=== PATIENT | female | born 1935 | race Caucasian/White ===

== ENCOUNTER → 2016-08-15 | Outpatient (CLI) | payer BC ==
[~2016-08-15] MED LIST: ASPI81TA28 PO; CALC600T9 PO; CLR10 PO; MLXESC PO; MULT-506 PO; PRT40 PO; SALI0.657 NAE; TRIA1SPR4 NAE
[2016-08-15 15:08] LABS: ALB/GLOB RATIO 0.9 (0.9-2); ALKALINE PHOSPHATASE 87 U/L (45-117); ALT/SGPT 25 U/L (12-78); AST/SGOT 17 U/L (15-37); BLOOD UREA NITROGEN 13 mg/dl (7-18); CALCIUM 9.5 mg/dl (8.5-10.1); CARBON DIOXIDE 29 mmol/L (21-32); CHLORIDE 100 mmol/L (98-107); CREATININE 0.91 mg/dl (0.60-1.20); GLUCOSE 91 mg/dl (70-99); POTASSIUM 4.2 mmol/L (3.5-5.1); SODIUM 137 mmol/L (136-145)
== END | disposition home or self-care (01) ==
LOC: C.LABBC 10:22
PROVIDERS: ATTEND Internal Medicine
DX: R00.2 Palpitations (principal)

== ENCOUNTER → 2017-03-27 | Outpatient (CLI) | payer BC ==
--- NOTE | 2017-03-28 07:54 | MAMMOGRAPHY REPORT ---
BILATERAL DIGITAL SCREENING MAMMOGRAM TOMOSYNTHESIS WITH CAD: 03/27/2017 CLINICAL HISTORY: Routine screening. Patient has no complaints. TECHNIQUE: Breast tomosynthesis in addition to standard 2D mammography was performed. Current study was also evaluated with a Computer Aided Detection (CAD) system. COMPARISON: Comparison is made to exams dated: 03/05/2016 mammogram, 03/01/2015 mammogram, 02/24/2014 mammogram, 02/23/2013 mammogram, 02/21/2012 mammogram, and 02/20/2011 mammogram - [facility]. BREAST COMPOSITION: The tissue of both breasts is heterogeneously dense, which may obscure small mas ses. FINDINGS: No suspicious masses, calcifications, or areas of architectural distortion are noted in ei ther breast. There has been no significant interval change compared to prior exams. IMPRESSION: ACR BI-RADS CATEGORY 1: NEGATIVE There is no mammographic evidence of malignancy. A 1 year screening mammogram is recommended. The pa tient will receive written notification of the results. Approximately 10% of breast cancers are not detected with mammography. A negative mammographic report should not delay biopsy if a clinically suggestive mass is present. Carole Pringle M.D. ah/:03/27/2017 14:32:00 Brand Ambassador Promotional Model: Denise STOCKTON(Aly)(M), [facility] letter sent: Normal 1/2 BI-RADS Code: ACR BI-RADS Category 1: Negative
== END | disposition home or self-care (01) ==
LOC: C.MAMM 13:43
PROVIDERS: ATTEND Obstetrics & Gynecology
DX: Z12.31 Encounter for screening mammogram for malignant neoplasm of breast (principal)

== ENCOUNTER 2022-11-30 14:50 | Inpatient (IN) ==
[2022-11-30] MEDS ORDERED: CEFEPIME 2,000 MG/20 ML VIAL IV STA (15:07)
[2022-11-30] MEDS ORDERED: SODIUM CHLORIDE 0.9% 1000ML 1,000 ML IV ONE (15:07)
[2022-11-30] MEDS ORDERED: LORazepam 2 MG/1 ML VIAL IV STA (15:07)
[2022-11-30] MEDS ORDERED: STAT IV STA ×2 (15:14→20:28)
[2022-11-30] MEDS ORDERED: SODIUM CHLORIDE 3 % 100 ML IV ONE (15:14)
[2022-11-30 15:17] LABS: iSTAT Creatinine 0.6 mg/dl (0.6-1.3); iSTAT Hemoglobin 15.3 g/dl (12.0-16.0); iSTAT Ionized Calcium 1.15 mmol/l (1.12-1.32); iSTAT Potassium 4.2 mmol/L (3.3-5.0)
[2022-11-30 15:33] LABS: Basophils # (auto) 0.03 K/uL (0-0.2); Basophils % (auto) 0.2 %; Eosinophils # (auto) 0.02 K/uL (0-0.50); Eosinophils % (auto) 0.2 %; Hematocrit (blood only) 38.9 % (37.0-47.0); Hemoglobin 13.6 g/dl (12.0-16.0); Immature Granulocytes # (auto) 0.05 K/uL (0.01-0.20); Immature Granulocytes % (auto) 0.4 %; Lymphocytes # (auto) 1.42 K/uL (1.2-3.4); Lymphocytes % (auto) 11.6 %; Mean Corpuscular Hemoglobin 28.6 pg (25.0-34.0); Mean Corpuscular Volume 81.9 fL (80.0-100.0); Mean Platelet Volume 9.3 fL (9.4-12.4); Monocytes # (auto) 1.08 K/uL (0.11-0.59); Monocytes % (auto) 8.8 %; Neutrophils # (auto) 9.65 K/uL (1.40-6.50); Neutrophils % (auto) 78.8 %; Platelet Count 372 K/uL (130-400); RDW Coefficient of Variation 16.2 % (11.5-14.5); RDW Standard Deviation 48.6 fL (36.4-46.3); Red Blood Count 4.75 M/uL (4.20-5.40); White Blood Count 12.25 K/ul (4.8-10.8)
[2022-11-30 15:42] LABS: Appearance Urine Clear (Clear); Bilirubin Urine Negative (Negative); Blood Urine Negative (Negative); Color Urine Yellow; Glucose Urine UA Negative (Negative); Ketones Urine Trace (Negative); Leukocyte Esterase Urine Negative (Negative); Nitrite Urine Negative (Negative); Protein Urine Negative (Negative); Specific Gravity Urine 1.008 (1.000-1.030); Urobilinogen Urine Negative (Negative)
[2022-11-30 15:47] LABS: Albumin Level 4.2 gm/dl (3.4-5.0); BUN Creatinine Ratio 11.7 (10-20); Bilirubin Direct 0.1 mg/dl (0-0.2); Bilirubin,Total 0.7 mg/dl (0.2-1.0); Calcium 9.6 mg/dl (8.6-10.3); Creatinine Clr Calc Pharmacy 52.6 ml/min; Magnesium 1.9 mg/dl (1.7-2.4); Potassium 4.3 mmol/L (3.5-5.1)
--- NOTE | 2022-11-30 15:51 | XRay Report ---
XR chest 1V portable HISTORY: Sepsis COMPARISON: Chest 11/05/2022. FINDINGS: No pneumothorax. No pleural effusions. The cardiac silhouette is normal in size. Stable sma ll scarlike densities within the right lung apex. No new focal lung consolidations to suggest a pneum onia. No evidence for pulmonary edema. IMPRESSION: No acute process. ACT 112: Negative or not required by law. Electronically signed by: Timothy Rasmussen M.D. 11/30/2022 3:49 PM
[2022-11-30 15:52] LABS: Troponin I High Sensitivity 8.3 pg/ml (0-14)
[2022-11-30 15:55] LABS: INR 0.9 (0.9-1.1); Partial Thromboplastin Ratio 0.8; Partial Thromboplastin Time 23.5 Seconds (21.0-31.0); Prothrombin Time 10.4 Seconds (9.0-12.0)
--- NOTE | 2022-11-30 16:09 | CT Scan Report ---
CT head/brain wo con CLINICAL HISTORY: 87 years-old Female with altered. Acutely altered mental status TECHNIQUE: Multiple axial CT images of the head were obtained without contrast. A dose lowering tech nique was utilized adhering to the principles of ALARA. CT DOSE: 625.80 mGy.cm COMPARISON: 02/07/2016. FINDINGS: No acute intracranial hemorrhage, midline shift, intracranial mass, hydrocephalus, territorial ischem ia or abnormal extra-axial collection. 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 The calvarium is intact. The paranasal sinuses, mastoid air cells, and middle ear cavities are clear . IMPRESSION: No acute intracranial abnormality. ACT 112: Negative or not required by law. The above report was generated using voice recognition software. It may contain grammatical, syntax o r spelling errors. Electronically signed by: Anand Moore M.D. 11/30/2022 4:08 PM
--- NOTE | 2022-11-30 16:40 | Emergency Department Note ---
Impression & Plan Altered mental status, Hyponatremia, Leukocytosis, Elevated prolactin level, Elevated lactic acid level ED Provider Note NAME: LEENA BAIG AGE: 87 SEX: F : 1935 ARRIVES VIA: Ambulance INFORMANT: [Nursing, EMS] ED PROVIDER(S): [Magen Welch MD] CHIEF COMPLAINT: Altered mental state HISTORY OF PRESENT ILLNESS: The patient is a 87-year-old female who was found altered and down on the floor of her apartment at [facility]. Last known well time is unknown. The patient's blood sugar was 140 as per EMS. The patient can give no history, no further history obtainable given the circumstances PMHx/PSHx: See Below SOCIAL HISTORY: See Below. PHYSICAL EXAM: GENERAL: Patient is in moderate distress, seems agitated. HEENT: No acute trauma, normocephalic atraumatic, mucous membranes moist, no nasal congestion. Pupils equal and reactive to light. NECK: No stridor, no adenopathy, no meningismus, trachea is midline. LUNGS: Clear to auscultation bilaterally, no wheeze, no rhonchi, breath sounds equal. HEART: Without murmurs gallops or rubs, regular rate and rhythm. ABDOMEN: Soft, nontender, bowel sounds positive, no peritonitis. EXTREMITIES: No cyanosis or edema, full range of motion of all the joints without pain or difficulty. There is no deformity to the upper or lower extremities. There are some older contusions and abrasions to all 4 extremities. NEUROLOGIC: Awake, moves all extremities, currently nonverbal. Does not follow commands. SKIN: No rash, no jaundice, no diaphoresis. DIFFERENTIAL DIAGNOSIS: Intracranial bleeding, stroke, seizure, electrolyte imbalance, sepsis or bacteremia, dysrhythmia, RI, among others. EMERGENCY DEPARTMENT COURSE/PROCEDURES: Prior/Outside records reviewed: EMS notes. ECG per my interpretation: Indication was altered mental state. The ECG shows a sinus rhythm with a first-degree AV block with some baseline artifact. The rate is 87. There is no ST elevation, no PVCs. The QTc is 438. A potential old septal infarct was seen. Continuous Cardiac Monitoring per my interpretation: An order was placed for continuous cardiac monitoring. The monitor shows a rate of 83 with sinus rhythm with a first-degree block. Critical Care Note: I have personally spent 55 minutes of critical care time in the direct management of this patient. This includes bedside care, interpretation of diagnostic studies, and testing, discussion with consultants, patient, and family members, and other required patient management activities. This 55 minutes is in excess of all separately billable procedures. MEDICAL DECISION MAKING: There is a mild leukocytosis, this could be consistent with infection or the stress of her current situation. There was a normal hemoglobin and platelet count. No coagulopathy. Sodium was quite low at 123. This is a drop for her. No renal failure. Lactic acid level was elevated consistent with potential sepsis or dehydration. No concerning liver enzyme elevation. Total CK was not elevated making rhabdomyolysis unlikely. Procalcitonin level was not elevated making serious bacterial infection unlikely. ECG showed a sinus rhythm with a first-degree block, no ischemia or dysrhythmia. Cardiac enzyme testing x1 is not consistent with acute cardiac injury. Prolactin level was elevated consistent with potential recent seizure activity. Urinalysis showed ketones, no infection. Brain CT showed no acute bleed or mass effect. Chest film per my review did not show pneumonia, CHF or mediastinal widening. On exam, the patient was awake and moving all extremities. She was confused and altered. The patient received IV saline, a total of 2 L. She received IV Ativan for her agitation and to prevent potential recurrent seizure. She was given IV Keppra, 2 g, she was given IV cefepime as empiric antibiotic coverage. As per the nursing staff, the patient's mental status began to improve while here in the ED. This would be consistent with a postictal state. The patient did fall asleep after her dose of IV Ativan. I did speak with the patient's daughter, Lucrecia. She was updated on the patient's condition. I did speak with case management, the on-call hospitalist was consulted. Patient was given IV hypertonic saline, 100 cc. This was given to boost the lower sodium value and to hopefully prevent further seizure activity. In short, I suspect the patient had a seizure from her lower sodium. This would explain her initial altered mental status and mental status improvement while here in the ED. Further care in the hospital is warranted. DISPOSITION: Patient's presentation and findings warrant a hospital stay and further testing/work-up. Past Med/Surg History Medical History (Updated 11/30/22 @ 19:49 by Magen Welch MD) Dyslipidemia Family history of colon cancer Osteopenia after menopause Pancreatic cyst Surgical History History of colonoscopy History of varicose vein ligation and stripping S/P tubal ligation Family History Sister Breast cancer Coronary heart disease Father Stroke Mother Breast cancer Son Narcolepsy Other No family history of adverse response to anesthesia No family history of bleeding disorder Denies family history of Ovarian cancer Prostate cancer Diabetes Lung cancer Colorectal cancer Social History Smoking Status: Never smoker Second Hand Exposure: No; Do You Dip or Chew Tobacco: No; Hx Alcohol Use: Yes (5x per week ) Alcohol type: wine and hard liquor Alcohol Intake Frequency: 2-3 x/Week Hx Substance Use: No Preferred Language: Slovenian Communication Ability: Effective Visual Impairment: Limited Hearing Ability: Normal Beliefs That Will Affect Care: None marital status: Current Living Situation: Alone current occupational status: retired How many Children do You have: 3 Feels Safe at Home: Yes Childhood Exposure to Second-Hand Smoke: Yes (father smoked pipe occassionally ) Diet: regular caffeine: Yes (coffee and tea ) Dental Care, Regularly: Yes Physical Activity Frequency: Daily Physical Activity Frequency Comment: walk Seatbelt Use: always Sunscreen Use: Yes Allergies Allergies Allergy/AdvReac Type Severity Reaction Status Date / Time Penicillins Allergy Unknown Unknown rxn Verified 11/30/22 17:39 azithromycin [From Zithromax] Allergy Unknown Verified 11/30/22 17:39 doxycycline Allergy Unknown Verified 11/30/22 17:39 risedronate sodium Allergy Unknown Verified 11/30/22 17:39 [From Actonel] Home Meds Home Medications Medication Instructions Recorded Confirmed triamcinolone acetonide 55 mcg 2 sprays intranasal DAILY PRN .. 01/22/19 11/30/22 nasal spray aerosol #1 mL timolol 0.5 % eye drops 1 drp ophthalmic (eye) DAILY 02/21/22 11/30/22 alendronate 70 mg tablet (Fosamax) 70 mg PO WK 11/30/22 11/30/22 aspirin 81 mg tablet,delayed 81 mg PO DAILY 11/30/22 11/30/22 release betamethasone dipropionate 0.05 % 1 applic topical BID PRN itching 11/30/22 11/30/22 topical cream bimatoprost 0.01 % eye drops 1 drp OPB DAILY 11/30/22 11/30/22 (Jason) calcium carbonate 600 mg-vitamin 1 tab PO BID 11/30/22 11/30/22 D3 10 mcg (400 unit) tablet (Calcium 600 + D(3)) ipratropium bromide 21 mcg (0.03 1 spray intranasal DIRECTED 11/30/22 11/30/22 %) nasal spray Previous Rx's Medication Instructions Recorded nystatin-triamcinolone 100,000 1 applic topical TID PRN vaginal 02/27/22 unit/gram-0.1 % topical ointment irritation 10 days #30 grams Results & Data (ED) Vital Signs Vital Signs - 24 hr 11/30/22 14:55 11/30/22 15:05 11/30/22 15:07 Temperature 36.4 C L Temperature Source Oral Pulse Rate 92 H Pulse Rate from SpO2 Sensor Respiratory Rate 20 Blood Pressure 213/118 H Blood Pressure Mean 149 Pulse Oximetry 99 95 Oxygen Delivery Method Room Air Room Air Room Air Sepsis Recent Fever Within 48 Hours No Sepsis New/Unexplained Change in Mental Status Yes Sepsis Action Taken by Nursing No Action Required 11/30/22 15:52 11/30/22 15:00 11/30/22 15:08 Temperature Temperature Source Pulse Rate 83 78 Pulse Rate from SpO2 Sensor 80 Respiratory Rate 24 Blood Pressure 193/89 H Blood Pressure Mean 125 Pulse Oximetry 98 Oxygen Delivery Method Sepsis Recent Fever Within 48 Hours Sepsis New/Unexplained Change in Mental Status Sepsis Action Taken by Nursing 11/30/22 15:08 11/30/22 15:16 11/30/22 15:16 Temperature Temperature Source Pulse Rate 93 H 82 Pulse Rate from SpO2 Sensor 92 H Respiratory Rate 20 20 Blood Pressure 227/79 H Blood Pressure Mean 107 Pulse Oximetry 100 Oxygen Delivery Method Sepsis Recent Fever Within 48 Hours Sepsis New/Unexplained Change in Mental Status Sepsis Action Taken by Nursing 11/30/22 15:30 11/30/22 15:30 11/30/22 15:48 Temperature Temperature Source Pulse Rate 86 Pulse Rate from SpO2 Sensor 87 Respiratory Rate 17 Blood Pressure 161/74 H 137/62 Blood Pressure Mean 114 107 Pulse Oximetry 96 Oxygen Delivery Method Sepsis Recent Fever Within 48 Hours Sepsis New/Unexplained Change in Mental Status Sepsis Action Taken by Nursing 11/30/22 15:48 11/30/22 16:00 11/30/22 16:00 Temperature Temperature Source Pulse Rate 84 82 Pulse Rate from SpO2 Sensor 84 82 Respiratory Rate 16 20 Blood Pressure 130/66 Blood Pressure Mean 99 Pulse Oximetry 95 94 Oxygen Delivery Method Sepsis Recent Fever Within 48 Hours Sepsis New/Unexplained Change in Mental Status Sepsis Action Taken by Nursing 11/30/22 16:15 11/30/22 16:30 11/30/22 16:30 Temperature Temperature Source Pulse Rate 78 75 Pulse Rate from SpO2 Sensor 78 73 Respiratory Rate 19 16 Blood Pressure 114/50 L Blood Pressure Mean 67 Pulse Oximetry 94 95 Oxygen Delivery Method Sepsis Recent Fever Within 48 Hours Sepsis New/Unexplained Change in Mental Status Sepsis Action Taken by Nursing 11/30/22 16:45 11/30/22 16:45 11/30/22 17:00 Temperature Temperature Source Pulse Rate 76 75 Pulse Rate from SpO2 Sensor 76 76 Respiratory Rate 16 16 Blood Pressure 109/63 Blood Pressure Mean 70 Pulse Oximetry 97 96 Oxygen Delivery Method Sepsis Recent Fever Within 48 Hours Sepsis New/Unexplained Change in Mental Status Sepsis Action Taken by Nursing 11/30/22 17:15 11/30/22 17:30 11/30/22 17:30 Temperature Temperature Source Pulse Rate 75 75 Pulse Rate from SpO2 Sensor 77 75 Respiratory Rate 20 21 Blood Pressure 127/48 L Blood Pressure Mean 53 Pulse Oximetry 97 98 Oxygen Delivery Method Sepsis Recent Fever Within 48 Hours Sepsis New/Unexplained Change in Mental Status Sepsis Action Taken by Nursing 11/30/22 17:45 11/30/22 17:45 11/30/22 18:00 Temperature Temperature Source Pulse Rate 73 Pulse Rate from SpO2 Sensor 73 Respiratory Rate 16 Blood Pressure 121/77 161/74 H Blood Pressure Mean 100 139 Pulse Oximetry 97 Oxygen Delivery Method Sepsis Recent Fever Within 48 Hours Sepsis New/Unexplained Change in Mental Status Sepsis Action Taken by Nursing 11/30/22 18:00 11/30/22 18:15 11/30/22 18:15 Temperature Temperature Source Pulse Rate 84 75 Pulse Rate from SpO2 Sensor 84 76 Respiratory Rate 21 24 Blood Pressure 136/75 Blood Pressure Mean 84 Pulse Oximetry 98 100 Oxygen Delivery Method Sepsis Recent Fever Within 48 Hours Sepsis New/Unexplained Change in Mental Status Sepsis Action Taken by Nursing 11/30/22 18:30 11/30/22 18:30 Temperature Temperature Source Pulse Rate 78 Pulse Rate from SpO2 Sensor Respiratory Rate 18 Blood Pressure 147/60 H Blood Pressure Mean 118 Pulse Oximetry Oxygen Delivery Method Sepsis Recent Fever Within 48 Hours Sepsis New/Unexplained Change in Mental Status Sepsis Action Taken by [facility] Medications Current Medication List: was personally reviewed by me Laboratory Data Attestation: I reviewed the patient's lab results. 11/30/22 15:00 11/30/22 15:00 Lab Results 11/30/22 11/30/22 11/30/22 Range/Units 14:55 15:00 15:00 WBC 12.25 H (4.8-10.8) K/ul RBC 4.75 (4.20-5.40) M/uL Hgb 13.6 (12.0-16.0) g/dl POC Hgb (12.0-16.0) g/dl Hct 38.9 (37.0-47.0) % POC Hct (37-47) % MCV 81.9 (80.0-100.0) fL MCH 28.6 (25.0-34.0) pg MCHC 35.0 (32.0-36.0) g/dL RDW Std Deviation 48.6 H (36.4-46.3) fL RDW Coeff of Bandar 16.2 H (11.5-14.5) % Plt Count 372 (130-400) K/uL MPV 9.3 L (9.4-12.4) fL Immature Gran % (Auto) 0.4 % Neut % (Auto) 78.8 % Lymph % (Auto) 11.6 % [place] % (Auto) 8.8 % Eos % (Auto) 0.2 % Baso % (Auto) 0.2 % Neut # (Auto) 9.65 H (1.40-6.50) K/uL Lymph # (Auto) 1.42 (1.2-3.4) K/uL [place] # (Auto) 1.08 H (0.11-0.59) K/uL Eos # (Auto) 0.02 (0-0.50) K/uL Baso # (Auto) 0.03 (0-0.2) K/uL Immature Gran # (Auto) 0.05 (0.01-0.20) K/uL PT (9.0-12.0) Seconds INR (0.9-1.1) APTT (21.0-31.0) Seconds PTT Ratio POC Sodium (135-144) mmol/L Sodium 123 L (136-145) mmol/L POC Potassium (3.3-5.0) mmol/L Potassium 4.3 (3.5-5.1) mmol/L POC Chloride (101-112) mmol/L Chloride 89 L (98-107) mmol/L Carbon Dioxide 24 (21-32) mmol/L POC Total CO2 (24-31) mmol/L Anion Gap 10 (3-11) POC Anion Gap (16-25) mmol/L POC BUN (7-18) mg/dl BUN 7 (6-23) mg/dl Creatinine 0.60 (0.6-1.2) mg/dl POC Creatinine (0.6-1.3) mg/dl Est Cr Clr Drug Dosing 52.6 ml/min Est GFR ( Amer) 95.0 ml/min Est GFR (Non-Af Amer) 82.0 ml/min BUN/Creatinine Ratio 11.7 (10-20) Glucose 147 H (70-99(Fasting)) mg/dl POC Glucose (other) (70-99) mg/dl Lactate (0.4-2.0) mmol/L Calcium 9.6 (8.6-10.3) mg/dl POC Ioniz Calcium Chaz (1.12-1.32) mmol/l Magnesium 1.9 (1.7-2.4) mg/dl Total Bilirubin 0.7 (0.2-1.0) mg/dl Direct Bilirubin 0.1 (0-0.2) mg/dl AST 22 (13-39) U/L ALT 28 (7-52) U/L Alkaline Phosphatase 74 (34-104) U/L Total Creatine Kinase 63 (26-192) U/L Troponin I High Sens 8.3 (0-14) pg/ml Total Protein 8.0 (6.0-8.3) gm/dl Albumin 4.2 (3.4-5.0) gm/dl Procalcitonin (0-0.5) ng/ml Prolactin ng/ml Urine Color Yellow Urine Appearance Clear (Clear) Urine pH 8.0 H (4.5-7.5) Ur Specific Mobile 1.008 (1.000-1.030) Urine Protein Negative (Negative) Urine Glucose (UA) Negative (Negative) Urine Ketones Trace H (Negative) Urine Blood Negative (Negative) Urine Nitrite Negative (Negative) Urine Bilirubin Negative (Negative) Urine Urobilinogen Negative (Negative) Ur Leukocyte Esterase Negative (Negative) 11/30/22 11/30/22 11/30/22 Range/Units 15:00 15:00 15:04 WBC (4.8-10.8) K/ul RBC (4.20-5.40) M/uL Hgb (12.0-16.0) g/dl POC Hgb 15.3 (12.0-16.0) g/dl Hct (37.0-47.0) % POC Hct 45 (37-47) % MCV (80.0-100.0) fL MCH (25.0-34.0) pg MCHC (32.0-36.0) g/dL RDW Std Deviation (36.4-46.3) fL RDW Coeff of Bandar (11.5-14.5) % Plt Count (130-400) K/uL MPV (9.4-12.4) fL Immature Gran % (Auto) % Neut % (Auto) % Lymph % (Auto) % [place] % (Auto) % Eos % (Auto) % Baso % (Auto) % Neut # (Auto) (1.40-6.50) K/uL Lymph # (Auto) (1.2-3.4) K/uL [place] # (Auto) (0.11-0.59) K/uL Eos # (Auto) (0-0.50) K/uL Baso # (Auto) (0-0.2) K/uL Immature Gran # (Auto) (0.01-0.20) K/uL PT 10.4 (9.0-12.0) Seconds INR 0.9 (0.9-1.1) APTT 23.5 (21.0-31.0) Seconds PTT Ratio 0.8 POC Sodium 124 L (135-144) mmol/L Sodium (136-145) mmol/L POC Potassium 4.2 (3.3-5.0) mmol/L Potassium (3.5-5.1) mmol/L POC Chloride 89 L (101-112) mmol/L Chloride (98-107) mmol/L Carbon Dioxide (21-32) mmol/L POC Total CO2 24 (24-31) mmol/L Anion Gap (3-11) POC Anion Gap 16.0 (16-25) mmol/L POC BUN 6 L (7-18) mg/dl BUN (6-23) mg/dl Creatinine (0.6-1.2) mg/dl POC Creatinine 0.6 (0.6-1.3) mg/dl Est Cr Clr Drug Dosing ml/min Est GFR ( Amer) ml/min Est GFR (Non-Af Amer) ml/min BUN/Creatinine Ratio (10-20) Glucose (70-99(Fasting)) mg/dl POC Glucose (other) 149 H (70-99) mg/dl Lactate (0.4-2.0) mmol/L Calcium (8.6-10.3) mg/dl POC Ioniz Calcium Chaz 1.15 (1.12-1.32) mmol/l Magnesium (1.7-2.4) mg/dl Total Bilirubin (0.2-1.0) mg/dl Direct Bilirubin (0-0.2) mg/dl AST (13-39) U/L ALT (7-52) U/L Alkaline Phosphatase (34-104) U/L Total Creatine Kinase (26-192) U/L Troponin I High Sens (0-14) pg/ml Total Protein (6.0-8.3) gm/dl Albumin (3.4-5.0) gm/dl Procalcitonin < 0.05 (0-0.5) ng/ml Prolactin ng/ml Urine Color Urine Appearance (Clear) Urine pH (4.5-7.5) Ur Specific Mobile (1.000-1.030) Urine Protein (Negative) Urine Glucose (UA) (Negative) Urine Ketones (Negative) Urine Blood (Negative) Urine Nitrite (Negative) Urine Bilirubin (Negative) Urine Urobilinogen (Negative) Ur Leukocyte Esterase (Negative) 11/30/22 11/30/22 11/30/22 Range/Units 15:05 17:13 17:59 WBC (4.8-10.8) K/ul RBC (4.20-5.40) M/uL Hgb (12.0-16.0) g/dl POC Hgb (12.0-16.0) g/dl Hct (37.0-47.0) % POC Hct (37-47) % MCV (80.0-100.0) fL MCH (25.0-34.0) pg MCHC (32.0-36.0) g/dL RDW Std Deviation (36.4-46.3) fL RDW Coeff of Bandar (11.5-14.5) % Plt Count (130-400) K/uL MPV (9.4-12.4) fL Immature Gran % (Auto) % Neut % (Auto) % Lymph % (Auto) % [place] % (Auto) % Eos % (Auto) % Baso % (Auto) % Neut # (Auto) (1.40-6.50) K/uL Lymph # (Auto) (1.2-3.4) K/uL [place] # (Auto) (0.11-0.59) K/uL Eos # (Auto) (0-0.50) K/uL Baso # (Auto) (0-0.2) K/uL Immature Gran # (Auto) (0.01-0.20) K/uL PT (9.0-12.0) Seconds INR (0.9-1.1) APTT (21.0-31.0) Seconds PTT Ratio POC Sodium (135-144) mmol/L Sodium (136-145) mmol/L POC Potassium (3.3-5.0) mmol/L Potassium (3.5-5.1) mmol/L POC Chloride (101-112) mmol/L Chloride (98-107) mmol/L Carbon Dioxide (21-32) mmol/L POC Total CO2 (24-31) mmol/L Anion Gap (3-11) POC Anion Gap (16-25) mmol/L POC BUN (7-18) mg/dl BUN (6-23) mg/dl Creatinine (0.6-1.2) mg/dl POC Creatinine (0.6-1.3) mg/dl Est Cr Clr Drug Dosing ml/min Est GFR ( Amer) ml/min Est GFR (Non-Af Amer) ml/min BUN/Creatinine Ratio (10-20) Glucose (70-99(Fasting)) mg/dl POC Glucose (other) (70-99) mg/dl Lactate 2.4 H* 2.2 H* (0.4-2.0) mmol/L Calcium (8.6-10.3) mg/dl POC Ioniz Calcium Chaz (1.12-1.32) mmol/l Magnesium (1.7-2.4) mg/dl Total Bilirubin (0.2-1.0) mg/dl Direct Bilirubin (0-0.2) mg/dl AST (13-39) U/L ALT (7-52) U/L Alkaline Phosphatase (34-104) U/L Total Creatine Kinase (26-192) U/L Troponin I High Sens (0-14) pg/ml Total Protein (6.0-8.3) gm/dl Albumin (3.4-5.0) gm/dl Procalcitonin (0-0.5) ng/ml Prolactin 21.11 ng/ml Urine Color Urine Appearance (Clear) Urine pH (4.5-7.5) Ur Specific Mobile (1.000-1.030) Urine Protein (Negative) Urine Glucose (UA) (Negative) Urine Ketones (Negative) Urine Blood (Negative) Urine Nitrite (Negative) Urine Bilirubin (Negative) Urine Urobilinogen (Negative) Ur Leukocyte Esterase (Negative) 11/30/22 Range/Units 17:59 WBC (4.8-10.8) K/ul RBC (4.20-5.40) M/uL Hgb (12.0-16.0) g/dl POC Hgb (12.0-16.0) g/dl Hct (37.0-47.0) % POC Hct (37-47) % MCV (80.0-100.0) fL MCH (25.0-34.0) pg MCHC (32.0-36.0) g/dL RDW Std Deviation (36.4-46.3) fL RDW Coeff of Bandar (11.5-14.5) % Plt Count (130-400) K/uL MPV (9.4-12.4) fL Immature Gran % (Auto) % Neut % (Auto) % Lymph % (Auto) % [place] % (Auto) % Eos % (Auto) % Baso % (Auto) % Neut # (Auto) (1.40-6.50) K/uL Lymph # (Auto) (1.2-3.4) K/uL [place] # (Auto) (0.11-0.59) K/uL Eos # (Auto) (0-0.50) K/uL Baso # (Auto) (0-0.2) K/uL Immature Gran # (Auto) (0.01-0.20) K/uL PT (9.0-12.0) Seconds INR (0.9-1.1) APTT (21.0-31.0) Seconds PTT Ratio POC Sodium (135-144) mmol/L Sodium (136-145) mmol/L POC Potassium (3.3-5.0) mmol/L Potassium (3.5-5.1) mmol/L POC Chloride (101-112) mmol/L Chloride (98-107) mmol/L Carbon Dioxide (21-32) mmol/L POC Total CO2 (24-31) mmol/L Anion Gap (3-11) POC Anion Gap (16-25) mmol/L POC BUN (7-18) mg/dl BUN (6-23) mg/dl Creatinine (0.6-1.2) mg/dl POC Creatinine (0.6-1.3) mg/dl Est Cr Clr Drug Dosing ml/min Est GFR ( Amer) ml/min Est GFR (Non-Af Amer) ml/min BUN/Creatinine Ratio (10-20) Glucose (70-99(Fasting)) mg/dl POC Glucose (other) (70-99) mg/dl Lactate (0.4-2.0) mmol/L Calcium (8.6-10.3) mg/dl POC Ioniz Calcium Chaz (1.12-1.32) mmol/l Magnesium (1.7-2.4) mg/dl Total Bilirubin (0.2-1.0) mg/dl Direct Bilirubin (0-0.2) mg/dl AST (13-39) U/L ALT (7-52) U/L Alkaline Phosphatase (34-104) U/L Total Creatine Kinase 48 (26-192) U/L Troponin I High Sens (0-14) pg/ml Total Protein (6.0-8.3) gm/dl Albumin (3.4-5.0) gm/dl Procalcitonin (0-0.5) ng/ml Prolactin ng/ml Urine Color Urine Appearance (Clear) Urine pH (4.5-7.5) Ur Specific Mobile (1.000-1.030) Urine Protein (Negative) Urine Glucose (UA) (Negative) Urine Ketones (Negative) Urine Blood (Negative) Urine Nitrite (Negative) Urine Bilirubin (Negative) Urine Urobilinogen (Negative) Ur Leukocyte Esterase (Negative) Administered Medications Discontinued Medications Sodium Chloride (Nss 1000ml) 1,000 mls @ 999 mls/hr IV .Q1H1M ONE Stop: 11/30/22 16:07 Last Infusion: 11/30/22 18:26 Dose: 0 mls/hr Documented By: Admin: 11/30/22 15:18 Dose: 999 mls/hr Documented By: JASON Cefepime HCl (Maxipime) 2,000 mg in 20 mls @ 5 mls/min IV NOW STA; Protocol Stop: 11/30/22 15:10 Last Admin: 11/30/22 15:19 Dose: 5 mls/min Documented By: JASON Sodium Chloride (Hypertonic Saline 3%) 100 mls @ 600 mls/hr IV .Q10M ONE; Protocol Stop: 11/30/22 15:23 Last Infusion: 11/30/22 15:39 Dose: 0 mls/hr Documented By: JASON Co-signed By: MARTÍN Admin: 11/30/22 15:23 Dose: 600 mls/hr Documented By: JASON Co-signed By: MARTÍN Levetiracetam 2,000 mg/ Sodium (Chloride) 270 mls @ 999 mls/hr IV NOW STA Stop: 11/30/22 16:08 Last Infusion: 11/30/22 16:42 Dose: 0 mls/hr Documented By: Admin: 11/30/22 16:16 Dose: 999 mls/hr Documented By: JASON Sodium Chloride (Nss 1000ml) 500 mls @ 999 mls/hr IV .Q31M ONE Stop: 11/30/22 17:43 Last Infusion: 11/30/22 19:39 Dose: 0 mls/hr Documented By: Admin: 11/30/22 18:26 Dose: 999 mls/hr Documented By: JASON Sodium Chloride (Nss 1000ml) 500 mls @ 999 mls/hr IV .Q31M ONE Stop: 11/30/22 19:25 Last Infusion: 11/30/22 19:39 Dose: 0 mls/hr Documented By: Admin: 11/30/22 19:10 Dose: 999 mls/hr Documented By: BRYANNA Lorazepam (Lorazepam 2 Mg/1 Ml Vial) 1 mg IV NOW STA Stop: 11/30/22 15:08 Last Admin: 11/30/22 15:18 Dose: 1 mg Documented By: JASON Imaging Data Radiologist's Impression: Chest X-Ray 11/30/22 15:07 XR chest 1V portable HISTORY: Sepsis COMPARISON: Chest 11/05/2022. FINDINGS: No pneumothorax. No pleural effusions. The cardiac silhouette is normal in size. Stable small scarlike densities within the right lung apex. No new focal lung consolidations to suggest a pneumonia. No evidence for pulmonary edema. IMPRESSION: No acute process. ACT 112: Negative or not required by law. Electronically signed by: Timothy Rasmussen M.D. 11/30/2022 3:[address] 11/30/22 15:07 CT head/brain wo con CLINICAL HISTORY: 87 years-old Female with altered. Acutely altered mental status TECHNIQUE: Multiple axial CT images of the head were obtained without contrast. A dose lowering technique was utilized adhering to the principles of ALARA. CT DOSE: 625.80 mGy.cm COMPARISON: 02/07/2016. FINDINGS: No acute intracranial hemorrhage, midline shift, intracranial mass, hyd rocephalus, territorial ischemia or abnormal extra-axial collection. 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 The calvarium is intact. The paranasal sinuses, mastoid air cells, and middle ear cavities are clear. IMPRESSION: No acute intracranial abnormality. ACT 112: Negative or not required by law. The above report was generated using voice recognition software. It may contain grammatical, syntax or spelling errors. Electronically signed by: Anand Moore M.D. 11/30/2022 4:08 PM Discharge Plan Visit Data Chief Complaint: Altered Mental Status Stated Complaint: FALL, AMS ED Provider: Magen Welch Discharge Problem: Altered mental status, Hyponatremia, Leukocytosis, Elevated prolactin level, Elevated lactic acid level Patient Disposition: Admitted As Inpatient Condition: Serious Forms Stand Alone Forms: My [facility] Prescriptions Prescriptions: No Action nystatin-triamcinolone 100,000-0.1 unit/gram-% ointment 1 applic TOP TID PRN (Reason: vaginal irritation) 10 Days Qty: 30 1RF timolol 0.5 % drops 1 drp ophthalmic (eye) DAILY Rx Instructions: PER [place] triamcinolone acetonide 55 mcg aerosol,spray 2 sprays intranasal DAILY PRN (Reason: ..) Qty: 1 aspirin [Aspir-Low] 81 mg Tablet,Delayed Release (Dr/Ec) 81 mg PO DAILY calcium carbonate-vitamin D3 [Calcium 600 + D(3)] 600 mg-10 mcg (400 unit) Tablet 1 tab PO BID Lum[place] 0.01 % drops 1 drp OPB DAILY alendronate [Fosamax] 70 mg tablet 70 mg PO WK Rx Instructions: Per dr 1st betamethasone dipropionate 0.05 % cream 1 applic TOP BID PRN (Reason: itching) Rx Instructions: Apply sparingly to affected area twice a day PRN; ipratropium bromide 21 mcg (0.03 %) spray,non-aerosol 1 spray intranasal DIRECTED Rx Instructions: administer into each nostril Referrals Referrals: Roque Figueroa MD [Primary Care Provider] -
[2022-11-30] MEDS ORDERED: SODIUM CHLORIDE 0.9% 1000ML 500 ML IV ONE ×2 (17:13→18:55)
--- NOTE | 2022-11-30 17:35 | History & Physical Report ---
Date of Service November 30, 2022 History of Present Illness Primary Care Provider: Roque Figueroa MD Carly is a 87-year-old female with a past medical history of pancreatic cyst, abdominal bloating, idiopathic urticaria, systolic murmur, vaginal prolapse, OA who was found down and confused at her apartment at [facility]. BSG in route was 140. CT of the head shows no acute findings. Chest x-ray shows no acute process Mental status, unwitnessed collapse. Seizure initially suspect Leukocytosis of 12.25 with neutrophilic predominance Platelet count 372 Creatinine 0.60 Lactate 2.4, repeat 2.2 Troponin is normal UA is uninfected appearing Procalcitonin is normal Creatinine BUN ratio was not contracted - 10/31/2022 TTE: Performed for murmur evaluation. EF 60 to 65%. No significant valvular abnormalities. Very small pericardial effusion along RV wall without tamponade. Type I diastolic dysfunction. Technically challenging study - Unknown last known well. Suspected post ictal state -Reportedly starting to improve after Ativan/Keppra in ER Given limited historian and low although not critically low sodium will obtain prolactin. If elevated will treat a hyponatremic seizure. If normal will obtain CT of the abdomen, CT of the neck, continue empiric antibiotics Hyponatremia Sodium 124, pending baseline reconciliation No evidence of pneumonia on CT [] Seizure CODE STATUS: Full code, medical power of criminal defense attorney [] Allergies Allergy/AdvReac Type Severity Reaction Status Date / Time Penicillins Allergy Unknown Unknown rxn Verified 10/05/22 13:22 azithromycin [From Zithromax] Allergy Verified 10/05/22 13:22 doxycycline Allergy Verified 10/05/22 13:22 risedronate sodium Allergy Verified 10/05/22 13:22 [From Actonel] Home Medications Medication Instructions Recorded Confirmed Type aspirin 81 mg tablet 81 mg PO DAILY 01/22/19 10/05/22 History calcium carbonate 500 mg calcium 500 mg PO DAILY 01/22/19 10/05/22 History (1,250 mg) tablet (Calcium 500) triamcinolone acetonide 55 mcg 2 sprays intranasal DAILY PRN #1 mL 01/22/19 10/05/22 History nasal spray aerosol clobetasol 0.05 % topical ointment g topical 10/31/21 10/05/22 History loratadine 10 mg capsule 20 mg PO DAILY 02/15/22 10/05/22 History bimatoprost [Lumigan] ophthalmic (eye) 02/21/22 10/05/22 History ipratropium bromide 21 mcg (0.03 1 spray intranasal DAILY #30 mL 02/21/22 10/05/22 Rx %) nasal spray sodium bicarbonate-sodium ea .Route 02/21/22 10/05/22 History chloride-neti pot nasal rinse with packet (Agenda Saline Nasal Neti Rinse with packet) timolol 0.5 % eye drops 1 drp ophthalmic (eye) DAILY 02/21/22 10/05/22 History nystatin-triamcinolone 100,000 1 applic topical TID PRN vaginal 02/27/22 10/05/22 Rx unit/gram-0.1 % topical ointment irritation 10 days #30 grams betamethasone dipropionate 0.05 % See Rx Instructions topical BID 08/23/22 10/05/22 Rx topical cream PRN itching #45 grams alendronate 70 mg tablet (Fosamax) 70 mg PO .weekly #4 tabs 10/19/22 Rx Past Med/Surg History Medical History (Updated 11/19/22 @ 11:50 by Lexx Cruz MD) Dyslipidemia Family history of colon cancer Osteopenia after menopause Pancreatic cyst Surgical History History of colonoscopy History of varicose vein ligation and stripping S/P tubal ligation Family History Sister Breast cancer Coronary heart disease Father Stroke Mother Breast cancer Son Narcolepsy Other No family history of adverse response to anesthesia No family history of bleeding disorder Denies family history of Ovarian cancer Prostate cancer Diabetes Lung cancer Colorectal cancer Social History Smoking Status: Never smoker Second Hand Exposure: No; Do You Dip or Chew Tobacco: No; Hx Alcohol Use: Yes (5x per week ) Alcohol type: wine and hard liquor Alcohol Intake Frequency: 2-3 x/Week Hx Substance Use: No Preferred Language: Bangladeshi Communication Ability: Effective Visual Impairment: Limited Hearing Ability: Normal Beliefs That Will Affect Care: None marital status: Current Living Situation: Alone current occupational status: retired How many Children do You have: 3 Feels Safe at Home: Yes Childhood Exposure to Second-Hand Smoke: Yes (father smoked pipe occassionally ) Diet: regular caffeine: Yes (coffee and tea ) Dental Care, Regularly: Yes Physical Activity Frequency: Daily Physical Activity Frequency Comment: walk Seatbelt Use: always Sunscreen Use: Yes Results & Data Results & Data Vital Signs (Past 12 Hours) Vital Signs Temp Pulse Resp BP Pulse Ox O2 Del Method 11/30/22 16:30 75 16 95 11/30/22 16:30 114/50 L 11/30/22 16:15 78 19 94 11/30/22 16:00 82 20 94 11/30/22 16:00 130/66 11/30/22 15:48 84 16 95 11/30/22 15:48 137/62 11/30/22 15:30 86 17 96 11/30/22 15:30 161/74 H 11/30/22 15:16 227/79 H 11/30/22 15:16 82 20 11/30/22 15:08 93 H 20 100 11/30/22 15:08 193/89 H 11/30/22 15:00 78 24 98 11/30/22 15:52 83 11/30/22 15:07 95 Room Air 11/30/22 15:05 Room Air 11/30/22 14:55 36.4 C L 92 H 20 213/118 H 99 Room Air PG Care Time/CCT Total # of Minutes Spent Total Time Spent with Patient: Total time spent is greater than 50% in coordination of care (as documented) at patient's floor/unit and/or counseling patient: Coding Diagnoses
[2022-11-30 20:13] LABS: BUN Creatinine Ratio 12.8 (10-20); Calcium 6.8 mg/dl (8.6-10.3); Creatinine Clr Calc Pharmacy 67.1 ml/min; Est GFR (African American) 102.9 ml/min; Est GFR (Non-African American) 88.8 ml/min; Potassium 3.9 mmol/L (3.5-5.1)
--- NOTE | 2022-11-30 20:16 | History & Physical Report ---
Date of Service November 30, 2022 Assessment & Plan (1) Altered mental status: Plan: Hyponatremia - Sodium on admission 123 up to 131 with fluids, hypertonic saline -symptomatic hyponatremia given likely seizure - hold further fluids for now - q4 BMP - if sodium were to rise by greater than 8 per hour, plan to start D5 infusion - urine studies pending Altered Mental Status likely secondary to seizure - Head CT negative, trop normal, procal normal, EKG without ischemic changes - elevated lactate/prolactin - infectious, cardiac cause less likely - likely secondary to hyponatremia; treatment as per above - s/p Keppra, Ativan in ED - seizure precautions - Ativan 2mg q5m x3 per episode for acute seizure - CT cervical spine pending Elevated Lactate - likely secondary to seizure - downtrending to fluids - no signs of infection - hold further antibiotics for now Osteoporosis - continue calcium/vit D supplementation Code: Full Diet: NPO pending mental status VTE prophylaxis: SCD (2) Hyponatremia: (3) Leukocytosis: (4) Elevated prolactin level: (5) Elevated lactic acid level: History of Present Illness Primary Care Provider: Roque Figueroa MD 87 year old female with a past medical history of osteoporosis, chronic hyponatremia (baseline sodium around 130) dating back to 2010 per PCP note, pancreatic cyst, chronic back pain presenting after being found down at her apartment at [facility]. She was found by staff at [facility]. Unsure how long she was down for. Per EMS report BSG 140.At bedside pt was still somewhat sedated, but answering questions appropriately. States that she has been in her normal health up until today. Does not remember the events leading up to the fall. Oriented to person/place. Denies any current pain. In ED head CT was negative, CXR without acute findings, Na= 124, mild leukocytosis, lactate elevated to 2.4, prolactin elevated, CK normal, procalcitonin negative. S/p Ativan and 2g Keppra, dose of cefepime, 2L NSS and hypertonic saline, 100 cc. Allergies Allergy/AdvReac Type Severity Reaction Status Date / Time Penicillins Allergy Unknown Unknown rxn Verified 11/30/22 17:39 azithromycin [From Zithromax] Allergy Unknown Verified 11/30/22 17:39 doxycycline Allergy Unknown Verified 11/30/22 17:39 risedronate sodium Allergy Unknown Verified 11/30/22 17:39 [From Actonel] Home Medications Medication Instructions Recorded Confirmed Type triamcinolone acetonide 55 mcg 2 sprays intranasal DAILY PRN .. 01/22/19 11/30/22 History nasal spray aerosol #1 mL timolol 0.5 % eye drops 1 drp ophthalmic (eye) DAILY 02/21/22 11/30/22 History nystatin-triamcinolone 100,000 1 applic topical TID PRN vaginal 02/27/22 11/30/22 Rx unit/gram-0.1 % topical ointment irritation 10 days #30 grams alendronate 70 mg tablet (Fosamax) 70 mg PO WK 11/30/22 11/30/22 History aspirin 81 mg tablet,delayed 81 mg PO DAILY 11/30/22 11/30/22 History release betamethasone dipropionate 0.05 % 1 applic topical BID PRN itching 11/30/22 11/30/22 History topical cream bimatoprost 0.01 % eye drops 1 drp OPB DAILY 11/30/22 11/30/22 History (Lumigan) calcium carbonate 600 mg-vitamin 1 tab PO BID 11/30/22 11/30/22 History D3 10 mcg (400 unit) tablet (Calcium 600 + D(3)) ipratropium bromide 21 mcg (0.03 1 spray intranasal DIRECTED 11/30/22 11/30/22 History %) nasal spray Past Med/Surg History Medical History (Updated 11/30/22 @ 19:49 by Magen Welch MD) Dyslipidemia Family history of colon cancer Osteopenia after menopause Pancreatic cyst Surgical History History of colonoscopy History of varicose vein ligation and stripping S/P tubal ligation Family History Sister Breast cancer Coronary heart disease Father Stroke Mother Breast cancer Son Narcolepsy Other No family history of adverse response to anesthesia No family history of bleeding disorder Denies family history of Ovarian cancer Prostate cancer Diabetes Lung cancer Colorectal cancer Social History Smoking Status: Never smoker Second Hand Exposure: No; Do You Dip or Chew Tobacco: No; Hx Alcohol Use: Yes (5x per week ) Alcohol type: wine and hard liquor Alcohol Intake Frequency: 2-3 x/Week Hx Substance Use: No Preferred Language: Tanzanian Communication Ability: Effective Visual Impairment: Limited Hearing Ability: Normal Beliefs That Will Affect Care: None marital status: Current Living Situation: Alone current occupational status: retired How many Children do You have: 3 Feels Safe at Home: Yes Childhood Exposure to Second-Hand Smoke: Yes (father smoked pipe occassionally ) Diet: regular caffeine: Yes (coffee and tea ) Dental Care, Regularly: Yes Physical Activity Frequency: Daily Physical Activity Frequency Comment: walk Seatbelt Use: always Sunscreen Use: Yes Review of Systems Review of Systems: As per above Constitutional: As per above Physical Exam Physical Exam: Constitutional: well-appearing, no acute distress HEENT: NCAT, no conjunctival injection CV: regular rhythm, no murmur appreciated, extremities well-perfused, no LE edema Resp: CTABL, no wheezes/rales/rhonchi appreciated, no increased work of breathing GI: soft, nondistended, nontender, BS normoactive MSK: no gross deformities appreciated Skin: warm, dry, no rash appreciated Neuro: alert, oriented, no focal neurologic deficit appreciated Neurologic: CN's II-XI intact bilaterally, moves all extremities and awake Cranial Nerves: PERRL Strength 5/5 in UE and LE B/L Results & Data Results & Data Vital Signs (Past 12 Hours) Vital Signs Temp Pulse Resp BP Pulse Ox O2 Del Method 11/30/22 19:56 78 11/30/22 18:30 78 18 11/30/22 18:30 147/60 H 11/30/22 18:15 75 24 100 11/30/22 18:15 136/75 11/30/22 18:00 84 21 98 11/30/22 18:00 161/74 H 11/30/22 17:45 73 16 97 11/30/22 17:45 121/77 11/30/22 17:30 75 21 98 11/30/22 17:30 127/48 L 11/30/22 17:15 75 20 97 11/30/22 17:00 75 16 96 11/30/22 16:45 76 16 97 11/30/22 16:45 109/63 11/30/22 16:30 75 16 95 11/30/22 16:30 114/50 L 11/30/22 16:15 78 19 94 11/30/22 16:00 82 20 94 11/30/22 16:00 130/66 11/30/22 15:48 84 16 95 11/30/22 15:48 137/62 11/30/22 15:30 86 17 96 11/30/22 15:30 161/74 H 11/30/22 15:16 227/79 H 11/30/22 15:16 82 20 11/30/22 15:08 93 H 20 100 11/30/22 15:08 193/89 H 11/30/22 15:00 78 24 98 11/30/22 15:52 83 11/30/22 15:07 95 Room Air 11/30/22 15:05 Room Air 11/30/22 14:55 36.4 C L 92 H 20 213/118 H 99 Room Air Supervising Physician Co-Signing Physician Notes Carly is a 87-year-old female with a past medical history of pancreatic cyst, abdominal bloating, idiopathic urticaria, systolic murmur, vaginal prolapse, OA who was found down and confused at her apartment at [facility]. BSG in route was 140. CT of the head shows no acute findings. Chest x-ray shows no acute process Patient seen and examined, chart reviewed, case discussed with Michelle ramírez And I agree with the assessment and plan as above except as otherwise noted Labs and images reviewed At bedside patient is more awake, somewhat sedated after Ativan/Keppra but answering questions. She is alert to place, name. She remembers being tired this morning, does not remember having a seizure. Has never had a seizure before. She reports that she is not in any pain currently. She has no recent history of diarrhea or constipation has been eating normally. She reports she does not have any abdominal discomfort currently. On exam heart rate is regular, lungs are clear, abdomen is soft and nontender. No rebound. No guarding. No edema Collateral collected from daughter by phone. No history of low sodium, no history of seizure previously. Eating and drinking normally last few days. Last visted [facility] 2 weeks ago and things were normal other than some gradual cognitive decline/forgetfullness. No history of polydipsia. Sofiya notes she had some lack of appetite although Carly did not enrose this. Was going to start a b vitamin as outpatient. Confirms full code. Mental status, unwitnessed collapse. Patient appeared postictal, then gradually improved. No prior history of seizure Leukocytosis of 12.25 with neutrophilic predominance Platelet count 372 Creatinine 0.60 Lactate 2.4, repeat 2.2 Troponin is normal UA is uninfected appearing Procalcitonin is normal Creatinine BUN ratio was not contracted - EKG: no acute ischemic findings or arrythmia - 10/31/2022 TTE: Performed for murmur evaluation. EF 60 to 65%. No significant valvular abnormalities. Very small pericardial effusion along RV wall without tamponade. Type I diastolic dysfunction. Technically challenging study - Unknown last known well. Suspected post ictal state -Reportedly starting to improve after Ativan/Keppra in ER Prolactin is slightly elevated several hours later, suggestive of seizures We will treat as symptomatic hyponatremia at this time. CThead without acute findings/masses. Patient did receive hypertonic saline and fluid resuscitation in the ER. Lactate normalized, consistent with seizure At bedside patient is mentation is improved and answers questions appropriately, although with some slight speech delay she denies any pain in cluding abdominal pain. Denies recent diarrhea/constipation. Reports she has been eating okay up until today, has been drinking a lot of water but reports this is not abnormal. BSG 149. Calcium is low at 6.8. Ical is normal. - Ativan 2mg q5m x3 per episode for acute seizure. defer additional Keppra for now. We will defer additional Hyponatremia Sodium 124, pending baseline reconciliation No evidence of pneumonia on CT CT rise 8 points over the last shift, defer additional fluids/resuscitation due to unclear chronicity of sodium. If continuing to rise, start D5 infusion to limit rate to 8 per 24 hours - Collateral from daughter reports that appetite diminished and may be more tea/toast depletion. Urine studies pending. No history of polydipsia. No recent infection/PNA. No chronic pain. No SSRI Continue daily aspirin Continue calcium vitamin D Resident Activity Tracking Resident Involvement: Resident Care Provided Care Provided: Adult Hospital Medicine (1) Altered mental status Altered mental status type: stupor Qualified Code(s): R40.1 - Stupor (3) Leukocytosis Leukocytosis type: unspecified Qualified Code(s): D72.829 - Elevated white blood cell count, unspecified
[2022-11-30] MEDS ORDERED: CALCIUM GLUCONATE 10% 2,000 MG in DEXTROSE 5% 50 ML IV ONE (20:28)
[2022-11-30] MEDS ORDERED: LORazepam 2 MG/1 ML VIAL IV PRN (20:39)
--- NOTE | 2022-11-30 20:51 | CT Scan Report ---
Exam(s): CT C SPINE EXAM: CT Cervical Spine Without Intravenous Contrast CLINICAL HISTORY: Reason for exam: fall. TECHNIQUE: Axial computed tomography images of the cervical spine without intravenous contrast. CTDI is 17.34 mGy and DLP is 348.26 mGy-cm. Automated exposure control was utilized for the study. A dose lowering technique was utilized adhering to the principles of ALARA. COMPARISON: None FINDINGS: Bones: Normal alignment. No acute fracture or bony lesion. Disc spaces: No subluxation. Degenerative changes of the spine. Soft tissues: Normal. Other: Scarring at the lung apices. Tonsilloliths. IMPRESSION: No acute traumatic abnormality. Electronically signed by: Reid Urbano M.D. 11/30/22 20:50 PM
[2022-12-01 00:12] LABS: BUN Creatinine Ratio 9.4 (10-20); Calcium 8.5 mg/dl (8.6-10.3); Creatinine Clr Calc Pharmacy 59.4 ml/min; Est GFR (African American) 98.9 ml/min; Est GFR (Non-African American) 85.4 ml/min; Potassium 3.6 mmol/L (3.5-5.1)
[2022-12-01] MEDS: DEXTROSE 5% 1,000 ML IV SCH ×2 (01:00→13:16)
[2022-12-01] MEDS: CALCIUM 600MG + VIT D 400 IU TAB PO SCH ×3 (01:40→21:51)
[2022-12-01 03:36] LABS: Basophils # (auto) 0.04 K/uL (0-0.2); Basophils % (auto) 0.5 %; Eosinophils # (auto) 0.05 K/uL (0-0.50); Eosinophils % (auto) 0.6 %; Hematocrit (blood only) 33.1 % (37.0-47.0); Hemoglobin 11.5 g/dl (12.0-16.0); Immature Granulocytes # (auto) 0.03 K/uL (0.01-0.20); Immature Granulocytes % (auto) 0.3 %; Lymphocytes # (auto) 1.44 K/uL (1.2-3.4); Lymphocytes % (auto) 16.7 %; Mean Corpuscular Hemoglobin 28.6 pg (25.0-34.0); Mean Corpuscular Hgb Conc 34.7 g/dL (32.0-36.0); Mean Corpuscular Volume 82.3 fL (80.0-100.0); Mean Platelet Volume 8.9 fL (9.4-12.4); Monocytes # (auto) 0.95 K/uL (0.11-0.59); Neutrophils # (auto) 6.09 K/uL (1.40-6.50); Neutrophils % (auto) 70.9 %; Platelet Count 300 K/uL (130-400); RDW Coefficient of Variation 16.5 % (11.5-14.5); RDW Standard Deviation 49.7 fL (36.4-46.3); Red Blood Count 4.02 M/uL (4.20-5.40)
[2022-12-01 03:49] LABS: BUN Creatinine Ratio 10.4 (10-20); Calcium 8.2 mg/dl (8.6-10.3); Creatinine Clr Calc Pharmacy 65.6 ml/min; Est GFR (African American) 102.2 ml/min; Est GFR (Non-African American) 88.2 ml/min; Potassium 3.2 mmol/L (3.5-5.1)
--- NOTE | 2022-12-01 07:11 | Electrocardiogram Report ---
Test Reason : Blood Pressure : / mmHG Vent. Rate : 087 BPM Atrial Rate : 087 BPM P-R Int : 242 ms QRS Dur : 072 ms QT Int : 364 ms P-R-T Axes : 074 074 067 degrees QTc Int : 438 ms Sinus rhythm with 1st degree A-V block Abnormal ECG When compared with ECG of 08-FEB-2016 06:42, KS interval has increased Confirmed by Cruz Story ([id number]) on 12/01/2022 7:10:31 AM Referred By: REFERRED SELF Confirmed By:James Story
[2022-12-01 07:51] LABS: BUN Creatinine Ratio 10.5 (10-20); Calcium 8.4 mg/dl (8.6-10.3); Creatinine Clr Calc Pharmacy 55.8 ml/min; Est GFR (African American) 96.6 ml/min; Est GFR (Non-African American) 83.4 ml/min; Potassium 3.2 mmol/L (3.5-5.1)
[2022-12-01] MEDS: IPRATROPIUM BROMIDE NASAL SPRAY 0.06% 15ML NAE SCH (07:55)
[2022-12-01] MEDS: BIMATOPROST 0.01% OP SOLN 2.5 ML BTL OP SCH (07:56)
[2022-12-01] MEDS: TIMOLOL MALEATE 0.5% OP SOLN 5 ML BTL OP SCH (07:56)
[2022-12-01] MEDS: POTASSIUM CHLORIDE / WTR 10 MEQ/100 ML PLCT IV SCH ×3 (09:15→11:36)
[2022-12-01 11:38] LABS: BUN Creatinine Ratio 11.1 (10-20); Calcium 9.1 mg/dl (8.6-10.3); Creatinine Clr Calc Pharmacy 50.5 ml/min; Est GFR (African American) 93.5 ml/min; Est GFR (Non-African American) 80.6 ml/min; Potassium 3.8 mmol/L (3.5-5.1)
[2022-12-01] MEDS: LORATADINE 10 MG TAB PO SCH (12:04)
--- NOTE | 2022-12-01 14:34 | Hospitalist Progress Note ---
Date of Service December 01, 2022 Assessment & Plan (1) Altered mental status: Plan: Hyponatremia, acute on chronic - Sodium on admission 123, improved and stabilized, required D5W overnight as increased too rapidly -symptomatic hyponatremia given likely seizure - Trend BMP q12 - Urine Osm 391, Ur Na 115 - states she has been drinking more water recently - possibly SIADH, does not appear to have drug-induced Altered Mental Status likely secondary to seizure - Trop normal, procal normal, EKG without ischemic changes - elevated lactate/prolactin - infectious, cardiac cause less likely - likely secondary to hyponatremia; treatment as per above - s/p Keppra, Ativan in ED - seizure precautions - Ativan 2mg q5m x3 per episode for acute seizure - CT head and cervical spine no acute findings Anemia - Recheck in AM - if trending down, may check further lab studies Elevated Lactate - likely secondary to seizure - downtrending to fluids - no signs of infection - hold further antibiotics for now Osteoporosis - continue calcium/vit D supplementation PT and OT consulted to help determine dispo Code: Full Diet: mental status improved, regular diet VTE prophylaxis: SCD (2) Hyponatremia: (3) Leukocytosis: (4) Elevated prolactin level: (5) Elevated lactic acid level: Admission and Anticipated Discharge Date Admission Date: November 30, 2022 Subjective Feeling significantly better. Denies further seizure-like activity. Tolerating diet well. Denies any lightheadedness or dizziness, chest pain, shortness of breath Physical Exam Physical Exam: General: Well-appearing, NAD Cardiovascular: RRR, no M/R/G Pulmonary: CTAB, no W/R/R Abdomen: Soft, NT/ND, no guarding Extremities: Moving all extremities, no pedal edema Integumentary: No suspicious rash or lesion on exposed skin Neurologic: AAOx3, no focal deficits Psychiatric: Appropriate mood/affect Results & Data Results & Data Vital Signs (Past 12 Hours) Vital Signs Temp Pulse Pulse Resp BP Pulse Ox O2 Del Method 12/01/22 11:37 36.7 C 85 20 172/77 H 96 Room Air 12/01/22 10:46 Room Air 12/01/22 08:01 36.6 C 72 18 114/70 97 Room Air 12/01/22 07:00 73 12/01/22 04:23 36.8 C 79 17 114/59 L 95 Room Air Laboratory Results Na trend from 11/30: [phone] Urine Osm 391, Ur Na 115 K normal Hgb down to 11.[address] head and C spine no acute findings PG Care Time/CCT Total # of Minutes Spent Total Time Spent with Patient: Total time spent is greater than 50% in coordination of care (as documented) at patient's floor/unit and/or counseling patient: Coding Level of Care Code 25758 SUB INP/OBS CARE 2/35MIN Diagnoses Altered mental status R40.1 Altered mental status type: stupor Hyponatremia E87.1 Leukocytosis D72.829 Leukocytosis type: unspecified Elevated prolactin level R79.89 Elevated lactic acid level R79.89 (1) Altered mental status Altered mental status type: stupor Qualified Code(s): R40.1 - Stupor (3) Leukocytosis Leukocytosis type: unspecified Qualified Code(s): D72.829 - Elevated white blood cell count, unspecified
[2022-12-01 15:36] LABS: Calcium 8.9 mg/dl (8.6-10.3); Potassium 4.1 mmol/L (3.5-5.1)
[2022-12-02 07:00] LABS: Basophils # (auto) 0.04 K/uL (0-0.2); Basophils % (auto) 0.5 %; Eosinophils # (auto) 0.17 K/uL (0-0.50); Eosinophils % (auto) 2.3 %; Hematocrit (blood only) 32.1 % (37.0-47.0); Hemoglobin 11.3 g/dl (12.0-16.0); Immature Granulocytes # (auto) 0.03 K/uL (0.01-0.20); Immature Granulocytes % (auto) 0.4 %; Lymphocytes # (auto) 2.35 K/uL (1.2-3.4); Lymphocytes % (auto) 31.9 %; Mean Corpuscular Hemoglobin 28.9 pg (25.0-34.0); Mean Corpuscular Hgb Conc 35.2 g/dL (32.0-36.0); Mean Corpuscular Volume 82.1 fL (80.0-100.0); Mean Platelet Volume 9.4 fL (9.4-12.4); Monocytes # (auto) 0.78 K/uL (0.11-0.59); Monocytes % (auto) 10.6 %; Neutrophils % (auto) 54.3 %; Platelet Count 283 K/uL (130-400); RDW Standard Deviation 50.4 fL (36.4-46.3); Red Blood Count 3.91 M/uL (4.20-5.40); White Blood Count 7.37 K/ul (4.8-10.8)
[2022-12-02 07:16] LABS: BUN Creatinine Ratio 12.1 (10-20); Calcium 8.8 mg/dl (8.6-10.3); Creatinine Clr Calc Pharmacy 54.7 ml/min; Est GFR (African American) 96.1 ml/min; Est GFR (Non-African American) 82.9 ml/min; Potassium 3.8 mmol/L (3.5-5.1)
[2022-12-02] MEDS: TIMOLOL MALEATE 0.5% OP SOLN 5 ML BTL OP SCH ×2 (08:35→08:37)
[2022-12-02] MEDS: CALCIUM 600MG + VIT D 400 IU TAB PO SCH ×2 (08:35→19:31)
[2022-12-02] MEDS: LORATADINE 10 MG TAB PO SCH (08:35)
[2022-12-02] MEDS: BIMATOPROST 0.01% OP SOLN 2.5 ML BTL OP SCH ×2 (08:35→09:24)
[2022-12-02] MEDS: IPRATROPIUM BROMIDE NASAL SPRAY 0.06% 15ML NAE SCH (08:36)
[2022-12-02] MEDS ORDERED: Nursing to Pharmacy Communication SCH (09:15)
--- NOTE | 2022-12-02 13:01 | Discharge Summary ---
Date of Service December 02, 2022 Admission HPI Per Admitting Provider 87 year old female with a past medical history of osteoporosis, chronic hyponatremia (baseline sodium around 130) dating back to 2010 per PCP note, pancreatic cyst, chronic back pain presenting after being found down at her apartment at [facility]. She was found by staff at [facility]. Unsure how long she was down for. Per EMS report BSG 140.At bedside pt was still somewhat sedated, but answering questions appropriately. States that she has been in her normal health up until today. Does not remember the events leading up to the fall. Oriented to person/place. Denies any current pain. In ED head CT was negative, CXR without acute findings, Na= 124, mild leukocytosis, lactate elevated to 2.4, prolactin elevated, CK normal, procalcitonin negative. S/p Ativan and 2g Keppra, dose of cefepime, 2L NSS and hypertonic saline, 100 cc. Discharge Data Allergies Allergy/AdvReac Type Severity Reaction Status Date / Time Penicillins Allergy Unknown Unknown rxn Verified 11/30/22 17:39 azithromycin [From Zithromax] Allergy Unknown Verified 11/30/22 17:39 doxycycline Allergy Unknown Verified 11/30/22 17:39 risedronate sodium Allergy Unknown Verified 11/30/22 17:39 [From Actonel] Consultations 11/30/22 16:51 ED Decision to Admit Stat Ordered Studies 11/30/22 15:07 CT head/brain wo con Stat 11/30/22 19:50 CT cervical spine wo con Stat Discharge Plan Discharge Items Reason For Visit: HYPONATREMIA, SEIZURE Condition on Discharge: Serious Follow-up/Referrals: Roque Figueroa MD [Primary Care Provider] - Medications and DC Order Prescriptions: No Action nystatin-triamcinolone 100,000-0.1 unit/gram-% ointment 1 applic TOP TID PRN (Reason: vaginal irritation) 10 Days Qty: 30 1RF timolol 0.5 % drops 1 drp ophthalmic (eye) DAILY Rx Instructions: PER GISELA triamcinolone acetonide 55 mcg aerosol,spray 2 sprays intranasal DAILY PRN (Reason: ..) Qty: 1 aspirin [Aspir-Low] 81 mg Tablet,Delayed Release (Dr/Ec) 81 mg PO DAILY calcium carbonate-vitamin D3 [Calcium 600 + D(3)] 600 mg-10 mcg (400 unit) Tablet 1 tab PO BID Lumigan 0.01 % drops 1 drp OPB DAILY alendronate [Fosamax] 70 mg tablet 70 mg PO WK Rx Instructions: Per dr 1st betamethasone dipropionate 0.05 % cream 1 applic TOP BID PRN (Reason: itching) Rx Instructions: Apply sparingly to affected area twice a day PRN; ipratropium bromide 21 mcg (0.03 %) spray,non-aerosol 1 spray intranasal DIRECTED Rx Instructions: administer into each nostril Admission Data Admit Date/Time: 11/30/22 21:02 Attending Provider: Polly Lara Admit Provider: Justin Lopez Primary Care Provider: Roque Figueroa Other Providers: Justin Lopez Coding Diagnoses
--- NOTE | 2022-12-02 16:52 | Hospitalist Progress Note ---
Date of Service December 02, 2022 Assessment & Plan (1) Altered mental status: (2) Hyponatremia: (3) Leukocytosis: (4) Elevated prolactin level: (5) Elevated lactic acid level: Plan Hyponatremia, acute on chronic - Sodium on admission 123 and symptomatic with seizure, improved and stabilized to baseline - Urine Osm 391, Ur Na 115, uncertain exact etiology of hyponatremia, though notes she had been drinking more water recently - Continue outpatient evaluation and management, consider renal evaluation outpatient Altered Mental Status likely secondary to seizure - Trop normal, procal normal, EKG without ischemic changes - elevated lactate/prolactin - infectious, cardiac cause less likely - likely secondary to hyponatremia; treatment as per above - s/p Keppra, Ativan in ED - seizure precautions - Ativan 2mg q5m x3 per episode for acute seizure - CT head and cervical spine no acute findings Anemia - Continue outpatient evaluation and management Elevated Lactate - likely secondary to seizure - downtrended with fluids - no signs of infection - hold further antibiotics for now Osteoporosis - continue calcium/vit D supplementation PT/OT evaluated. Plan for discharge to [facility], unable to get transportation until tomorrow Code: Full Diet: mental status improved, regular diet VTE prophylaxis: SCD Admission and Anticipated Discharge Date Admission Date: November 30, 2022 Subjective Overall doing well, no significant concerns. Reports no further episodes of confusion or seizure-like activity. Denies lightheadedness/dizziness, chest pain, shortness of breath Physical Exam Physical Exam: General: Well-appearing, NAD Cardiovascular: RRR Pulmonary: CTAB, no W/R/R Abdomen: Soft, NT/ND, no guarding Extremities: Moving all extremities, no pedal edema Integumentary: No suspicious rash or lesion on exposed skin Neurologic: AAOx3, no focal deficits Psychiatric: Appropriate mood/affect Results & Data Results & Data Vital Signs (Past 12 Hours) Vital Signs Temp Pulse Pulse Resp BP Pulse Ox O2 Del Method 12/02/22 11:54 36.9 C 74 18 151/72 H 97 Room Air 12/02/22 08:00 61 12/02/22 08:00 Room Air 12/02/22 07:57 36.6 C 72 16 155/74 H 96 Room Air 12/02/22 04:08 36.6 C 73 18 163/71 H 96 Room Air Laboratory Results Reviewed and notable for hemoglobin 11.3 that slightly down, sodium 131 back to baseline, normal glucose, creatinine stable PG Care Time/CCT Total # of Minutes Spent Total Time Spent with Patient: Total time spent is greater than 50% in coordination of care (as documented) at patient's floor/unit and/or counseling patient: Coding Level of Care Code 05955 SUB INP/OBS CARE 05/23MIN Diagnoses Altered mental status R40.1 Altered mental status type: stupor Hyponatremia E87.1 Leukocytosis D72.829 Leukocytosis type: unspecified Elevated prolactin level R79.89 Elevated lactic acid level R79.89 (1) Altered mental status Altered mental status type: stupor Qualified Code(s): R40.1 - Stupor (3) Leukocytosis Leukocytosis type: unspecified Qualified Code(s): D72.829 - Elevated white blood cell count, unspecified
[2022-12-02] MEDS ORDERED: BIMATOPROST 0.01% OP SOLN 2.5 ML BTL OP SCH (21:00)
[2022-12-03 06:49] LABS: Basophils # (auto) 0.05 K/uL (0-0.2); Basophils % (auto) 0.7 %; Eosinophils # (auto) 0.23 K/uL (0-0.50); Eosinophils % (auto) 3.2 %; Hematocrit (blood only) 33.2 % (37.0-47.0); Hemoglobin 11.4 g/dl (12.0-16.0); Immature Granulocytes # (auto) 0.03 K/uL (0.01-0.20); Immature Granulocytes % (auto) 0.4 %; Lymphocytes # (auto) 2.09 K/uL (1.2-3.4); Lymphocytes % (auto) 28.8 %; Mean Corpuscular Hemoglobin 28.5 pg (25.0-34.0); Mean Corpuscular Hgb Conc 34.3 g/dL (32.0-36.0); Mean Platelet Volume 9.1 fL (9.4-12.4); Monocytes # (auto) 0.71 K/uL (0.11-0.59); Monocytes % (auto) 9.8 %; Neutrophils # (auto) 4.14 K/uL (1.40-6.50); Neutrophils % (auto) 57.1 %; Platelet Count 286 K/uL (130-400); RDW Coefficient of Variation 16.5 % (11.5-14.5); RDW Standard Deviation 50.1 fL (36.4-46.3); White Blood Count 7.25 K/ul (4.8-10.8)
[2022-12-03 07:19] LABS: BUN Creatinine Ratio 16.1 (10-20); Calcium 8.7 mg/dl (8.6-10.3); Creatinine Clr Calc Pharmacy 56.6 ml/min; Est GFR (African American) 97.2 ml/min; Est GFR (Non-African American) 83.8 ml/min; Potassium 3.8 mmol/L (3.5-5.1)
[2022-12-03] MEDS: CALCIUM 600MG + VIT D 400 IU TAB PO SCH (09:07)
[2022-12-03] MEDS: LORATADINE 10 MG TAB PO SCH (09:07)
[2022-12-03] MEDS: TIMOLOL MALEATE 0.5% OP SOLN 5 ML BTL OP SCH (09:08)
[2022-12-03] MEDS: IPRATROPIUM BROMIDE NASAL SPRAY 0.06% 15ML NAE SCH (09:10)
--- NOTE | 2022-12-03 13:06 | Discharge Summary ---
Date of Service December 03, 2022 Principal Diagnosis New onset seizure probably from hyponatremia, acute on chronic hyponatremia, metabolic encephalopathy Discharge Exam General-alert and oriented x3, no fevers, no chills HEENT-head atraumatic and normocephalic, pupils equal and reactive to light, extraocular muscles intact Neck-no lymphadenopathy or thyromegaly, trachea midline Chest-clear to auscultation percussion. No rales wheezing or rhonchi Cardiac-regular rate and rhythm, normal S1 and S2 Abdomen-normal bowel sounds, nontender, no hepatosplenomegaly Extremities-no cyanosis, clubbing, or edema Neuro-cranial nerves II through XII intact, motor and sensory function within normal limits, strength symmetrical , no focal deficits Psych-normal affect, normal mood Discharge Data Allergies Allergy/AdvReac Type Severity Reaction Status Date / Time Penicillins Allergy Unknown Unknown rxn Verified 11/30/22 17:39 azithromycin [From Zithromax] Allergy Unknown Verified 11/30/22 17:39 doxycycline Allergy Unknown Verified 11/30/22 17:39 risedronate sodium Allergy Unknown Verified 11/30/22 17:39 [From Actonel] Consultations 11/30/22 16:51 ED Decision to Admit Stat Ordered Studies 11/30/22 15:07 CT head/brain wo con Stat 11/30/22 19:50 CT cervical spine wo con Stat Hospital Course (1) Altered mental status: Acute metabolic encephalopathy present on admission. Now resolved (2) Hyponatremia: Acute on chronic. Sodium 123 on admission and improved to 132. She is currently asymptomatic (3) Leukocytosis: No active infection on admission. This probably represents stress demargination (4) Elevated prolactin level: Present on admission, now resolved (5) Elevated lactic acid level: Present on admission, now resolved Plan Discharge today, December 03 assisted living at [facility] Total Time Total Time Spent Total Time Spent (In Minutes): 45 minutes Discharge Plan Discharge Items Patient Disposition: Personal Long Term Reason For Visit: HYPONATREMIA, SEIZURE Discharge Diagnosis: New onset seizure, acute on chronic hyponatremia, acute metabolic encephalopathy Condition on Discharge: Good Activity: Resume your previous activity Non-emergency contact: Primary Care Provider Call non-emergency contact if: you have any medication questions and your symptoms worsen Follow-up/Referrals: Roque Figueroa MD [Primary Care Provider] - Diet: Regular and Heart Healthy Addtl Attending Provider Instructions: Take medications as directed Pending Studies at Discharge: No Stand-Alone Forms: [employer], Smoking Cessation Skilled Items Patient informed of condition?: Yes DNR: Yes Discharge Level of Care: Other Communicable Disease: No Discharge Prognosis: Stable Lines: None Urinary Catheter: No Medications and DC Order Prescriptions: New loratadine [Wal-itin] 10 mg Tablet 10 mg PO QAM Qty: 0 0RF Continued nystatin-triamcinolone 100,000-0.1 unit/gram-% ointment 1 applic TOP TID PRN (Reason: vaginal irritation) 10 Days Qty: 30 1RF timolol 0.5 % drops 1 drp ophthalmic (eye) DAILY Rx Instructions: PER [place] triamcinolone acetonide 55 mcg aerosol,spray 2 sprays intranasal DAILY PRN (Reason: ..) Qty: 1 aspirin [Aspir-Low] 81 mg Tablet,Delayed Release (Dr/Ec) 81 mg PO DAILY calcium carbonate-vitamin D3 [Calcium 600 + D(3)] 600 mg-10 mcg (400 unit) Tablet 1 tab PO BID Lumigan 0.01 % drops 1 drp OPB DAILY alendronate [Fosamax] 70 mg tablet 70 mg PO WK Rx Instructions: Per dr 1st betamethasone dipropionate 0.05 % cream 1 applic TOP BID PRN (Reason: itching) Rx Instructions: Apply sparingly to affected area twice a day PRN; ipratropium bromide 21 mcg (0.03 %) spray,non-aerosol 1 spray intranasal DIRECTED Rx Instructions: administer into each nostril Discharge Orders: Discharge Order (Routine); Ordered 12/03/22 Ordered By: Lee Garcia Admission Data Admit Date/Time: 11/30/22 21:02 Attending Provider: Lee Garcia Admit Provider: Justin Lopez Primary Care Provider: Roque Figueroa Other Providers: Justin Lopez Coding Level of Care Code 99874 INP/OBS DISCH >30 MIN Diagnoses Altered mental status R40.1 Altered mental status type: stupor Hyponatremia E87.1 Leukocytosis D72.829 Leukocytosis type: unspecified Elevated prolactin level R79.89 Elevated lactic acid level R79.89
== END 2022-12-03 15:19 | disposition home or self-care (01) | DRG 640 ==
LOC: ED 14:50 → SUATTDRO 21:02 → 2S 21:02

== ENCOUNTER 2022-12-04 11:01 | Inpatient (IN) ==
[2022-12-04] MEDS ORDERED: levETIRAcetam 1,000 MG in 0.9 % SODIUM CHLORIDE 100 ML IV STA (11:52)
--- NOTE | 2022-12-04 11:52 | Emergency Department Note ---
Impression & Plan Seizure ADMIT ED Provider Note HPI: The patient is an 87-year-old female who presents emergency department with chief complaint of altered mental status. Per EMS report to nursing staff at the bedside the patient had "seizure-like activity" this morning. Patient did have a recent admission and was discharged yesterday from the hospitalist service after a stay for metabolic encephalopathy thought to be secondary to hyponatremia. On arrival here to the ED the patient is not talking to me, she does respond to painful stimuli, she is hemodynamically stable and saturating well on room air on my initial assessment but she is not following commands. ROS: - Per HPI Differential Diagnosis: Acute ischemic stroke, hemorrhagic stroke, hyponatremia with seizure, pseudoseizure, seizure disorder, absence seizure, amongst other potential pathologies. *Outpatient medications and allergy history reviewed. *Pertinent external medical records reviewed. PE: General: Patient does not respond to verbal stimuli, eyes are open, patient does respond to painful stimuli HEENT: Normocephalic, trachea midline Eyes: Extraocular eye movement is intact, no scleral erythema Pulmonary: Clear to auscultation bilaterally, no wheezing Cardio: Regular rate and rhythm GI: Abdomen is soft to palpation : No suprapubic tenderness MSK: No evidence of trauma or malformation of the extremities, no edema Skin: No evidence of rash Neuro: Patient is nonresponsive, her eyes are open, she does respond to painful stimuli but does not follow commands Psychiatric: N/A hospital monitor: (As interpreted by myself): - An order was placed for continuous cardiac monitoring - Patient was noted to be in sinus rhythm with a rate of 85 EKG: (As interpreted by myself): Rate: 86 Rhythm: Sinus rhythm Intervals: CT interval prolonged at 256 ms, otherwise within normal limits ST changes: No ST elevation Time: 1107 Interventions provided in ED: -IV fluid bolus, IV Keppra Medical Decision Making: Shortly after the patient arrived IV was established and lab work obtained, patient was placed on monitor worker, CT imaging of the head was ordered. Lab work shows no leukocytosis, hemoglobin is normal, platelet count is normal, CMP shows mild hyponatremia 134 which is improved from previous, otherwise no critical abnormalities are noted, lactic acid is within normal limits, creatinine kinase is also within normal limits. CT imaging of the head was obtained and does not show any evidence of any acute intracranial process. Similar to the patient's previous presentation despite being with limited responsiveness on presentation she immediately woke up without any evidence of a postictal state and on my reassessment she is talking to me, at times she is smiling. Patient tells me that she had an event where she "passed out" and that is why she was not talking to me earlier. Patient was just discharged from the hospital yesterday after a seizure-like event that was thought to be secondary to hyponatremia but her sodium is near normal today. I suspect she is having some type of nonepileptic seizures or possibly an absence seizure of some sort. I do believe that the patient should be admitted for neurology consultation, EEG, and likely an MRI. I did discuss this with the on-call neurologist, Dr. Shelley, who is in agreement for consultati on. I then discussed the case with Dr. Martinez, the on-call hospitalist, and the patient was admitted for further management. Patient was loaded with IV Keppra while here in the ED, I did discuss all the above findings also with the patient's daughter, and, on the phone and she is updated and aware Consultants: -Neurology, Dr. Shelley -Hospitalist, Dr. Martinez Disposition discussion held by myself with: Patient, patient's daughter on the phone Diagnosis: 1. Seizure-like activity, acute 2. Hyponatremia, mild 3. Altered mental status, transient Disposition: ADMIT Daniel Abrams DO Emergency Medicine Past Med/Surg History Medical History (Updated 12/04/22 @ 15:03 by Daniel Abrams DO) Dyslipidemia Family history of colon cancer Osteopenia after menopause Pancreatic cyst Surgical History History of colonoscopy History of varicose vein ligation and stripping S/P tubal ligation Family History Sister Breast cancer Coronary heart disease Father Stroke Mother Breast cancer Son Narcolepsy Other No family history of adverse response to anesthesia No family history of bleeding disorder Denies family history of Ovarian cancer Prostate cancer Diabetes Lung cancer Colorectal cancer Social History Smoking Status: Never smoker Second Hand Exposure: No; Do You Dip or Chew Tobacco: No; Hx Alcohol Use: No Hx Substance Use: No Preferred Language: Swazi Communication Ability: Effective Visual Impairment: Limited Hearing Ability: Normal Dip Stand Loader Required: No Beliefs That Will Affect Care: None marital status: Current Living Situation: Alone current occupational status: retired How many Children do You have: 3 Feels Safe at Home: Yes Childhood Exposure to Second-Hand Smoke: Yes (father smoked pipe occassionally ) Diet: regular caffeine: Yes (coffee and tea ) Dental Care, Regularly: Yes Physical Activity Frequency: Daily Physical Activity Frequency Comment: walk Seatbelt Use: always Sunscreen Use: Yes Assistive Devices: None Allergies Allergies Allergy/AdvReac Type Severity Reaction Status Date / Time Penicillins Allergy Unknown Unknown rxn Verified 11/30/22 17:39 azithromycin [From Zithromax] Allergy Unknown Verified 11/30/22 17:39 doxycycline Allergy Unknown Verified 11/30/22 17:39 risedronate sodium Allergy Unknown Verified 11/30/22 17:39 [From Actonel] Home Meds Home Medications Medication Instructions Recorded Confirmed triamcinolone acetonide 55 mcg 0 sprays intranasal DAILY PRN .. 01/22/19 nasal spray aerosol #1 mL timolol 0.5 % eye drops 1 drp ophthalmic (eye) DAILY 02/21/22 12/04/22 alendronate 70 mg tablet (Fosamax) 70 mg PO WK 11/30/22 12/04/22 aspirin 81 mg tablet,delayed 0 mg PO DAILY 11/30/22 11/30/22 release betamethasone dipropionate 0.05 % 1 applic topical BID PRN itching 11/30/22 12/04/22 topical cream bimatoprost 0.01 % eye drops 1 drp OPB DAILY 11/30/22 12/04/22 (Lumigan) calcium carbonate 600 mg-vitamin 0 tab PO BID 11/30/22 11/30/22 D3 10 mcg (400 unit) tablet (Calcium 600 + D(3)) ipratropium bromide 21 mcg (0.03 0 spray intranasal DIRECTED 11/30/22 11/30/22 %) nasal spray loratadine 10 mg tablet (Wal-itin) 0 mg PO QAM 12/04/22 Previous Rx's Medication Instructions Recorded nystatin-triamcinolone 100,000 1 applic topical TID PRN vaginal 02/27/22 unit/gram-0.1 % topical ointment irritation 10 days #30 grams Results & Data (ED) Vital Signs Vital Signs - 24 hr 12/04/22 11:06 12/04/22 11:22 12/04/22 11:22 Temperature 36.4 C L Temperature Source Oral Pulse Rate 87 Pulse Rate [Apical] 80 Pulse Rhythm Regular Pulse Rhythm [Apical] Regular Pulse Strength Normal Respiratory Rate 20 18 Respiratory Effort / Characteristics Non-Labored Spontaneous Respiratory Depth Normal Respiratory Pattern Regular Blood Pressure 201/96 H Blood Pressure [Right Arm] 197/78 H Blood Pressure Mean 131 Blood Pressure Mean [Right Arm] 117 Blood Pressure Position Lying Pulse Oximetry 97 98 Oxygen Delivery Method Room Air Room Air Room Air Sepsis Recent Fever Within 48 Hours No Sepsis New/Unexplained Change in Mental Status No Sepsis Action Taken by Nursing No Action Required 12/04/22 11:37 12/04/22 13:16 Temperature Temperature Source Pulse Rate 78 Pulse Rate [Apical] 71 Pulse Rhythm Pulse Rhythm [Apical] Pulse Strength Respiratory Rate 18 Respiratory Effort / Characteristics Respiratory Depth Respiratory Pattern Blood Pressure Blood Pressure [Right Arm] 151/58 H Blood Pressure Mean Blood Pressure Mean [Right Arm] 89 Blood Pressure Position Pulse Oximetry 97 Oxygen Delivery Method Room Air Sepsis Recent Fever Within 48 Hours Sepsis New/Unexplained Change in Mental Status Sepsis Action Taken by Nursing Laboratory Data 12/04/22 11:00 12/04/22 11:00 Lab Results 12/04/22 12/04/22 12/04/22 Range/Units 11:00 11:00 11:00 WBC 8.64 (4.8-10.8) K/ul RBC 4.55 (4.20-5.40) M/uL Hgb 13.0 (12.0-16.0) g/dl Hct 37.8 (37.0-47.0) % MCV 83.1 (80.0-100.0) fL MCH 28.6 (25.0-34.0) pg MCHC 34.4 (32.0-36.0) g/dL RDW Std Deviation 50.4 H (36.4-46.3) fL RDW Coeff of Bandar 16.7 H (11.5-14.5) % Plt Count 336 (130-400) K/uL MPV 9.5 (9.4-12.4) fL Immature Gran % (Auto) 0.2 % Neut % (Auto) 69.6 % Lymph % (Auto) 19.6 % [place] % (Auto) 8.2 % Eos % (Auto) 1.7 % Baso % (Auto) 0.7 % Neut # (Auto) 6.01 (1.40-6.50) K/uL Lymph # (Auto) 1.69 (1.2-3.4) K/uL [place] # (Auto) 0.71 H (0.11-0.59) K/uL Eos # (Auto) 0.15 (0-0.50) K/uL Baso # (Auto) 0.06 (0-0.2) K/uL Immature Gran # (Auto) 0.02 (0.01-0.20) K/uL Sodium 134 L (136-145) mmol/L Potassium 3.7 (3.5-5.1) mmol/L Chloride 100 (98-107) mmol/L Carbon Dioxide 26 (21-32) mmol/L Anion Gap 8 (3-11) BUN 8 (6-23) mg/dl Creatinine 0.53 L (0.6-1.2) mg/dl Est Cr Clr Drug Dosing 64.6 ml/min Est GFR ( Amer) 98.9 ml/min Est GFR (Non-Af Amer) 85.4 ml/min BUN/Creatinine Ratio 15.1 (10-20) Glucose 114 H (70-99(Fasting)) mg/dl Lactate (0.4-2.0) mmol/L Calcium 9.4 (8.6-10.3) mg/dl Total Bilirubin 0.5 (0.2-1.0) mg/dl AST 16 (13-39) U/L ALT 23 (7-52) U/L Alkaline Phosphatase 69 (34-104) U/L Total Creatine Kinase 34 (26-192) U/L Total Protein 7.3 (6.0-8.3) gm/dl Albumin 3.8 (3.4-5.0) gm/dl Globulin 3.5 (2.5-4.0) gm/dl Albumin/Globulin Ratio 1.1 (0.9-2) Prolactin 21.71 ng/ml Urine Color Urine Appearance (Clear) Urine pH (4.5-7.5) Ur Specific [place] (1.000-1.030) Urine Protein (Negative) Urine Glucose (UA) (Negative) Urine Ketones (Negative) Urine Blood (Negative) Urine Nitrite (Negative) Urine Bilirubin (Negative) Urine Urobilinogen (Negative) Ur Leukocyte Esterase (Negative) Urine WBC (Auto) (0-5) /hpf Urine RBC (Auto) (0-4) /hpf U Hyaline Cast (Auto) (0-5) /lpf U Epithel Cells (Auto) (0-5) /lpf Urine Bacteria (Auto) (Negative) 12/04/22 12/04/22 Range/Units 12:00 14:18 WBC (4.8-10.8) K/ul RBC (4.20-5.40) M/uL Hgb (12.0-16.0) g/dl Hct (37.0-47.0) % MCV (80.0-100.0) fL MCH (25.0-34.0) pg MCHC (32.0-36.0) g/dL RDW Std Deviation (36.4-46.3) fL RDW Coeff of Bandar (11.5-14.5) % Plt Count (130-400) K/uL MPV (9.4-12.4) fL Immature Gran % (Auto) % Neut % (Auto) % Lymph % (Auto) % [place] % (Auto) % Eos % (Auto) % Baso % (Auto) % Neut # (Auto) (1.40-6.50) K/uL Lymph # (Auto) (1.2-3.4) K/uL [place] # (Auto) (0.11-0.59) K/uL Eos # (Auto) (0-0.50) K/uL Baso # (Auto) (0-0.2) K/uL Immature Gran # (Auto) (0.01-0.20) K/uL Sodium (136-145) mmol/L Potassium (3.5-5.1) mmol/L Chloride (98-107) mmol/L Carbon Dioxide (21-32) mmol/L Anion Gap (3-11) BUN (6-23) mg/dl Creatinine (0.6-1.2) mg/dl Est Cr Clr Drug Dosing ml/min Est GFR ( Amer) ml/min Est GFR (Non-Af Amer) ml/min BUN/Creatinine Ratio (10-20) Glucose (70-99(Fasting)) mg/dl Lactate 0.8 (0.4-2.0) mmol/L Calcium (8.6-10.3) mg/dl Total Bilirubin (0.2-1.0) mg/dl AST (13-39) U/L ALT (7-52) U/L Alkaline Phosphatase (34-104) U/L Total Creatine Kinase (26-192) U/L Total Protein (6.0-8.3) gm/dl Albumin (3.4-5.0) gm/dl Globulin (2.5-4.0) gm/dl Albumin/Globulin Ratio (0.9-2) Prolactin ng/ml Urine Color Yellow Urine Appearance Clear (Clear) Urine pH 7.5 (4.5-7.5) Ur Specific [place] 1.005 (1.000-1.030) Urine Protein Negative (Negative) Urine Glucose (UA) Negative (Negative) Urine Ketones Trace H (Negative) Urine Blood Negative (Negative) Urine Nitrite Negative (Negative) Urine Bilirubin Negative (Negative) Urine Urobilinogen Negative (Negative) Ur Leukocyte Esterase 1+ H (Negative) Urine WBC (Auto) 1-5 (0-5) /hpf Urine RBC (Auto) 0-4 (0-4) /hpf U Hyaline Cast (Auto) 0 (0-5) /lpf U Epithel Cells (Auto) 10-20 H (0-5) /lpf Urine Bacteria (Auto) Negative (Negative) Administered Medications Discontinued Medications Sodium Chloride (Nss) 500 mls @ 999 mls/hr IV .Q31M PAVAN Stop: 12/04/22 12:30 Last Infusion: 12/04/22 13:27 Dose: 0 mls/hr Documented By: Admin: 12/04/22 12:08 Dose: 999 mls/hr Documented By: JASON Levetiracetam 1,000 mg/ Sodium (Chloride) 110 mls @ 440 mls/hr IV NOW STA Stop: 12/04/22 12:06 Last Infusion: 12/04/22 12:31 Dose: 0 mls/hr Documented By: Admin: 12/04/22 12:08 Dose: 440 mls/hr Documented By: BMK Imaging Data Radiologist's Impression: Head CT 12/04/22 11:46 CT head/brain wo con CLINICAL HISTORY: AMS Technique: Contiguous axial CT images of the head were acquired from the base of the skull to the vertex without intravenous contrast administration. Images were viewed in brain, subdural and bone windows. Automated dose lowering techniques and/or adjustment according to patient size were utilized for this exam. Comparison: Comparison is made to CT head 12/10/2022 Findings: Areas of decreased attenuation are present in the periventricular and subcortical white matter bilaterally consistent with small vessel ischemic disease. Generalized cerebral atrophy with commensurate enlargement of the ventricles, sulci, and cisterns is also present. There is no acute intracranial hemorrhage or evidence of acute territorial infarction. No shift of the midline structures, mass effect, or extra-axial abnormalities are shown. Atherosclerotic calcifications are present in the intracranial segments of the internal carotid arteries. Imaged portions of the paranasal sinuses and mastoid air cells are clear. The orbits appear normal. There are no acute fractures of the calvaria or scalp swelling. Impression: No acute intracranial hemorrhage, no evidence of acute territorial infarction or other acute intracranial disease process. ACT 112: Negative or not required by law. Electronically signed by: David Leung M.D. 12/04/2022 12:07 PM Discharge Plan Visit Data Chief Complaint: Seizure ED Provider: Daniel Abrams Discharge Problem: Seizure Forms Stand Alone Forms: My [facility] Prescriptions Prescriptions: No Action nystatin-triamcinolone 100,000-0.1 unit/gram-% ointment 1 applic TOP TID PRN (Reason: vaginal irritation) 10 Days Qty: 30 1RF timolol 0.5 % drops 1 drp ophthalmic (eye) DAILY Rx Instructions: PER [place] triamcinolone acetonide 55 mcg aerosol,spray 0 sprays intranasal DAILY PRN (Reason: ..) Qty: 1 Rx Instructions: unable to verify aspirin 81 mg Tablet,Delayed Release (Dr/Ec) 0 mg PO DAILY Rx Instructions: unable to verify calcium carbonate-vitamin D3 [Calcium 600 + D(3)] 600 mg-10 mcg (400 unit) Tablet 0 tab PO BID Rx Instructions: unable to verify Lumigan 0.01 % drops 1 drp OPB DAILY alendronate [Fosamax] 70 mg tablet 70 mg PO WK Rx Instructions: Per dr cormier betamethasone dipropionate 0.05 % cream 1 applic TOP BID PRN (Reason: itching) Rx Instructions: Apply sparingly to affected area twice a day PRN; ipratropium bromide 21 mcg (0.03 %) spray,non-aerosol 0 spray intranasal DIRECTED Rx Instructions: unable to verify administer into each nostril loratadine [Wal-itin] 10 mg tablet 0 mg PO QAM Rx Instructions: unable to verify Referrals Referrals: Roque Figueroa MD [Primary Care Provider] -
[2022-12-04] MEDS ORDERED: SODIUM CHLORIDE 0.9% 500 ML IV SCH (12:00)
--- NOTE | 2022-12-04 12:08 | CT Scan Report ---
CT head/brain wo con CLINICAL HISTORY: AMS Technique: Contiguous axial CT images of the head were acquired from the base of the skull to the suzanne reina without intravenous contrast administration. Images were viewed in brain, subdural and [facility]. Automated dose lowering techniques and/or adjustment according to patient size were utilized for this exam. Comparison: Comparison is made to CT head 12/10/2022 Findings: Areas of decreased attenuation are present in the periventricular and subcortical white matter bilate rally consistent with small vessel ischemic disease. Generalized cerebral atrophy with commensurate e nlargement of the ventricles, sulci, and cisterns is also present. There is no acute intracranial hem orrhage or evidence of acute territorial infarction. No shift of the midline structures, mass effect, or extra-axial abnormalities are shown. Atherosclerotic calcifications are present in the intracran ial segments of the internal carotid arteries. Imaged portions of the paranasal sinuses and mastoid air cells are clear. The orbits appear normal. There are no acute fractures of the calvaria or scalp swelling. Impression: No acute intracranial hemorrhage, no evidence of acute territorial infarction or other acute intracra nial disease process. ACT 112: Negative or not required by law. Electronically signed by: David Leung M.D. 12/04/2022 12:07 PM
[2022-12-04 12:23] LABS: Albumin Globulin Ratio 1.1 (0.9-2); Albumin Level 3.8 gm/dl (3.4-5.0); BUN Creatinine Ratio 15.1 (10-20); Basophils # (auto) 0.06 K/uL (0-0.2); Basophils % (auto) 0.7 %; Bilirubin,Total 0.5 mg/dl (0.2-1.0); Calcium 9.4 mg/dl (8.6-10.3); Creatinine Clr Calc Pharmacy 64.6 ml/min; Eosinophils # (auto) 0.15 K/uL (0-0.50); Eosinophils % (auto) 1.7 %; Est GFR (African American) 98.9 ml/min; Est GFR (Non-African American) 85.4 ml/min; Globulin 3.5 gm/dl (2.5-4.0); Hematocrit (blood only) 37.8 % (37.0-47.0); Immature Granulocytes # (auto) 0.02 K/uL (0.01-0.20); Immature Granulocytes % (auto) 0.2 %; Lymphocytes # (auto) 1.69 K/uL (1.2-3.4); Lymphocytes % (auto) 19.6 %; Mean Corpuscular Hemoglobin 28.6 pg (25.0-34.0); Mean Corpuscular Hgb Conc 34.4 g/dL (32.0-36.0); Mean Corpuscular Volume 83.1 fL (80.0-100.0); Mean Platelet Volume 9.5 fL (9.4-12.4); Monocytes # (auto) 0.71 K/uL (0.11-0.59); Monocytes % (auto) 8.2 %; Neutrophils # (auto) 6.01 K/uL (1.40-6.50); Neutrophils % (auto) 69.6 %; Platelet Count 336 K/uL (130-400); Potassium 3.7 mmol/L (3.5-5.1); RDW Coefficient of Variation 16.7 % (11.5-14.5); RDW Standard Deviation 50.4 fL (36.4-46.3); Red Blood Count 4.55 M/uL (4.20-5.40); Total Protein 7.3 gm/dl (6.0-8.3); White Blood Count 8.64 K/ul (4.8-10.8)
--- NOTE | 2022-12-04 14:19 | History & Physical Report ---
Date of Service December 04, 2022 Assessment & Plan (1) Seizure-like activity: Plan: Elevated prolactin Brain MRI - seizure protocol EEG Keppra 1000mg IV given in ER, will continue 500mg IV BID as discussed with neurology Consult neurology Plan VTE Prophylaxis - Lovenox 40mg SQ daily Diet - regular Disposition - admit to med/tele Admission and Anticipated Discharge Date Admission Date: December 04, 2022 History of Present Illness Chief Complaint: Seizure-like activity Primary Care Provider: Roque Figueroa MD Carly Soliman is an 87 year old female who presents to the ER from [facility] via ALS due to concern for seizure-like activity. Reportedly have extremity shaking at the [place] [facility]. Since then just staring into the distance and not following commands. She was given Keppra 1000mg and referred to medicine for admission. When seen the patient was alert and orientated. She is aware she is in hospital but cannot tell me what happened today. She feels fatigued but otherwise feels l butch her normal self. She denies any fever, chills, respiratory, gastrointestinal or urinary symptoms. No one sided weakness or change in sensation. She was recently admitted from November 30 - 2022 with similar symptoms suspected to be due to hyponatremia at that time with sodium level 123. This was treated with 100ml of hypertonic saline. She was treated for seizure with Keppra 2000mg IV and lorazepam 1mg IV. Given the sodium increased and was stable she was not started on any routine anti-epileptics. Allergies Allergy/AdvReac Type Severity Reaction Status Date / Time Penicillins Allergy Unknown Unknown rxn Verified 11/30/22 17:39 azithromycin [From Zithromax] Allergy Unknown Verified 11/30/22 17:39 doxycycline Allergy Unknown Verified 11/30/22 17:39 risedronate sodium Allergy Unknown Verified 11/30/22 17:39 [From Actonel] Home Medications Medication Instructions Recorded Confirmed Type triamcinolone acetonide 55 mcg 0 sprays intranasal DAILY PRN .. 01/22/19 11/30/22 History nasal spray aerosol #1 mL timolol 0.5 % eye drops 1 drp ophthalmic (eye) DAILY 02/21/22 12/04/22 History nystatin-triamcinolone 100,000 1 applic topical TID PRN vaginal 02/27/22 12/04/22 Rx unit/gram-0.1 % topical ointment irritation 10 days #30 grams alendronate 70 mg tablet (Fosamax) 70 mg PO WK 11/30/22 12/04/22 History aspirin 81 mg tablet,delayed 0 mg PO DAILY 11/30/22 11/30/22 History release betamethasone dipropionate 0.05 % 1 applic topical BID PRN itching 11/30/22 12/04/22 History topical cream bimatoprost 0.01 % eye drops 1 drp OPB DAILY 11/30/22 12/04/22 History (Lumigan) calcium carbonate 600 mg-vitamin 0 tab PO BID 11/30/22 11/30/22 History D3 10 mcg (400 unit) tablet (Calcium 600 + D(3)) ipratropium bromide 21 mcg (0.03 0 spray intranasal DIRECTED 11/30/22 11/30/22 History %) nasal spray loratadine 10 mg tablet (Wal-itin) 0 mg PO QAM 12/04/22 History Past Med/Surg History Medical History (Updated 12/04/22 @ 15:03 by Daniel Abrams DO) Dyslipidemia Family history of colon cancer Osteopenia after menopause Pancreatic cyst Surgical History History of colonoscopy History of varicose vein ligation and stripping S/P tubal ligation Family History Sister Breast cancer Coronary heart disease Father Stroke Mother Breast cancer Son Narcolepsy Other No family history of adverse response to anesthesia No family history of bleeding disorder Denies family history of Ovarian cancer Prostate cancer Diabetes Lung cancer Colorectal cancer Social History Smoking Status: Never smoker Second Hand Exposure: No; Do You Dip or Chew Tobacco: No; Hx Alcohol Use: Yes Alcohol type: wine Alcohol Intake Frequency: 2-3 x/Week Hx Substance Use: No Preferred Language: Hong Konger Communication Ability: Effective Visual Impairment: Limited Hearing Ability: Normal Wood Barker Required: No Beliefs That Will Affect Care: None marital status: Current Living Situation: Alone current occupational status: retired How many Children do You have: 3 Feels Safe at Home: Yes Childhood Exposure to Second-Hand Smoke: Yes (father smoked pipe occassionally ) Diet: regular caffeine: Yes (coffee and tea ) Dental Care, Regularly: Yes Physical Activity Frequency: Daily Physical Activity Frequency Comment: walk Seatbelt Use: always Sunscreen Use: Yes Assistive Devices: None Review of Systems Review of Systems: All systems reviewed & are unremarkable except as noted in HPI & below Physical Exam Constitutional: WD/WN, vitals as above Eyes: PERRL, conjunctivae normal, anicteric sclerae Neck: trachea midline, no thyromegaly Respiratory: normal respiratory effort, lungs clear to auscultation Cardiovascular: RRR, no murmur, no edema Gastrointestinal (Abdomen): normal bowel sounds, soft, nontender, no hepatosplenomegaly Musculoskeletal: no cyanosis or clubbing, extremities motor strength 5/5 Skin: no rashes, warm and dry Neurologic: moves all extremities and awake; no focal motor deficits and not confused Speech / Cognition: normal speech Motor/Sensory: no tremor, no p ronator drift and no sensory deficit Cranial Nerves: PERRL, EOM intact bilaterally, normal facial strength, tongue midline, able to rotate head bilaterally, able to elevate shoulders bilaterally, no nystagmus and symmetric palate elevation Coordination: normal [id number] test Psychiatric: A+Ox3, euthymic affect Results & Data Results & Data Vital Signs (Past 12 Hours) Vital Signs Temp Pulse Pulse Resp BP BP Pulse Ox 12/04/22 13:16 71 18 151/58 H 97 12/04/22 11:37 78 12/04/22 11:22 80 18 197/78 H 98 12/04/22 11:22 12/04/22 11:06 36.4 C L 87 20 201/96 H 97 O2 Del Method 12/04/22 13:16 Room Air 12/04/22 11:37 12/04/22 11:22 Room Air 12/04/22 11:22 Room Air 12/04/22 11:06 Room Air Laboratory Results Abnormal lab results 12/04/22 12/04/22 Range/Units 11:00 11:00 RDW Std Deviation 50.4 H (36.4-46.3) fL RDW Coeff of Bandar 16.7 H (11.5-14.5) % Placer # (Auto) 0.71 H (0.11-0.59) K/uL Sodium 134 L (136-145) mmol/L Creatinine 0.53 L (0.6-1.2) mg/dl Glucose 114 H (70-99(Fasting)) mg/dl Diagnostic Findings CT head/brain wo con CLINICAL HISTORY: AMS Technique: Contiguous axial CT images of the head were acquired from the base of the skull to the vertex without intravenous contrast administration. Images were viewed in brain, subdural and bone windows. Automated dose lowering techniques and/or adjustment according to patient size were utilized for this exam. Comparison: Comparison is made to CT head 12/10/2022 Findings: Areas of decreased attenuation are present in the periventricular and subcortical white matter bilaterally consistent with small vessel ischemic disease. Generalized cerebral atrophy with commensurate enlargement of the ventricles, sulci, and cisterns is also present. There is no acute intracranial hemorrhage or evidence of acute territorial infarction. No shift of the midline structures, mass effect, or extra-axial abnormalities are shown. Atherosclerotic calcifications are present in the intracranial segments of the internal carotid arteries. Imaged portions of the paranasal sinuses and mastoid air cells are clear. The orbits appear normal. There are no acute fractures of the calvaria or scalp swelling. Impression: No acute intracranial hemorrhage, no evidence of acute territorial infarction or other acute intracranial disease process. Medications Administered ER Medications Given: Normal saline 500ml bolus Keppra 1000mg IV ECG Rate (beats per minute): 86 Rhythm: normal sinus Findings: + 1st degree AV block and + PVC Comparison ECG Date: from (November 30, 2022) Change: the following changes noted (criteria for septal infarct no longer present) Code Status & VTE Plan Code Status Full VTE Prophylaxis Plan VTE Prophylaxis will be ordered: Yes PG Care Time/CCT Total # of Minutes Spent Total Time Spent with Patient: Total time spent is greater than 50% in coordination of care (as documented) at patient's floor/unit and/or counseling patient: Coding Level of Care Code 01700 INT INP/OBS CARE 3/75MIN Diagnoses Seizure-like activity R56.9
--- NOTE | 2022-12-04 14:43 | Electrocardiogram Report ---
Test Reason : Blood Pressure : / mmHG Vent. Rate : 086 BPM Atrial Rate : 086 BPM P-R Int : 256 ms QRS Dur : 076 ms QT Int : 372 ms P-R-T Axes : 076 059 067 degrees QTc Int : 445 ms Sinus rhythm with 1st degree A-V block with occasional Premature ventricular complexes Otherwise normal ECG When compared with ECG of 30-NOV-2022 14:57, Premature ventricular complexes are now Present Confirmed by Cruz Story ([id number]) on 12/04/2022 2:43:14 PM Referred By: REFERRED SELF Confirmed By:James Story
[2022-12-04 14:56] LABS: Appearance Urine Clear (Clear); Bacteria Urine Automated Negative (Negative); Bilirubin Urine Negative (Negative); Blood Urine Negative (Negative); Cast Urine Automated 0 /lpf (0-5); Color Urine Yellow; Glucose Urine UA Negative (Negative); Ketones Urine Trace (Negative); Leukocyte Esterase Urine 1+ (Negative); Nitrite Urine Negative (Negative); Protein Urine Negative (Negative); RBC Urine Automated 0-4 /hpf (0-4); Specific Gravity Urine 1.005 (1.000-1.030); Urobilinogen Urine Negative (Negative); pH Urine 7.5 (4.5-7.5)
[2022-12-04] MEDS ORDERED: LORazepam 2 MG/1 ML VIAL IV STA (16:36)
[2022-12-04] MEDS ORDERED: LORazepam 2 MG/1 ML VIAL ONE (16:37)
--- NOTE | 2022-12-04 17:26 | Neurology Consultation ---
Date of Consultation December 04, 2022 Assessment & Plan (1) Seizure-like activity: Unclear cause of intermittent unconsciousness/coma. Seizure is certainly a possibility. Would also consider central causes such as structural lesions and stroke. Agree with plan for MRI without contrast and routine EEG. If further episodes of tremoring are seen, agree with additional ativan. Would maintain keppra at 500mg BID for now. Suspect Alexsander everett is due to ativan but would consider ABG and central causes of apnea - which would also be visible on MRI. -- Continue Keppra 500mg BID -- Ativan for any further tremor/shaking episodes -- Consider ABG -- MRI brain without contrast -- Routine EEG -- We will follow Telehealth Consultation Telehealth Information Telehealth Information: I performed this visit using a real-time telehealth connection between my location and the patients location ([facility]). After connecting through interactive tele-video, patient was identified by name and date of and/or wristband check.Patient (or authorized healthcare loan servicing representative) was informed that this was a telemedicine visit and it was being conducted confidentially over secure lines. My office door was closed and no one else was present in the room with me.Patient (or authorized healthcare loan servicing representative) provided consent to proceed with the visit, expressed an understanding of privacy and security of the telemedicine visit, and gave permission to have a hospital loan servicing representative in the room in order to assist with the visit and to conduct portions of the visit, as needed. I informed the patient (or authorized healthcare loan servicing representative) that I reviewed their record and presented the opportunity for them to ask any questions regarding the visit today. The patient agreed to participate. History of Present Illness Reason for Consultation: Altered mental status Requesting Physician: Dr. Martinez Attending Physician: Gilberto Martinez MD History of Present Illness Carly Soliman is an 87 yo F presenting with episodes of unresponsiveness. She was recently admitted and discharged on 12/03 with an episode diagnosed as a seizure in the setting of hyponatremia down to 123. Today she returned to the ED from her facility for further episodes of unresponsiveness. As witnessed in the ED she will stare and go flaccid in her arms and legs. No focal gaze deviation and no shaking movements. After the event which can last 20+ minutes she has no post-ictal period was apparently aware she was "out of it". Since admission and arriving to the floor, she had another episode but nursing witnessed tremoring of her arms and legs with elevated BP that resolved with ativan. She has otherwise not been alert since arriving to the unit and receiving the ativan and could not contribute to the history given her current state. Allergies Allergy/AdvReac Type Severity Reaction Status Date / Time Penicillins Allergy Unknown Unknown rxn Verified 11/30/22 17:39 azithromycin [From Zithromax] Allergy Unknown Verified 11/30/22 17:39 doxycycline Allergy Unknown Verified 11/30/22 17:39 risedronate sodium Allergy Unknown Verified 11/30/22 17:39 [From Actonel] Home Medications Medication Instructions Recorded Confirmed Type triamcinolone acetonide 55 mcg 0 sprays intranasal DAILY PRN .. 01/22/19 11/30/22 History nasal spray aerosol #1 mL timolol 0.5 % eye drops 1 drp ophthalmic (eye) DAILY 02/21/22 12/04/22 History nystatin-triamcinolone 100,000 1 applic topical TID PRN vaginal 02/27/22 12/04/22 Rx unit/gram-0.1 % topical ointment irritation 10 days #30 grams alendronate 70 mg tablet (Fosamax) 70 mg PO WK 11/30/22 12/04/22 History aspirin 81 mg tablet,delayed 0 mg PO DAILY 11/30/22 11/30/22 History release betamethasone dipropionate 0.05 % 1 applic topical BID PRN itching 11/30/22 12/04/22 History topical cream bimatoprost 0.01 % eye drops 1 drp OPB DAILY 11/30/22 12/04/22 History (Jason) calcium carbonate 600 mg-vitamin 0 tab PO BID 11/30/22 11/30/22 History D3 10 mcg (400 unit) tablet (Calcium 600 + D(3)) ipratropium bromide 21 mcg (0.03 0 spray intranasal DIRECTED 11/30/22 11/30/22 History %) nasal spray loratadine 10 mg tablet (Wal-itin) 0 mg PO QAM 12/04/22 History Patient History Medical History (Updated 12/04/22 @ 15:03 by Daniel Abrams DO) Dyslipidemia Family history of colon cancer Osteopenia after menopause Pancreatic cyst Surgical History History of colonoscopy History of varicose vein ligation and stripping S/P tubal ligation Family History Sister Breast cancer Coronary heart disease Father Stroke Mother Breast cancer Son Narcolepsy Other No family history of adverse response to anesthesia No family history of bleeding disorder Denies family history of Ovarian cancer Prostate cancer Diabetes Lung cancer Colorectal cancer Social History Smoking Status: Never smoker Second Hand Exposure: No; Do You Dip or Chew Tobacco: No; Hx Alcohol Use: No Hx Substance Use: No Preferred Language: Faroese Communication Ability: Effective Visual Impairment: Limited Hearing Ability: Normal Speech And Drama Teacher Required: No Beliefs That Will Affect Care: None marital status: Current Living Situation: Alone current occupational status: retired How many Children do You have: 3 Feels Safe at Home: Yes Childhood Exposure to Second-Hand Smoke: Yes (father smoked pipe occassionally ) Diet: regular caffeine: Yes (coffee and tea ) Dental Care, Regularly: Yes Physical Activity Frequency: Daily Physical Activity Frequency Comment: walk Seatbelt Use: always Sunscreen Use: Yes Assistive Devices: None Review of Systems Unable to obtain, AMS Physical Exam Unresponsive, eyes closed. No response to verbal or tactile stim. Flaccid in all four extremities. Eyes midline. No abnormal movements. Noted alexsander everett breathing. Results & Data Vital Signs (Past 12 Hours) Vital Signs Temp Pulse Pulse Resp BP BP Pulse Ox 12/04/22 16:00 77 20 181/83 H 100 12/04/22 15:00 74 18 184/75 H 98 12/04/22 13:16 71 18 151/58 H 97 12/04/22 11:37 78 12/04/22 11:22 80 18 197/78 H 98 12/04/22 11:22 12/04/22 11:06 36.4 C L 87 20 201/96 H 97 O2 Del Method 12/04/22 16:00 Room Air 12/04/22 15:00 12/04/22 13:16 Room Air 12/04/22 11:37 12/04/22 11:22 Room Air 12/04/22 11:22 Room Air 12/04/22 11:06 Room Air Laboratory Results Abnormal lab results 12/04/22 12/04/22 12/04/22 Range/Units 11:00 11:00 14:18 RDW Std Deviation 50.4 H (36.4-46.3) fL RDW Coeff of Bandar 16.7 H (11.5-14.5) % [place]asta # (Auto) 0.71 H (0.11-0.59) K/uL Sodium 134 L (136-145) mmol/L Creatinine 0.53 L (0.6-1.2) mg/dl Glucose 114 H (70-99(Fasting)) mg/dl Urine Ketones Trace H (Negative) Ur Leukocyte Esterase 1+ H (Negative) U Epithel Cells (Auto) 10-20 H (0-5) /lpf Diagnostic Findings CT head - Unremarkable
[2022-12-04 18:17] LABS: Base Excess ABG 0.5 mEq/L (-9-1.8); HCO3 ABG 25 mmol/L (19-24); Oxygen Saturation ABG 97.8 % (90-95); PCO2 ABG 37 mmHg (35-46); PO2 ABG 83 mmHg (80-95); pH ABG 7.43 (7.35-7.45)
[2022-12-04] MEDS ORDERED: GADOBUTROL 65ML VIAL IV ONE (18:56)
--- NOTE | 2022-12-04 19:08 | XRay Report ---
XR chest 1V portable CLINICAL HISTORY: seizure like activity TECHNIQUE: Single frontal radiograph of the chest was obtained. Comparison: Comparison is made to chest radiograph 11/30/2022 FINDINGS: No lines and tubes are seen. Calcified aortic knob is seen. The lungs are clear. No evidence of pleur al effusion or pneumothorax. IMPRESSION: No acute chest disease. ACT 112: Negative or not required by law. Electronically signed by: David eLung M.D. 12/04/2022 7:06 PM
[2022-12-04 19:18] LABS: Allen Test Pos (Pos)
[2022-12-04] MEDS: levETIRAcetam 500 MG in 0.9 % SODIUM CHLORIDE 100 ML IV SCH (20:00)
[2022-12-04] MEDS: LACTATED RINGER'S 1,000 ML IV SCH (20:01)
--- NOTE | 2022-12-04 20:24 | Magnetic Resonance Report ---
MRI OF THE BRAIN COMBO CLINICAL HISTORY: Absence seizures. Change in mental status. COMPARISON STUDY: CT of the brain dated 12/04/2022. TECHNIQUE: MRI of the brain was performed utilizing various T1 and T2-weighted sequences in the axial , sagittal, and coronal planes. Contrast-enhanced sequences were acquired following the administratio n of 6 cc of Gadavist. The examination is performed using the seizure protocol. FINDINGS: Brain parenchyma: There is age-related involutional change noting mild subcortical and periventricula r microangiopathic disease. There is no hemorrhage or mass effect. There is no restricted diffusion t o suggest acute ischemia. No enhancing mass lesion is identified on the postcontrast images. Suggs-whi te matter differentiation is preserved. 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 No extra-axi al fluid collection is seen. The cerebellar tonsils are normal in configuration. The hippocampi are n ormal and symmetric. Ventricles, sulci, and cisterns: Prominent secondary to involutional change. Pituitary and sella: Unremarkable. Intracranial vasculature: Normal flow voids are maintained at the skull base. Orbits: The bony orbits are grossly intact. Orbital contents are normal in appearance noting bilatera l ocular lens implants. Sinuses and mastoids: Clear. Calvarium: Unremarkable. Cervical cord: Partially visualized cervical spinal cord is normal in morphology and signal intensity . IMPRESSION: Senescent changes as above with no acute intracranial abnormality identified. ACT 112: Negative or not required by law. Electronically signed by: Magen Freeman M.D. 12/04/2022 8:21 PM
--- NOTE | 2022-12-05 01:25 | Communication Note ---
Date of Service: December 04, 2022 Per RN patient non-responsive on arrival to [facility] having tremors in all 4 extremities. Alerted via Tigertext of acute change in patient state. No longer h aving tremors when seen but not responsive and not following commands similar to description given by ER provider. Swallowing own saliva. Biting down on tongue depressor with gag reflex present. On opening her eyes she was staring straight ahead. Extremities with increased tone. Lorazepam 2mg IV given. Discussed with Dr Shelley and if further seizures recommend transfer for continuous EEG. Concern for Len-Stafford respiration noted by neurology however not noticed when I re- examined her again after neruology evaluation. ABG taken nonetheless without hypercapnia. Continuous pulse ox ordered overnight.
[2022-12-05 07:28] LABS: Base Excess VBG 1.9 mEq/L; HCO3 VBG 27 mmol/L; Oxygen Saturation VBG < 60.0 %; PCO2 VBG 41 mmHg (38-50); PO2 VBG 29 mmHg; pH VBG 7.42 (7.36-7.41)
[2022-12-05 07:42] LABS: Basophils # (auto) 0.08 K/uL (0-0.2); Basophils % (auto) 1.1 %; Eosinophils # (auto) 0.26 K/uL (0-0.50); Eosinophils % (auto) 3.6 %; Hematocrit (blood only) 35.6 % (37.0-47.0); Hemoglobin 12.2 g/dl (12.0-16.0); Immature Granulocytes # (auto) 0.02 K/uL (0.01-0.20); Immature Granulocytes % (auto) 0.3 %; Lymphocytes % (auto) 23.5 %; Mean Corpuscular Hgb Conc 34.3 g/dL (32.0-36.0); Mean Corpuscular Volume 84.6 fL (80.0-100.0); Mean Platelet Volume 8.8 fL (9.4-12.4); Monocytes # (auto) 0.75 K/uL (0.11-0.59); Monocytes % (auto) 10.4 %; Neutrophils # (auto) 4.41 K/uL (1.40-6.50); Neutrophils % (auto) 61.1 %; Platelet Count 305 K/uL (130-400); RDW Coefficient of Variation 17.2 % (11.5-14.5); RDW Standard Deviation 52.5 fL (36.4-46.3); Red Blood Count 4.21 M/uL (4.20-5.40); White Blood Count 7.22 K/ul (4.8-10.8)
[2022-12-05 07:51] LABS: BUN Creatinine Ratio 13.2 (10-20); Calcium 8.8 mg/dl (8.6-10.3); Creatinine Clr Calc Pharmacy 64.6 ml/min; Est GFR (African American) 98.9 ml/min; Est GFR (Non-African American) 85.4 ml/min; Potassium 3.5 mmol/L (3.5-5.1)
[2022-12-05] MEDS ORDERED: BIMATOPROST 0.01% OP SOLN 2.5 ML BTL OP SCH (09:00)
[2022-12-05] MEDS: TIMOLOL MALEATE 0.5% OP SOLN 5 ML BTL OP SCH (09:11)
[2022-12-05] MEDS: LACTATED RINGER'S 1,000 ML IV SCH (09:19)
[2022-12-05] MEDS: ENOXAPARIN INJ 40 MG/0.4 ML SYR SQ SCH (09:21)
[2022-12-05] MEDS: levETIRAcetam 500 MG in 0.9 % SODIUM CHLORIDE 100 ML IV SCH ×2 (09:25→20:07)
[2022-12-05] MEDS ORDERED: hydrALAZINE HCL 20 MG/ML VIAL IV PRN (13:04)
[2022-12-05] MEDS: amLODIPine BESYLATE 5 MG TAB PO SCH (14:11)
--- NOTE | 2022-12-05 14:46 | Hospitalist Progress Note ---
Date of Service December 05, 2022 Assessment & Plan (1) Seizure-like activity: Plan: No recurrence since started on Keppra. Continue seizure precautions for now. Brain MRI scan reveals only age-related changes. EEG is pending. Neurology consultation appreciated. (2) Hyponatremia: Plan: Mild. Low 130s. Serial labs. No treatment necessary at this time (3) Essential hypertension: Plan: Blood pressure is elevated. Amlodipine started. Will use intravenous hydralazine as needed Plan Hopeful discharge to previous living arrangements as early as tomorrow, December 06, if stable Admission and Anticipated Discharge Date Admission Date: December 04, 2022 Subjective Alert and oriented. No distress. No recurrent seizure activity while on Keppra. Sodium is mildly low but not a concern. Amlodipine started for elevated blood pressure. Free T3 and free T4 levels are normal. OT and PT assessments requested. Review of Systems Review of Systems: Constitutional-no fever or chills ENT-no blurred vision, no double vision, no epistaxis, no sore throat Respiratory-no cough, no wheezing, no shortness of breath Cardiac-no palpitations, no chest pain, no syncope GI-no nausea, vomiting, diarrhea, melena, hematochezia -no urinary retention, no urinary incontinence, no dysuria, no hematuria Musculoskeletal-no joint pain, no muscle tenderness Skin-no bruising, no rashes, no pruritus Neuro-no isolated weakness, no paresthesia, no weakness Psych-no depression, no anxiety Physical Exam Physical Exam: General-alert and oriented x3, no fevers, no chills HEENT-head atraumatic and normocephalic, pupils equal and reactive to light, extraocular muscles intact Neck-no lymphadenopathy or thyromegaly, trachea midline Chest-clear to auscultation percussion. No rales wheezing or rhonchi Cardiac-regular rate and rhythm, normal S1 and S2 Abdomen-normal bowel sounds, nontender, no hepatosplenomegaly Extremities-no cyanosis, clubbing, or edema Neuro-cranial nerves II through XII intact, motor and sensory function within normal limits, strength symmetrical , no focal deficits Psych-normal affect, normal mood Results & Data Results & Data Vital Signs (Past 12 Hours) Vital Signs Temp Pulse Pulse Pulse Resp BP Pulse Ox 12/05/22 12:05 36.4 C L 80 18 190/80 H 96 08/09/23 08:00 36.6 C 82 16 180/70 H 96 12/05/22 06:00 75 12/05/22 04:00 36.6 C 74 18 162/76 H 96 O2 Del Method 12/05/22 12:05 Room Air 12/05/22 08:00 Room Air 12/05/22 06:00 12/05/22 04:00 Room Air Laboratory Results 12/05/22 07:08 12/05/22 07:08 PG Care Time/CCT Total # of Minutes Spent Total Time Spent with Patient: Total time spent is greater than 50% in coordination of care (as documented) at patient's floor/unit and/or counseling patient: Coding Level of Care Code 30328 SUB INP/OBS CARE 3/50MIN Diagnoses Seizure-like activity R56.9 Hyponatremia E87.1 Essential hypertension I10
--- NOTE | 2022-12-05 15:24 | Electroencephalogram ---
EEG Procedure Note Date of Service December 05, 2022 Start / End Times Start Time: 11:25 End Time: 11:45 Referring Physician Michelle Macias MD History An 87 year old female with absent seizure. EEG performed for evaluation of epileptiform activity. Home Medication List Medication Instructions Recorded Confirmed Type triamcinolone acetonide 55 mcg 0 sprays intranasal DAILY PRN .. 01/22/19 11/30/22 History nasal spray aerosol #1 mL timolol 0.5 % eye drops 1 drp ophthalmic (eye) DAILY 02/21/22 12/04/22 History nystatin-triamcinolone 100,000 1 applic topical TID PRN vaginal 02/27/22 12/04/22 Rx unit/gram-0.1 % topical ointment irritation 10 days #30 grams alendronate 70 mg tablet (Fosamax) 70 mg PO WK 11/30/22 12/04/22 History aspirin 81 mg tablet,delayed 0 mg PO DAILY 11/30/22 11/30/22 History release betamethasone dipropionate 0.05 % 1 applic topical BID PRN itching 11/30/22 12/04/22 History topical cream bimatoprost 0.01 % eye drops 1 drp OPB DAILY 11/30/22 12/04/22 History (Lumigan) calcium carbonate 600 mg-vitamin 0 tab PO BID 11/30/22 11/30/22 History D3 10 mcg (400 unit) tablet (Calcium 600 + D(3)) ipratropium bromide 21 mcg (0.03 0 spray intranasal DIRECTED 11/30/22 11/30/22 History %) nasal spray loratadine 10 mg tablet (Wal-itin) 0 mg PO QAM 12/04/22 History Inpatient Medication List Amlodipine Besylate (Amlodipine Besylate 5 Mg Tab) 5 mg PO QAM [facility] Stop: 01/04/23 13:14 Last Admin: 12/05/22 14:11 Dose: 5 mg Documented By: NANDO Enoxaparin Sodium (Enoxaparin Inj 40 Mg/0.4 Ml Syr) 40 mg SQ QAM [facility] Stop: 01/04/23 08:59 Last Admin: 12/05/22 09:21 Dose: 40 mg Documented By: NANDO Levetiracetam 500 mg/ Sodium (Chloride) 105 mls @ 420 mls/hr IV BID [facility] Stop: 01/03/23 20:59 Last Infusion: 12/05/22 10:59 Dose: 0 mls/hr Documented By: Admin: 12/05/22 09:25 Dose: 420 mls/hr Documented By: Infusion: 12/04/22 20:46 Dose: 0 mls/hr Documented By: Admin: 12/04/22 20:00 Dose: 420 mls/hr Documented By: NIKOLAS Lactated Ringer's (Lr) 1,000 mls @ 50 mls/hr IV .Q20H [facility] Stop: 01/03/23 18:59 Last Admin: 12/05/22 09:19 Dose: 80 mls/hr Documented By: Infusion: 12/05/22 08:31 Dose: 80 mls/hr Documented By: Admin: 12/04/22 20:01 Dose: 80 mls/hr Documented By: NIKOLAS Timolol Maleate (Timolol Maleate 0.5% Op Soln 5 Ml Btl) 1 drops OP DAILY [facility] Stop: 01/04/23 08:59 Last Admin: 12/05/22 09:11 Dose: 1 drops Documented By: NANDO Discontinued Medications Bimatoprost (Bimatoprost 0.01% Op Soln 2.5 Ml Btl) 1 drops OP DAILY [facility] Stop: 01/04/23 08:59 Last Admin: 12/05/22 09:10 Dose: 1 drops Documented By: NANDO Gadobutrol (Gadobutrol 65ml Vial) 6 ml IV ONCE ONE Stop: 12/04/22 18:57 Last Admin: 12/04/22 18:56 Dose: 6 ml Documented By: EITAN Sodium Chloride (Nss) 500 mls @ 999 mls/hr IV .Q31M [facility] Stop: 12/04/22 12:30 Last Infusion: 12/04/22 13:27 Dose: 0 mls/hr Documented By: Admin: 12/04/22 12:08 Dose: 999 mls/hr Documented By: JASON Levetiracetam 1,000 mg/ Sodium (Chloride) 110 mls @ 440 mls/hr IV NOW STA Stop: 12/04/22 12:06 Last Infusion: 12/04/22 12:31 Dose: 0 mls/hr Documented By: Admin: 12/04/22 12:08 Dose: 440 mls/hr Documented By: JASON Lorazepam (Lorazepam 2 Mg/1 Ml Vial) 2 mg IV NOW STA Stop: 12/04/22 16:37 Last Admin: 12/04/22 16:46 Dose: 2 mg Documented By: NANDO Lorazepam (Lorazepam 2 Mg/1 Ml Vial) Confirm Administered Dose 2 mg .ROUTE .STK- MED ONE Stop: 12/04/22 16:38 Last Admin: 12/04/22 18:09 Dose: Not Given Documented By: NANDO Description This is a 21 electrode EEG with a single channel dedicated to limited EKG. The electrodes were placed in accordance with the International 10-20 system. REPORT: At the onset of the EEG the patient is awake. The posterior dominant rhythm is 9 hertz. The background is symmetric and well organized. There is a normal anterior to posterior gradient. There is low amplitude beta activity in the frontal head regions. Drowsiness is characterized by increased theta activity, reduced blink rate, decreased myogenic artifact. No stage 2 sleep transients are seen. Photic stimulation does not induce any abnormalities. Interpretation IMPRESSION: This is a normal awake and drowsy routine EEG. There is no evidence of focal slowing or epileptiform activity.
[2022-12-05] MEDS: FLUTICASONE PROPIONATE NA SPR 16 GM BTL NAE SCH (16:05)
[2022-12-05] MEDS: BIMATOPROST 0.01% OP SOLN 2.5 ML BTL OP SCH (20:08)
[2022-12-06] MEDS: LACTATED RINGER'S 1,000 ML IV SCH (06:14)
[2022-12-06 07:08] LABS: Basophils # (auto) 0.08 K/uL (0-0.2); Basophils % (auto) 1.3 %; Eosinophils # (auto) 0.28 K/uL (0-0.50); Eosinophils % (auto) 4.7 %; Hematocrit (blood only) 32.2 % (37.0-47.0); Immature Granulocytes # (auto) 0.03 K/uL (0.01-0.20); Immature Granulocytes % (auto) 0.5 %; Lymphocytes # (auto) 1.71 K/uL (1.2-3.4); Lymphocytes % (auto) 28.5 %; Mean Corpuscular Hemoglobin 28.8 pg (25.0-34.0); Mean Corpuscular Hgb Conc 34.2 g/dL (32.0-36.0); Mean Corpuscular Volume 84.3 fL (80.0-100.0); Mean Platelet Volume 9.5 fL (9.4-12.4); Monocytes # (auto) 0.74 K/uL (0.11-0.59); Monocytes % (auto) 12.4 %; Neutrophils # (auto) 3.15 K/uL (1.40-6.50); Neutrophils % (auto) 52.6 %; Platelet Count 272 K/uL (130-400); RDW Coefficient of Variation 16.9 % (11.5-14.5); RDW Standard Deviation 52.3 fL (36.4-46.3); Red Blood Count 3.82 M/uL (4.20-5.40); White Blood Count 5.99 K/ul (4.8-10.8)
[2022-12-06 07:28] LABS: BUN Creatinine Ratio 19.6 (10-20); Calcium 8.4 mg/dl (8.6-10.3); Creatinine Clr Calc Pharmacy 74.4 ml/min; Est GFR (African American) 103.7 ml/min; Est GFR (Non-African American) 89.4 ml/min; Potassium 3.5 mmol/L (3.5-5.1)
[2022-12-06] MEDS: amLODIPine BESYLATE 5 MG TAB PO SCH (10:05)
[2022-12-06] MEDS: FLUTICASONE PROPIONATE NA SPR 16 GM BTL NAE SCH (10:06)
[2022-12-06] MEDS: TIMOLOL MALEATE 0.5% OP SOLN 5 ML BTL OP SCH (10:07)
[2022-12-06] MEDS: ENOXAPARIN INJ 40 MG/0.4 ML SYR SQ SCH (10:07)
[2022-12-06] MEDS: BIMATOPROST 0.01% OP SOLN 2.5 ML BTL OP SCH (10:12)
[2022-12-06] MEDS: levETIRAcetam 500 MG in 0.9 % SODIUM CHLORIDE 100 ML IV SCH (10:14)
--- NOTE | 2022-12-06 12:07 | Discharge Summary ---
Date of Service December 06, 2022 Admission HPI Per Admitting Provider Carly Soliman is an 87 year old female who presents to the ER from [facility] via ALS due to concern for seizure-like activity. Reportedly have extremity shaking at the group home. Since then just staring into the distance and not following commands. She was given Keppra 1000mg and referred to medicine for admission. When seen the patient was alert and orientated. She is aware she is in hospital but cannot tell me what happened today. She feels fatigued but otherwise feels like her normal self. She denies any fever, chills, respiratory, gastrointestinal or urinary symptoms. No one sided weakness or change in se nsation. She was recently admitted from November 30 - 2022 with similar symptoms suspected to be due to hyponatremia at that time with sodium level 123. This was treated with 100ml of hypertonic saline. She was treated for seizure with Keppra 2000mg IV and lorazepam 1mg IV. Given the sodium increased and was stable she was not started on any routine anti-epileptics. Principal Diagnosis New onset seizure disorder, uncontrolled hypertension Discharge Exam General-alert and oriented x3, no fevers, no chills HEENT-head atraumatic and normocephalic, pupils equal and reactive to light, extraocular muscles intact Neck-no lymphadenopathy or thyromegaly, trachea midline Chest-clear to auscultation percussion. No rales wheezing or rhonchi Cardiac-regular rate and rhythm, normal S1 and S2 Abdomen-normal bowel sounds, nontender, no hepatosplenomegaly Extremities-no cyanosis, clubbing, or edema Neuro-cranial nerves II through XII intact, motor and sensory function within normal limits, strength symmetrical , no focal deficits Psych-normal affect, normal mood Discharge Data Allergies Allergy/AdvReac Type Severity Reaction Status Date / Time Penicillins Allergy Unknown Unknown rxn Verified 11/30/22 17:39 azithromycin [From Zithromax] Allergy Unknown Verified 11/30/22 17:39 doxycycline Allergy Unknown Verified 11/30/22 17:39 risedronate sodium Allergy Unknown Verified 11/30/22 17:39 [From Actonel] Consultations 12/04/22 14:00 Consult Neurology Routine 12/04/22 14:01 ED Decision to Admit Stat Ordered Studies 12/04/22 11:46 CT head/brain wo con Stat 12/04/22 14:05 MRI Brain [MR brain wo/w con] Routine Hospital Course (1) Seizure-like activity: No recurrence since started on Keppra. Continue seizure precautions while hospitalized. Brain MRI scan reveals only age-related changes. EEG is nega tive. Neurology consultation appreciated. Will continue Keppra at discharge (2) Hyponatremia: Mild. Low 130s. Serial labs. No treatment necessary at this time (3) Essential hypertension: Blood pressure is much improved after addition of amlodipine. Will continue at discharge Plan Discharge to [facility] today, December 06 Total Time Total Time Spent Total Time Spent (In Minutes): 45 minutes Discharge Plan Discharge Items Patient Disposition: Transfer Halfway Fac Reason For Visit: SEIZURE-LIKE ACTIVITY Discharge Diagnosis: New onset seizures, uncontrolled hypertension Activity: Resume your previous activity Non-emergency contact: Primary Care Provider Call non-emergency contact if: your symptoms worsen Follow-up/Referrals: Roque Figueroa MD [Primary Care Provider] - Diet: Regular and Heart Healthy Addtl Attending Provider Instructions: Continue Keppra 500 mg twice a day to prevent any further seizures. Take amlodipine 5 mg once daily for blood pressure control Pending Studies at Discharge: No Stand-Alone Forms: [employer] Skilled Items Patient informed of condition?: Yes DNR: Yes Discharge Level of Care: Skilled Communicable Disease: No Discharge Prognosis: Stable Lines: None Urinary Catheter: No Medications and DC Order Prescriptions: New levetiracetam [Keppra] 500 mg tablet 500 mg PO BID Qty: 1 0RF amlodipine [Norvasc] 5 mg Tablet 5 mg PO QAM Qty: 0 0RF Continued nystatin-triamcinolone 100,000-0.1 unit/gram-% ointment 1 applic TOP TID PRN (Reason: vaginal irritation) 10 Days Qty: 30 1RF timolol 0.5 % drops 1 drp ophthalmic (eye) DAILY Rx Instructions: PER [place] triamcinolone acetonide 55 mcg aerosol,spray 0 sprays intranasal DAILY PRN (Reason: ..) Qty: 1 Rx Instructions: unable to verify aspirin 81 mg Tablet,Delayed Release (Dr/Ec) 0 mg PO DAILY Rx Instructions: unable to verify calcium carbonate-vitamin D3 [Calcium 600 + D(3)] 600 mg-10 mcg (400 unit) Tablet 0 tab PO BID Rx Instructions: unable to verify Lumigan 0.01 % drops 1 drp OPB DAILY alendronate [Fosamax] 70 mg tablet 70 mg PO WK Rx Instructions: Per dr 1st betamethasone dipropionate 0.05 % cream 1 applic TOP BID PRN (Reason: itching) Rx Instructions: Apply sparingly to affected area twice a day PRN; ipratropium bromide 21 mcg (0.03 %) spray,non-aerosol 0 spray intranasal DIRECTED Rx Instructions: unable to verify administer into each nostril loratadine [Wal-itin] 10 mg tablet 0 mg PO QAM Rx Instructions: unable to verify Discharge Orders: Discharge Order (Routine); Ordered 12/06/22 Ordered By: Lee Garcia Admission Data Admit Date/Time: 12/06/22 11:25 Attending Provider: Lee Garcia Admit Provider: Gilberto Martinez Primary Care Provider: Roque Figueroa Other Providers: Nile Shelley ; Gilberto Martinez ; Shane Sykes Coding Level of Care Code 98600 INP/OBS DISCH >30 MIN Diagnoses Seizure-like activity R56.9 Hyponatremia E87.1 Essential hypertension I10
== END 2022-12-06 13:55 | DRG 101 ==
LOC: 2W 11:01 → ED 11:01 → SUATTDRO 14:17 → 2W 16:14

== ENCOUNTER 2022-12-09 14:54 | Inpatient (IN) ==
--- NOTE | 2022-12-09 15:04 | Emergency Department Note ---
Impression & Plan Spell of altered consciousness ED Provider Note Provider: Anselmo Brand MD DATE OF SERVICE: 12/09/2022 CHIEF COMPLAINT: Altered mental status HISTORY OF PRESENT ILLNESS: Patient is a 87-year-old female history of hypertension, and several recent hospitalizations here for hyponatremia as well as altered mental status and seizure-like events presenting here today via ambulance from her facility. Patient evidently was discharged 3 days ago from here and started on 500 twice daily of Keppra. Patient per EMS experience an episode last night for about an hour she seemed to stare off into space. Today staff went into her room and found her this afternoon similar episode not responding to them just staring off. No new trauma or falls or seizure-like activity reported. Given this they contacted and wanted the patient brought here for further evaluation. Upon arrival patient noted provide me additional history. She is staring straight ahead and not responding to verbal stimuli. Painful stimuli does cause her to flinch. There is no shaking or seizure activity noted. Patient does not nod or make any gestures when asked questions. EMS report the patient was talking to them at 1 point and then went into another staring spell in route. PAST MEDICAL HISTORY: As noted above MEDICATIONS: Reviewed medications SOCIAL HISTORY: Resides at custodial facility PHYSICAL EXAM: GENERAL: alert in no acute distress on stretcher staring straight ahead Head: normocephalic and atraumatic EYES: No injection, discharge or icterus. PERRL NECK: Trachea midline. Supple. ENT: Mucous membranes pink and moist. LUNGS: Airway patent. No retractions. Breath sounds clear with good air entry bilaterally. HEART: Regular rate and rhythm. No chest wall tenderness with a few old c ontusions small to the anterior sternum ABDOMEN: Soft and non-tender, without guarding or rebound. SKIN: Acyanotic, warm, dry, EXTREMITIES: Without swelling, tenderness or deformity with a small skin tear bandaged with nonadhesive dressing to the left lower leg without surrounding erythema or crepitus. NEUROLOGICAL: Flinches to pain in all 4 extremities. Nonverbal staring straight ahead. Occasionally blinks. Corneal reflexes intact with saline. Does respond to sternal rub. No obvious facial droop noted. EK bpm sinus rhythm first-degree AV block. No PVC noted. No acute ST segment elevation with a QTc of 430. CONTINUOUS CARDIAC MONITORING: was ordered and showed a heart rate of 80s-90s bpm in normal sinus rhythm Patient's laboratory studies and imaging reviewed. Differential includes Epilepsy, infection, hypoglycemia, electrolyte abnormalities, cardiac sources, intracerebral event, trauma, toxicologic, neurologic, syncope, as well as other pathologies. IMPRESSION/MEDICAL DECISION MAKING: Reviewed prior medical records. Has had several evaluations initially thought t hese episodes may be related to hyponatremia. Last admission had neurology consultation EEG that was reassuring was started on Keppra. Home for several days evidently had episode last night per EMS as well as again this afternoon where she is not responding and staring straight ahead. Does not appear in any distress. Vitals are reassuring. There is no new trauma history reported. Does not seem that focal and low suspicion for CVA. Recent work-up also includes MRI without acute findings. We will complete a head CT today exclude any acute evolving change in the the last several days. Does respond and blink with corneal stimulation with saline here. Flinches to pain. Seems quite atyp ical given the work-up and exam for seizure at this point. Electrolytes and chemistries were sent. Unsure if this could be PNES/behavioral in nature. Blood work without anemia or leukocytosis. No significant chemistry abnormalities. No anion gap. Normal renal function. No CK elevation. No s igns of troponin elevation. Prolactin within normal limits. Negative COVID. Afebrile here again. Nonverbal me at this time but really do not feel this represents seizure-like activity. CT of the head report reassuring. Patient shortly thereafter about an hour and a half until hospitalization here today awakens and is pleasant and talking. States she has some. She does not remember today but otherwise denies complaints. Denies any pain. States she is hungry and feeling okay at the moment. Reached out to neurology who is seen her neuro consultation here recently to discuss the case. Dr. Bright thought that an ambulatory EEG would probably be the neck step of the work-up. Reached out and discussed the patient's daughter and his son-in-law via phone. They were highly concerned and states very are cared for the patient and are concerned about her ability to function back at her facility. They feel that the facility will just return here immediately and wish for further observation, work-up and evaluation here at the hospital. Reached out to the hospitalist. DIAGNOSIS: Transient AMS, spells DISPOSITION: Being evaluated by the hospitalist Past Med/Surg History Medical History (Updated 12/09/22 @ 20:44 by Anselmo Brand M.D.) Dyslipidemia Family history of colon cancer Osteopenia after menopause Pancreatic cyst Surgical History History of colonoscopy History of varicose vein ligation and stripping S/P tubal ligation Family History Sister Breast cancer Coronary heart disease Father Stroke Mother Breast cancer Son Narcolepsy Other No family history of adverse response to anesthesia No family history of bleeding disorder Denies family history of Ovarian cancer Prostate cancer Diabetes Lung cancer Colorectal cancer Social History Smoking Status: Unknown if ever smoked Second Hand Exposure: No; Do You Dip or Chew Tobacco: No; Hx Alcohol Use: Yes Alcohol type: wine Alcohol Intake Frequency: 2-3 x/Week Hx Substance Use: No Preferred Language: Grenadian Communication Ability: Effective Visual Impairment: Limited Hearing Ability: Normal Procedures Analyst Required: No Beliefs That Will Affect Care: None marital status: Current Living Situation: Alone current occupational status: retired How many Children do You have: 3 Feels Safe at Home: Yes Childhood Exposure to Second-Hand Smoke: Yes (father smoked pipe occassionally ) Diet: regular caffeine: Yes (coffee and tea ) Dental Care, Regularly: Yes Physical Activity Frequency: Daily Physical Activity Frequency Comment: walk Seatbelt Use: always Sunscreen Use: Yes Assistive Devices: None Allergies Allergies Allergy/AdvReac Type Severity Reaction Status Date / Time Penicillins Allergy Unknown Unknown rxn Verified 12/09/22 17:51 azithromycin [From Zithromax] Allergy Unknown Verified 12/09/22 17:51 doxycycline Allergy Unknown Verified 12/09/22 17:51 risedronate sodium Allergy Unknown Verified 12/09/22 17:51 [From Actonel] Home Meds Home Medications Medication Instructions Recorded Confirmed triamcinolone acetonide 55 mcg 1 sprays intranasal DAILY PRN 01/22/19 12/09/22 nasal spray aerosol rhinitis #1 mL timolol 0.5 % eye drops 1 drp OPR DAILY 02/21/22 12/09/22 alendronate 70 mg tablet (Fosamax) 70 mg PO WK 11/30/22 12/09/22 aspirin 81 mg tablet,delayed 0 mg PO DAILY 11/30/22 12/09/22 release betamethasone dipropionate 0.05 % 1 applic topical BID PRN itching 11/30/22 12/09/22 topical cream bimatoprost 0.01 % eye drops 1 drp OPB DAILY 11/30/22 12/09/22 (Lumigan) calcium carbonate 600 mg-vitamin 1 tab PO BID 11/30/22 12/09/22 D3 10 mcg (400 unit) tablet (Calcium 600 + D(3)) ipratropium bromide 21 mcg (0.03 1 spray intranasal QAM 11/30/22 12/09/22 %) nasal spray acetaminophen 325 mg tablet 650 mg PO Q4 PRN Fever Or Pain 12/09/22 12/09/22 (Tylenol) artificial tears solution eye drops 1 drp ophthalmic (eye) QID PRN 12/09/22 12/09/22 .dry eyes loratadine 10 mg tablet 10 mg PO DAILY 12/09/22 12/09/22 Previous Rx's Medication Instructions Recorded nystatin-triamcinolone 100,000 1 applic topical TID PRN vaginal 02/27/22 unit/gram-0.1 % topical ointment irritation 10 days #30 grams amlodipine 5 mg tablet (Norvasc) 5 mg PO QAM #0 tabs 12/06/22 levetiracetam 500 mg tablet 500 mg PO BID #1 tab 12/06/22 (Keppra) Results & Data (ED) Vital Signs Vital Signs - 24 hr 12/09/22 15:03 12/09/22 15:02 12/09/22 15:02 Temperature 36.4 C Temperature Source Oral Pulse Rate 96 H Pulse Rate [Bilateral] Respiratory Rate 25 H Blood Pressure 179/85 H Blood Pressure [Right Arm] Blood Pressure Mean 116 Blood Pressure Mean [Right Arm] Pulse Oximetry 98 95 Oxygen Delivery Method Room Air Room Air Oxygen Flow Rate 0 Sepsis Recent Fever Within 48 Hours No Sepsis New/Unexplained Change in Mental Status N/A Sepsis Action Taken by Nursing No Action Required 12/09/22 15:02 12/09/22 15:02 12/09/22 16:38 Temperature 36.7 C Temperature Source Oral Pulse Rate 85 Pulse Rate [Bilateral] 80 Respiratory Rate 25 H 18 18 Blood Pressure Blood Pressure [Right Arm] 179/85 H 163/75 H Blood Pressure Mean Blood Pressure Mean [Right Arm] 116 104 Pulse Oximetry 98 98 Oxygen Delivery Method Room Air Room Air Oxygen Flow Rate Sepsis Recent Fever Within 48 Hours Sepsis New/Unexplained Change in Mental Status Sepsis Action Taken by Nursing 12/09/22 18:00 12/09/22 18:59 Temperature Temperature Source Pulse Rate 81 Pulse Rate [Bilateral] 79 Respiratory Rate 18 Blood Pressure Blood Pressure [Right Arm] 152/71 H Blood Pressure Mean Blood Pressure Mean [Right Arm] 98 Pulse Oximetry 98 Oxygen Delivery Method Room Air Oxygen Flow Rate Sepsis Recent Fever Within 48 Hours Sepsis New/Unexplained Change in Mental Status Sepsis Action Taken by Nursing Laboratory Data 12/09/22 15:06 12/09/22 15:06 Lab Results 12/09/22 12/09/22 12/09/22 Range/Units 15:00 15:00 15:06 WBC 5.72 (4.8-10.8) K/ul RBC 4.64 (4.20-5.40) M/uL Hgb 13.4 (12.0-16.0) g/dl Hct 38.8 (37.0-47.0) % MCV 83.6 (80.0-100.0) fL MCH 28.9 (25.0-34.0) pg MCHC 34.5 (32.0-36.0) g/dL RDW Std Deviation 50.2 H (36.4-46.3) fL RDW Coeff of Bandar 16.5 H (11.5-14.5) % Plt Count 339 (130-400) K/uL MPV 9.2 L (9.4-12.4) fL Immature Gran % (Auto) 0.3 % Neut % (Auto) 55.2 % Lymph % (Auto) 27.8 % Candler % (Auto) 10.8 % Eos % (Auto) 4.9 % Baso % (Auto) 1.0 % Neut # (Auto) 3.15 (1.40-6.50) K/uL Lymph # (Auto) 1.59 (1.2-3.4) K/uL Candler # (Auto) 0.62 H (0.11-0.59) K/uL Eos # (Auto) 0.28 (0-0.50) K/uL Baso # (Auto) 0.06 (0-0.2) K/uL Immature Gran # (Auto) 0.02 (0.01-0.20) K/uL ESR (0-30) mm/hr PT (9.0-12.0) Seconds INR (0.9-1.1) Sodium (136-145) mmol/L Potassium (3.5-5.1) mmol/L Chloride (98-107) mmol/L Carbon Dioxide (21-32) mmol/L Anion Gap (3-11) BUN (6-23) mg/dl Creatinine (0.6-1.2) mg/dl Est Cr Clr Drug Dosing ml/min Est GFR ( Amer) ml/min Est GFR (Non-Af Amer) ml/min BUN/Creatinine Ratio (10-20) Glucose (70-99(Fasting)) mg/dl POC Glucose 99 (70-99) mg/dl Calcium (8.6-10.3) mg/dl Magnesium (1.7-2.4) mg/dl Total Bilirubin (0.2-1.0) mg/dl AST (13-39) U/L ALT (7-52) U/L Alkaline Phosphatase (34-104) U/L Total Creatine Kinase (26-192) U/L Troponin I High Sens (0-14) pg/ml C-Reactive Protein (0-0.5) mg/dl Total Protein (6.0-8.3) gm/dl Albumin (3.4-5.0) gm/dl Globulin (2.5-4.0) gm/dl Albumin/Globulin Ratio (0.9-2) TSH (0.300-4.500) uIu/ml Prolactin ng/ml SARS-CoV-2, RNA, NAAT NEGATIVE (NEGATIVE) 12/09/22 12/09/22 12/09/22 Range/Units 15:06 15:06 15:06 WBC (4.8-10.8) K/ul RBC (4.20-5.40) M/uL Hgb (12.0-16.0) g/dl Hct (37.0-47.0) % MCV (80.0-100.0) fL MCH (25.0-34.0) pg MCHC (32.0-36.0) g/dL RDW Std Deviation (36.4-46.3) fL RDW Coeff of Bandar (11.5-14.5) % Plt Count (130-400) K/uL MPV (9.4-12.4) fL Immature Gran % (Auto) % Neut % (Auto) % Lymph % (Auto) % Candler % (Auto) % Eos % (Auto) % Baso % (Auto) % Neut # (Auto) (1.40-6.50) K/uL Lymph # (Auto) (1.2-3.4) K/uL Candler # (Auto) (0.11-0.59) K/uL Eos # (Auto) (0-0.50) K/uL Baso # (Auto) (0-0.2) K/uL Immature Gran # (Auto) (0.01-0.20) K/uL ESR (0-30) mm/hr PT 10.5 (9.0-12.0) Seconds INR 1.0 (0.9-1.1) Sodium 136 (136-145) mmol/L Potassium 3.5 (3.5-5.1) mmol/L Chloride 99 (98-107) mmol/L Carbon Dioxide 27 (21-32) mmol/L Anion Gap 10 (3-11) BUN 9 (6-23) mg/dl Creatinine 0.64 (0.6-1.2) mg/dl Est Cr Clr Drug Dosing 55.8 ml/min Est GFR ( Amer) 93.0 ml/min Est GFR (Non-Af Amer) 80.2 ml/min BUN/Creatinine Ratio 14.1 (10-20) Glucose 99 (70-99(Fasting)) mg/dl POC Glucose (70-99) mg/dl Calcium 9.9 (8.6-10.3) mg/dl Magnesium 2.1 (1.7-2.4) mg/dl Total Bilirubin 0.3 (0.2-1.0) mg/dl AST 18 (13-39) U/L ALT 22 (7-52) U/L Alkaline Phosphatase 73 (34-104) U/L Total Creatine Kinase 22 L (26-192) U/L Troponin I High Sens 7.2 (0-14) pg/ml C-Reactive Protein 1.42 H (0-0.5) mg/dl Total Protein 7.8 (6.0-8.3) gm/dl Albumin 4.1 (3.4-5.0) gm/dl Globulin 3.7 (2.5-4.0) gm/dl Albumin/Globulin Ratio 1.1 (0.9-2) TSH 0.798 (0.300-4.500) uIu/ml Prolactin ng/ml SARS-CoV-2, RNA, NAAT (NEGATIVE) 12/09/22 12/09/22 Range/Units 15:06 15:06 WBC (4.8-10.8) K/ul RBC (4.20-5.40) M/uL Hgb (12.0-16.0) g/dl Hct (37.0-47.0) % MCV (80.0-100.0) fL MCH (25.0-34.0) pg MCHC (32.0-36.0) g/dL RDW Std Deviation (36.4-46.3) fL RDW Coeff of Bandar (11.5-14.5) % Plt Count (130-400) K/uL MPV (9.4-12.4) fL Immature Gran % (Auto) % Neut % (Auto) % Lymph % (Auto) % Candler % (Auto) % Eos % (Auto) % Baso % (Auto) % Neut # (Auto) (1.40-6.50) K/uL Lymph # (Auto) (1.2-3.4) K/uL Candler # (Auto) (0.11-0.59) K/uL Eos # (Auto) (0-0.50) K/uL Baso # (Auto) (0-0.2) K/uL Immature Gran # (Auto) (0.01-0.20) K/uL ESR 78 H (0-30) mm/hr PT (9.0-12.0) Seconds INR (0.9-1.1) Sodium (136-145) mmol/L Potassium (3.5-5.1) mmol/L Chloride (98-107) mmol/L Carbon Dioxide (21-32) mmol/L Anion Gap (3-11) BUN (6-23) mg/dl Creatinine (0.6-1.2) mg/dl Est Cr Clr Drug Dosing ml/min Est GFR ( Amer) ml/min Est GFR (Non-Af Amer) ml/min BUN/Creatinine Ratio (10-20) Glucose (70-99(Fasting)) mg/dl POC Glucose (70-99) mg/dl Calcium (8.6-10.3) mg/dl Magnesium (1.7-2.4) mg/dl Total Bilirubin (0.2-1.0) mg/dl AST (13-39) U/L ALT (7-52) U/L Alkaline Phosphatase (34-104) U/L Total Creatine Kinase (26-192) U/L Troponin I High Sens (0-14) pg/ml C-Reactive Protein (0-0.5) mg/dl Total Protein (6.0-8.3) gm/dl Albumin (3.4-5.0) gm/dl Globulin (2.5-4.0) gm/dl Albumin/Globulin Ratio (0.9-2) TSH (0.300-4.500) uIu/ml Prolactin 15.08 ng/ml SARS-CoV-2, RNA, NAAT (NEGATIVE) Administered Medications Discontinued Medications Lorazepam (Lorazepam 2 Mg/1 Ml Vial) 1 mg IV NOW STA Stop: 12/09/22 18:51 Last Admin: 12/09/22 19:16 Dose: 1 mg Documented By: Imaging Data Radiologist's Impression: Chest X-Ray 12/09/22 15:01 XR chest 1V portable CLINICAL HISTORY: ams TECHNIQUE: Single frontal radiograph of the chest was obtained. Comparison: Comparison is made to chest radiograph 12/04/2022 FINDINGS: No lines and tubes are seen. Calcified aortic knob is seen. The lungs are clear. No evidence of pleural effusion or pneumothorax. IMPRESSION: No acute chest disease. ACT 112: Negative or not required by law. Electronically signed by: David Leung M.D. 12/09/2022 3:[address] 12/09/22 15:02 CT head/brain wo con CLINICAL HISTORY: ams Technique: Contiguous axial CT images of the head were acquired from the base of the skull to the vertex without intravenous contrast administration. Images were viewed in brain, subdural and bone windows. Automated dose lowering techniques and/or adjustment according to patient size were utilized for this exam. Comparison: Comparison is made to CT head 12/04/2032 Findings: Areas of decreased attenuation are present in the periventricular and subcortical white matter bilaterally consistent with small vessel ischemic disease. Generalized cerebral atrophy with commensurate enlargement of the ventricles, sulci, and cisterns is also present. There is no acute intracranial hemorrhage or evidence of acute territorial infarction. No shift of the midline structures, mass effect, or extra-axial abnormalities are shown. Atherosclerotic calcifications are present in the intracranial segments of the internal carotid arteries. Imaged portions of the paranasal sinuses and mastoid air cells are clear. The orbits appear normal. There are no acute fractures of the calvaria or scalp swelling. Impression: No acute intracranial hemorrhage, no evidence of acute territorial infarction or other acute intracranial disease process. ACT 112: Negative or not required by law. Electronically signed by: David Leung M.D. 12/09/2022 4:25 PM Discharge Plan Visit Data Chief Complaint: Seizure ED Provider: Anselmo Brand Discharge Problem: Spell of altered consciousness Patient Disposition: Being Evaluated by Hospitalist Forms Stand Alone Forms: [facility] Prescriptions Prescriptions: No Action nystatin-triamcinolone 100,000-0.1 unit/gram-% ointment 1 applic TOP TID PRN (Reason: vaginal irritation) 10 Days Qty: 30 1RF timolol 0.5 % drops 1 drp OPR DAILY Rx Instructions: PER [place] triamcinolone acetonide 55 mcg aerosol,spray 1 sprays intranasal DAILY PRN (Reason: rhinitis) Qty: 1 Rx Instructions: unable to verify aspirin 81 mg Tablet,Delayed Release (Dr/Ec) 0 mg PO DAILY Rx Instructions: unable to verify calcium carbonate-vitamin D3 [Calcium 600 + D(3)] 600 mg-10 mcg (400 unit) Tablet 1 tab PO BID Rx Instructions: unable to verify Lumigan 0.01 % drops 1 drp OPB DAILY alendronate [Fosamax] 70 mg tablet 70 mg PO WK Rx Instructions: Q tues betamethasone dipropionate 0.05 % cream 1 applic TOP BID PRN (Reason: itching) Rx Instructions: Apply sparingly to affected area twice a day PRN; ipratropium bromide 21 mcg (0.03 %) spray,non-aerosol 1 spray intranasal QAM Rx Instructions: un acetaminophen [Tylenol] 325 mg Tablet 650 mg PO Q4 PRN (Reason: Fever Or Pain) artificial tears solution Drops 1 drp OPHTHALMIC (EYE) QID PRN (Reason: .dry eyes) loratadine 10 mg Tablet 10 mg PO DAILY amlodipine [Norvasc] 5 mg Tablet 5 mg PO QAM Qty: 0 0RF levetiracetam [Keppra] 500 mg tablet 500 mg PO BID Qty: 1 0RF Referrals Referrals: Roque Figueroa MD [Primary Care Provider] -
--- NOTE | 2022-12-09 15:20 | XRay Report ---
XR chest 1V portable CLINICAL HISTORY: ams TECHNIQUE: Single frontal radiograph of the chest was obtained. Comparison: Comparison is made to chest radiograph 12/04/2022 FINDINGS: No lines and tubes are seen. Calcified aortic knob is seen. The lungs are clear. No evidence of pleur al effusion or pneumothorax. IMPRESSION: No acute chest disease. ACT 112: Negative or not required by law. Electronically signed by: David Leung M.D. 12/09/2022 3:19 PM
[2022-12-09 15:28] LABS: Basophils # (auto) 0.06 K/uL (0-0.2); Eosinophils # (auto) 0.28 K/uL (0-0.50); Eosinophils % (auto) 4.9 %; Hematocrit (blood only) 38.8 % (37.0-47.0); Hemoglobin 13.4 g/dl (12.0-16.0); Immature Granulocytes # (auto) 0.02 K/uL (0.01-0.20); Immature Granulocytes % (auto) 0.3 %; Lymphocytes # (auto) 1.59 K/uL (1.2-3.4); Lymphocytes % (auto) 27.8 %; Mean Corpuscular Hemoglobin 28.9 pg (25.0-34.0); Mean Corpuscular Hgb Conc 34.5 g/dL (32.0-36.0); Mean Corpuscular Volume 83.6 fL (80.0-100.0); Mean Platelet Volume 9.2 fL (9.4-12.4); Monocytes # (auto) 0.62 K/uL (0.11-0.59); Monocytes % (auto) 10.8 %; Neutrophils # (auto) 3.15 K/uL (1.40-6.50); Neutrophils % (auto) 55.2 %; Platelet Count 339 K/uL (130-400); RDW Coefficient of Variation 16.5 % (11.5-14.5); RDW Standard Deviation 50.2 fL (36.4-46.3); Red Blood Count 4.64 M/uL (4.20-5.40); White Blood Count 5.72 K/ul (4.8-10.8)
[2022-12-09 15:44] LABS: Albumin Globulin Ratio 1.1 (0.9-2); Albumin Level 4.1 gm/dl (3.4-5.0); BUN Creatinine Ratio 14.1 (10-20); Bilirubin,Total 0.3 mg/dl (0.2-1.0); Calcium 9.9 mg/dl (8.6-10.3); Creatinine Clr Calc Pharmacy 55.8 ml/min; Est GFR (Non-African American) 80.2 ml/min; Globulin 3.7 gm/dl (2.5-4.0); Magnesium 2.1 mg/dl (1.7-2.4); Potassium 3.5 mmol/L (3.5-5.1); Total Protein 7.8 gm/dl (6.0-8.3)
[2022-12-09 15:51] LABS: Troponin I High Sensitivity 7.2 pg/ml (0-14)
[2022-12-09 15:55] LABS: Prothrombin Time 10.5 Seconds (9.0-12.0)
--- NOTE | 2022-12-09 16:27 | CT Scan Report ---
CT head/brain wo con CLINICAL HISTORY: ams Technique: Contiguous axial CT images of the head were acquired from the base of the skull to the suzanne reina without intravenous contrast administration. Images were viewed in brain, subdural and [facility]. Automated dose lowering techniques and/or adjustment according to patient size were utilized for this exam. Comparison: Comparison is made to CT head 12/04/2032 Findings: Areas of decreased attenuation are present in the periventricular and subcortical white matter bilate rally consistent with small vessel ischemic disease. Generalized cerebral atrophy with commensurate e nlargement of the ventricles, sulci, and cisterns is also present. There is no acute intracranial hem orrhage or evidence of acute territorial infarction. No shift of the midline structures, mass effect, or extra-axial abnormalities are shown. Atherosclerotic calcifications are present in the intracran ial segments of the internal carotid arteries. Imaged portions of the paranasal sinuses and mastoid air cells are clear. The orbits appear normal. There are no acute fractures of the calvaria or scalp swelling. Impression: No acute intracranial hemorrhage, no evidence of acute territorial infarction or other acute intracra nial disease process. ACT 112: Negative or not required by law. Electronically signed by: David Leung M.D. 12/09/2022 4:25 PM
--- NOTE | 2022-12-09 17:43 | History & Physical Report ---
Date of Service December 09, 2022 Assessment & Plan (1) Seizure: Plan: Seizure-like activity Patient does not have an elevated prolactin, CK. Lactate pending. No leukocytosis/demargination Low suspicion for seizure given above. Focal nonmotor seizure be definitely ruled out; however patient is intermittently responsive during episodes and does withdraw to noxious stimuli Neurology consulted in ER patient initially recommended for ambulatory EEG monitoring however given recurrent episodes and multiple readmissions and bounce backs a strong concern from family/facility that patient not appropriate for outpatient follow-up until additional monitoring has been performed. Will order EEG EEG 12/05/2022: Normal awake and drowsy routine EEG, no evidence of epileptiform activity. No episodes were noted at that time Given increased staring spells/episodes with increased frequency may attempt to reobtain EEG to capture episodes. If this is unable to be done and still strong concern for focal seizure activity will need assessment at a facility capable of performing a continuous EEG - By history ?if pt has catatonia, and has improved with benzo treatment in the past. Her history of intermittent activity with periods of mutism/malignant rigidity/nonverbal periods is potentially consistent. Psych consulted for evaluation. No prior history of mood disorders or patient or family per her daughter/S-I-L by phone. We will continue Keppra at this time Patient is nonverbal and with staring spell during admission exam, but patient does track hospitalist provider around bedside intermittently with eyes Ativan on-call Previously patient had elevated prolactin, this is normal this admission CThead no acute finding CXR: No acute finding Sodium normal No signs of acute infection, no leukocytosis, is afebrile and vitals are normal. ESR/CRP pending. LP deferred, low suspicion for occult/AI encephalitis Hypertension Continue amlodipine DVT prophylaxis: Lovenox Diet: Regular Disposition: Medical telemetry for seizure-like activity, seizure precautions CODE STATUS: Full code (2) Essential hypertension: (3) Altered mental status: History of Present Illness Primary Care Provider: Roque Figueroa MD Carly Lombardi is an 87-year-old female with a past medical history of hypertension, multiple admissions for hyponatremia with AMS and seizure-like activity who was discharged 3 days ago on Keppra twice daily after an admission for seizure-like activity who read presents for suspected seizure-like activity. Per EMS patient had a 1 hour episode of staring into space without responsiveness last night, facility staff found her in her room similarly not responding to verbal stimuli and staring without shaking. No trauma/fal ls/seizure-like tremors noted. Facility requested patient be brought to the ER for further evaluation. On ER provider assessment patient was staring ahead without response to verbal stimuli, she did not flinch or withdraw to noxious stimuli. Patient was reportedly speaking in route before she stared off into space H&P limited by nonverbal status during hospitalist exam On ER reassessment patient was awake, pleasant and talking, hungry. At time of hospitalist assessment patient does track with eyes but does not answer questions or follow commands Case was reviewed with neurology Dr. Bright who recommended ambulatory EEG. Family was concerned about patient's change in cognitive status and safety back at her facility. 1230 siter, carly, and Lucrecia were on facetime. While on facetime her responses were mostly understandable but seemed 'off.' Nursing staff reported episodes of eyes open, arms tremulous, and not responding/following commands. When in that 'state where she is not responding' pt is aware of what is going on, but she is not able to respond. Not a complete lack of awareness. Was texting this past Saturday and seemed normal. usually has good energy and 'was feeling great.' They had talked Saturday and seemed OK. Did seem to have some memory issues and maybe was confusing some dreams with happening or not, but otherwise interested in PT/OT. Per S-I-L has been living independently. Mental health standpoint has been doing well with no history of depression/anxiety. No history of medical problems 'at all, healthy spry woman up until now from [facility].' No hallucinations. No recent fevers, chills, sweats. No exposures. No recent illnesses. Appetite has been more poor in the last few months otherwise had been doing well. Had covid 'a while ago' but recovered well with no issues and no breathing issues since. Whole workup since had been not revealing. They note that her episodes do seem very dramatic between when she is not responding but aware, and when she is responding and her normal self. They have talked the patient about these episodes and she notes that she is aware of what is happening around her, but is not able to move/respond although she wishes that she could Medical History: Reviewed Medications: Reviewed Surgical History: Reviewed Family history: Reviewed Allergies: Reviewed Social History: Reviewed Code Status: Full Code Allergies Allergy/AdvReac Type Severity Reaction Status Date / Time Penicillins Allergy Unknown Unknown rxn Verified 12/09/22 17:51 azithromycin [From Zithromax] Allergy Unknown Verified 12/09/22 17:51 doxycycline Allergy Unknown Verified 12/09/22 17:51 risedronate sodium Allergy Unknown Verified 12/09/22 17:51 [From Actonel] Home Medications Medication Instructions Recorded Confirmed Type triamcinolone acetonide 55 mcg 1 sprays intranasal DAILY PRN 01/22/19 12/09/22 History nasal spray aerosol rhinitis #1 mL timolol 0.5 % eye drops 1 drp OPR DAILY 02/21/22 12/09/22 History nystatin-triamcinolone 100,000 1 applic topical TID PRN vaginal 02/27/22 12/09/22 Rx unit/gram-0.1 % topical ointment irritation 10 days #30 grams alendronate 70 mg tablet (Fosamax) 70 mg PO WK 11/30/22 12/09/22 History aspirin 81 mg tablet,delayed 0 mg PO DAILY 11/30/22 12/09/22 History release betamethasone dipropionate 0.05 % 1 applic topical BID PRN itching 11/30/22 12/09/22 History topical cream bimatoprost 0.01 % eye drops 1 drp OPB DAILY 11/30/22 12/09/22 History (Lumigan) calcium carbonate 600 mg-vitamin 1 tab PO BID 11/30/22 12/09/22 History D3 10 mcg (400 unit) tablet (Calcium 600 + D(3)) ipratropium bromide 21 mcg (0.03 1 spray intranasal QAM 11/30/22 12/09/22 History %) nasal spray amlodipine 5 mg tablet (Norvasc) 5 mg PO QAM #0 tabs 12/06/22 12/09/22 Rx levetiracetam 500 mg tablet 500 mg PO BID #1 tab 12/06/22 12/09/22 Rx (Keppra) acetaminophen 325 mg tablet 650 mg PO Q4 PRN Fever Or Pain 12/09/22 12/09/22 History (Tylenol) artificial tears solution eye drops 1 drp ophthalmic (eye) QID PRN 12/09/22 12/09/22 History .dry eyes loratadine 10 mg tablet 10 mg PO DAILY 12/09/22 12/09/22 History Past Med/Surg History Medical History Dyslipidemia Family history of colon cancer Osteopenia after menopause Pancreatic cyst Surgical History History of colonoscopy History of varicose vein ligation and stripping S/P tubal ligation Family History Sister Breast cancer Coronary heart disease Father Stroke Mother Breast cancer Son Narcolepsy Other No family history of adverse response to anesthesia No family history of bleeding disorder Denies family history of Ovarian cancer Prostate cancer Diabetes Lung cancer Colorectal cancer Social History Smoking Status: Unknown if ever smoked Second Hand Exposure: No; Do You Dip or Chew Tobacco: No; Hx Alcohol Use: Yes Alcohol type: wine Alcohol Intake Frequency: 2-3 x/Week Hx Substance Use: No Preferred Language: Sammarinese Communication Ability: Effective Visual Impairment: Limited Hearing Ability: Normal Magnetic Locater Required: No Beliefs That Will Affect Care: None marital status: Current Living Situation: Alone current occupational status: retired How many Children do You have: 3 Feels Safe at Home: Yes Childhood Exposure to Second-Hand Smoke: Yes (father smoked pipe occassionally ) Diet: regular caffeine: Yes (coffee and tea ) Dental Care, Regularly: Yes Physical Activity Frequency: Daily Physical Activity Frequency Comment: walk Seatbelt Use: always Sunscreen Use: Yes Assistive Devices: None Review of Systems Review of Systems: All systems reviewed & are unremarkable except as noted in HPI & below Physical Exam Physical Exam: General: Nonverbal HEENT: Atraumatic, normocephalic. Unable to assess vision/hearing. Pupils equal and reactive to Pulm: CTAB A&P. -wheezes, -rales, -rhonchi. Symmetrical chest rise. No increased work of breathing. No respiratory distress. Cardiac: RRR, -mrg. Radial pulses intact and symmetrical. Abdominal: Nontender, nondistended, soft. BS present. Extremities: Warm, dry. PT pulse intact bilaterally. Unable to assess strength/sensation. Patient withdraws to noxious stimuli on ER exam Results & Data Results & Data Vital Signs (Past 12 Hours) Vital Signs Temp Pulse Pulse Resp BP BP Pulse Ox 12/09/22 16:38 80 18 163/75 H 12/09/22 15:02 85 18 98 12/09/22 15:02 36.7 C 25 H 179/85 H 98 12/09/22 15:02 95 12/09/22 15:02 36.4 C 25 H 179/85 H 98 12/09/22 15:03 96 H O2 Del Method O2 Flow Rate 12/09/22 16:38 12/09/22 15:02 Room Air 12/09/22 15:02 Room Air 12/09/22 15:02 Room Air 0 12/09/22 15:02 Room Air 12/09/22 15:03 PG Care Time/CCT Total # of Minutes Spent Total Time Spent with Patient: Total time spent is greater than 50% in coordination of care (as documented) at patient's floor/unit and/or counseling patient: Coding Level of Care Code 24307 INT INP/OBS CARE 2/55MIN Diagnoses Seizure R56.9 Essential hypertension I10 Altered mental status R40.1 Altered mental status type: stupor (3) Altered mental status Altered mental status type: stupor Qualified Code(s): R40.1 - Stupor
[2022-12-09] MEDS ORDERED: LORazepam 2 MG/1 ML VIAL IV STA (18:50)
[2022-12-09 18:55] LABS: C Reactive Protein 1.42 mg/dl (0-0.5)
[2022-12-09 22:35] LABS: Appearance Urine Clear (Clear); Bilirubin Urine Negative (Negative); Blood Urine Negative (Negative); Color Urine Yellow; Epithelial Cell Urine Auto >30 /lpf (0-5); Glucose Urine UA Negative (Negative); Ketones Urine 1+ (Negative); Leukocyte Esterase Urine 2+ (Negative); Nitrite Urine Negative (Negative); Protein Urine Negative (Negative); RBC Urine Automated 0-4 /hpf (0-4); Specific Gravity Urine 1.008 (1.000-1.030); Urobilinogen Urine Negative (Negative); pH Urine 7.5 (4.5-7.5)
[2022-12-09] MEDS: levETIRAcetam 500 MG TAB PO SCH (22:41)
[2022-12-09 22:42] LABS: Bacteria Urine Automated 1+ (Negative); Mucus Urine Present (None Prsent)
[2022-12-09 22:43] LABS: Renal Epithelial Cells Urine 0-5 /lpf (0-5)
[2022-12-10 04:19] LABS: Basophils # (auto) 0.07 K/uL (0-0.2); Basophils % (auto) 1.2 %; Eosinophils # (auto) 0.31 K/uL (0-0.50); Eosinophils % (auto) 5.2 %; Hematocrit (blood only) 37.5 % (37.0-47.0); Immature Granulocytes # (auto) 0.01 K/uL (0.01-0.20); Immature Granulocytes % (auto) 0.2 %; Lymphocytes # (auto) 1.64 K/uL (1.2-3.4); Lymphocytes % (auto) 27.7 %; Mean Corpuscular Hemoglobin 29.1 pg (25.0-34.0); Mean Corpuscular Hgb Conc 34.7 g/dL (32.0-36.0); Mean Corpuscular Volume 84.1 fL (80.0-100.0); Mean Platelet Volume 9.7 fL (9.4-12.4); Monocytes # (auto) 0.81 K/uL (0.11-0.59); Monocytes % (auto) 13.7 %; Neutrophils # (auto) 3.09 K/uL (1.40-6.50); Platelet Count 318 K/uL (130-400); RDW Coefficient of Variation 16.3 % (11.5-14.5); Red Blood Count 4.46 M/uL (4.20-5.40); White Blood Count 5.93 K/ul (4.8-10.8)
[2022-12-10 04:35] LABS: BUN Creatinine Ratio 16.1 (10-20); Calcium 9.3 mg/dl (8.6-10.3); Creatinine Clr Calc Pharmacy 63.8 ml/min; Est GFR (African American) 97.2 ml/min; Est GFR (Non-African American) 83.8 ml/min; Potassium 3.3 mmol/L (3.5-5.1)
[2022-12-10] MEDS: TIMOLOL MALEATE 0.5% OP SOLN 5 ML BTL OPR SCH (08:56)
[2022-12-10] MEDS: ASPIRIN 81 MG ECTAB PO SCH (08:57)
[2022-12-10] MEDS: amLODIPine BESYLATE 5 MG TAB PO SCH (08:57)
[2022-12-10] MEDS: LORATADINE 10 MG TAB PO SCH (08:57)
[2022-12-10] MEDS: levETIRAcetam 500 MG TAB PO SCH (09:00)
--- NOTE | 2022-12-10 09:37 | Neurology Consultation ---
Date of Consultation December 10, 2022 Assessment & Plan (1) Seizure: (2) Elevated erythrocyte sedimentation rate: Plan 87-year-old female with new onset seizures. I did witness 1 of these episodes during my assessment of her this morning, see HPI for description. These episodes occur in the context of what looks like underlying systemic inflammation given elevated inflammatory markers, and purpura which may be related. Would consider vasculitis, autoimmune or auto inflammatory disorder, and occult malignancy. Would recommend additional testing for autoimmune disorders and vasculitis including FRANCISCO 12 panel, ANCA screening, Sjogren's antibodies, rheumatoid factor. Would also recommend Lyme screening, as well as screening for associated tickborne illness. Would also recommend serum protein electrophoresis, immunofixation, serum free chain quantification, and possibly radiographic screening for underlying occult malignancy. Patient should also have a lumbar puncture completed in radiology, to include screening for meningoencephalitis. Would also include CSF paraneoplastic autoantibody evaluation ([employer] diagnostics code 18597). Increase patient's dosage of Keppra to 1000 mg twice daily. Consider switching to IV Keppra as well. History of Present Illness Reason for Consultation: Episodic altered mental status, concern for seizures, encephalitis? Requesting Physician: John Attending Physician: Joshua Solis History of Present Illness The patient is an 87-year-old female who presented to the emergency department yesterday for further evaluation of recurrence of seizure-like episodes characterized by altered mental status, unresponsiveness, staring. I did observe 1 of these episodes with her nurse, while evaluating the patient this morning. She was sitting on the commode at that time and suddenly became unresponsive, with partial loss of muscle tone, eyes deviated to the right. The episode persisted for about 3 minutes during which time the patient began to exhibit occasional hiccups and brief associated posturing movements of both upper limbs. She did not collapse or exhibit any tonic-clonic activity and with a wheelchair and assistance was immediately brought back to her bed followed by complete resolution of the episode and returned to baseline mental status during which time the patient was conversant and unaware that she had another seizure- like episode. Her nurse indicates that she has been incontinent with these episodes previously. She does have some mild memory loss at baseline but does not have a known history of dementia. Patient began experiencing these episodes 1 week ago, she was admitted to [facility] at that time and seen in neurological consultation by Dr. Shelley, a diagnosis of seizures was considered an additional evaluation including MRI of the brain and EEG were recommended. Keppra had also been started at that time and it was recommended that she continue with this medication. The EEG was completed December 05, 2022 and was normal. No epileptiform abnormalities or pathologic slowing. A brain MRI at that time was negative for acute process but did reveal generalized atrophy and cerebrovascular disease. I did independently review these images that also included unremarkable thin sections through the temporal lobes (seizure protocol). Labs reviewed. No leukocytosis. Does have an elevated RDW, normal indices and platelet count. Elevated inflammatory markers noted, ESR 78, CRP 1.42. She has had chronic hyponatremia although low normal recently. Normal renal function. Normal transaminases, no elevation in ammonia. Total CK normal, TFTs normal, normal prolactin. I note that she does have purpura on her chest and limbs. An ECG revealed a sinus rhythm with first-degree AV block. An echocardiogram completed October 31, 2022 revealed a very small pericardial effusion and was otherwise unremarkable. A CT of the head completed yesterday was negative for hemorrhage or acute process, and again revealed generalized atrophy and chronic cerebrovascular disease. I independently reviewed these images as well as the images pertaining to the above previous brain MRI. Allergies Allergy/AdvReac Type Severity Reaction Status Date / Time Penicillins Allergy Unknown Unknown rxn Verified 12/09/22 17:51 azithromycin [From Zithromax] Allergy Unknown Verified 12/09/22 17:51 doxycycline Allergy Unknown Verified 12/09/22 17:51 risedronate sodium Allergy Unknown Verified 12/09/22 17:51 [From Actonel] Home Medications Medication Instructions Recorded Confirmed Type triamcinolone acetonide 55 mcg 1 sprays intranasal DAILY PRN 01/22/19 12/09/22 History nasal spray aerosol rhinitis #1 mL timolol 0.5 % eye drops 1 drp OPR DAILY 02/21/22 12/09/22 History nystatin-triamcinolone 100,000 1 applic topical TID PRN vaginal 02/27/22 12/09/22 Rx unit/gram-0.1 % topical ointment irritation 10 days #30 grams alendronate 70 mg tablet (Fosamax) 70 mg PO WK 11/30/22 12/09/22 History aspirin 81 mg tablet,delayed 0 mg PO DAILY 11/30/22 12/09/22 History release betamethasone dipropionate 0.05 % 1 applic topical BID PRN itching 11/30/22 12/09/22 History topical cream bimatoprost 0.01 % eye drops 1 drp OPB DAILY 11/30/22 12/09/22 History (Lumigan) calcium carbonate 600 mg-vitamin 1 tab PO BID 11/30/22 12/09/22 History D3 10 mcg (400 unit) tablet (Calcium 600 + D(3)) ipratropium bromide 21 mcg (0.03 1 spray intranasal QAM 11/30/22 12/09/22 History %) nasal spray amlodipine 5 mg tablet (Norvasc) 5 mg PO QAM #0 tabs 12/06/22 12/09/22 Rx levetiracetam 500 mg tablet 500 mg PO BID #1 tab 12/06/22 12/09/22 Rx (Keppra) acetaminophen 325 mg tablet 650 mg PO Q4 PRN Fever Or Pain 12/09/22 12/09/22 History (Tylenol) artificial tears solution eye drops 1 drp ophthalmic (eye) QID PRN 12/09/22 12/09/22 History .dry eyes loratadine 10 mg tablet 10 mg PO DAILY 12/09/22 12/09/22 History Patient History Medical History (Updated 12/10/22 @ 09:58 by Herminio Haq MD) Dyslipidemia Family history of colon cancer Osteopenia after menopause Pancreatic cyst Surgical History History of colonoscopy History of varicose vein ligation and stripping S/P tubal ligation Family History Sister Breast cancer Coronary heart disease Father Stroke Mother Breast cancer Son Narcolepsy Other No family history of adverse response to anesthesia No family history of bleeding disorder Denies family history of Ovarian cancer Prostate cancer Diabetes Lung cancer Colorectal cancer Social History Smoking Status: Never smoker Second Hand Exposure: No; Do You Dip or Chew Tobacco: No; Hx Alcohol Use: No Hx Substance Use: No Preferred Language: Australian Communication Ability: Effective Visual Impairment: Limited Hearing Ability: Normal Fiber Optics Technician Required: No Beliefs That Will Affect Care: None marital status: Current Living Situation: Senior Care current occupational status: retired How many Children do You have: 3 Other Information That Helps Us Care for You: No Feels Safe at Home: Yes Safety Concerns: Feels Safe At This Time Childhood Exposure to Second-Hand Smoke: Yes (father smoked pipe occassionally ) Diet: regular caffeine: Yes (coffee and tea ) Dental Care, Regularly: Yes Physical Activity Frequency: Daily Physical Activity Frequency Comment: walk Seatbelt Use: always Sunscreen Use: Yes Assistive Devices: Glasses Review of Systems Constitutional: no fever and no chills Eyes: no blind spots and no diplopia Ear, Nose, Mouth, Throat: no hearing loss Respiratory: no cough and no dyspnea Cardiovascular: no chest pain and no palpitations Gastrointestinal: + nausea; no vomiting Genitourinary: no dysuria Musculoskeletal: no neck pain, no joint pain and no myalgia Integumentary: + rash Neurologic: as per Subjective / HPI Psychiatric: no depression and no anxiety Hematologic / Lymphatic: + easy bruising Exam (Neuro) Constitutional: + thin and + frail appearing Eyes: normal visual brennan by confrontation, PERRL and EOM intact bilaterally Cardiovascular: Vessels: no carotid bruit Neurologic: Oriented to:: Person and Place; negative Time Memory: Remote Intact; negative Short Term Intact Attention: Span Intact; negative Co ncentration Intact Speech Fluency: negative Dysarthria or Dysfluency Speech Aphasia: negative Aphasia Fund of Knowledge: Current Events, Past History and Vocabulary Cranial Nerves: Normal II, III, IV, , V, VII, VIII, IX, X, XI and XII Motor Strength: Normal Lower Extremities and Normal Upper Extremities Motor Tone: Normal Lower Extremities and Normal Upper Extremities Muscle Bulk/Involuntary Movements: No Involuntary Movements; negative Muscle Atrophy Sensation: Light Touch Intact, Pain/Temperature Intact, Vibration Intact and Proprioception Intact Coordination: Normal; negative Dysdiadochokinesia, Finger-Nose Abnormal or Heel-Jc Abnormal Deep Tendon Reflexes: Rt Triceps: 1+, Lt Triceps: 1+, Rt Biceps: 1+, Lt Biceps: 1+, Rt Brachioradialis: 1+, Lt Brachioradialis: 1+, Rt Patellar: 1+, Lt Patellar: 1+, Rt Ankle: 1+ and Lt Ankle: 1+ Special Tests: negative Babinski Present Details: Gait cannot be tested. Rash noted on chest and limbs, looks like purpura Results & Data Vital Signs (Past 12 Hours) Vital Signs Temp Pulse Pulse Resp BP BP Pulse Ox 12/10/22 09:00 94 H 21 96 12/10/22 08:46 92 H 21 147/91 H 96 12/10/22 07:00 81 23 98 12/10/22 07:15 77 12/10/22 06:00 78 21 12/10/22 05:00 94 H 22 96 12/10/22 04:42 146/78 H 12/10/22 04:00 81 18 12/10/22 04:00 140/65 12/10/22 03:00 78 20 12/10/22 03:00 129/70 12/10/22 02:00 81 19 12/10/22 02:00 135/65 12/10/22 02:00 135/65 12/10/22 01:00 83 15 12/10/22 01:00 128/74 12/09/22 23:45 83 21 12/09/22 23:45 130/63 12/09/22 23:45 130/63 12/09/22 23:30 85 20 12/09/22 23:30 134/76 12/09/22 22:21 36.6 C 92 H 18 134/74 95 O2 Del Method 12/10/22 09:00 Room Air 12/10/22 08:46 Room Air 12/10/22 07:00 Room Air 12/10/22 07:15 12/10/22 06:00 12/10/22 05:00 Room Air 12/10/22 04:42 12/10/22 04:00 12/10/22 04:00 12/10/22 03:00 12/10/22 03:00 12/10/22 02:00 12/10/22 02:00 12/10/22 02:00 12/10/22 01:00 12/10/22 01:00 12/09/22 23:45 12/09/22 23:45 12/09/22 23:45 12/09/22 23:30 12/09/22 23:30 12/09/22 22:21 Room Air PG Care Time/CCT Total # of Minutes Spent Total Time Spent with Patient: Total time spent is greater than 50% in coordination of care (as documented) at patient's floor/unit and/or counseling patient: Coding Level of Care Code 99181 INT INP/OBS CARE MIN Diagnoses Seizure R56.9 Elevated erythrocyte sedimentation rate R70.0
[2022-12-10] MEDS ORDERED: levETIRAcetam 500 MG in 0.9 % SODIUM CHLORIDE 100 ML IV ONE (13:15)
--- NOTE | 2022-12-10 13:15 | Psychiatric Consultation ---
Date of Consultation December 10, 2022 Impression / Recommendations Impression 87 yo female with catatonic features after seizure like event--most likely seizure, no psych hx and would be incredibly unusual for intermittent catatonia to be primary presenting symptom for depression. (1) Spell of altered consciousness: (2) Seizure: (3) Elevated erythrocyte sedimentation rate: Plan additional medical work up per hospitalist/neuro response to Ativan is a feature of catatonia, but also can help seizure and time is tx for postictal state, was unable to assess for other features of catatonia during initial presentation such as posturing Psych History Identifying Data 87 yo female with no prior psych history admit to [facility] following recurrent seizure like episode at [facility]. Consult is by hospitalist service for possible catatonia. Chief Complaint "I know what's happening at the time I just can't say anything." History of Present Illness Patient was discussed with Dr. Velez last pm due to concerns about atypical presentations of seizures/post ictal vs. intermittent catatonia, either way has hx of similar less dramatic/length episodes that have responded to Ativan. She voices awareness of what is going on around her but just is not able to respond. She denies a history of depression/anxiety/therapy. She was mute on initial assessment by Dr. Velez and was given Ativan 1 mg X1. Collateral history summarized on chart confirms no psych history. During one of her previous hospitalizations she did have an elevated PRL which made non epileptic spells less likely but EEG results have been equivocal, ie failed to capture. Her ESR was noted to be elevated so additional autoimmune and/or infectious work up was discussed and neurology has since weighed in on that as well. Has some memory issues related to these spells but otherwise no dx of dementia/cognitive disorder. Allergies Allergy/AdvReac Type Severity Reaction Status Date / Time Penicillins Allergy Unknown Unknown rxn Verified 12/09/22 17:51 azithromycin [From Zithromax] Allergy Unknown Verified 12/09/22 17:51 doxycycline Allergy Unknown Verified 12/09/22 17:51 risedronate sodium Allergy Unknown Verified 12/09/22 17:51 [From Actonel] Home Medications Medication Instructions Recorded Confirmed Type triamcinolone acetonide 55 mcg 1 sprays intranasal DAILY PRN 01/22/19 12/09/22 History nasal spray aerosol rhinitis #1 mL timolol 0.5 % eye drops 1 drp OPR DAILY 02/21/22 12/09/22 History nystatin-triamcinolone 100,000 1 applic topical TID PRN vaginal 02/27/22 12/09/22 Rx unit/gram-0.1 % topical ointment irritation 10 days #30 grams alendronate 70 mg tablet (Fosamax) 70 mg PO WK 11/30/22 12/09/22 History aspirin 81 mg tablet,delayed 0 mg PO DAILY 11/30/22 12/09/22 History release betamethasone dipropionate 0.05 % 1 applic topical BID PRN itching 11/30/22 12/09/22 History topical cream bimatoprost 0.01 % eye drops 1 drp OPB DAILY 11/30/22 12/09/22 History (Lumigan) calcium carbonate 600 mg-vitamin 1 tab PO BID 11/30/22 12/09/22 History D3 10 mcg (400 unit) tablet (Calcium 600 + D(3)) ipratropium bromide 21 mcg (0.03 1 spray intranasal QAM 11/30/22 12/09/22 History %) nasal spray amlodipine 5 mg tablet (Norvasc) 5 mg PO QAM #0 tabs 12/06/22 12/09/22 Rx levetiracetam 500 mg tablet 500 mg PO BID #1 tab 12/06/22 12/09/22 Rx (Keppra) acetaminophen 325 mg tablet 650 mg PO Q4 PRN Fever Or Pain 12/09/22 12/09/22 History (Tylenol) artificial tears solution eye drops 1 drp ophthalmic (eye) QID PRN 12/09/22 12/09/22 History .dry eyes loratadine 10 mg tablet 10 mg PO DAILY 12/09/22 12/09/22 History Patient History Medical History Dyslipidemia Family history of colon cancer Osteopenia after menopause Pancreatic cyst Surgical History History of colonoscopy History of varicose vein ligation and stripping S/P tubal ligation Family History Sister Breast cancer Coronary heart disease Father Stroke Mother Breast cancer Son Narcolepsy Other No family history of adverse response to anesthesia No family history of bleeding disorder Denies family history of Ovarian cancer Prostate cancer Diabetes Lung cancer Colorectal cancer Social History Smoking Status: Never smoker Second Hand Exposure: No; Do You Dip or Chew Tobacco: No; Hx Alcohol Use: No Hx Substance Use: No Preferred Language: Vietnamese Communication Ability: Effective Visual Impairment: Limited Hearing Ability: Normal Ocean Fishing Guide Required: No Beliefs That Will Affect Care: None marital status: Current Living Situation: [facility] current occupational status: retired How many Children do You have: 3 Other Information That Helps Us Care for You: No Feels Safe at Home: Yes Safety Concerns: Feels Safe At This Time Childhood Exposure to Second-Hand Smoke: Yes (father smoked pipe occassionally ) Diet: regular caffeine: Yes (coffee and tea ) Dental Care, Regularly: Yes Physical Activity Frequency: Daily Physical Activity Frequency Comment: walk Seatbelt Use: always Sunscreen Use: Yes Assistive Devices: Glasses Physical Exam Psychiatric: Orientation: alert Apperance: appropriately groomed Eye Contact: good eye contact Motor Behavior: no abnormal motor movements Speech: normal rate/rhythm/volume of speech Affect: euthymic affect Mood: no depressed mood and no anxious mood Thought Process: goal directed thought process Thought Content: reality based without delusions Suicidal Thoughts: denies suicidal thoughts Homicidal Thoughts: denies homicidal thoughts Hallucinations: no auditory hallucinations and no visual hallucinations Cognition: attention grossly intact and language grossly intact Estimated Intelligence: consistent with education level Insight: + fair insight Vital Signs (Past 24 Hours): Last Vital Signs Temp 36.6 C 12/09/22 22:21 Pulse 77 12/10/22 12:00 Resp 15 12/10/22 12:00 BP 146/73 H 12/10/22 12:00 Pulse Ox 98 12/10/22 09:01 O2 Del Method Room Air 12/10/22 09:00 O2 Flow Rate 0 12/09/22 15:02 Review of Systems All systems reviewed & are unremarkable except as noted in HPI & below Results & Data (PSY) Laboratory Results 12/10/22 12/10/22 12/09/22 Range/Units 03:22 03:22 22:39 WBC 5.93 (4.8-10.8) K/ul RBC 4.46 (4.20-5.40) M/uL Hgb 13.0 (12.0-16.0) g/dl Hct 37.5 (37.0-47.0) % MCV 84.1 (80.0-100.0) fL MCH 29.1 (25.0-34.0) pg MCHC 34.7 (32.0-36.0) g/dL RDW Std Deviation 50.0 H (36.4-46.3) fL RDW Coeff of Bandar 16.3 H (11.5-14.5) % Plt Count 318 (130-400) K/uL MPV 9.7 (9.4-12.4) fL Immature Gran % (Auto) 0.2 % Neut % (Auto) 52.0 % Lymph % (Auto) 27.7 % Calvert % (Auto) 13.7 % Eos % (Auto) 5.2 % Baso % (Auto) 1.2 % Neut # (Auto) 3.09 (1.40-6.50) K/uL Lymph # (Auto) 1.64 (1.2-3.4) K/uL Calvert # (Auto) 0.81 H (0.11-0.59) K/uL Eos # (Auto) 0.31 (0-0.50) K/uL Baso # (Auto) 0.07 (0-0.2) K/uL Immature Gran # (Auto) 0.01 (0.01-0.20) K/uL ESR (0-30) mm/hr PT (9.0-12.0) Seconds INR (0.9-1.1) Sodium 136 (136-145) mmol/L Potassium 3.3 L (3.5-5.1) mmol/L Chloride 101 (98-107) mmol/L Carbon Dioxide 26 (21-32) mmol/L Anion Gap 9 (3-11) BUN 9 (6-23) mg/dl Creatinine 0.56 L (0.6-1.2) mg/dl Est Cr Clr Drug Dosing 63.8 ml/min Est GFR ( Amer) 97.2 ml/min Est GFR (Non-Af Amer) 83.8 ml/min BUN/Creatinine Ratio 16.1 (10-20) Glucose 87 (70-99(Fasting)) mg/dl POC Glucose (70-99) mg/dl Calcium 9.3 (8.6-10.3) mg/dl Magnesium (1.7-2.4) mg/dl Total Bilirubin (0.2-1.0) mg/dl AST (13-39) U/L ALT (7-52) U/L Alkaline Phosphatase (34-104) U/L Total Creatine Kinase (26-192) U/L Troponin I High Sens (0-14) pg/ml C-Reactive Protein (0-0.5) mg/dl Total Protein (6.0-8.3) gm/dl Albumin (3.4-5.0) gm/dl Globulin (2.5-4.0) gm/dl Albumin/Globulin Ratio (0.9-2) TSH (0.300-4.500) uIu/ml Prolactin ng/ml Urine Color Urine Appearance (Clear) Urine pH (4.5-7.5) Ur Specific Solom[place] (1.000-1.030) Urine Protein (Negative) Urine Glucose (UA) (Negative) Urine Ketones (Negative) Urine Blood (Negative) Urine Nitrite (Negative) Urine Bilirubin (Negative) Urine Urobilinogen (Negative) Ur Leukocyte Esterase (Negative) Urine WBC (Auto) (0-5) /hpf Urine RBC (Auto) (0-4) /hpf U Hyaline Cast (Auto) (0-5) /lpf U Epithel Cells (Auto) (0-5) /lpf Urine Bacteria (Auto) (Negative) Ur Renal Epithelial Cell (0-5) /lpf Urine Mucus (None Prsent) Nasal Screen MRSA (PCR) Negative (Negative) Levetiracetam SARS-CoV-2, RNA, NAAT (NEGATIVE) 12/09/22 12/09/22 12/09/22 Range/Units 22:14 17:15 15:06 WBC (4.8-10.8) K/ul RBC (4.20-5.40) M/uL Hgb (12.0-16.0) g/dl Hct (37.0-47.0) % MCV (80.0-100.0) fL MCH (25.0-34.0) pg MCHC (32.0-36.0) g/dL RDW Std Deviation (36.4-46.3) fL RDW Coeff of Bandar (11.5-14.5) % Plt Count (130-400) K/uL MPV (9.4-12.4) fL Immature Gran % (Auto) % Neut % (Auto) % Lymph % (Auto) % Calvert % (Auto) % Eos % (Auto) % Baso % (Auto) % Neut # (Auto) (1.40-6.50) K/uL Lymph # (Auto) (1.2-3.4) K/uL Calvert # (Auto) (0.11-0.59) K/uL Eos # (Auto) (0-0.50) K/uL Baso # (Auto) (0-0.2) K/uL Immature Gran # (Auto) (0.01-0.20) K/uL ESR 78 H (0-30) mm/hr PT (9.0-12.0) Seconds INR (0.9-1.1) Sodium (136-145) mmol/L Potassium (3.5-5.1) mmol/L Chloride (98-107) mmol/L Carbon Dioxide (21-32) mmol/L Anion Gap (3-11) BUN (6-23) mg/dl Creatinine (0.6-1.2) mg/dl Est Cr Clr Drug Dosing ml/min Est GFR ( Amer) ml/min Est GFR (Non-Af Amer) ml/min BUN/Creatinine Ratio (10-20) Glucose (70-99(Fasting)) mg/dl POC Glucose (70-99) mg/dl Calcium (8.6-10.3) mg/dl Magnesium (1.7-2.4) mg/dl Total Bilirubin (0.2-1.0) mg/dl AST (13-39) U/L ALT (7-52) U/L Alkaline Phosphatase (34-104) U/L Total Creatine Kinase (26-192) U/L Troponin I High Sens (0-14) pg/ml C-Reactive Protein (0-0.5) mg/dl Total Protein (6.0-8.3) gm/dl Albumin (3.4-5.0) gm/dl Globulin (2.5-4.0) gm/dl Albumin/Globulin Ratio (0.9-2) TSH (0.300-4.500) uIu/ml Prolactin ng/ml Urine Color Yellow Urine Appearance Clear (Clear) Urine pH 7.5 (4.5-7.5) Ur Specific Solom[place] 1.008 (1.000-1.030) Urine Protein Negative (Negative) Urine Glucose (UA) Negative (Negative) Urine Ketones 1+ H (Negative) Urine Blood Negative (Negative) Urine Nitrite Negative (Negative) Urine Bilirubin Negative (Negative) Urine Urobilinogen Negative (Negative) Ur Leukocyte Esterase 2+ H (Negative) Urine WBC (Auto) 10-30 H (0-5) /hpf Urine RBC (Auto) 0-4 (0-4) /hpf U Hyaline Cast (Auto) 1-5 (0-5) /lpf U Epithel Cells (Auto) >30 H (0-5) /lpf Urine Bacteria (Auto) 1+ H (Negative) Ur Renal Epithelial Cell 0-5 (0-5) /lpf Urine Mucus Present A (None Prsent) Nasal Screen MRSA (PCR) (Negative) Levetiracetam Pending SARS-CoV-2, RNA, NAAT (NEGATIVE) 12/09/22 12/09/22 12/09/22 Range/Units 15:06 15:06 15:06 WBC (4.8-10.8) K/ul RBC (4.20-5.40) M/uL Hgb (12.0-16.0) g/dl Hct (37.0-47.0) % MCV (80.0-100.0) fL MCH (25.0-34.0) pg MCHC (32.0-36.0) g/dL RDW Std Deviation (36.4-46.3) fL RDW Coeff of Bandar (11.5-14.5) % Plt Count (130-400) K/uL MPV (9.4-12.4) fL Immature Gran % (Auto) % Neut % (Auto) % Lymph % (Auto) % Calvert % (Auto) % Eos % (Auto) % Baso % (Auto) % Neut # (Auto) (1.40-6.50) K/uL Lymph # (Auto) (1.2-3.4) K/uL Calvert # (Auto) (0.11-0.59) K/uL Eos # (Auto) (0-0.50) K/uL Baso # (Auto) (0-0.2) K/uL Immature Gran # (Auto) (0.01-0.20) K/uL ESR (0-30) mm/hr PT (9.0-12.0) Seconds INR (0.9-1.1) Sodium 136 (136-145) mmol/L Potassium 3.5 (3.5-5.1) mmol/L Chloride 99 (98-107) mmol/L Carbon Dioxide 27 (21-32) mmol/L Anion Gap 10 (3-11) BUN 9 (6-23) mg/dl Creatinine 0.64 (0.6-1.2) mg/dl Est Cr Clr Drug Dosing 55.8 ml/min Est GFR ( Amer) 93.0 ml/min Est GFR (Non-Af Amer) 80.2 ml/min BUN/Creatinine Ratio 14.1 (10-20) Glucose 99 (70-99(Fasting)) mg/dl POC Glucose (70-99) mg/dl Calcium 9.9 (8.6-10.3) mg/dl Magnesium 2.1 (1.7-2.4) mg/dl Total Bilirubin 0.3 (0.2-1.0) mg/dl AST 18 (13-39) U/L ALT 22 (7-52) U/L Alkaline Phosphatase 73 (34-104) U/L Total Creatine Kinase 22 L (26-192) U/L Troponin I High Sens 7.2 (0-14) pg/ml C-Reactive Protein 1.42 H (0-0.5) mg/dl Total Protein 7.8 (6.0-8.3) gm/dl Albumin 4.1 (3.4-5.0) gm/dl Globulin 3.7 (2.5-4.0) gm/dl Albumin/Globulin Ratio 1.1 (0.9-2) TSH 0.798 (0.300-4.500) uIu/ml Prolactin 15.08 ng/ml Urine Color Urine Appearance (Clear) Urine pH (4.5-7.5) Ur Specific Solomons (1.000-1.030) Urine Protein (Negative) Urine Glucose (UA) (Negative) Urine Ketones (Negative) Urine Blood (Negative) Urine Nitrite (Negative) Urine Bilirubin (Negative) Urine Urobilinogen (Negative) Ur Leukocyte Esterase (Negative) Urine WBC (Auto) (0-5) /hpf Urine RBC (Auto) (0-4) /hpf U Hyaline Cast (Auto) (0-5) /lpf U Epithel Cells (Auto) (0-5) /lpf Urine Bacteria (Auto) (Negative) Ur Renal Epithelial Cell (0-5) /lpf Urine Mucus (None Prsent) Nasal Screen MRSA (PCR) (Negative) Levetiracetam SARS-CoV-2, RNA, NAAT (NEGATIVE) 12/09/22 12/09/22 12/09/22 Range/Units 15:06 15:06 15:00 WBC 5.72 (4.8-10.8) K/ul RBC 4.64 (4.20-5.40) M/uL Hgb 13.4 (12.0-16.0) g/dl Hct 38.8 (37.0-47.0) % MCV 83.6 (80.0-100.0) fL MCH 28.9 (25.0-34.0) pg MCHC 34.5 (32.0-36.0) g/dL RDW Std Deviation 50.2 H (36.4-46.3) fL RDW Coeff of Bandar 16.5 H (11.5-14.5) % Plt Count 339 (130-400) K/uL MPV 9.2 L (9.4-12.4) fL Immature Gran % (Auto) 0.3 % Neut % (Auto) 55.2 % Lymph % (Auto) 27.8 % Calvert % (Auto) 10.8 % Eos % (Auto) 4.9 % Baso % (Auto) 1.0 % Neut # (Auto) 3.15 (1.40-6.50) K/uL Lymph # (Auto) 1.59 (1.2-3.4) K/uL Calvert # (Auto) 0.62 H (0.11-0.59) K/uL Eos # (Auto) 0.28 (0-0.50) K/uL Baso # (Auto) 0.06 (0-0.2) K/uL Immature Gran # (Auto) 0.02 (0.01-0.20) K/uL ESR (0-30) mm/hr PT 10.5 (9.0-12.0) Seconds INR 1.0 (0.9-1.1) Sodium (136-145) mmol/L Potassium (3.5-5.1) mmol/L Chloride (98-107) mmol/L Carbon Dioxide (21-32) mmol/L Anion Gap (3-11) BUN (6-23) mg/dl Creatinine (0.6-1.2) mg/dl Est Cr Clr Drug Dosing ml/min Est GFR ( Amer) ml/min Est GFR (Non-Af Amer) ml/min BUN/Creatinine Ratio (10-20) Glucose (70-99(Fasting)) mg/dl POC Glucose (70-99) mg/dl Calcium (8.6-10.3) mg/dl Magnesium (1.7-2.4) mg/dl Total Bilirubin (0.2-1.0) mg/dl AST (13-39) U/L ALT (7-52) U/L Alkaline Phosphatase (34-104) U/L Total Creatine Kinase (26-192) U/L Troponin I High Sens (0-14) pg/ml C-Reactive Protein (0-0.5) mg/dl Total Protein (6.0-8.3) gm/dl Albumin (3.4-5.0) gm/dl Globulin (2.5-4.0) gm/dl Albumin/Globulin Ratio (0.9-2) TSH (0.300-4.500) uIu/ml Prolactin ng/ml Urine Color Urine Appearance (Clear) Urine pH (4.5-7.5) Ur Specific [place] (1.000-1.030) Urine Protein (Negative) Urine Glucose (UA) (Negative) Urine Ketones (Negative) Urine Blood (Negative) Urine Nitrite (Negative) Urine Bilirubin (Negative) Urine Urobilinogen (Negative) Ur Leukocyte Esterase (Negative) Urine WBC (Auto) (0-5) /hpf Urine RBC (Auto) (0-4) /hpf U Hyaline Cast (Auto) (0-5) /lpf U Epithel Cells (Auto) (0-5) /lpf Urine Bacteria (Auto) (Negative) Ur Renal Epithelial Cell (0-5) /lpf Urine Mucus (None Prsent) Nasal Screen MRSA (PCR) (Negative) Levetiracetam SARS-CoV-2, RNA, NAAT NEGATIVE (NEGATIVE) 12/09/22 Range/Units 15:00 WBC (4.8-10.8) K/ul RBC (4.20-5.40) M/uL Hgb (12.0-16.0) g/dl Hct (37.0-47.0) % MCV (80.0-100.0) fL MCH (25.0-34.0) pg MCHC (32.0-36.0) g/dL RDW Std Deviation (36.4-46.3) fL RDW Coeff of Bandar (11.5-14.5) % Plt Count (130-400) K/uL MPV (9.4-12.4) fL Immature Gran % (Auto) % Neut % (Auto) % Lymph % (Auto) % Calvert % (Auto) % Eos % (Auto) % Baso % (Auto) % Neut # (Auto) (1.40-6.50) K/uL Lymph # (Auto) (1.2-3.4) K/uL Calvert # (Auto) (0.11-0.59) K/uL Eos # (Auto) (0-0.50) K/uL Baso # (Auto) (0-0.2) K/uL Immature Gran # (Auto) (0.01-0.20) K/uL ESR (0-30) mm/hr PT (9.0-12.0) Seconds INR (0.9-1.1) Sodium (136-145) mmol/L Potassium (3.5-5.1) mmol/L Chloride (98-107) mmol/L Carbon Dioxide (21-32) mmol/L Anion Gap (3-11) BUN (6-23) mg/dl Creatinine (0.6-1.2) mg/dl Est Cr Clr Drug Dosing ml/min Est GFR ( Amer) ml/min Est GFR (Non-Af Amer) ml/min BUN/Creatinine Ratio (10-20) Glucose (70-99(Fasting)) mg/dl POC Glucose 99 (70-99) mg/dl Calcium (8.6-10.3) mg/dl Magnesium (1.7-2.4) mg/dl Total Bilirubin (0.2-1.0) mg/dl AST (13-39) U/L ALT (7-52) U/L Alkaline Phosphatase (34-104) U/L Total Creatine Kinase (26-192) U/L Troponin I High Sens (0-14) pg/ml C-Reactive Protein (0-0.5) mg/dl Total Protein (6.0-8.3) gm/dl Albumin (3.4-5.0) gm/dl Globulin (2.5-4.0) gm/dl Albumin/Globulin Ratio (0.9-2) TSH (0.300-4.500) uIu/ml Prolactin ng/ml Urine Color Urine Appearance (Clear) Urine pH (4.5-7.5) Ur Specific [place] (1.000-1.030) Urine Protein (Negative) Urine Glucose (UA) (Negative) Urine Ketones (Negative) Urine Blood (Negative) Urine Nitrite (Negative) Urine Bilirubin (Negative) Urine Urobilinogen (Negative) Ur Leukocyte Esterase (Negative) Urine WBC (Auto) (0-5) /hpf Urine RBC (Auto) (0-4) /hpf U Hyaline Cast (Auto) (0-5) /lpf U Epithel Cells (Auto) (0-5) /lpf Urine Bacteria (Auto) (Negative) Ur Renal Epithelial Cell (0-5) /lpf Urine Mucus (None Prsent) Nasal Screen MRSA (PCR) (Negative) Levetiracetam SARS-CoV-2, RNA, NAAT (NEGATIVE) Medications Administered Amlodipine Besylate (Amlodipine Besylate 5 Mg Tab) [facility] Stop: 01/09/23 08:59 Last Admin: 12/10/22 08:57 Dose: 5 mg Documented By: [place] Aspirin (Aspirin 81 Mg Ectab) 81 mg PO DAILY [facility] Stop: 01/09/23 08:59 Last Admin: 12/10/22 08:57 Dose: 81 mg Documented By: [place] Loratadine (Loratadine 10 Mg Tab) 10 mg PO DAILY [facility] Stop: 01/09/23 08:59 Last Admin: 12/10/22 08:57 Dose: 10 mg Documented By: [place] Timolol Maleate (Timolol Maleate 0.5% Op Soln 5 Ml Btl) 1 drops OPR DAILY [facility] Stop: 01/09/23 08:59 Last Admin: 12/10/22 08:56 Dose: 1 drops Documented By: [place] Coding Level of Care Code 07134 U Intl Hosp Care Lvl 2 Diagnoses Spell of altered consciousness R40.4 Seizure R56.9 Elevated erythrocyte sedimentation rate R70.0
--- NOTE | 2022-12-10 14:06 | Electrocardiogram Report ---
Test Reason : Blood Pressure : / mmHG Vent. Rate : 086 BPM Atrial Rate : 086 BPM P-R Int : 232 ms QRS Dur : 074 ms QT Int : 360 ms P-R-T Axes : 080 070 086 degrees QTc Int : 430 ms Sinus rhythm with 1st degree A-V block Anteroseptal infarct , age undetermined Abnormal ECG When compared with ECG of 04-DEC-2022 11:07, Premature ventricular complexes are no longer Present Anteroseptal infarct is now Present Confirmed by Blanco Pierre ([id number]) on 12/10/2022 2:06:11 PM Referred By: Confirmed By:Blanco Pierre
[2022-12-10 15:39] LABS: Lyme Ab IgG w/WB Rflx Negative (Negative); Lyme Ab IgM w/WB Rflx Negative (Negative)
[2022-12-10 16:04] LABS: Total Protein CSF 52.4 mg/dl (15-45)
--- NOTE | 2022-12-10 16:06 | Fluoroscopy Report ---
Lumbar puncture under fluoroscopy INDICATION: Seizures PROCEDURE: Procedure and risks were explained. Informed consent was obtained. A final timeout was com pleted. The patient was placed prone on the fluoroscopic examination table. The lower lumbar region w as prepped and draped in sterile fashion. 1% lidocaine was utilized for skin anesthesia. Utilizing fluoroscopic guidance, a 22-gauge spinal needle was advanced into the intrathecal space at the L2-3 disc space level. 3 permanent fluoroscopic spot images were obtained. Approximately 8 mL of clear CSF fluid was removed and sent to the lab for analysis. The needle was removed and Band-Aid morgan lied. The patient tolerated the procedure well. Vital signs will be monitored prior postprocedure. To coby fluoroscopy time was 1.19 minutes. DAP is 15.0 mcGy/m2. IMPRESSION: Lumbar puncture as above. Performed, dictated, and signed by Dwight Torres PA-C; to be co-signed by Dr. David Leung. Electronically signed by: David Leung M.D. 12/11/2022 10:27 AM
[2022-12-10 16:07] LABS: Appearance CSF Clear; CSF Count Tube # 3; CSF Xanthrochromic No xanthochromia; Color CSF Colorless
[2022-12-10 17:17] LABS: Cryptococcus neoformans/ga PCR Not Detected (NotDetected); Cytomegalovirus PCR Not Detected (NotDetected); Enterovirus PCR Not Detected (NotDetected); Escherichia coli K1 PCR Not Detected (NotDetected); Haemophilius influenzae PCR Not Detected (NotDetected); Herpes Simplex Virus 1 PCR Not Detected (NotDetected); Herpes Simplex Virus 2 PCR Not Detected (NotDetected); Human Herpes Virus 6 PCR Not Detected (NotDetected); Human Parechovirus PCR Not Detected (NotDetected); Listeria monocytogenes PCR Not Detected (NotDetected); Neisseria meningitidis PCR Not Detected (NotDetected); Streptococcus agalactiae PCR Not Detected (NotDetected); Streptococcus pneumoniae PCR Not Detected (NotDetected); Varicella Zoster Virus PCR Not Detected (NotDetected)
[2022-12-10] MEDS: levETIRAcetam 1,000 MG in 0.9 % SODIUM CHLORIDE 100 ML IV SCH (20:23)
--- NOTE | 2022-12-10 22:13 | Hospitalist Progress Note ---
Date of Service December 10, 2022 Assessment & Plan (1) Seizure: Plan: Seizure Patient does not have an elevated prolactin, CK. Lactate pending. No leukocytosis/demargination Low suspicion for seizure given above. Focal nonmotor seizure be definitely ruled out; however patient is intermittently responsive during episodes and does withdraw to noxious stimuli Neurology consulted in ER patient initially recommended for ambulatory EEG monitoring however given recurrent episodes and multiple readmissions and bounce backs a strong concern from family/facility that patient not appropriate for outpatient follow-up until additional monitoring has been performed. Will order EEG EEG 12/05/2022: Normal awake and drowsy routine EEG, no evidence of epileptiform activity. No episodes were noted at that time Given increased staring spells/episodes with increased frequency may attempt to reobtain EEG to capture episodes. If this is unable to be done and still strong concern for focal seizure activity will need assessment at a facility capable of performing a continuous EEG - By history ?if pt has catatonia, and has improved with benzo treatment in the past. Her history of intermittent activity with periods of mutism/malignant rigidity/nonverbal periods is potentially consistent. Psych consulted for evaluation. No prior history of mood disorders or patient or family per her daughter/S-I-L by phone. We will continue Keppra at this time Patient is nonverbal and with staring spell during admission exam, but patient does track hospitalist provider around bedside intermittently with eyes Ativan on-call Previously patient had elevated prolactin, this is normal this admission CThead no acute finding CXR: No acute finding Sodium normal will obtain LP, check for vasculitis, tick borne illness. -Increase keppra to 1 gr Hypertension Continue amlodipine DVT prophylaxis: Lovenox Diet: Regular (2) Essential hypertension: (3) Altered mental status: Admission and Anticipated Discharge Date Admission Date: December 09, 2022 Subjective Patient reports having another seizure earlier today, witnessed by Neurology. No new complaints. Review of Systems Review of Systems: All systems reviewed & are unremarkable except as noted in HPI & below Physical Exam Physical Exam: General: Awake, alert HEENT: Atraumatic, normocephalic. \ Pulm: CTAB A&P. -wheezes, -rales, -rhonchi. Symmetrical chest rise. No increased work of breathing. No respiratory distress. Cardiac: RRR, -mrg. Radial pulses intact and symmetrical. Abdominal: Nontender, nondistended, soft. BS present. Extremities: Warm, dry. PT pulse intact bilaterally. \ Results & Data Results & Data Vital Signs (Past 12 Hours) Vital Signs Pulse Pulse Resp BP BP Pulse Ox O2 Del Method 12/10/22 19:09 146/65 H 12/10/22 19:09 96 H 21 97 12/10/22 19:00 98 H 24 12/10/22 18:00 84 25 H 12/10/22 18:00 150/72 H 12/10/22 19:06 100 H 16 12/10/22 17:30 75 22 97 12/10/22 17:30 134/67 12/10/22 17:00 72 24 97 12/10/22 17:00 121/63 12/10/22 16:30 73 23 98 12/10/22 16:30 130/70 12/10/22 16:00 82 22 12/10/22 16:00 125/57 L 12/10/22 15:33 127/69 12/10/22 15:33 86 12/10/22 15:32 144 H 12/10/22 14:00 88 27 H 12/10/22 13:00 85 29 H 12/10/22 18:00 82 15 150/72 H 97 Room Air 12/10/22 17:45 Room Air 12/10/22 17:15 Room Air 12/10/22 16:45 Room Air 12/10/22 16:15 Room Air 12/10/22 16:00 80 100 12/10/22 15:45 81 99 Room Air 12/10/22 15:30 83 125/57 L 98 12/10/22 12:00 77 15 12/10/22 12:00 146/73 H 12/10/22 11:03 75 25 H 12/10/22 11:03 124/62 12/10/22 11:00 65 20 PG Care Time/CCT Total # of Minutes Spent Total Time Spent with Patient: Total time spent is greater than 50% in coordination of care (as documented) at patient's floor/unit and/or counseling patient: Coding Level of Care Code 01802 SUB INP/OBS CARE 3/50MIN Diagnoses Seizure R56.9 Essential hypertension I10 Altered mental status R40.1 Altered mental status type: stupor (3) Altered mental status Altered mental status type: stupor Qualified Code(s): R40.1 - Stupor
[2022-12-11] MEDS ORDERED: ALENDRONATE SODIUM 70 MG TAB PO SCH (06:30)
[2022-12-11 06:56] LABS: Basophils # (auto) 0.06 K/uL (0-0.2); Basophils % (auto) 1.1 %; Eosinophils # (auto) 0.26 K/uL (0-0.50); Eosinophils % (auto) 4.7 %; Hematocrit (blood only) 34.5 % (37.0-47.0); Hemoglobin 11.6 g/dl (12.0-16.0); Immature Granulocytes # (auto) 0.01 K/uL (0.01-0.20); Immature Granulocytes % (auto) 0.2 %; Lymphocytes # (auto) 1.54 K/uL (1.2-3.4); Lymphocytes % (auto) 27.7 %; Mean Corpuscular Hemoglobin 28.6 pg (25.0-34.0); Mean Corpuscular Hgb Conc 33.6 g/dL (32.0-36.0); Mean Platelet Volume 9.4 fL (9.4-12.4); Monocytes # (auto) 0.76 K/uL (0.11-0.59); Monocytes % (auto) 13.7 %; Neutrophils # (auto) 2.92 K/uL (1.40-6.50); Neutrophils % (auto) 52.6 %; Platelet Count 292 K/uL (130-400); RDW Coefficient of Variation 16.2 % (11.5-14.5); RDW Standard Deviation 50.7 fL (36.4-46.3); Red Blood Count 4.06 M/uL (4.20-5.40); White Blood Count 5.55 K/ul (4.8-10.8)
[2022-12-11 07:13] LABS: BUN Creatinine Ratio 17.9 (10-20); Calcium 8.8 mg/dl (8.6-10.3); Creatinine Clr Calc Pharmacy 53.3 ml/min; Est GFR (African American) 91.6 ml/min; Potassium 3.2 mmol/L (3.5-5.1)
[2022-12-11] MEDS: levETIRAcetam 1,000 MG in 0.9 % SODIUM CHLORIDE 100 ML IV SCH ×2 (08:37→21:45)
[2022-12-11] MEDS: LORATADINE 10 MG TAB PO SCH (08:37)
[2022-12-11] MEDS: amLODIPine BESYLATE 5 MG TAB PO SCH (08:38)
[2022-12-11] MEDS: ASPIRIN 81 MG ECTAB PO SCH (08:38)
[2022-12-11] MEDS ORDERED: SODIUM CHLORIDE 0.65% NA SOLN 45 ML (OCEAN) ONE (09:56)
[2022-12-11] MEDS: TIMOLOL MALEATE 0.5% OP SOLN 5 ML BTL OPR SCH (09:58)
--- NOTE | 2022-12-11 22:31 | Hospitalist Progress Note ---
Date of Service December 11, 2022 Assessment & Plan (1) Seizure: Plan: Seizure Patient does not have an elevated prolactin, CK. Lactate pending. No leukocytosis/demargination Low suspicion for seizure given above. Focal nonmotor seizure be definitely ruled out; however patient is intermittently responsive during episodes and does withdraw to noxious stimuli Neurology consulted in ER patient initially recommended for ambulatory EEG monitoring however given recurrent episodes and multiple readmissions and bounce backs a strong concern from family/facility that patient not appropriate for outpatient follow-up until additional monitoring has been performed. Will order EEG EEG 12/05/2022: Normal awake and drowsy routine EEG, no evidence of epileptiform activity. No episodes were noted at that time Given increased staring spells/episodes with increased frequency may attempt to reobtain EEG to capture episodes. If this is unable to be done and still strong concern for focal seizure activity will need assessment at a facility capable of performing a continuous EEG - By history ?if pt has catatonia, and has improved with benzo treatment in the past. Her history of intermittent activity with periods of mutism/malignant rigidity/nonverbal periods is potentially consistent. Psych consulted for evaluation. No prior history of mood disorders or patient or family per her daughter/S-I-L by phone. We will continue Keppra at this time Patient is nonverbal and with staring spell during admission exam, but patient does track hospitalist provider around bedside intermittently with eyes Ativan on-call Previously patient had elevated prolactin, this is normal this admission CThead no acute finding CXR: No acute finding Sodium normal will obtain LP, check for vasculitis, tick borne illness. -Increase keppra to 1 gr On 12/11 Lumbar puntucre was mainly negative. No WBC. Only abnormal result was the slightly elevated protein. Hypertension Continue amlodipine DVT prophylaxis: Lovenox Diet: Regular (2) Essential hypertension: (3) Altered mental status: Admission and Anticipated Discharge Date Admission Date: December 10, 2022 Subjective Patient reports doing well. She has no new complaints. Review of Systems Review of Systems: All systems reviewed & are unremarkable except as noted in HPI & below Physical Exam Physical Exam: General: Awake, alert HEENT: Atraumatic, normocephalic. \ Pulm: CTAB A&P. -wheezes, -rales, -rhonchi. Symmetrical chest rise. No increased work of breathing. No respiratory distress. Cardiac: RRR, -mrg. Radial pulses intact and symmetrical. Abdominal: Nontender, nondistended, soft. BS present. Extremities: Warm, dry. PT pulse intact bilaterally. \ Results & Data Results & Data Vital Signs (Past 12 Hours) Vital Signs Temp Pulse Pulse Resp BP BP Pulse Ox 12/11/22 19:30 36.8 C 88 18 131/68 95 12/11/22 16:14 80 12/11/22 15:04 36.8 C 76 15 121/69 96 12/11/22 10:50 36.6 C 78 17 138/61 94 O2 Del Method 12/11/22 19:30 Room Air 12/11/22 16:14 12/11/22 15:04 Room Air 12/11/22 10:50 Room Air PG Care Time/CCT Total # of Minutes Spent Total Time Spent with Patient: Total time spent is greater than 50% in coordination of care (as documented) at patient's floor/unit and/or counseling patient: Coding Level of Care Code 20884 SUB INP/OBS CARE 2/35MIN Diagnoses Seizure R56.9 Essential hypertension I10 Altered mental status R40.1 Altered mental status type: stupor (3) Altered mental status Altered mental status type: stupor Qualified Code(s): R40.1 - Stupor
[2022-12-11 22:46] LABS: Appearance Urine Clear (Clear); Bacteria Urine Automated Negative (Negative); Bilirubin Urine Negative (Negative); Blood Urine 2+ (Negative); Cast Urine Automated 0 /lpf (0-5); Color Urine Yellow; Glucose Urine UA Negative (Negative); Ketones Urine Trace (Negative); Leukocyte Esterase Urine 2+ (Negative); Nitrite Urine Negative (Negative); Protein Urine Negative (Negative); RBC Urine Automated 0-4 /hpf (0-4); Urobilinogen Urine Negative (Negative); pH Urine 6.5 (4.5-7.5)
[2022-12-12 08:03] LABS: Basophils # (auto) 0.06 K/uL (0-0.2); Basophils % (auto) 1.1 %; Eosinophils # (auto) 0.34 K/uL (0-0.50); Eosinophils % (auto) 6.5 %; Hematocrit (blood only) 32.9 % (37.0-47.0); Hemoglobin 11.3 g/dl (12.0-16.0); Immature Granulocytes # (auto) 0.01 K/uL (0.01-0.20); Immature Granulocytes % (auto) 0.2 %; Lymphocytes # (auto) 1.55 K/uL (1.2-3.4); Lymphocytes % (auto) 29.5 %; Mean Corpuscular Hemoglobin 28.6 pg (25.0-34.0); Mean Corpuscular Hgb Conc 34.3 g/dL (32.0-36.0); Mean Corpuscular Volume 83.3 fL (80.0-100.0); Mean Platelet Volume 9.5 fL (9.4-12.4); Monocytes # (auto) 0.72 K/uL (0.11-0.59); Monocytes % (auto) 13.7 %; Neutrophils # (auto) 2.57 K/uL (1.40-6.50); Platelet Count 294 K/uL (130-400); RDW Standard Deviation 48.9 fL (36.4-46.3); Red Blood Count 3.95 M/uL (4.20-5.40); White Blood Count 5.25 K/ul (4.8-10.8)
[2022-12-12 08:15] LABS: BUN Creatinine Ratio 18.2 (10-20); Calcium 8.6 mg/dl (8.6-10.3); Creatinine Clr Calc Pharmacy 56.7 ml/min; Est GFR (African American) 97.7 ml/min; Est GFR (Non-African American) 84.3 ml/min; Potassium 3.3 mmol/L (3.5-5.1)
[2022-12-12] MEDS: ASPIRIN 81 MG ECTAB PO SCH (09:08)
[2022-12-12] MEDS: amLODIPine BESYLATE 5 MG TAB PO SCH (09:08)
[2022-12-12] MEDS: levETIRAcetam 1,000 MG in 0.9 % SODIUM CHLORIDE 100 ML IV SCH ×2 (09:08→20:47)
[2022-12-12] MEDS: TIMOLOL MALEATE 0.5% OP SOLN 5 ML BTL OPR SCH (09:09)
[2022-12-12] MEDS: LORATADINE 10 MG TAB PO SCH (09:09)
[2022-12-12] MEDS: POTASSIUM CHLORIDE CRTAB 20 MEQ TABCR PO SCH ×2 (12:03→20:47)
[2022-12-12] MEDS: ACETAMINOPHEN 325 MG TAB PO PRN (12:54)
[2022-12-12] MEDS: FLUTICASONE PROPIONATE NA SPR 16 GM BTL NAE SCH (15:18)
--- NOTE | 2022-12-12 16:23 | Hospitalist Progress Note ---
Date of Service December 12, 2022 Assessment & Plan (1) Seizure: Plan: Seizure/ on admission Patient does not have an elevated prolactin, CK. Lactate pending. No leukocytosis/demargination Low suspicion for seizure given above. Focal nonmotor seizure be definitely ruled out; however patient is intermittently responsive during episodes and does withdraw to noxious stimuli Neurology consulted in ER patient initially recommended for ambulatory EEG monitoring however given recurrent episodes and multiple readmissions and bounce backs a strong concern from family/facility that patient not appropriate for outpatient follow-up until additional monitoring has been performed. Will order EEG EEG 12/05/2022: Normal awake and drowsy routine EEG, no evidence of epileptiform activity. No episodes were noted at that time Given increased staring spells/episodes with increased frequency may attempt to reobtain EEG to capture episodes. If this is unable to be done and still strong concern for focal seizure activity will need assessment at a facility capable of performing a continuous EEG - By history ?if pt has catatonia, and has improved with benzo treatment in the past. Her history of intermittent activity with periods of mutism/malignant rigidity/nonverbal periods is potentially consistent. Psych consulted for evaluation. No prior history of mood disorders or patient or family per her daughter/S-I-L by phone. We will continue Keppra at this time Patient is nonverbal and with staring spell during admission exam, but patient does track hospitalist provider around bedside intermittently with eyes Ativan on-call Previously patient had elevated prolactin, this is normal this admission CThead no acute finding CXR: No acute finding Sodium normal Hospital Course: Obtained Lumbar puncture which was mainly negative. No WBC. Only abnormal result was the slightly elevated protein which could be due to the seizures itself. work up for vasculitis pending. Tick borne illness appear negative. -Patient will benefit from a rheumatlogy folllowup. Anticipate patient will be ready for discharge on 12/13 unless placement needed -Since increasing keppra to 1 gr BID, patient has not had any seizures. Hypertension Continue amlodipine DVT prophylaxis: Lovenox Diet: Regular Called Daughter: left extensive voice mail on phone on 12/12 (2) Essential hypertension: (3) Altered mental status: Admission and Anticipated Discharge Date Admission Date: December 10, 2022 Subjective Patient reports feeling much better today. Patient agreeable to ambulating halls with me. Review of Systems Review of Systems: All systems reviewed & are unremarkable except as noted in HPI & below Physical Exam Physical Exam: General: Awake, alert HEENT: Atraumatic, normocephalic. Pulm: CTAB A&P. -wheezes, -rales, -rhonchi. Symmetrical chest rise. No increased work of breathing. No respiratory distress. Cardiac: RRR, -mrg. Radial pulses intact and symmetrical. Abdominal: Nontender, nondistended, soft. BS present. Extremities: Warm, dry. PT pulse intact bilaterally. \ Patient ambulated halls with me, very slow gait, not her usual. Tolerated walking without assisted devices. Results & Data Results & Data Vital Signs (Past 12 Hours) Vital Signs Temp Pulse Pulse Resp BP BP Pulse Ox 12/12/22 15:06 67 12/12/22 14:57 36.4 C L 66 16 112/67 96 12/12/22 10:52 36.6 C 68 16 146/77 H 98 12/12/22 07:58 36.5 C 76 15 125/70 95 12/12/22 07:21 65 O2 Del Method 12/12/22 15:06 12/12/22 14:57 Room Air 12/12/22 10:52 Room Air 12/12/22 07:58 Room Air 12/12/22 07:21 PG Care Time/CCT Total # of Minutes Spent Total Time Spent with Patient: Total time spent is greater than 50% in coordination of care (as documented) at patient's floor/unit and/or counseling patient: Coding Level of Care Code 88648 SUB INP/OBS CARE 3/50MIN Diagnoses Seizure R56.9 Essential hypertension I10 Altered mental status R40.1 Altered mental status type: stupor (3) Altered mental status Altered mental status type: stupor Qualified Code(s): R40.1 - Stupor
[2022-12-12] MEDS ORDERED: diphenhydrAMINE 50 MG/ML VIAL IV STA (19:19)
[2022-12-12] MEDS ORDERED: KETOROLAC TROMETHAMINE 15 MG/ML VIAL IV ONE (19:20)
[2022-12-12] MEDS ORDERED: PROCHLORPERAZINE 10 MG in SYRINGE 8 ML IV ONE (19:30)
--- NOTE | 2022-12-13 07:33 | Hospitalist Progress Note ---
Date of Service December 13, 2022 Assessment & Plan (1) Seizure: Plan: Seizure like activity questioned on admission Patient does not have an elevated prolactin, CK. Lactate No leukocytosis/demargination Low suspicion for seizure the patient is intermittently responsive during episodes and does withdraw to noxious stimuli Neurology consulted EEG 12/05/2022: Normal awake and drowsy routine EEG, no evidence of epileptiform activity. No episodes were noted at that time continue Keppra at this time, increasing keppra to 1 gr BID, - By history ?if pt has catatonia, and has improved with benzo treatment in the past. Her history of intermittent activity with periods of mutism/malignant rigidity/nonverbal periods is potentially consistent. Psych consulted for evaluation. No prior history of mood disorders or patient or family per her daughter/S-I-L by phone. CThead no acute finding CXR: No acute finding Sodium normal - Lumbar puncture which was mainly negative. Only abnormal result was the slightly elevated protein which could be due to the seizures itself. work up for vasculitis pending. Tick borne illness appear negative. -Patient will benefit from a rheumatology followup due to elevation of inflammatory markers - constipation MiraLAX ordered Hypertension Continue amlodipine DVT prophylaxis: Lovenox Diet: Regular (2) Essential hypertension: Admission and Anticipated Discharge Date Admission Date: December 10, 2022 Subjective Patient reports feeling much better today. Patient agreeable to ambulating halls with me. Physical Exam Physical Exam: pt is awake and alert , does recall plan of care is c/o constipation and requests ,miralax, but abdomen is soft and non tender Results & Data Results & Data Vital Signs (Past 12 Hours) Vital Signs Temp Pulse Pulse Resp BP Pulse Ox O2 Del Method 12/13/22 03:04 97.7 F 71 18 132/58 L 96 Room Air 12/12/22 21:59 75 12/12/22 23:11 97.9 F 74 18 108/61 94 Room Air Laboratory Results reviewed CBC reviewed chemistry PG Care Time/CCT Total # of Minutes Spent Total Time Spent with Patient: Total time spent is greater than 50% in coordination of care (as documented) at patient's floor/unit and/or counseling patient: Coding Level of Care Code 58389 SUB INP/OBS CARE 2/35MIN Diagnoses Seizure R56.9 Essential hypertension I10
[2022-12-13 08:28] LABS: Calcium 8.6 mg/dl (8.6-10.3); Creatinine Clr Calc Pharmacy 71.7 ml/min; Est GFR (African American) 100.9 ml/min; Phosphorus 2.9 mg/dl (2.5-4.9); Potassium 3.7 mmol/L (3.5-5.1)
[2022-12-13 08:35] LABS: Hematocrit (blood only) 32.4 % (37.0-47.0); Hemoglobin 10.8 g/dl (12.0-16.0); Mean Corpuscular Hemoglobin 28.3 pg (25.0-34.0); Mean Corpuscular Hgb Conc 33.3 g/dL (32.0-36.0); Mean Platelet Volume 9.8 fL (9.4-12.4); Platelet Count 307 K/uL (130-400); RDW Standard Deviation 50.3 fL (36.4-46.3); Red Blood Count 3.81 M/uL (4.20-5.40); White Blood Count 4.53 K/ul (4.8-10.8)
[2022-12-13] MEDS: FLUTICASONE PROPIONATE NA SPR 16 GM BTL NAE SCH (09:20)
[2022-12-13] MEDS: levETIRAcetam 1,000 MG in 0.9 % SODIUM CHLORIDE 100 ML IV SCH ×2 (09:20→21:44)
[2022-12-13] MEDS: amLODIPine BESYLATE 5 MG TAB PO SCH (09:20)
[2022-12-13] MEDS: ASPIRIN 81 MG ECTAB PO SCH (09:20)
[2022-12-13] MEDS: LORATADINE 10 MG TAB PO SCH (09:21)
[2022-12-13] MEDS: POTASSIUM CHLORIDE CRTAB 20 MEQ TABCR PO SCH (09:21)
[2022-12-13] MEDS: TIMOLOL MALEATE 0.5% OP SOLN 5 ML BTL OPR SCH (09:21)
[2022-12-13 12:27] LABS: Anti Nuclear Antibody Screen POSITIVE (NEGATIVE); Anti-SS-A <1.0 NEG AI (<1.0 NEG); Anti-SS-B <1.0 NEG AI (<1.0 NEG); Rheumatoid Factor <14 IU/mL (<14)
[2022-12-13 14:50] LABS: ANA Pattern Cytoplasmic; ANA Titer 1:40 titer
[2022-12-13] MEDS ORDERED: POLYETHYLENE (MIRALAX) 17 GM PACK PO ONE (16:34)
[2022-12-13] MEDS: ACETAMINOPHEN 325 MG TAB PO PRN (18:04)
[2022-12-13 18:37] LABS: Albumin 3.2 g/dL (3.8-4.8); Alpha 1 Globulin 0.3 g/dL (0.2-0.3); Alpha 2 Globulin 0.8 g/dL (0.5-0.9); Beta-1-Globulin 0.4 g/dL (0.4-0.6); Beta-2-Globulin 0.5 g/dL (0.2-0.5); Gamma Globulin 0.8 g/dL (0.8-1.7); Monoclonal Protein Band 2 DNR g/dL (NONE DETECTED); Monoclonal Protein Band 3 DNR g/dL (NONE DETECTED); Total Protein 6.1 g/dL (6.1-8.1)
[2022-12-13] MEDS ORDERED: KETOROLAC TROMETHAMINE 15 MG/ML VIAL IV ONE (18:39)
[2022-12-14 06:47] LABS: Babesia microti DNA Not Detected (Not Detected)
[2022-12-14] MEDS ORDERED: POLYETHYLENE (MIRALAX) 17 GM PACK PO SCH (09:00)
--- NOTE | 2022-12-14 09:10 | Hospitalist Progress Note ---
Date of Service December 14, 2022 Assessment & Plan (1) Seizure: Plan: Seizure like activity questioned on admission Patient does not have an elevated prolactin, CK. Lactate No leukocytosis/demargination Low suspicion for seizure the patient is intermittently responsive during episodes and does withdraw to noxious stimuli Neurology consulted EEG 12/05/2022: Normal awake and drowsy routine EEG, no evidence of epileptiform activity. No episodes were noted at that time continue Keppra at this time, increasing keppra to 1 gr BID, - By history ?if pt has catatonia, and has improved with benzo treatment in the past. Her history of intermittent activity with periods of mutism/malignant rigidity/nonverbal periods is potentially consistent. Psych consulted for evaluation. No prior history of mood disorders or patient or family per her daughter/S-I-L by phone. CThead no acute finding CXR: No acute finding Sodium normal - Lumbar puncture which was mainly negative. Only abnormal result was the slightly elevated protein which could be due to the seizures itself. work up for vasculitis pending. Tick borne illness appear negative. -Patient will benefit from a rheumatology followup due to elevation of inflammatory markers - constipation MiraLAX ordered Hypertension Continue amlodipine DVT prophylaxis: Lovenox Diet: Regular (2) Essential hypertension: Admission and Anticipated Discharge Date Admission Date: December 10, 2022 Results & Data Results & Data Vital Signs (Past 12 Hours) Vital Signs Temp Pulse Pulse Resp BP BP Pulse Ox 12/14/22 07:39 97.7 F 79 16 137/71 96 12/14/22 07:28 69 12/13/22 21:45 12/14/22 03:14 97.9 F 74 18 132/68 97 12/14/22 01:41 75 12/13/22 22:53 98.1 F 80 18 138/74 95 O2 Del Method 12/14/22 07:39 Room Air 12/14/22 07:28 12/13/22 21:45 Room Air 12/14/22 03:14 Room Air 12/14/22 01:41 12/13/22 22:53 Room Air PG Care Time/CCT Total # of Minutes Spent Total Time Spent with Patient: Total time spent is greater than 50% in coordination of care (as documented) at patient's floor/unit and/or counseling patient: Coding Diagnoses Seizure R56.9 Essential hypertension I10
[2022-12-14] MEDS: ASPIRIN 81 MG ECTAB PO SCH (10:06)
[2022-12-14] MEDS: amLODIPine BESYLATE 5 MG TAB PO SCH (10:06)
[2022-12-14] MEDS: levETIRAcetam 1,000 MG in 0.9 % SODIUM CHLORIDE 100 ML IV SCH (10:06)
[2022-12-14] MEDS: FLUTICASONE PROPIONATE NA SPR 16 GM BTL NAE SCH (10:06)
[2022-12-14] MEDS: LORATADINE 10 MG TAB PO SCH (10:07)
[2022-12-14] MEDS: TIMOLOL MALEATE 0.5% OP SOLN 5 ML BTL OPR SCH (10:07)
[2022-12-14] MEDS: ACETAMINOPHEN 325 MG TAB PO PRN (10:12)
--- NOTE | 2022-12-14 17:11 | Discharge Summary ---
Date of Service December 14, 2022 Admission HPI Per Admitting Provider Carly Lombardi is an 87-year-old female with a past medical history of hypertension, multiple admissions for hyponatremia with AMS and seizure-like activity who was discharged 3 days ago on Keppra twice daily after an admission for seizure-like activity who read presents for suspected seizure-like activity. Per EMS patient had a 1 hour episode of staring into space without responsiveness last night, facility staff found her in her room similarly not responding to verbal stimuli and staring without shaking. No trauma/falls/seizure-like tremors noted. Facility requested patient be brought to the ER for further evaluation. On ER provider assessment patient was staring ahead without response to verbal stimuli, she did not flinch or withdraw to noxious stimuli. Patient was reportedly speaking in route before she stared off into space H&P limited by nonverbal status during hospitalist exam On ER reassessment patient was awake, pleasant and talking, hungry. At time of hospitalist assessment patient does track with eyes but does not answer questions or follow commands Case was reviewed with neurology Dr. Bright who recommended ambulatory EEG. Family was concerned about patient's change in cognitive status and safety back at her facility. 1230 siter, carly, and Lucrecia were on facetime. While on facetime her responses were mostly understandable but seemed 'off.' Nursing staff reported episodes of eyes open, arms tremulous, and not responding/following commands. When in that 'state where she is not responding' pt is aware of what is going on, but she is not able to respond. Not a complete lack of awareness. Was texting this past Saturday and seemed normal. usually has good energy and 'was feeling great.' They had talked Saturday and seemed OK. Did seem to have some memory issues and maybe was confusing some dreams with happening or not, but otherwise interested in PT/OT. Per S-I-L has been living independently. Mental health standpoint has been doing well with no history of depression/anxiety. No history of medical problems 'at all, healthy spry woman up until now from [facility]' No hallucinations. No recent fevers, chills, sweats. No exposures. No recent illnesses. Appetite has been more poor in the last few months otherwise had been doing well. Had covid 'a while ago' but recovered well with no issues and no breathing issues since. Whole workup since had been not revealing. They note that her episodes do seem very dramatic between when she is not responding but aware, and when she is responding and her normal self. 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 improved with Keppra dosing elevated inflammatory markers with recommendation for outpatient rheumatological evaluation prehospital vaginal yeast infection continue treatment after discharge Discharge Exam patient awake alert appropriate no focal issues memory of hospital stay and events is surprisingly intact Discharge Data Allergies Allergy/AdvReac Type Severity Reaction Status Date / Time Penicillins Allergy Unknown Unknown rxn Verified 12/09/22 17:51 azithromycin [From Zithromax] Allergy Unknown Verified 12/09/22 17:51 doxycycline Allergy Unknown Verified 12/09/22 17:51 risedronate sodium Allergy Unknown Verified 12/09/22 17:51 [From Actonel] Consultations 12/09/22 17:56 ED Decision to Admit Stat 12/09/22 18:50 Consult Psychiatry Routine 12/09/22 19:16 Consult Neurology Routine Ordered Studies 12/09/22 15:02 CT head/brain wo con Stat 12/10/22 13:07 IR lumbar puncture diagnostic Routine Hospital Course (1) Seizure: Seizure like activity questioned on admission Patient did not have an elevated prolactin, CK. Lactate No leukocytosis/demargination patient is intermittently responsive during episodes and does withdraw to noxious stimuli Neurology consulted EEG 12/05/2022: Normal awake and drowsy routine EEG, no evidence of epileptiform activity. No episodes were noted at that time continue Keppra at this time, increasing keppra to 1 gr BID, . Psych consulted for evaluation. Dr. Quintanilla saw the patient did not confirm diagnosis of catatonia. No prior history of mood disorders or patient or family per her daughter/S-I-L by phone. CThead no acute finding CXR: No acute finding Sodium normal - Lumbar puncture which was mainly negative. Only abnormal result was the slightly elevated protein which could be due to the seizures itself. work up for vasculitis pending. Tick borne illness appear negative. -Patient will benefit from a rheumatology followup due to elevation of inflammatory markers - constipation MiraLAX ordered Hypertension Continue amlodipine (2) Essential hypertension: Plan order 2 doses of Diflucan to be given 3 days apart for vaginal yeast infection per patient complaint Total Time Total Time Spent Total Time Spent (In Minutes): It required greater than 30 minutes to prepare this patient for discharge Discharge Plan Discharge Items Patient Disposition: [facility] Reason For Visit: SEIZURE LIKE ACTIVITY. ?CATATONIA Discharge Diagnosis: seizures, elevated inflamatory markers Activity: Per Instructions section Activity Comment: as per therapy eval at facility Non-emergency contact: Primary Care Provider Call non-emergency contact if: your symptoms worsen Follow-up/Referrals: Roque Figueroa MD [Primary Care Provider] - Brian Obregon DO [Physician] - Diet: Regular Addtl Attending Provider Instructions: please continue seizure medication Keppra twice a day have follow up with Dr Haq and make a new patient appointment with Dr Obregon for Rheumatologic opinion Diflucan ordered for pt c/o of vaginal yeast infection Pending Studies at Discharge: No Stand-Alone Forms: My [facility] Skilled Items Patient informed of condition?: Yes DNR: No Discharge Level of Care: Acute rehab Communicable Disease: No Discharge Prognosis: Stable Lines: None Urinary Catheter: No Medications and DC Order Prescriptions: New polyethylene glycol 3350 [Miralax] 17 gram Powder In Packet 17 g PO DAILY Qty: 30 3RF fluconazole [Diflucan] 150 mg tablet 150 mg PO Q3D Qty: 2 0RF Continued nystatin-triamcinolone 100,000-0.1 unit/gram-% ointment 1 applic TOP TID PRN (Reason: vaginal irritation) 10 Days Qty: 30 1RF timolol 0.5 % drops 1 drp OPR DAILY Rx Instructions: PER [place] triamcinolone acetonide 55 mcg aerosol,spray 1 sprays intranasal DAILY PRN (Reason: rhinitis) Qty: 1 Rx Instructions: unable to verify aspirin 81 mg Tablet,Delayed Release (Dr/Ec) 0 mg PO DAILY Rx Instructions: unable to verify calcium carbonate-vitamin D3 [Calcium 600 + D(3)] 600 mg-10 mcg (400 unit) Tablet 1 tab PO BID Rx Instructions: unable to verify Lumigan 0.01 % drops 1 drp OPB DAILY alendronate [Fosamax] 70 mg tablet 70 mg PO WK Rx Instructions: Q tues betamethasone dipropionate 0.05 % cream 1 applic TOP BID PRN (Reason: itching) Rx Instructions: Apply sparingly to affected area twice a day PRN; ipratropium bromide 21 mcg (0.03 %) spray,non-aerosol 1 spray intranasal QAM Rx Instructions: un acetaminophen [Tylenol] 325 mg Tablet 650 mg PO Q4 PRN (Reason: Fever Or Pain) artificial tears solution Drops 1 drp OPHTHALMIC (EYE) QID PRN (Reason: .dry eyes) loratadine 10 mg Tablet 10 mg PO DAILY amlodipine [Norvasc] 5 mg Tablet 5 mg PO QAM Qty: 0 0RF Changed levetiracetam [Keppra] 500 mg tablet 1,000 mg PO BID Qty: 120 2RF Discharge Orders: Discharge Order (Routine); Ordered 12/14/22 Ordered By: Matty Anguiano Admission Data Admit Date/Time: 12/10/22 22:19 Attending Provider: Matty Anguiano Admit Provider: Justin Lopez Primary Care Provider: Roque Figueroa Other Providers: Justin Lopez ; Janessa Walsh ; Mary Lou Quintanilla ; Daniel Hwang ; Nikolay Rivero Other Interventions: Discharge Summary Assessment (RN) Last Done: 12/14/22 16:41 Coding Level of Care Code 69888 INP/OBS DISCH >30 MIN Diagnoses Seizure R56.9 Essential hypertension I10
[2022-12-18 01:57] LABS: CSF, LDH 23 U/L (<=25); Cryptococcal Antigen Not Detected (Not Detected); EBV DNA Quant PCR Not Detected copies/mL; EBV DNA Quant Source CSF; Lyme DNA PCR CSF or Synovial Not Detected (Not Detected); Lyme DNA Source CSF; Lyme IgG Band Pattern CSF DNR; Lyme IgG CSF NO BANDS DETECTED; Lyme IgM Band Pattern CSF DNR; Lyme IgM CSF NO BANDS DETECTED; Source CSF; VDRL Qualitative CSF Nonreactive (Nonreactive); West Nile Virus, PCR Source CSF; West Nile Virus, PCR, CSF NOT DETECTED (NOT DETECTED)
== END 2022-12-14 18:11 | DRG 101 ==
LOC: EDINP 14:54 → ED 14:54 → SUATTDRO 18:18 → EDINP 12-10 19:55 → 2N 12-10 21:03 → SUATTDRO 12-10 22:19

== ENCOUNTER 2023-01-19 23:15 | Inpatient (IN) ==
[2023-01-19] MEDS ORDERED: SODIUM CHLORIDE 0.9% 500 ML IV SCH (23:30)
--- NOTE | 2023-01-19 23:37 | Emergency Department Note ---
History of Present Illness General Chief complaint: Fever Time Seen by Provider: 01/19/23 23:16 History of Present Illness Provider complaint: Fever weakness Onset (ago): day(s) 1 87-year-old female presents emergency department for fever and weakness. Patient reports fever and weakness for the last day. Patient lives at [facility]. EMS reports that the [facility] staff reported that the patient had a Tmax of 100.4 today. Patient reports diarrhea and nausea. No vomiting. No melena or hematochezia. Patient reports abdominal pain and weakness. Patient also reports confusion. Home Medications Medication Instructions Recorded Confirmed Type betamethasone dipropionate 0.05 % 1 applic topical BID PRN itching 11/30/22 01/20/23 History topical cream bimatoprost 0.01 % eye drops 1 drp OPB HS 11/30/22 01/20/23 History (Lumigan) calcium carbonate 600 mg-vitamin 1 tab PO BID 11/30/22 01/20/23 History D3 10 mcg (400 unit) tablet (Calcium 600 + D(3)) loratadine 10 mg tablet 10 mg PO DAILY 12/09/22 01/20/23 History acetaminophen 325 mg capsule 325 mg PO Q4 PRN Fever Or Pain 01/07/23 01/20/23 History alendronate 70 mg tablet 70 mg PO .Weekly 01/07/23 01/20/23 History amlodipine 5 mg tablet 5 mg PO DAILY 01/07/23 01/20/23 History aspirin 81 mg tablet,delayed 81 mg PO DAILY 01/07/23 01/20/23 History release (Adult Aspirin Regimen) bisacodyl 10 mg rectal suppository 10 mg MA DAILY PRN Constipation 01/07/23 01/20/23 History calcium carbonate 200 mg calcium 200 mg PO Q6 PRN Indigestion 01/07/23 01/20/23 History (500 mg) chewable tablet (Tums) nystatin-triamcinolone 100,000 1 applic topical Q8 PRN irritation 01/07/2301/20 History unit/g-0.1 % topical cream perinium ondansetron HCl 4 mg tablet 4 mg PO Q8H 01/07/23 01/20/23 History sodium phosphates 19 gram-7 118 ml MA DAILY PRN Constipation 01/07/23 01/20/23 History gram/118 mL enema timolol 0.5 % eye drops 1 drp OPR QAM 01/07/23 01/20/23 History triamcinolone acetonide 55 mcg 1 spray intranasal DAILY .rinitis 01/07/23 01/20/23 History nasal spray aerosol carboxymethylcellulose sodium 1 % 1 drp OPR QAM 01/20/23 01/20/23 History eye drops (Artificial Tears (carboxymethylcellulose)) carboxymethylcellulose sodium 1 % 1 drp ophthalmic (eye) Q6 PRN Dry 01/20/23 01/20/23 History eye drops (Artificial Tears Eyes (carboxymethylcellulose)) ipratropium bromide 21 mcg (0.03 1 spray intranasal BID PRN 01/20/23 01/20/23 History %) nasal spray allergies levetiracetam 1,000 mg tablet 1,000 mg PO BID 01/20/23 01/20/23 History polyethylene glycol 3350 17 gram 17 g PO QAM 01/20/23 01/20/23 History oral powder packet (Miralax) Allergies Allergy/AdvReac Type Severity Reaction Status Date / Time Penicillins Allergy Unknown Unknown rxn Verified 01/20/23 01:11 azithromycin [From Zithromax] Allergy Unknown Verified 01/20/23 01:11 doxycycline Allergy Unknown Verified 01/20/23 01:11 risedronate sodium Allergy Unknown Verified 01/20/23 01:11 [From Actonel] Past Med/Surg History Medical History (Updated 01/20/23 @ 05:19 by Monty Vanessa MD) Dyslipidemia Family history of colon cancer Hyponatremia Osteopenia after menopause Pancreatic cyst Surgical History History of colonoscopy History of varicose vein ligation and stripping S/P tubal ligation Family History Sister Breast cancer Coronary heart disease Father Stroke Mother Breast cancer Son Narcolepsy Other No family history of adverse response to anesthesia No family history of bleeding disorder Denies family history of Ovarian cancer Prostate cancer Diabetes Lung cancer Colorectal cancer Social History Smoking Status: Former smoker Second Hand Exposure: No; Do You Dip or Chew Tobacco: No; Hx Alcohol Use: No Hx Substance Use: No Preferred Language: Tajik Communication Ability: Impaired Visual Impairment: Limited Hearing Ability: Normal 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 Beliefs That Will Affect Care: None marital status: Current Living Situation: Senior Living current occupational status: retired How many Children do You have: 3 Feels Safe at Home: Yes Childhood Exposure to Second-Hand Smoke: Yes (father smoked pipe occassionally ) Diet: regular caffeine: Yes (coffee and tea ) Dental Care, Regularly: Yes Physical Activity Frequency: Daily Physical Activity Frequency Comment: walk Seatbelt Use: always Sunscreen Use: Yes Assistive Devices: None Physical Exam Vital Signs Vital Signs - 24 hr 01/19/23 23:20 01/19/23 23:21 01/19/23 23:33 Temperature 36.8 C Temperature Source Oral Pulse Rate 90 96 H 87 Pulse Rate from SpO2 Sensor Pulse Rhythm Regular Respiratory Rate 16 16 Respiratory Effort / Characteristics Non-Labored Respiratory Depth Normal Blood Pressure 125/67 Blood Pressure Mean 86 Pulse Oximetry 95 94 Oxygen Delivery Method Room Air Room Air Sepsis Recent Fever Within 48 Hours No Sepsis New/Unexplained Change in Mental Status No Sepsis Action Taken by Nursing No Action Required 01/19/23 23:22 01/19/23 23:30 01/20/23 00:00 Temperature Temperature Source Pulse Rate 91 H 89 79 Pulse Rate from SpO2 Sensor 92 H 89 Pulse Rhythm Respiratory Rate 19 16 18 Respiratory Effort / Characteristics Respiratory Depth Blood Pressure 128/62 109/58 L Blood Pressure Mean 84 75 Pulse Oximetry 95 95 96 Oxygen Delivery Method Sepsis Recent Fever Within 48 Hours Sepsis New/Unexplained Change in Mental Status Sepsis Action Taken by Nursing 01/20/23 01:30 01/20/23 02:00 01/20/23 02:30 Temperature Temperature Source Pulse Rate 80 76 76 Pulse Rate from SpO2 Sensor Pulse Rhythm Respiratory Rate 23 23 20 Respiratory Effort / Characteristics Respiratory Depth Blood Pressure 110/66 106/56 L 114/58 L Blood Pressure Mean 80 72 76 Pulse Oximetry 95 95 94 Oxygen Delivery Method Sepsis Recent Fever Within 48 Hours Sepsis New/Unexplained Change in Mental Status Sepsis Action Taken by Nursing 01/20/23 03:00 01/20/23 03:00 01/20/23 03:30 Temperature Temperature Source Pulse Rate 74 75 73 Pulse Rate from SpO2 Sensor 74 Pulse Rhythm Respiratory Rate 31 H 21 22 Respiratory Effort / Characteristics Respiratory Depth Blood Pressure 120/56 L 114/57 L Blood Pressure Mean 79 76 Pulse Oximetry 96 94 96 Oxygen Delivery Method Sepsis Recent Fever Within 48 Hours Sepsis New/Unexplained Change in Mental Status Sepsis Action Taken by Nursing 01/20/23 04:00 01/20/23 03:26 01/20/23 04:00 Temperature Temperature Source Pulse Rate 75 73 Pulse Rate from SpO2 Sensor 75 Pulse Rhythm Respiratory Rate 20 Respiratory Effort / Characteristics Respiratory Depth Blood Pressure 129/61 Blood Pressure Mean 103 Pulse Oximetry 94 Oxygen Delivery Method Sepsis Recent Fever Within 48 Hours Sepsis New/Unexplained Change in Mental Status Sepsis Action Taken by Nursing 01/20/23 04:30 01/20/23 05:00 Temperature Temperature Source Pulse Rate 81 80 Pulse Rate from SpO2 Sensor Pulse Rhythm Respiratory Rate 21 24 Respiratory Effort / Characteristics Respiratory Depth Blood Pressure 134/59 L 136/61 Blood Pressure Mean 84 86 Pulse Oximetry 96 96 Oxygen Delivery Method Sepsis Recent Fever Within 48 Hours Sepsis New/Unexplained Change in Mental Status Sepsis Action Taken by Nursing Physical Exam GENERAL: She is oriented to person, place, and time. She appears well-developed and well-nourished. She does not appear distressed. HENT: Exam performed. -Head: Normocephalic and atraumatic. -Right Ear: External ear normal. No mastoid erythema -Left Ear: External ear normal. No mastoid erythema -Mouth/Throat: The oropharynx is clear and moist. No trismus in the jaw. No dental abscesses or uvula swelling. No oropharyngeal exudate or tonsillar absc esses. EYES: Conjunctivae and EOM are normal. Pupils are equal, round, and reactive to light. Right eye exhibits no discharge. Left eye exhibits no discharge. No scleral icterus. NECK: Normal range of motion. Neck supple. No JVD present. CV: Normal rate, regular rhythm, normal heart sounds and intact distal pulses. There is no peripheral edema. Palpable radial pulses bue. PULM/CHEST: Effort normal and breath sounds normal. No respiratory distress. No stridor. She has no wheezes. She has no rales. ABD: The abdomen is soft. Mild abdominal distension. No mass is present. There is tenderness to palpation of the left lower quadrant. There is no rebound, no guarding MUSC/SKEL: Normal range of motion. There is no peripheral edema, tenderness or deformity. NEURO: She is alert and oriented to person, place, and time. She has normal strength. No cranial nerve deficit or sensory deficit. SKIN: Skin is warm and dry. She is not diaphoretic. PSYCH: She has a normal mood and affect. Behavior is normal. Judgment and thought content normal. Course Course 2316: The patient was evaluated in room A10. A complete history and physical exam was performed Cardiac monitoring: An order was placed for continuous cardiac monitoring. The monitor shows a rate of 80 with sinus rhythm interpreted by me 0345: Vital signs stable. Labs within normal limits with the exception of a sodium of 125. Troponin elevated at 22.1 and delta troponin 32.9. CT of the abdomen pelvis negative. CT of the head is still pending for stat rad read however his CT viewed by me does not show any ICH. No need for hypertonic saline at this time as patient has not had any neurological dysfunction. Gentle hydration was given to the patient with normal saline. Patient not reporting any chest pain or difficulty breathing. [facility]. Administered Medications Discontinued Medications Sodium Chloride (Nss) 500 mls @ 999 mls/hr IV .Q31M PAVAN Stop: 01/20/23 00:00 Last Infusion: 01/20/23 05:08 Dose: 0 mls/hr Documented By: Admin: 01/20/23 02:40 Dose: 999 mls/hr Documented By: ZEE Ioversol (Optiray 320 500ml) 91 ml IV ONCE ONE Stop: 01/20/23 00:38 Last Admin: 01/20/23 00:38 Dose: 91 ml Documented By: RHYS Medical Decision Making Laboratory Data Attestation: I reviewed the patient's lab results. 01/19/23 23:25 01/19/23 23:25 Lab Results 01/19/23 01/19/23 01/19/23 Range/Units 23:25 23:25 23:25 WBC 11.07 H (4.8-10.8) K/ul RBC 3.60 L (4.20-5.40) M/uL Hgb 10.4 L (12.0-16.0) g/dl POC Hgb (12.0-16.0) g/dl Hct 29.5 L (37.0-47.0) % POC Hct (37-47) % MCV 81.9 (80.0-100.0) fL MCH 28.9 (25.0-34.0) pg MCHC 35.3 (32.0-36.0) g/dL RDW Std Deviation 39.2 (36.4-46.3) fL RDW Coeff of Bandar 13.1 (11.5-14.5) % Plt Count 468 H (130-400) K/uL MPV 9.2 L (9.4-12.4) fL Immature Gran % (Auto) 0.4 % Neut % (Auto) 77.9 % Lymph % (Auto) 8.9 % Armstrong % (Auto) 11.6 % Eos % (Auto) 0.7 % Baso % (Auto) 0.5 % Neut # (Auto) 8.63 H (1.40-6.50) K/uL Lymph # (Auto) 0.98 L (1.20-3.40) K/uL Armstrong # (Auto) 1.28 H (0.11-0.59) K/uL Eos # (Auto) 0.08 (0.00-0.50) K/uL Baso # (Auto) 0.06 (0.00-0.20) K/uL Immature Gran # (Auto) 0.04 (0.01-0.20) K/uL PT 11.3 (9.0-12.0) Seconds INR 1.0 (0.9-1.1) APTT 29.3 (21.0-31.0) Seconds PTT Ratio 1.0 POC Sodium (135-144) mmol/L Sodium 125 L (136-145) mmol/L POC Potassium (3.3-5.0) mmol/L Potassium 3.4 L (3.5-5.1) mmol/L POC Chloride (101-112) mmol/L Chloride 89 L (98-107) mmol/L Carbon Dioxide 24 (21-32) mmol/L POC Total CO2 (24-31) mmol/L Anion Gap 12 H (3-11) POC Anion Gap (16-25) mmol/L POC BUN (7-18) mg/dl BUN 5 L (6-23) mg/dl Creatinine 0.52 L (0.6-1.2) mg/dl POC Creatinine (0.6-1.3) mg/dl Est Cr Clr Drug Dosing 59.0 ml/min Est GFR ( Amer) 99.6 ml/min Est GFR (Non-Af Amer) 85.9 ml/min BUN/Creatinine Ratio 9.6 L (10-20) Glucose 162 H (70-99(Fasting)) mg/dl POC Glucose (other) (70-99) mg/dl Lactate (0.4-2.0) mmol/L Calcium 9.0 (8.6-10.3) mg/dl POC Ioniz Calcium Chaz (1.12-1.32) mmol/l Magnesium 2.0 (1.7-2.4) mg/dl Total Bilirubin 0.6 (0.2-1.0) mg/dl Direct Bilirubin 0.2 (0-0.2) mg/dl AST 37 (13-39) U/L ALT 30 (7-52) U/L Alkaline Phosphatase 113 H (34-104) U/L Troponin I High Sens 22.1 H (0-14) pg/ml Total Protein 7.5 (6.0-8.3) gm/dl Albumin 3.2 L (3.4-5.0) gm/dl Procalcitonin (0-0.5) ng/ml Urine Color Urine Appearance (Clear) Urine pH (4.5-7.5) Ur Specific [place] (1.000-1.030) Urine Protein (Negative) Urine Glucose (UA) (Negative) Urine Ketones (Negative) Urine Blood (Negative) Urine Nitrite (Negative) Urine Bilirubin (Negative) Urine Urobilinogen (Negative) Ur Leukocyte Esterase (Negative) SARS-CoV-2 (PCR) (Negative) Influenza Type A (PCR) (Neg) Influenza Type B (PCR) (Neg) RSV (RT-PCR) (Neg) 01/19/23 01/19/23 01/19/23 Range/Units 23:25 23:25 23:38 WBC (4.8-10.8) K/ul RBC (4.20-5.40) M/uL Hgb (12.0-16.0) g/dl POC Hgb (12.0-16.0) g/dl Hct (37.0-47.0) % POC Hct (37-47) % MCV (80.0-100.0) fL MCH (25.0-34.0) pg MCHC (32.0-36.0) g/dL RDW Std Deviation (36.4-46.3) fL RDW Coeff of Bandar (11.5-14.5) % Plt Count (130-400) K/uL MPV (9.4-12.4) fL Immature Gran % (Auto) % Neut % (Auto) % Lymph % (Auto) % Armstrong % (Auto) % Eos % (Auto) % Baso % (Auto) % Neut # (Auto) (1.40-6.50) K/uL Lymph # (Auto) (1.20-3.40) K/uL Armstrong # (Auto) (0.11-0.59) K/uL Eos # (Auto) (0.00-0.50) K/uL Baso # (Auto) (0.00-0.20) K/uL Immature Gran # (Auto) (0.01-0.20) K/uL PT (9.0-12.0) Seconds INR (0.9-1.1) APTT (21.0-31.0) Seconds PTT Ratio POC Sodium (135-144) mmol/L Sodium (136-145) mmol/L POC Potassium (3.3-5.0) mmol/L Potassium (3.5-5.1) mmol/L POC Chloride (101-112) mmol/L Chloride (98-107) mmol/L Carbon Dioxide (21-32) mmol/L POC Total CO2 (24-31) mmol/L Anion Gap (3-11) POC Anion Gap (16-25) mmol/L POC BUN (7-18) mg/dl BUN (6-23) mg/dl Creatinine (0.6-1.2) mg/dl POC Creatinine (0.6-1.3) mg/dl Est Cr Clr Drug Dosing ml/min Est GFR ( Amer) ml/min Est GFR (Non-Af Amer) ml/min BUN/Creatinine Ratio (10-20) Glucose (70-99(Fasting)) mg/dl POC Glucose (other) (70-99) mg/dl Lactate 0.9 (0.4-2.0) mmol/L Calcium (8.6-10.3) mg/dl POC Ioniz Calcium Chaz (1.12-1.32) mmol/l Magnesium (1.7-2.4) mg/dl Total Bilirubin (0.2-1.0) mg/dl Direct Bilirubin (0-0.2) mg/dl AST (13-39) U/L ALT (7-52) U/L Alkaline Phosphatase (34-104) U/L Troponin I High Sens (0-14) pg/ml Total Protein (6.0-8.3) gm/dl Albumin (3.4-5.0) gm/dl Procalcitonin 0.18 (0-0.5) ng/ml Urine Color Urine Appearance (Clear) Urine pH (4.5-7.5) Ur Specific [place] (1.000-1.030) Urine Protein (Negative) Urine Glucose (UA) (Negative) Urine Ketones (Negative) Urine Blood (Negative) Urine Nitrite (Negative) Urine Bilirubin (Negative) Urine Urobilinogen (Negative) Ur Leukocyte Esterase (Negative) SARS-CoV-2 (PCR) NEGATIVE (Negative) Influenza Type A (PCR) Negative (Neg) Influenza Type B (PCR) Negative (Neg) RSV (RT-PCR) Negative (Neg) 01/19/23 01/20/23 01/20/23 Range/Units 23:43 01:15 01:37 WBC (4.8-10.8) K/ul RBC (4.20-5.40) M/uL Hgb (12.0-16.0) g/dl POC Hgb 11.6 L (12.0-16.0) g/dl Hct (37.0-47.0) % POC Hct 34 L (37-47) % MCV (80.0-100.0) fL MCH (25.0-34.0) pg MCHC (32.0-36.0) g/dL RDW Std Deviation (36.4-46.3) fL RDW Coeff of Bandar (11.5-14.5) % Plt Count (130-400) K/uL MPV (9.4-12.4) fL Immature Gran % (Auto) % Neut % (Auto) % Lymph % (Auto) % Armstrong % (Auto) % Eos % (Auto) % Baso % (Auto) % Neut # (Auto) (1.40-6.50) K/uL Lymph # (Auto) (1.20-3.40) K/uL Armstrong # (Auto) (0.11-0.59) K/uL Eos # (Auto) (0.00-0.50) K/uL Baso # (Auto) (0.00-0.20) K/uL Immature Gran # (Auto) (0.01-0.20) K/uL PT (9.0-12.0) Seconds INR (0.9-1.1) APTT (21.0-31.0) Seconds PTT Ratio POC Sodium 125 L (135-144) mmol/L Sodium (136-145) mmol/L POC Potassium 3.3 (3.3-5.0) mmol/L Potassium (3.5-5.1) mmol/L POC Chloride 89 L (101-112) mmol/L Chloride (98-107) mmol/L Carbon Dioxide (21-32) mmol/L POC Total CO2 27 (24-31) mmol/L Anion Gap (3-11) POC Anion Gap 13.0 L (16-25) mmol/L POC BUN < 3 L (7-18) mg/dl BUN (6-23) mg/dl Creatinine (0.6-1.2) mg/dl POC Creatinine 0.4 L (0.6-1.3) mg/dl Est Cr Clr Drug Dosing ml/min Est GFR ( Amer) ml/min Est GFR (Non-Af Amer) ml/min BUN/Creatinine Ratio (10-20) Glucose (70-99(Fasting)) mg/dl POC Glucose (other) 160 H (70-99) mg/dl Lactate (0.4-2.0) mmol/L Calcium (8.6-10.3) mg/dl POC Ioniz Calcium Chaz 1.05 L (1.12-1.32) mmol/l Magnesium (1.7-2.4) mg/dl Total Bilirubin (0.2-1.0) mg/dl Direct Bilirubin (0-0.2) mg/dl AST (13-39) U/L ALT (7-52) U/L Alkaline Phosphatase (34-104) U/L Troponin I High Sens 32.9 H D (0-14) pg/ml Total Protein (6.0-8.3) gm/dl Albumin (3.4-5.0) gm/dl Procalcitonin (0-0.5) ng/ml Urine Color Yellow Urine Appearance Clear (Clear) Urine pH 7.0 (4.5-7.5) Ur Specific [place] 1.015 (1.000-1.030) Urine Protein Negative (Negative) Urine Glucose (UA) Negative (Negative) Urine Ketones Negative (Negative) Urine Blood Negative (Negative) Urine Nitrite Negative (Negative) Urine Bilirubin Negative (Negative) Urine Urobilinogen Negative (Negative) Ur Leukocyte Esterase Negative (Negative) SARS-CoV-2 (PCR) (Negative) Influenza Type A (PCR) (Neg) Influenza Type B (PCR) (Neg) RSV (RT-PCR) (Neg) Imaging Data My Impression: Chest x-ray: Right middle lobe atelectasis CT head: No ICH Radiologist's Impression: Abdomen/Pelvis CT 01/19/23 23:26 Exam(s): CT ABDOMEN + PELVIS With Contrast IV Amt: 91 ml opti 320 EXAM: CT Abdomen and Pelvis With Intravenous Contrast CLINICAL HISTORY: Reason for exam: llq pain abd distended. TECHNIQUE: Axial computed tomography images of the abdomen and pelvis with intravenous contrast. CTDI is 38.03 mGy and DLP is 1129.58 mGy-cm. Automated exposure control was utilized for the study. A dose lowering technique was utilized adhering to the principles of ALARA. CONTRAST: Patient received 91 ml opti 320 of IV contrast COMPARISON: No relevant prior studies available. FINDINGS: Lung bases: Unremarkable. No mass. No consolidation. ABDOMEN: Liver: Unremarkable. No mass. Gallbladder and bile ducts: Unremarkable. No calcified stones. No ductal dilation. Pancreas: Unremarkable. No mass. No ductal dilation. Spleen: Unremarkable. No splenomegaly. Adrenals: Unremarkable. No mass. Kidneys and ureters: Unremarkable. No solid mass. No hydronephrosis. Stomach and bowel: See below. PELVIS: Appendix: No findings to suggest acute appendicitis. Bladder: Marked distention of the urinary bladder. There are a few nonpathologically enlarged but prominent fluid-filled loops of small bowel within the lower abdomen. Reproductive: Unremarkable as visualized. ABDOMEN and PELVIS: Intraperitoneal space: Unremarkable. No free air. No significant fluid collection. Bones/joints: No acute fracture. No dislocation. Soft tissues: Unremarkable. Vasculature: Unremarkable. No abdominal aortic aneurysm. Lymph nodes: Unremarkable. No enlarged lymph nodes. IMPRESSION: 1. Marked urinary bladder distention 2. Fluid-filled loops of small bowel within the left lower quadrant may represent enteritis in the appropriate clinical setting. Electronically signed by: Román Fernandez MD 01/20/23 03:[address] 01/19/23 23:26 Exam(s): CT HEAD Without Contrast EXAM: CT Head Without Intravenous Contrast CLINICAL HISTORY: Reason for exam: ams. TECHNIQUE: Axial computed tomography images of the head/brain without intravenous contrast. CTDI is 11.84 mGy and DLP is 1129.58 mGy-cm. Automated exposure control was utilized for the study. A dose lowering technique was utilized adhering to the principles of ALARA. COMPARISON: No relevant prior studies available. FINDINGS: Brain: Unremarkable. No hemorrhage. No significant white matter disease. No edema. Ventricles: Unremarkable. No ventriculomegaly. Bones/joints: Unremarkable. No acute fracture. Soft tissues: Unremarkable. Sinuses: Unremarkable as visualized. No acute sinusitis. Mastoid air cells: Unremarkable as visualized. No mastoid effusion. IMPRESSION: Normal head/brain CT. Electronically signed by: Román Fernandez MD 01/20/23 03:55 AM ECG Data Attestation: I personally reviewed and interpreted this ECG as follows: Rate (beats per minute): 88 Rhythm: + normal sinus ECG Intervals/blocks: + First degree AV block and + Normal QT-c ECG ST segments: + Normal ST segments Additional Comments: QRS 76 MDM Narrative 2316: The patient was evaluated in room A10. A complete history and physical exam was performed Cardiac monitoring: An order was placed for continuous cardiac monitoring. The monitor shows a rate of 80 with sinus rhythm interpreted by al 0345: Vital signs stable. Labs within normal limits with the exception of a sodium of 125. Troponin elevated at 22.1 and delta troponin 32.9. CT of the abdomen pelvis negative. CT of the head is still pending for stat rad read however his CT viewed by al does not show any ICH. No need for hypertonic sali ne at this time as patient has not had any neurological dysfunction. Gentle hydration was given to the patient with normal saline. Patient not reporting any chest pain or difficulty breathing. [facility] Impression & Plan Hyponatremia, Elevated troponin I level Discharge Plan Visit Data Chief Complaint: Fever ED Provider: Rasheeda,Monty Discharge Problem: Hyponatremia, Elevated troponin I level Patient Disposition: Admitted As Inpatient Discharge Instructions Interventions: ED Discharge Assessment Last Done: 01/20/23 05:12 Forms Stand Alone Forms: Yeni Garcia [employer] Prescriptions Prescriptions: No Action bisacodyl 10 mg suppository 10 mg MA DAILY PRN (Reason: Constipation) sodium phosphates 19-7 gram/118 mL enema 118 ml MA DAILY PRN (Reason: Constipation) acetaminophen 325 mg capsule 325 mg PO Q4 PRN (Reason: Fever Or Pain) alendronate 70 mg tablet 70 mg PO .Weekly Rx Instructions: Saturday amlodipine 5 mg tablet 5 mg PO DAILY aspirin [Adult Aspirin Regimen] 81 mg tablet,delayed release (DR/EC) 81 mg PO DAILY nystatin-triamcinolone 100,000-0.1 unit/g-% cream 1 applic topical Q8 PRN (Reason: irritation perinium) timolol 0.5 % drops 1 drp OPR QAM triamcinolone acetonide 55 mcg aerosol,spray 1 spray intranasal DAILY Rx Instructions: administer into each nostril calcium carbonate [Tums] 200 mg calcium (500 mg) tablet,chewable 200 mg PO Q6 PRN (Reason: Indigestion) ondansetron HCl 4 mg tablet 4 mg PO Q8H calcium carbonate-vitamin D3 [Calcium 600 + D(3)] 600 mg-10 mcg (400 unit) Tablet 1 tab PO BID Rx Instructions: unable to verify [place] 0.01 % drops 1 drp OPB HS betamethasone dipropionate 0.05 % cream 1 applic TOP BID PRN (Reason: itching) Rx Instructions: Apply sparingly to affected area twice a day PRN; loratadine 10 mg Tablet 10 mg PO DAILY polyethylene glycol 3350 [Miralax] 17 gram Powder In Packet 17 g PO QAM ipratropium bromide 21 mcg (0.03 %) spray,non-aerosol 1 spray INTRANASAL BID PRN (Reason: allergies) levetiracetam 1,000 mg tablet 1,000 mg PO BID Artificial Tears (cmc) 1 % Drops 1 drp OPR QAM Artificial Tears (cmc) 1 % Drops 1 drp OPHTHALMIC (EYE) Q6 PRN (Reason: Dry Eyes) Referrals Referrals: Roque Figueroa MD [Primary Care Provider] -
[2023-01-19 23:52] LABS: Basophils # (auto) 0.06 K/uL (0.00-0.20); Basophils % (auto) 0.5 %; Eosinophils # (auto) 0.08 K/uL (0.00-0.50); Eosinophils % (auto) 0.7 %; Hematocrit (blood only) 29.5 % (37.0-47.0); Hemoglobin 10.4 g/dl (12.0-16.0); Immature Granulocytes # (auto) 0.04 K/uL (0.01-0.20); Immature Granulocytes % (auto) 0.4 %; Lymphocytes # (auto) 0.98 K/uL (1.20-3.40); Lymphocytes % (auto) 8.9 %; Mean Corpuscular Hemoglobin 28.9 pg (25.0-34.0); Mean Corpuscular Hgb Conc 35.3 g/dL (32.0-36.0); Mean Corpuscular Volume 81.9 fL (80.0-100.0); Mean Platelet Volume 9.2 fL (9.4-12.4); Monocytes # (auto) 1.28 K/uL (0.11-0.59); Monocytes % (auto) 11.6 %; Neutrophils # (auto) 8.63 K/uL (1.40-6.50); Neutrophils % (auto) 77.9 %; Platelet Count 468 K/uL (130-400); RDW Coefficient of Variation 13.1 % (11.5-14.5); RDW Standard Deviation 39.2 fL (36.4-46.3); White Blood Count 11.07 K/ul (4.8-10.8)
[2023-01-19 23:56] LABS: iSTAT Blood Urea Nitrogen < 3 mg/dl (7-18); iSTAT Carbon Dioxide 27 mmol/L (24-31); iSTAT Chloride 89 mmol/L (101-112); iSTAT Creatinine 0.4 mg/dl (0.6-1.3); iSTAT Glucose 160 mg/dl (70-99); iSTAT Hematocrit 34 % (37-47); iSTAT Hemoglobin 11.6 g/dl (12.0-16.0); iSTAT Ionized Calcium 1.05 mmol/l (1.12-1.32); iSTAT Potassium 3.3 mmol/L (3.3-5.0); iSTAT Sodium 125 mmol/L (135-144)
[2023-01-20 00:10] LABS: Troponin I High Sensitivity 22.1 pg/ml (0-14)
[2023-01-20 00:25] LABS: Albumin Level 3.2 gm/dl (3.4-5.0); Bilirubin Direct 0.2 mg/dl (0-0.2); Bilirubin,Total 0.6 mg/dl (0.2-1.0); Potassium 3.4 mmol/L (3.5-5.1)
[2023-01-20 00:26] LABS: Influenza A virus by PCR Negative (Neg); Influenza B virus by PCR Negative (Neg); RSV by PCR Negative (Neg); SARS CoV2 RNA(COVID-19) Ceph NEGATIVE (Negative)
[2023-01-20 00:27] LABS: Partial Thromboplastin Time 29.3 Seconds (21.0-31.0); Prothrombin Time 11.3 Seconds (9.0-12.0)
[2023-01-20 00:31] LABS: BUN Creatinine Ratio 9.6 (10-20); Est GFR (African American) 99.6 ml/min; Est GFR (Non-African American) 85.9 ml/min; Total Protein 7.5 gm/dl (6.0-8.3)
[2023-01-20] MEDS ORDERED: OPTIRAY 320 500ml IV ONE (00:37)
[2023-01-20 01:36] LABS: Appearance Urine Clear (Clear); Bilirubin Urine Negative (Negative); Blood Urine Negative (Negative); Color Urine Yellow; Glucose Urine UA Negative (Negative); Ketones Urine Negative (Negative); Leukocyte Esterase Urine Negative (Negative); Nitrite Urine Negative (Negative); Protein Urine Negative (Negative); Specific Gravity Urine 1.015 (1.000-1.030); Urobilinogen Urine Negative (Negative)
--- NOTE | 2023-01-20 03:02 | CT Scan Report ---
Exam(s): CT ABDOMEN + PELVIS With Contrast IV Amt: 91 ml opti 320 EXAM: CT Abdomen and Pelvis With Intravenous Contrast CLINICAL HISTORY: Reason for exam: llq pain abd distended. TECHNIQUE: Axial computed tomography images of the abdomen and pelvis with intravenous contrast. CTDI is 38.03 mGy and DLP is 1129.58 mGy-cm. Automated exposure control was utilized for the study. A dose lowering technique was utilized adhering to the principles of ALARA. CONTRAST: Patient received 91 ml opti 320 of IV contrast COMPARISON: No relevant prior studies available. FINDINGS: Lung bases: Unremarkable. No mass. No consolidation. ABDOMEN: Liver: Unremarkable. No mass. Gallbladder and bile ducts: Unremarkable. No calcified stones. No ductal dilation. Pancreas: Unremarkable. No mass. No ductal dilation. Spleen: Unremarkable. No splenomegaly. Adrenals: Unremarkable. No mass. Kidneys and ureters: Unremarkable. No solid mass. No hydronephrosis. Stomach and bowel: See below. PELVIS: Appendix: No findings to suggest acute appendicitis. Bladder: Marked distention of the urinary bladder. There are a few nonpathologically enlarged but prominent fluid-filled loops of small bowel within the lower abdomen. Reproductive: Unremarkable as visualized. ABDOMEN and PELVIS: Intraperitoneal space: Unremarkable. No free air. No significant fluid collection. Bones/joints: No acute fracture. No dislocation. Soft tissues: Unremarkable. Vasculature: Unremarkable. No abdominal aortic aneurysm. Lymph nodes: Unremarkable. No enlarged lymph nodes. IMPRESSION: 1. Marked urinary bladder distention 2. Fluid-filled loops of small bowel within the left lower quadrant may represent enteritis in the appropriate clinical setting. Electronically signed by: Román Fernandez MD 01/20/23 03:01 AM
--- NOTE | 2023-01-20 03:56 | CT Scan Report ---
Exam(s): CT HEAD Without Contrast EXAM: CT Head Without Intravenous Contrast CLINICAL HISTORY: Reason for exam: ams. TECHNIQUE: Axial computed tomography images of the head/brain without intravenous contrast. CTDI is 11.84 mGy and DLP is 1129.58 mGy-cm. Automated exposure control was utilized for the study. A dose lowering technique was utilized adhering to the principles of ALARA. COMPARISON: No relevant prior studies available. FINDINGS: Brain: Unremarkable. No hemorrhage. No significant white matter disease. No edema. Ventricles: Unremarkable. No ventriculomegaly. Bones/joints: Unremarkable. No acute fracture. Soft tissues: Unremarkable. Sinuses: Unremarkable as visualized. No acute sinusitis. Mastoid air cells: Unremarkable as visualized. No mastoid effusion. IMPRESSION: Normal head/brain CT. Electronically signed by: Román Fernandez MD 01/20/23 03:55 AM
--- NOTE | 2023-01-20 04:18 | History & Physical Report ---
Date of Service January 20, 2023 Assessment & Plan (1) Fever: Plan: Patient was reported to have had a fever of 101.3 at the correction. According to the patient, she started having fever yesterday but denies chills or rigors. States she has been having poor p.o. intake Chest x-ray did not show any acute pathology, CT abdomen and pelvis also was within normal limits CT head has been done, result pending. She has not spiked a fever here in the hospital, temperature 98.2 We will monitor her off antibiotics for now (2) Hyponatremia: Plan: Serum sodium 125 on admission Most likely due to poor p.o. intake Patient has been admitted a few times in the past with hyponatremia Continue normal saline 100 cc/h Recheck BMP (3) Seizure: Plan: Recently diagnosed with seizure disorder Continue Keppra (4) Elevated troponin I level: Plan: Mild elevation in troponin level, most likely due to demand ischemia from fever We will trend troponin EKG did not show any ST changes, patient denies chest pain (5) FRANCISCO positive: Plan: Positive FRANCISCO in previous hospital stay suggestive of inflammatory disease. However patient followed up with septic tank service technician outpatient who did not identify any inflammatory disease or rheumatological disease Plan Admit under observation telemetry DNR/DNI Hopefully discharge back to correction in the next 24 to 48 hours History of Present Illness Chief Complaint: Fever Primary Care Provider: Roque Figueroa MD Is an 87-year-old correction resident with a history of hypertension, hyponatremia, seizure disorder, who presents from the correction on account of fever. According to reports, her Tmax was 100.3 according to the patient, fever started a day prior to presentation but without chills. She denies a headache or abdominal pain or chest pain or shortness of breath or cough. Here in the emergency department WBC was 11,000 serum sodium 125 initial troponin 22 then a repeat 33. Of note patient has been admitted in the hospital multiple times in the past during her last hospital admission in November 2022 she was suspected to have some underlying systemic inflammation given her elevated inflammatory markers then. She had a follow-up visit with rheumatology last week and the septic tank service technician did not identify any systemic inflammatory arthritis or vasculitis but wanted further investigation with SPEP. Today in emergency department vital signs have been stable, blood pressure 111/57 pulse 75 respiratory rate 20 temperature 98.2 saturation 94% on room air. She will be admitted under observation. Normal saline has been started Allergies Allergy/AdvReac Type Severity Reaction Status Date / Time Penicillins Allergy Unknown Unknown rxn Verified 01/20/23 01:11 azithromycin [From Zithromax] Allergy Unknown Verified 01/20/23 01:11 doxycycline Allergy Unknown Verified 01/20/23 01:11 risedronate sodium Allergy Unknown Verified 01/20/23 01:11 [From Actonel] Home Medications Medication Instructions Recorded Confirmed Type betamethasone dipropionate 0.05 % 1 applic topical BID PRN itching 11/30/22 History topical cream bimatoprost 0.01 % eye drops 1 drp OPB HS 11/30/22 01/20/23 History (Josigan) calcium carbonate 600 mg-vitamin 1 tab PO BID 11/30/22 01/20/23 History D3 10 mcg (400 unit) tablet (Calcium 600 + D(3)) loratadine 10 mg tablet 10 mg PO DAILY 12/09/22 01/20/23 History acetaminophen 325 mg capsule 325 mg PO Q4 PRN Fever Or Pain 01/07/23 01/20/23 H istory alendronate 70 mg tablet 70 mg PO .Weekly 01/07/23 01/20/23 History amlodipine 5 mg tablet 5 mg PO DAILY 01/07/23 01/20/23 History aspirin 81 mg tablet,delayed 81 mg PO DAILY 01/07/23 01/20/23 History release (Adult Aspirin Regimen) bisacodyl 10 mg rectal suppository 10 mg OH DAILY PRN Constipation 01/07/23 01/20/23 History calcium carbonate 200 mg calcium 200 mg PO Q6 PRN Indigestion 01/07/23 01/20/23 History (500 mg) chewable tablet (Tums) nystatin-triamcinolone 100,000 1 applic topical Q8 PRN irritation 01/07/23 01/20/23 History unit/g-0.1 % topical cream perinium ondansetron HCl 4 mg tablet 4 mg PO Q8H 01/07/23 01/20/23 History sodium phosphates 19 gram-7 118 ml OH DAILY PRN Constipation 01/07/23 01/20/23 History gram/118 mL enema timolol 0.5 % eye drops 1 drp OPR QAM 01/07/23 01/20/23 History triamcinolone acetonide 55 mcg 1 spray intranasal DAILY .rinitis 01/07/23 01/20/23 History nasal spray aerosol carboxymethylcellulose sodium 1 % 1 drp OPR QAM 01/20/23 01/20/23 History eye drops (Artificial Tears (carboxymethylcellulose)) carboxymethylcellulose sodium 1 % 1 drp ophthalmic (eye) Q6 PRN Dry 01/20/23 01/20/23 History eye drops (Artificial Tears Eyes (carboxymethylcellulose)) ipratropium bromide 21 mcg (0.03 1 spray intranasal BID PRN 01/20/23 01/20/23 History %) nasal spray allergies levetiracetam 1,000 mg tablet 1,000 mg PO BID 01/20/23 01/20/23 History polyethylene glycol 3350 17 gram 17 g PO QAM 01/20/23 01/20/23 History oral powder packet (Miralax) Past Med/Surg History Medical History (Updated 01/20/23 @ 04:17 by Ricardo Santos MD) Dyslipidemia Family history of colon cancer Hyponatremia Osteopenia after menopause Pancreatic cyst Surgical History History of colonoscopy History of varicose vein ligation and stripping S/P tubal ligation Family History Sister Breast cancer Coronary heart disease Father Stroke Mother Breast cancer Son Narcolepsy Other No family history of adverse response to anesthesia No family history of bleeding disorder Denies family history of Ovarian cancer Prostate cancer Diabetes Lung cancer Colorectal cancer Social History Smoking Status: Former smoker Second Hand Exposure: No; Do You Dip or Chew Tobacco: No; Hx Alcohol Use: No Hx Substance Use: No Preferred Language: Malay Communication Ability: Impaired Visual Impairment: Limited Hearing Ability: Normal Form Layer Required: No Beliefs That Will Affect Care: None marital status: Current Living Situation: Senior Care current occupational status: retired How many Children do You have: 3 Feels Safe at Home: Yes Childhood Exposure to Second-Hand Smoke: Yes (father smoked pipe occassionally ) Diet: regular caffeine: Yes (coffee and tea ) Dental Care, Regularly: Yes Physical Activity Frequency: Daily Physical Activity Frequency Comment: walk Seatbelt Use: always Sunscreen Use: Yes Assistive Devices: None Review of Systems Review of Systems: All systems reviewed are negative, apart from the ones contained in the history. Physical Exam Physical Exam: The patient is awake, alert and oriented 3, well developed and well nourished, normocephalic and atraumatic, lying in bed and in no acute distress. HEENT--PERRL, EOMI, mucous membranes and oropharynx mildly dry Neck--supple. No JVD. No bruits. Thyroid normal, trachea midline, no adenopathy. Heart--normal S1 and S2. No murmurs, rubs or gallops. Lungs--clear bilaterally, no respiratory distress, no accessory muscle use. Abdomen--normal bowel sounds and soft. Mild epigastric and left sided abdominal pain Extremities--no cyanosis or clubbing. No edema. Dermatologic--normal skin turgor, normal color, no abnormal lymph nodes, no rash. Neurologic--cranial nerves II through XII grossly intact. Rheumatologic--normal range of motion. Psychiatric--normal affect. Results & Data Results & Data Vital Signs (Past 12 Hours) Vital Signs Temp Pulse Resp BP Pulse Ox O2 Del Method 01/20/23 04:00 75 20 94 01/20/23 03:30 73 22 114/57 L 96 01/20/23 03:00 75 21 120/56 L 94 01/20/23 03:00 74 31 H 96 01/20/23 02:30 76 20 114/58 L 94 01/20/23 02:00 76 23 106/56 L 95 01/20/23 01:30 80 23 110/66 95 01/20/23 00:00 79 18 109/58 L 96 01/19/23 23:30 89 16 128/62 95 01/19/23 23:22 91 H 19 95 01/19/23 23:33 87 16 94 Room Air 01/19/23 23:21 96 H 01/19/23 23:20 98.2 F 90 16 125/67 95 Room Air PG Care Time/CCT Total # of Minutes Spent Total Time Spent with Patient: Total time spent is greater than 50% in coordination of care (as documented) at patient's floor/unit and/or counseling patient: Coding Level of Care Code 92885 INT INP/OBS CARE 75MIN Diagnoses Fever R50.9 Hyponatremia E87.1 Seizure R56.9 Elevated troponin I level R77.8 FRANCISCO positive R76.8 Time Spent (min) 75
[2023-01-20] MEDS ORDERED: ONDANSETRON INJ 2 MG/ML 2 ML VIAL IV PRN (05:30)
[2023-01-20] MEDS ORDERED: CALCIUM CARBONATE 500 MG CHEWABLE TAB PO PRN (05:30)
[2023-01-20] MEDS ORDERED: SODIUM CHLORIDE 0.9% 1,000 ML IV SCH (05:30)
[2023-01-20] MEDS ORDERED: SOD PHOSPHATE/SOD BIPHOSPHATE ENEMA 132 ML BTL PR PRN (05:30)
[2023-01-20] MEDS ORDERED: bisacodyL 10 MG SUPP PR PRN (05:30)
[2023-01-20] MEDS ORDERED: ONDANSETRON 4 MG OD TAB PO PRN (06:00)
[2023-01-20] MEDS: ACETAMINOPHEN 325 MG TAB PO PRN ×3 (06:06→22:16)
[2023-01-20] MEDS ORDERED: ARTIFICIAL TEARS OP PRN (06:15)
[2023-01-20] MEDS ORDERED: BETAMETHASONE DIP AUG (DIPROLENE) 0.05% CR 15 GM TUBE EXT PRN (06:16)
--- NOTE | 2023-01-20 07:20 | Electrocardiogram Report ---
Test Reason : Blood Pressure : / mmHG Vent. Rate : 088 BPM Atrial Rate : 088 BPM P-R Int : 236 ms QRS Dur : 076 ms QT Int : 374 ms P-R-T Axes : 064 040 055 degrees QTc Int : 452 ms Sinus rhythm with 1st degree A-V block Low voltage QRS Abnormal ECG When compared with ECG of 09-DEC-2022 15:00, No significant change was found Confirmed by Cruz Story ([id number]) on 01/20/2023 7:20:35 AM Referred By: REFERRED SELF Confirmed By:James Story
--- NOTE | 2023-01-20 08:06 | XRay Report ---
XR chest 1V portable CLINICAL HISTORY: Sepsis. COMPARISON STUDY: Chest radiograph December 09, 2022. FINDINGS: Lung volumes are normal. Lungs are clear. There is no pneumothorax or pleural effusion. Car diac size is normal. Mediastinal contours are normal. There is no evidence for pulmonary edema. Suspe cted biapical scarring is unchanged. IMPRESSION: No acute cardiopulmonary findings. ACT 112: Negative or not required by law. Electronically signed by: Jignesh Garcia M.D. 01/20/2023 8:04 AM
[2023-01-20] MEDS: amLODIPine BESYLATE 5 MG TAB PO SCH (08:46)
[2023-01-20] MEDS: CALCIUM 600MG + VIT D 400 IU TAB PO SCH ×2 (08:46→21:29)
[2023-01-20] MEDS: ASPIRIN 81 MG ECTAB PO SCH (08:46)
[2023-01-20] MEDS: levETIRAcetam 500 MG TAB PO SCH ×2 (08:46→21:29)
[2023-01-20] MEDS: POLYETHYLENE (MIRALAX) 17 GM PACK PO SCH (08:47)
[2023-01-20] MEDS: TIMOLOL MALEATE 0.5% OP SOLN 5 ML BTL OPR SCH (08:48)
[2023-01-20 10:17] LABS: Hematocrit (blood only) 27.3 % (37.0-47.0); Hemoglobin 9.5 g/dl (12.0-16.0); Mean Corpuscular Hemoglobin 28.9 pg (25.0-34.0); Mean Corpuscular Hgb Conc 34.8 g/dL (32.0-36.0); Mean Platelet Volume 8.9 fL (9.4-12.4); Platelet Count 451 K/uL (130-400); RDW Coefficient of Variation 13.2 % (11.5-14.5); RDW Standard Deviation 40.4 fL (36.4-46.3); Red Blood Count 3.29 M/uL (4.20-5.40); White Blood Count 9.69 K/ul (4.8-10.8)
[2023-01-20 10:37] LABS: BUN Creatinine Ratio 11.1 (10-20); Calcium 8.4 mg/dl (8.6-10.3); Creatinine Clr Calc Pharmacy 69.7 ml/min; Est GFR (African American) 104.4 ml/min; Est GFR (Non-African American) 90.1 ml/min
[2023-01-20] MEDS: LORATADINE 10 MG TAB PO SCH (11:52)
[2023-01-20] MEDS: POTASSIUM CHLORIDE 40 MEQ in SODIUM CHLORIDE 0.9% 1,000 ML IV SCH (12:22)
[2023-01-20] MEDS: ARTIFICIAL TEARS OPR SCH (12:23)
--- NOTE | 2023-01-20 14:19 | Communication Note ---
Date of Service: January 20, 2023 please refer to the H&P dictated by Dr. Santos earlier this morning for details of presentation on admission. The patient was sent from the detention due to reported fever. No source has been found yet. Chest x-ray negative. CT abdomen and pelvis negative. CT head negative. Urinalysis negative. Of note, she was admitted in the hospital few months ago with suspected systemic inflammation given her elevated inflammatory markers. She had a follow-up visit with rheumatology last week that did not identify any systemic inflammatory arthritis or vasculitis. Her vital signs remained stable. Blood cultures pending, will need to be followed up on. She presented with hyponatremia with a sodium of 125 which was thought to be related to dehydration. She has been hydrated and her sodium has improved to 132. She is not on IV fluids any longer.
[2023-01-20 19:13] LABS: Magnesium 1.9 mg/dl (1.7-2.4); Potassium 3.5 mmol/L (3.5-5.1)
[2023-01-20] MEDS: BIMATOPROST 0.01% OP SOLN 2.5 ML BTL OP SCH (21:29)
[2023-01-20] MEDS: IPRATROPIUM BROMIDE NASAL SPRAY 0.06% 15ML NAE PRN (22:16)
[2023-01-21] MEDS: POTASSIUM CHLORIDE 40 MEQ in SODIUM CHLORIDE 0.9% 1,000 ML IV SCH (00:12)
[2023-01-21 05:28] LABS: Basophils % (auto) 0.9 %; Eosinophils # (auto) 0.88 K/uL (0.00-0.50); Eosinophils % (auto) 7.8 %; Hematocrit (blood only) 28.6 % (37.0-47.0); Hemoglobin 9.7 g/dl (12.0-16.0); Immature Granulocytes # (auto) 0.04 K/uL (0.01-0.20); Immature Granulocytes % (auto) 0.4 %; Lymphocytes # (auto) 1.42 K/uL (1.20-3.40); Lymphocytes % (auto) 12.7 %; Mean Corpuscular Hemoglobin 28.7 pg (25.0-34.0); Mean Corpuscular Hgb Conc 33.9 g/dL (32.0-36.0); Mean Corpuscular Volume 84.6 fL (80.0-100.0); Mean Platelet Volume 9.1 fL (9.4-12.4); Monocytes % (auto) 10.7 %; Neutrophils # (auto) 7.58 K/uL (1.40-6.50); Neutrophils % (auto) 67.5 %; Platelet Count 487 K/uL (130-400); RDW Coefficient of Variation 12.6 % (11.5-14.5); RDW Standard Deviation 38.8 fL (36.4-46.3); Red Blood Count 3.38 M/uL (4.20-5.40); White Blood Count 11.22 K/ul (4.8-10.8)
[2023-01-21 05:44] LABS: BUN Creatinine Ratio 7.7 (10-20); Calcium 8.3 mg/dl (8.6-10.3); Creatinine Clr Calc Pharmacy 80.4 ml/min; Est GFR (African American) 109.5 ml/min; Est GFR (Non-African American) 94.4 ml/min; Potassium 3.5 mmol/L (3.5-5.1)
[2023-01-21] MEDS: ASPIRIN 81 MG ECTAB PO SCH (08:23)
[2023-01-21] MEDS: LORATADINE 10 MG TAB PO SCH (08:23)
[2023-01-21] MEDS: POLYETHYLENE (MIRALAX) 17 GM PACK PO SCH (08:24)
[2023-01-21] MEDS: ARTIFICIAL TEARS OPR SCH (08:24)
[2023-01-21] MEDS: IPRATROPIUM BROMIDE NASAL SPRAY 0.06% 15ML NAE PRN (08:24)
[2023-01-21] MEDS: levETIRAcetam 500 MG TAB PO SCH ×2 (08:24→20:07)
[2023-01-21] MEDS: CALCIUM 600MG + VIT D 400 IU TAB PO SCH ×2 (08:24→20:06)
[2023-01-21] MEDS: amLODIPine BESYLATE 5 MG TAB PO SCH (08:24)
[2023-01-21] MEDS: TIMOLOL MALEATE 0.5% OP SOLN 5 ML BTL OPR SCH (08:24)
[2023-01-21 12:17] LABS: Ferritin 483.3 ng/ml (8-388)
[2023-01-21 12:43] LABS: Folate (Folic Acid),Ser orPlas 14.2 ng/ml (>5.38)
[2023-01-21] MEDS ORDERED: POTASSIUM CHLORIDE CRTAB 20 MEQ TABCR PO STA (13:01)
[2023-01-21] MEDS ORDERED: MAGNESIUM SULFATE / D5W 1 GM/100 ML BAG IV ONE (13:01)
--- NOTE | 2023-01-21 13:25 | Hospitalist Progress Note ---
Date of Service January 21, 2023 Assessment & Plan (1) Fever: Plan: Patient was reported to have had a fever of 101.3 at the assisted. No other symptoms other than fatigue. Has ongoing weight loss, poor po intake, low appetite for the last month or so Chest x-ray did not show any acute pathology, CT abdomen and pelvis showed possible LLQ enteritis and severely distended bladder UA neg for infection, BCxs remain NGTD thus far. No skin rashes joint pains COVID/Flu/RSV negative. CT head neg Last admission she had CSF which was all normal except mildly elevated protein Today, WBC count up to 11, remains afebrile, no other symptoms. With constipation and ?LLQ enteritis--> stercoral colitis? -add senna/docusate to Miralax and work on bowel regimen -consult GI to see about EGD/colonoscopy given fevers, weight loss, progressive anemia -follow CBC, BMP (2) Hyponatremia: Plan: Serum sodium 125 on admission-Most likely due to poor p.o. intake Patient has been admitted a few times in the past with hyponatremia Received normal saline 100 cc/h and now Na+ improved to 132 Recheck BMP in AM dc IVFs (3) Seizure: Plan: Recently diagnosed with seizure disorder Continue Xochitl (4) Elevated troponin I level: Plan: Mild elevation in troponin level at 32 and then down to normal at 10, most likely due to demand ischemia from fever EKG did not show any ST changes, patient denies chest pain (5) FRANCISCO positive: Plan: Positive FRANCISCO in previous hospital stay suggestive of inflammatory disease. However patient followed up with computational scientist outpatient who did not identify any inflammatory disease or rheumatological disease (6) Ventricular tachycardia: Plan: had 28 beat run on 01/20, asymptomatic replace Mag and K today to keep at above 2.0 and 4.0, respectively check ECHO follow on Tele-had some SVT today as well, brief (7) Anemia: Plan: progressively worsening, now hgb down to 9.7 with thrombocytosis possibly reactive to Fe def anemia TSH recently normal checked iron studies--> transferrin sat low at 8%, ferritin high at 483 but also could be APR/elevated in setting of unknown inflammation with fever B12 and folate normal follow CBC, no obvious bleefing from anywhere give Venofer 300mg daily x 3 doses while here chek fecal occult GI workup/consult placed (8) Weight loss: Plan: as above, > 10 lbs in last 1-2 months needs GI workup (9) Abnormal SPEP: Plan: slightly abnormal, NOE not conclusive f/u with Heme as outpt (10) Constipation: Plan: as above, start laxatives Plan DVT proph-add SCDs Dispo-continued stay, will likely need SNF at [facility] on discharge in 1-2 days Admission and Anticipated Discharge Date Admission Date: January 20, 2023 Subjective Pt feeling tired but better. No further fevers but has low appetite. No abd pains, no bleeding in stool or urine. No early satiety, no heartburn. Has not had a BM since last Saturday Tele with 28 beat VT yesterday, asymptomatic. Had brief SVT this AM Review of Systems Review of Systems: All systems reviewed & are unremarkable except as noted in HPI & below denies sore throat, runny nose, cough, SOB, CP, diarrhea has been having some headache Physical Exam Constitutional: WD/WN, vitals as above Neck: trachea midline, no thyromegaly Respiratory: normal respiratory effort, lungs clear to auscultation Cardiovascular: RRR, no murmur, no edema Chest (Breasts): Chest: normal inspection of chest Gastrointestinal (Abdomen): normal bowel sounds, soft, nontender, no hepatosplenomegaly Musculoskeletal: Extremities: extremities normal to inspection; no cyanosis and no clubbing Skin: no rashes, warm and dry Neurologic: moves all extremities and awake; no focal motor deficits Psychiatric: A+Ox3, euthymic affect Lymphatic: no lymphedema Results & Data Results & Data Vital Signs (Past 12 Hours) Vital Signs Temp Pulse Pulse Resp BP Pulse Ox O2 Del Method 01/21/23 12:05 37.0 C 83 18 122/65 94 Room Air 01/21/23 07:00 109 H 01/21/23 07:55 37.1 C 112 H 20 161/73 H 93 Room Air 01/21/23 03:00 36.5 C 95 H 16 142/79 H 96 Room Air Laboratory Results CBC, iron studies, B12, folate, BMP, Magnesium all reviewed PG Care Time/CCT Total # of Minutes Spent Total Time Spent with Patient: Total time spent is greater than 50% in coordination of care (as documented) at patient's floor/unit and/or counseling patient: Coding Level of Care Code 29972 SUB INP/OBS CARE 3/50MIN Diagnoses Fever R50.9 Hyponatremia E87.1 Seizure R56.9 Elevated troponin I level R77.8 FRANCISCO positive R76.8 Ventricular tachycardia I47.20 Anemia D64.9 Weight loss R63.4 Abnormal SPEP R77.8 Constipation K59.00
[2023-01-21] MEDS ORDERED: Nursing to Pharmacy Communication SCH (14:00)
[2023-01-21] MEDS: DOCUSATE SODIUM/SENNA 50/8.6MG TAB PO SCH (14:04)
[2023-01-21] MEDS: IRON SUCROSE 300 MG in SODIUM CHLORIDE 0.9% 250 ML IV SCH (14:04)
[2023-01-21] MEDS ORDERED: POTASSIUM CHLORIDE 10 MEQ TABCR PO STA (14:13)
--- NOTE | 2023-01-21 17:00 | XCELERA ---
[id number] \\[id number]
[2023-01-21] MEDS: BIMATOPROST 0.01% OP SOLN 2.5 ML BTL OP SCH (20:06)
[2023-01-22] MEDS ORDERED: ALENDRONATE SODIUM 70 MG TAB PO SCH (06:30)
[2023-01-22 06:35] LABS: Basophils # (auto) 0.11 K/uL (0.00-0.20); Basophils % (auto) 0.9 %; Eosinophils # (auto) 0.37 K/uL (0.00-0.50); Hematocrit (blood only) 28.1 % (37.0-47.0); Hemoglobin 9.6 g/dl (12.0-16.0); Immature Granulocytes # (auto) 0.07 K/uL (0.01-0.20); Immature Granulocytes % (auto) 0.6 %; Lymphocytes # (auto) 1.62 K/uL (1.20-3.40); Lymphocytes % (auto) 13.1 %; Mean Corpuscular Hemoglobin 28.4 pg (25.0-34.0); Mean Corpuscular Hgb Conc 34.2 g/dL (32.0-36.0); Mean Corpuscular Volume 83.1 fL (80.0-100.0); Mean Platelet Volume 9.5 fL (9.4-12.4); Monocytes # (auto) 1.27 K/uL (0.11-0.59); Monocytes % (auto) 10.3 %; Neutrophils # (auto) 8.95 K/uL (1.40-6.50); Neutrophils % (auto) 72.1 %; Platelet Count 556 K/uL (130-400); RDW Coefficient of Variation 13.1 % (11.5-14.5); RDW Standard Deviation 39.4 fL (36.4-46.3); Red Blood Count 3.38 M/uL (4.20-5.40); White Blood Count 12.39 K/ul (4.8-10.8)
[2023-01-22 07:07] LABS: BUN Creatinine Ratio 9.3 (10-20); Calcium 8.5 mg/dl (8.6-10.3); Creatinine Clr Calc Pharmacy 72.9 ml/min; Est GFR (Non-African American) 91.5 ml/min; Potassium 3.6 mmol/L (3.5-5.1)
[2023-01-22] MEDS: CALCIUM 600MG + VIT D 400 IU TAB PO SCH ×2 (09:08→20:59)
[2023-01-22] MEDS: ARTIFICIAL TEARS OPR SCH (09:08)
[2023-01-22] MEDS: amLODIPine BESYLATE 5 MG TAB PO SCH (09:08)
[2023-01-22] MEDS: levETIRAcetam 500 MG TAB PO SCH ×2 (09:08→20:59)
[2023-01-22] MEDS: LORATADINE 10 MG TAB PO SCH (09:08)
[2023-01-22] MEDS: DOCUSATE SODIUM/SENNA 50/8.6MG TAB PO SCH ×3 (09:08→20:59)
[2023-01-22] MEDS: ASPIRIN 81 MG ECTAB PO SCH (09:08)
[2023-01-22] MEDS: POLYETHYLENE (MIRALAX) 17 GM PACK PO SCH ×3 (09:09→21:00)
[2023-01-22] MEDS: TIMOLOL MALEATE 0.5% OP SOLN 5 ML BTL OPR SCH (09:09)
[2023-01-22] MEDS: IPRATROPIUM BROMIDE NASAL SPRAY 0.06% 15ML NAE PRN (09:09)
[2023-01-22] MEDS: IRON SUCROSE 300 MG in SODIUM CHLORIDE 0.9% 250 ML IV SCH (09:10)
--- NOTE | 2023-01-22 10:16 | Gastrointestinal Consultation ---
Supervising physicians note Discussed case with Sheri Huffman NP, met with patient and daughter. Please see note from Sheri for full details Pleasant lady with weight loss and anemia. We have decided to proceed with EGD and colonoscopy as an outpatient. This will be set up after discharge. Date of Consultation January 22, 2023 Assessment & Plan (1) Anemia: Anemia: The patient presents with hemoglobin 9.6, hematocrit 28.1. No complaints of melena or hematochezia. She has not had outpatient colonoscopy since 2019. Would recommend consideration of outpatient work-up with EGD and colonoscopy. If negative would consider capsule endoscopy. Unintentional weight loss: The patient reports a unintentional weight loss of approximately 20 pounds. She reports that she has not had much of an appetite. Plan as noted above. Constipation: Patient reports she has not had a bowel movement in greater than 1 week. This is not her normal pattern of elimination as she typically has bowel movement daily. CT abdomen pelvis obtained 01/19/2023 demonstrated marked urinary bladder distention with fluid-filled loops of small bowel within the left lower quadrant possibly representing an enteritis. Obtain KUB today. Case reviewed with Dr. Tubbs. Please refer to supervising physician addendum for further recommendations. I have spent 45 minutes of discrete time performing the activities of this visit which include but are not limited to review of the medical record, obtaining a history, physical exam, and entering information in the electronic record. (2) Constipation: (3) Weight loss: History of Present Illness Attending Physician: Kenisha Eubanks MD History of Present Illness The patient is a pleasant 87-year-old female with past medical history to in clude hypertension, hyponatremia, seizure disorder who presented to the emergency department from a intermediate for evaluation of elevated temperature. She was subsequently admitted with hyponatremia, history of seizure disorder, elevated troponin. The GI service was consulted due to anemia and unintentional weight loss. The patient reports she has had approximately a 20 pound weight loss within the last year. She is unable to give me more specific timeframe. She reports she just has not had much of an appetite. Denies any specific melena or hematochezia. Most recent colonoscopy was in 2019. This was obtained due to family history of colon polyps and entire examined colon was normal. Colonoscopy prior to this was 2012 also with normal colon and no evidence of polyps. Patient denies any nausea or vomiting. She does report some lower abdominal discomfort but she states it has been greater than 1 week since her last bowel movement. She typically has a bowel movement daily. Allergies Allergy/AdvReac Type Severity Reaction Status Date / Time Penicillins Allergy Unknown Unknown rxn Verified 01/20/23 01:11 azithromycin [From Zithromax] Allergy Unknown Verified 01/20/23 01:11 doxycycline Allergy Unknown Verified 01/20/23 01:11 risedronate sodium Allergy Unknown Verified 01/20/23 01:11 [From Actonel] Home Medications Medication Instructions Recorded Confirmed Type betamethasone dipropionate 0.05 % 1 applic topical BID PRN itching 11/30/22 01/20/23 History topical cream bimatoprost 0.01 % eye drops 1 drp OPB HS 11/30/22 01/20/23 History (Lumigan) calcium carbonate 600 mg-vitamin 1 tab PO BID 11/30/22 01/20/23 History D3 10 mcg (400 unit) tablet (Calcium 600 + D(3)) loratadine 10 mg tablet 10 mg PO DAILY 12/09/22 01/20/23 History acetaminophen 325 mg capsule 325 mg PO Q4 PRN Fever Or Pain 01/07/23 01/20/23 History alendronate 70 mg tablet 70 mg PO .Weekly 01/07/23 01/20/23 History amlodipine 5 mg tablet 5 mg PO DAILY 01/07/23 01/20/23 History aspirin 81 mg tablet,delayed 81 mg PO DAILY 01/07/23 01/20/23 History release (Adult Aspirin Regimen) bisacodyl 10 mg rectal suppository 10 mg [place] DAILY PRN Constipation 01/07/23 01/20/23 History calcium carbonate 200 mg calcium 200 mg PO Q6 PRN Indigestion 01/07/23 01/20/23 History (500 mg) chewable tablet (Tums) nystatin-triamcinolone 100,000 1 applic topical Q8 PRN irritation 01/07/23 01/20/23 History unit/g-0.1 % topical cream perinium ondansetron HCl 4 mg tablet 4 mg PO Q8H 01/07/23 01/20/23 History sodium phosphates 19 gram-7 118 ml W[place] DAILY PRN Constipation 01/07/23 01/20/23 History gram/118 mL enema timolol 0.5 % eye drops 1 drp OPR QAM 01/07/23 01/20/23 History triamcinolone acetonide 55 mcg 1 spray intranasal DAILY .rinitis 01/07/23 01/20/23 History nasal spray aerosol carboxymethylcellulose sodium 1 % 1 drp OPR QAM 01/20/23 01/20/23 History eye drops (Artificial Tears (carboxymethylcellulose)) carboxymethylcellulose sodium 1 % 1 drp ophthalmic (eye) Q6 PRN Dry 01/20/23 01/20/23 History eye drops (Artificial Tears Eyes (carboxymethylcellulose)) ipratropium bromide 21 mcg (0.03 1 spray intranasal BID PRN 01/20/23 01/20/23 History %) nasal spray allergies levetiracetam 1,000 mg tablet 1,000 mg PO BID 01/20/23 01/20/23 History polyethylene glycol 3350 17 gram 17 g PO QAM 01/20/23 01/20/23 History oral powder packet (Miralax) Patient History Medical History (Updated 01/21/23 @ 13:25 by Kenisha Eubanks MD) Dyslipidemia Family history of colon cancer Hyponatremia Osteopenia after menopause Pancreatic cyst Surgical History History of colonoscopy History of varicose vein ligation and stripping S/P tubal ligation Family History Sister Breast cancer Coronary heart disease Father Stroke Mother Breast cancer Son Narcolepsy Other No family history of adverse response to anesthesia No family history of bleeding disorder Denies family history of Ovarian cancer Prostate cancer Diabetes Lung cancer Colorectal cancer Social History Smoking Status: Never smoker Second Hand Exposure: No; Do You Dip or Chew Tobacco: No; Hx Alcohol Use: No Hx Substance Use: No Preferred Language: Tamazight Communication Ability: Effective Visual Impairment: Limited Hearing Ability: Normal Ice Puller Required: No Beliefs That Will Affect Care: None marital status: Current Living Situation: Alone current occupational status: retired How many Children do You have: 3 Feels Safe at Home: Yes Childhood Exposure to Second-Hand Smoke: Yes (father smoked pipe occassionally ) Diet: regular caffeine: Yes (coffee and tea ) Dental Care, Regularly: Yes Physical Activity Frequency: Daily Physical Activity Frequency Comment: walk Seatbelt Use: always Sunscreen Use: Yes Assistive Devices: None Review of Systems Review of Systems: All systems reviewed & are unremarkable except as noted in Subjective Physical Exam Constitutional: WD/WN, vitals as above Respiratory: normal respiratory effort, lungs clear to auscultation Cardiovascular: RRR, no murmur, no edema Gastrointestinal (Abdomen): normal bowel sounds, soft, nontender, no hepatosplenomegaly Psychiatric: A+Ox3, euthymic affect Results & Data Vital Signs (Past 12 Hours) Vital Signs Temp Pulse Pulse Resp BP Pulse Ox O2 Del Method 01/22/23 07:19 36.7 C 96 H 18 125/63 94 Room Air 01/22/23 02:40 37.3 C 105 H 20 147/69 H 94 Room Air 01/21/23 23:00 117 H 01/21/23 23:02 36.8 C 100 H 20 126/68 92 Room Air Laboratory Results Laboratory Results - last 24 hr 01/21/23 01/21/23 01/22/23 04:58 04:58 05:23 WBC RBC Hgb Hct MCV MCH MCHC RDW Std Deviation RDW Coeff of Bandar Plt Count MPV Immature Gran % (Auto) Neut % (Auto) Lymph % (Auto) [place] % (Auto) Eos % (Auto) Baso % (Auto) Neut # (Auto) Lymph # (Auto) [place] # (Auto) Eos # (Auto) Baso # (Auto) Immature Gran # (Auto) Sodium 131 L Potassium 3.6 Chloride 99 Carbon Dioxide 23 Anion Gap 9 BUN 4 L Creatinine 0.43 L Est Cr Clr Drug Dosing 72.9 Est GFR ( Amer) 106.0 Est GFR (Non-Af Amer) 91.5 BUN/Creatinine Ratio 9.3 L Glucose 104 H Calcium 8.5 L Magnesium 2.0 Iron 11 L TIBC 136 L Unsaturated IBC 125 L Transferrin % Sat 8 L Ferritin 483.3 H Vitamin B12 1040 H Folate 14.20 01/22/23 05:23 WBC 12.39 H RBC 3.38 L Hgb 9.6 L Hct 28.1 L MCV 83.1 MCH 28.4 MCHC 34.2 RDW Std Deviation 39.4 RDW Coeff of Bandar 13.1 Plt Count 556 H MPV 9.5 Immature Gran % (Auto) 0.6 Neut % (Auto) 72.1 Lymph % (Auto) 13.1 [place] % (Auto) 10.3 Eos % (Auto) 3.0 Baso % (Auto) 0.9 Neut # (Auto) 8.95 H Lymph # (Auto) 1.62 [place] # (Auto) 1.27 H Eos # (Auto) 0.37 Baso # (Auto) 0.11 Immature Gran # (Auto) 0.07 Sodium Potassium Chloride Carbon Dioxide Anion Gap BUN Creatinine Est Cr Clr Drug Dosing Est GFR ( Amer) Est GFR (Non-Af Amer) BUN/Creatinine Ratio Glucose Calcium Magnesium Iron TIBC Unsaturated IBC Transferrin % Sat Ferritin Vitamin B12 Folate Diagnostic Findings Chest X-Ray 01/19/23 23:24 XR chest 1V portable CLINICAL HISTORY: Sepsis. COMPARISON STUDY: Chest radiograph December 09, 2022. FINDINGS: Lung volumes are normal. Lungs are clear. There is no pneumothorax or pleural effusion. Cardiac size is normal. Mediastinal contours are normal. There is no evidence for pulmonary edema. Suspected biapical scarring is unchanged. IMPRESSION: No acute cardiopulmonary findings. ACT 112: Negative or not required by law. Electronically signed by: Jignesh Garcia M.D. 01/20/2023 8:04 AM Abdomen/Pelvis CT 01/19/23 23:26 Exam(s): CT ABDOMEN + PELVIS With Contrast IV Amt: 91 ml opti 320 EXAM: CT Abdomen and Pelvis With Intravenous Contrast CLINICAL HISTORY: Reason for exam: llq pain abd distended. TECHNIQUE: Axial computed tomography images of the abdomen and pelvis with intravenous contrast. CTDI is 38.03 mGy and DLP is 1129.58 mGy-cm. Automated exposure control was utilized for the study. A dose lowering technique was utilized adhering to the principles of ALARA. CONTRAST: Patient received 91 ml opti 320 of IV contrast COMPARISON: No relevant prior studies available. FINDINGS: Lung bases: Unremarkable. No mass. No consolidation. ABDOMEN: Liver: Unremarkable. No mass. Gallbladder and bile ducts: Unremarkable. No calcified stones. No ductal dilation. Pancreas: Unremarkable. No mass. No ductal dilation. Spleen: Unremarkable. No splenomegaly. Adrenals: Unremarkable. No mass. Kidneys and ureters: Unremarkable. No solid mass. No hydronephrosis. Stomach and bowel: See below. PELVIS: Appendix: No findings to suggest acute appendicitis. Bladder: Marked distention of the urinary bladder. There are a few nonpathologically enlarged but prominent fluid-filled loops of small bowel within the lower abdomen. Reproductive: Unremarkable as visualized. ABDOMEN and PELVIS: Intraperitoneal space: Unremarkable. No free air. No significant fluid collection. Bones/joints: No acute fracture. No dislocation. Soft tissues: Unremarkable. Vasculature: Unremarkable. No abdominal aortic aneurysm. Lymph nodes: Unremarkable. No enlarged lymph nodes. IMPRESSION: 1. Marked urinary bladder distention 2. Fluid-filled loops of small bowel within the left lower quadrant may represent enteritis in the appropriate clinical setting. Electronically signed by: Román Fernandez MD 01/20/23 03:[address] 01/19/23 23:26 Exam(s): CT HEAD Without Contrast EXAM: CT Head Without Intravenous Contrast CLINICAL HISTORY: Reason for exam: ams. TECHNIQUE: Axial computed tomography images of the head/brain without intravenous contrast. CTDI is 11.84 mGy and DLP is 1129.58 mGy-cm. Automated exposure control was utilized for the study. A dose lowering technique was utilized adhering to the principles of ALARA. COMPARISON: No relevant prior studies available. FINDINGS: Brain: Unremarkable. No hemorrhage. No significant white matter disease. No edema. Ventricles: Unremarkable. No ventriculomegaly. Bones/joints: Unremarkable. No acute fracture. Soft tissues: Unremarkable. Sinuses: Unremarkable as visualized. No acute sinusitis. Mastoid air cells: Unremarkable as visualized. No mastoid effusion. IMPRESSION: Normal head/brain CT. Electronically signed by: Román Fernandez MD 01/20/23 03:55 AM
--- NOTE | 2023-01-22 10:47 | XRay Report ---
KUB CLINICAL HISTORY: constipation, abnormal CT A/P COMPARISON STUDY: CT of the abdomen and pelvis January 20, 2023. FINDINGS: A pessary device is incidentally noted. The bowel gas pattern is normal. Amount of stool is within normal limits. Pelvic calcifications represent phleboliths. No urinary calculi are identified . IMPRESSION: 1. No evidence for a bowel obstruction. 2. Amount of stool within normal limits. ACT 112: Negative or not required by law. Electronically signed by: Jignesh Garcia M.D. 01/22/2023 10:46 AM
--- NOTE | 2023-01-22 15:23 | Hospitalist Progress Note ---
Date of Service January 22, 2023 Assessment & Plan (1) Fever: Plan: Patient was reported to have had a fever of 101.3 at the halfway prior to admission but none since then. No other symptoms other than fatigue and some mild frontal headaches. Has ongoing weight loss, poor po intake, low appetite for the last month or so. Was seen here a month ago and had +FRANCISCO, skin rash deemed to not be vasculitis by Rheum, and had normal CSF workup Chest x-ray did not show any acute pathology, CT abdomen and pelvis showed possible LLQ enteritis and severely distended bladder UA neg for infection, BCxs remain NGTD thus far. COVID/Flu/RSV negative. CT head neg WBC count continues to climb now up to 12 as do platelets now up to the 500s, no fevers-could be reactive to Fe def anemia vs other nonspecific inflammation With constipation and ?LLQ enteritis--> stercoral colitis? Doubtful and no abd pain ESR 96 on admission, some of which is elevated due to anemia and age. No proximal muscle weakness necessarily-able to get up from chair, walk,but has c/o bilat hip pain as per daughter over the last month With mild headache, elevated ESR, age, hip girdle pain and also shoulder pains (thought to be more from OA), will need to proceed with TA biopsy -appreciate d/w Rheum--> proceed with TA biopsy--> consulted Gen Surgery, keep NPO after midnight. Discussed with pt and her daughter at bedside and are agreeable -continue to work on bowel regimen -consult GI to see about EGD/colonoscopy given fevers, weight loss, progressive anemia-plan for outpt EGD/Colonoscopy -follow CBC, CMP, ESR in AM -plan to start prednisone tomorrow after biopsy of TAs (2) Headache: Plan: as above, need to rule out TA (3) Hyponatremia: Plan: Serum sodium 125 on admission-Most likely due to poor p.o. intake Patient has been admitted a few times in the past with hyponatremia Received normal saline 100 cc/h and now Na+ improved to 131-132 Recheck BMP in AM (4) Anemia: Plan: progressively worsening, now hgb down to 9.6 with thrombocytosis possibly reactive to Fe def anemia vs inflammation from autoimmune process TSH recently normal checked iron studies--> transferrin sat low at 8%, ferritin high at 483 but also could be APR/elevated in setting of unknown inflammation with fever B12 and folate normal follow CBC, no obvious bleeding from anywhere give Venofer 300mg daily x 3 doses while here check fecal occult GI workup/consult placed (5) Weight loss: Plan: as above, > 10-20 lbs in last 1-2 months needs GI workup (6) Abnormal SPEP: Plan: slightly abnormal, NOE not conclusive f/u with Heme as outpt (7) Seizure: Plan: Recently diagnosed with seizure disorder Continue Keppra (8) Elevated troponin I level: Plan: Mild elevation in troponin level at 32 and then down to normal at 10, most likely due to demand ischemia from fever EKG did not show any ST changes, patient denies chest pain (9) Constipation: Plan: as above, start laxatives now with BM on 01/22 (10) Ventricular tachycardia: Plan: had 28 beat run on 01/20, asymptomatic; also with short run of SVT replaced Mag and K to keep at above 2.0 and 4.0, respectively check ECHO-very small pericardial effusion, unchanged from previous, normal EF follow on Tele (11) FRANCISCO positive: Plan: Positive FRANCISCO in previous hospital stay suggestive of inflammatory disease. However patient followed up with coin dealer outpatient who did not identify any inflammatory disease or rheumatological disease at that time Plan DVT proph- SCDs Dispo-continued stay, will likely need SN[facility] on discharge in 1-2 days Admission and Anticipated Discharge Date Admission Date: January 20, 2023 Subjective Pt feeling better. Had a BM this afternoon. Still very poor appetite.Having some mild urinary retention. Was OOB with therapy today. She does admit to having some mild headaches in the frontal region lately. Denies jaw pain or painful chewing, no visual disturbances. I discussed her care with Rheumatology and Gen Surgery Tele with SR, 1st degree AVB, rates 90s Physical Exam Constitutional: WD/WN, vitals as above Eyes: PERRL, conjunctivae normal, anicteric sclerae ENMT: +mild TTP over bilateral temporal regions of head no nodules palpated Neck: trachea midline, no thyromegaly Respiratory: normal respiratory effort, lungs clear to auscultation Cardiovascular: RRR, no murmur, no edema Chest (Breasts): Chest: normal inspection of chest Gastrointestinal (Abdomen): normal bowel sounds, soft, nontender, no hepatosplenomegaly Musculoskeletal: Extremities: extremities normal to inspection; no cyanosis and no clubbing Skin: no rashes, warm and dry Neurologic: moves all extremities and awake; no focal motor deficits Psychiatric: A+Ox3, euthymic affect Lymphatic: no lymphedema Results & Data Results & Data Vital Signs (Past 12 Hours) Vital Signs Temp Pulse Pulse Resp BP Pulse Ox O2 Del Method 01/22/23 15:12 36.6 C 108 H 18 156/69 H 96 Room Air 01/22/23 11:25 36.9 C 87 18 120/66 93 Room Air 01/22/23 08:00 91 H 01/22/23 07:19 36.7 C 96 H 18 125/63 94 Room Air Laboratory Results CBC, BMP, magnesium reviewed Diagnostic Findings KUB reviewed PG Care Time/CCT Total # of Minutes Spent Total Time Spent with Patient: Total time spent is greater than 50% in coordination of care (as documented) at patient's floor/unit and/or counseling patient: Coding Level of Care Code 75395 SUB INP/OBS CARE 3/50MIN Diagnoses Fever R50.9 Headache R51.9 Hyponatremia E87.1 Anemia D64.9 Weight loss R63.4 Abnormal SPEP R77.8 Seizure R56.9 Elevated troponin I level R77.8 Constipation K59.00 Ventricular tachycardia I47.20 FRANCISCO positive R76.8
--- NOTE | 2023-01-22 20:22 | Surgery Consultation ---
Date of Consultation January 22, 2023 Assessment & Plan (1) Fever: The patient has been admitted on the medical service. Due to her fevers and an unrevealing work-up general surgery has been asked to perform temporal artery biopsy. We will make the patient n.p.o. after midnight tonight We have tentatively added the patient for temporal artery biopsy on 01/23/[address] Gleason History of Present Illness Reason for Consultation: Temporal artery biopsy Attending Physician: Kenisha Eubanks MD History of Present Illness This is an 87-year-old female who was admitted to [facility] on 01/20/2023. [facility] secondary to fevers. She has had these fevers for approximate 24 hours prior to admission. The patient does not really offer much in the way of systemic complaints she specifically denies any headache. She denies any visual changes. She denies any jaw claudication. She denies any myalgias. She also denies any abdominal pain or nausea or vomiting. It is noteworthy to mention that the patient had multiple admissions to the hospital in the recent past most recently in November 2022 where patient was noted to have elevated inflammatory markers raising the concern of an underlying systemic inflammatory process. The patient was recently seen by Dr. Evan Obregon of [facility] physician group rheumatology on January 07 where there were no systemic inflammatory arthritis or vasculitis identified. As the patient has had continued fevers medical service has consulted gastroenterology for consideration of performing a colonoscopy. They have also requested general surgery to see the patient for consideration of temporal artery biopsy. Since arrival to [facility] during this admission the patient has had labs and imaging which independent reviewed. A chest x-ray did not show any evidence of pneumonia. A CT scan of the abdomen and pelvis showed some fluid-filled loops of small bowel potentially representing an enteritis. A CT scan of her head was essentially normal. And the patient had a KUB that showed no evidence of bowel obstruction. Labs include a CBC were white blood cell count was elevated at 12.3. Hemoglobin and hematocrit are 9.6 and 28.1. Chemistry profile showed sodium was 131 with a normal potassium. BUN and creatinine are 4 and 0.4. The patient's previous labs were reviewed and patient was noted to have an elevated erythrocyte sedimentation rate most recently on 01/17/2023 which was elevated at 96. She has had lactic acid levels checked which were elevated in November of this year but have since normalized. She has also had numerous immunologic labs checked which were nonrevealing to the cause of her fevers. At the time of my interview the patient was resting comfortably in bed and she was in no distress. Allergies Allergy/AdvReac Type Severity Reaction Status Date / Time Penicillins Allergy Unknown Unknown rxn Verified 01/20/23 01:11 azithromycin [From Zithromax] Allergy Unknown Verified 01/20/23 01:11 doxycycline Allergy Unknown Verified 01/20/23 01:11 risedronate sodium Allergy Unknown Verified 01/20/23 01:11 [From Actonel] Home Medications Medication Instructions Recorded Confirmed Type betamethasone dipropionate 0.05 % 1 applic topical BID PRN itching 11/30/22 01/20/23 History topical cream bimatoprost 0.01 % eye drops 1 drp OPB HS 11/30/22 01/20/23 History (Lumigan) calcium carbonate 600 mg-vitamin 1 tab PO BID 11/30/22 01/20/23 History D3 10 mcg (400 unit) tablet (Calcium 600 + D(3)) loratadine 10 mg tablet 10 mg PO DAILY 12/09/22 01/20/23 History acetaminophen 325 mg capsule 325 mg PO Q4 PRN Fever Or Pain 01/07/23 01/20/23 History alendronate 70 mg tablet 70 mg PO .Weekly 01/07/23 01/20/23 History amlodipine 5 mg tablet 5 mg PO DAILY 01/07/23 01/20/23 History aspirin 81 mg tablet,delayed 81 mg PO DAILY 01/07/23 01/20/23 History release (Adult Aspirin Regimen) bisacodyl 10 mg rectal suppository 10 mg [place] DAILY PRN Constipation 01/07/23 01/20/23 History calcium carbonate 200 mg calcium 200 mg PO Q6 PRN Indigestion 01/07/23 01/20/23 History (500 mg) chewable tablet (Tums) nystatin-triamcinolone 100,000 1 applic topical Q8 PRN irritation 01/07/23 01/20/23 History unit/g-0.1 % topical cream perinium ondansetron HCl 4 mg tablet 4 mg PO Q8H 01/07/23 01/20/23 History sodium phosphates 19 gram-7 118 ml [place] DAILY PRN Constipation 01/07/23 01/20/23 History gram/118 mL enema timolol 0.5 % eye drops 1 drp OPR QAM 01/07/23 01/20/23 History triamcinolone acetonide 55 mcg 1 spray intranasal DAILY .rinitis 01/07/23 01/20/23 History nasal spray aerosol carboxymethylcellulose sodium 1 % 1 drp OPR QAM 01/20/23 01/20/23 History eye drops (Artificial Tears (carboxymethylcellulose)) carboxymethylcellulose sodium 1 % 1 drp ophthalmic (eye) Q6 PRN Dry 01/20/23 01/20/23 History eye drops (Artificial Tears Eyes (carboxymethylcellulose)) ipratropium bromide 21 mcg (0.03 1 spray intranasal BID PRN 01/20/23 01/20/23 History %) nasal spray allergies levetiracetam 1,000 mg tablet 1,000 mg PO BID 01/20/23 01/20/23 History polyethylene glycol 3350 17 gram 17 g PO QAM 01/20/23 01/20/23 History oral powder packet (Miralax) Patient History Medical History Dyslipidemia Family history of colon cancer Hyponatremia Osteopenia after menopause Pancreatic cyst Surgical History History of colonoscopy History of varicose vein ligation and stripping S/P tubal ligation Family History Sister Breast cancer Coronary heart disease Father Stroke Mother Breast cancer Son Narcolepsy Other No family history of adverse response to anesthesia No family history of bleeding disorder Denies family history of Ovarian cancer Prostate cancer Diabetes Lung cancer Colorectal cancer Social History Smoking Status: Never smoker Second Hand Exposure: No; Do You Dip or Chew Tobacco: No; Hx Alcohol Use: No Hx Substance Use: No Preferred Language: Czech Communication Ability: Effective Visual Impairment: Limited Hearing Ability: Normal 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 Vegetable Required: No Beliefs That Will Affect Care: None marital status: Current Living Situation: Alone current occupational status: retired How many Children do You have: 3 Feels Safe at Home: Yes Childhood Exposure to Second-Hand Smoke: Yes (father smoked pipe occassionally ) Diet: regular caffeine: Yes (coffee and tea ) Dental Care, Regularly: Yes Physical Activity Frequency: Daily Physical Activity Frequency Comment: walk Seatbelt Use: always Sunscreen Use: Yes Assistive Devices: None Review of Systems Constitutional: + fever Eyes: no blind spots Ear, Nose, Mouth, Throat: no ear pain and no hearing loss Respiratory: no cough Cardiovascular: no chest pain Gastrointestinal: no abdominal pain, no nausea and no vomiting Genitourinary: no dysuria Musculoskeletal: no back pain Integumentary: no rash Neurologic: no localized weakness Physical Exam Physical Exam: Patient's head was examined and there is no pain with palpation over the temporal arteries bilaterally. Constitutional: WD/WN, vitals as above Eyes: Wears glasses ENMT: Ears: no hearing impairment and no external ear abnormality Mouth: no oropharynx abnormality Neck: trachea midline Respiratory: normal respiratory effort; no respiratory distress and no labored breathing Cardiovascular: Rate/Rhythm: regular rate and regular rhythm Gastrointestinal (Abdomen): Soft and nontender Musculoskeletal: No calf tenderness Skin: no rashes Neurologic: moves all extremities Psychiatric: A+Ox3, euthymic affect Results & Data Vital Signs (Past 12 Hours) Vital Signs Temp Pulse Pulse Resp BP Pulse Ox O2 Del Method 01/22/23 19:41 36.8 C 94 H 16 138/71 94 Room Air 01/22/23 17:55 106 H 01/22/23 15:12 36.6 C 108 H 18 156/69 H 96 Room Air 01/22/23 11:25 36.9 C 87 18 120/66 93 Room Air PG Care Time/CCT Total # of Minutes Spent Total Time Spent with Patient: Total time spent is greater than 50% in coordination of care (as documented) at patient's floor/unit and/or counseling patient: Coding Level of Care Code 95215 INT INP/OBS CARE 3/75MIN Diagnoses Fever R50.9
[2023-01-22] MEDS: BIMATOPROST 0.01% OP SOLN 2.5 ML BTL OP SCH (20:59)
[2023-01-23 06:13] LABS: Basophils # (auto) 0.11 K/uL (0.00-0.20); Basophils % (auto) 0.9 %; Eosinophils # (auto) 0.47 K/uL (0.00-0.50); Eosinophils % (auto) 3.7 %; Hematocrit (blood only) 26.4 % (37.0-47.0); Hemoglobin 9.3 g/dl (12.0-16.0); Immature Granulocytes # (auto) 0.09 K/uL (0.01-0.20); Immature Granulocytes % (auto) 0.7 %; Lymphocytes # (auto) 1.79 K/uL (1.20-3.40); Lymphocytes % (auto) 14.3 %; Mean Corpuscular Hemoglobin 28.7 pg (25.0-34.0); Mean Corpuscular Hgb Conc 35.2 g/dL (32.0-36.0); Mean Corpuscular Volume 81.5 fL (80.0-100.0); Mean Platelet Volume 9.1 fL (9.4-12.4); Monocytes # (auto) 1.26 K/uL (0.11-0.59); Neutrophils # (auto) 8.83 K/uL (1.40-6.50); Neutrophils % (auto) 70.4 %; Platelet Count 563 K/uL (130-400); RDW Coefficient of Variation 13.4 % (11.5-14.5); RDW Standard Deviation 39.9 fL (36.4-46.3); Red Blood Count 3.24 M/uL (4.20-5.40); White Blood Count 12.55 K/ul (4.8-10.8)
[2023-01-23 06:31] LABS: Anion Gap 9 (3-11); BUN Creatinine Ratio 11.1 (10-20); Blood Urea Nitrogen 5 mg/dl (6-23); Calcium 8.4 mg/dl (8.6-10.3); Carbon Dioxide 25 mmol/L (21-32); Chloride 96 mmol/L (98-107); Creatinine Clr Calc Pharmacy 69.7 ml/min; Est GFR (African American) 104.4 ml/min; Est GFR (Non-African American) 90.1 ml/min; Glucose 99 mg/dl (70-99(Fasting)); Potassium 3.2 mmol/L (3.5-5.1); Sodium 130 mmol/L (136-145)
[2023-01-23 06:49] LABS: Alanine Aminotransferase 18 U/L (7-52); Albumin Globulin Ratio 0.7 (0.9-2); Albumin Level 2.6 gm/dl (3.4-5.0); Alkaline Phosphatase 113 U/L (34-104); Aspartate Aminotransferase 19 U/L (13-39); Bilirubin,Total 0.5 mg/dl (0.2-1.0); C Reactive Protein 30.88 mg/dl (0-0.5); Globulin 3.8 gm/dl (2.5-4.0); Magnesium 1.8 mg/dl (1.7-2.4); Total Protein 6.4 gm/dl (6.0-8.3)
[2023-01-23 07:25] LABS: Creatine Kinase < 10 U/L (26-192)
[2023-01-23] MEDS: levETIRAcetam 500 MG TAB PO SCH ×2 (08:15→20:44)
[2023-01-23] MEDS: amLODIPine BESYLATE 5 MG TAB PO SCH (08:16)
[2023-01-23] MEDS: DOCUSATE SODIUM/SENNA 50/8.6MG TAB PO SCH ×2 (08:16→20:44)
[2023-01-23] MEDS: LORATADINE 10 MG TAB PO SCH (08:17)
[2023-01-23] MEDS: CALCIUM 600MG + VIT D 400 IU TAB PO SCH ×2 (08:17→20:44)
[2023-01-23] MEDS: ASPIRIN 81 MG ECTAB PO SCH (08:17)
[2023-01-23] MEDS: POLYETHYLENE (MIRALAX) 17 GM PACK PO SCH ×3 (08:17→20:44)
[2023-01-23] MEDS: TIMOLOL MALEATE 0.5% OP SOLN 5 ML BTL OPR SCH (08:18)
[2023-01-23] MEDS: ARTIFICIAL TEARS OPR SCH (08:18)
[2023-01-23] MEDS: IRON SUCROSE 300 MG in SODIUM CHLORIDE 0.9% 250 ML IV SCH (08:47)
[2023-01-23] MEDS ORDERED: MAGNESIUM SULFATE / D5W 1 GM/100 ML BAG IV ONE (09:28)
[2023-01-23] MEDS ORDERED: CALCIUM CARBONATE 500 MG CHEWABLE TAB PO PRN (11:30)
[2023-01-23] MEDS: POTASSIUM CHLORIDE / WTR 10 MEQ/100 ML PLCT IV SCH ×4 (11:32→16:39)
--- NOTE | 2023-01-23 12:08 | Gastroenterology Progress Note ---
Date of Service January 23, 2023 Assessment & Plan (1) Anemia: Plan: As we plan no inpatient workup we will sign off. Please call if GI services needed again. Admission and Anticipated Discharge Date Admission Date: January 20, 2023 Subjective Patient to have temporal artery biopsy today. Nothing new from our standpoint Physical Exam Constitutional: WD/WN, vitals as above Results & Data Vital Signs (Past 12 Hours) Vital Signs Temp Pulse Pulse Resp BP Pulse Ox O2 Del Method 01/23/23 05:59 96 H 01/23/23 03:40 37.1 C 104 H 20 121/61 92 Room Air
--- NOTE | 2023-01-23 12:53 | Anesthesiology Consultation ---
Date of Service January 23, 2023 Assessment & Plan (1) Encounter for pre-operative examination: Chart Review Chart Review: Acceptable Risk for Surgery History Surgery Operation Date: 01/23/23 07:50 Proposed Procedures p Bilateral Temporal Artery Biopsy - Dwight Gleason, Height/Weight Height: 5 ft 2 in Weight: 51.5 kg Allergies Allergy/AdvReac Type Severity Reaction Status Date / Time Penicillins Allergy Unknown Unknown rxn Verified 01/20/23 01:11 azithromycin [From Zithromax] Allergy Unknown Verified 01/20/23 01:11 doxycycline Allergy Unknown Verified 01/20/23 01:11 risedronate sodium Allergy Unknown Verified 01/20/23 01:11 [From Actonel] Medications Home Medications Medication Instructions Recorded Confirmed Last Taken betamethasone dipropionate 0.05 % 1 applic topical BID PRN itching 11/30/22 01/20/23 Unknown topical cream bimatoprost 0.01 % eye drops 1 drp OPB HS 11/30/22 01/20/23 Unknown (Lumigan) calcium carbonate 600 mg-vitamin 1 tab PO BID 11/30/22 01/20/23 Unknown D3 10 mcg (400 unit) tablet (Calcium 600 + D(3)) loratadine 10 mg tablet 10 mg PO DAILY 12/09/22 01/20/23 Unknown acetaminophen 325 mg capsule 325 mg PO Q4 PRN Fever Or Pain 01/07/23 01/20/23 Unknown alendronate 70 mg tablet 70 mg PO .Weekly 01/07/23 01/20/23 Unknown amlodipine 5 mg tablet 5 mg PO DAILY 01/07/23 01/20/23 Unknown aspirin 81 mg tablet,delayed 81 mg PO DAILY 01/07/23 01/20/23 Unknown release (Adult Aspirin Regimen) bisacodyl 10 mg rectal suppository 10 mg [place] DAILY PRN Constipation 01/07/23 Unknown calcium carbonate 200 mg calcium 200 mg PO Q6 PRN Indigestion 01/07/23 01/20/23 Unknown (500 mg) chewable tablet (Tums) nystatin-triamcinolone 100,000 1 applic topical Q8 PRN irritation 01/07/23 01/20/23 Unknown unit/g-0.1 % topical cream perinium ondansetron HCl 4 mg tablet 4 mg PO Q8H 01/07/23 01/20/23 Unknown sodium phosphates 19 gram-7 118 ml [place] DAILY PRN Constipation 01/07/23 01/20/23 Unknown gram/118 mL enema timolol 0.5 % eye drops 1 drp OPR QAM 01/07/23 01/20/23 Unknown triamcinolone acetonide 55 mcg 1 spray intranasal DAILY .rinitis 01/07/23 Unknown nasal spray aerosol carboxymethylcellulose sodium 1 % 1 drp OPR QAM 01/20/23 01/20/23 Unknown eye drops (Artificial Tears (carboxymethylcellulose)) carboxymethylcellulose sodium 1 % 1 drp ophthalmic (eye) Q6 PRN Dry 01/20/23 01/20/23 Unknown eye drops (Artificial Tears Eyes (carboxymethylcellulose)) ipratropium bromide 21 mcg (0.03 1 spray intranasal BID PRN 01/20/23 01/20/23 Unknown %) nasal spray allergies levetiracetam 1,000 mg tablet 1,000 mg PO BID 01/20/23 01/20/23 Unknown polyethylene glycol 3350 17 gram 17 g PO QAM 01/20/23 01/20/23 Unknown oral powder packet (Miralax) Active Medications Generic Name Dose Route Start Last Admin Trade Name Freq PRN Reason Stop Dose Admin Alendronate Sodium 70 mg 01/22/23 06:30 01/22/23 06:34 Alendronate Sodium 70 Mg Tab PO 02/21/23 06:29 70 mg Tu@0630 PAVAN Administration Amlodipine Besylate 5 mg 01/20/23 09:00 01/23/23 08:16 Amlodipine Besylate 5 Mg Tab PO 02/19/23 08:59 5 mg DAILY PAVAN Administration Artificial Tears 1 drops 01/20/23 06:15 01/20/23 22:19 Artificial Tears OP 02/19/23 06:14 1 drops Q6 PRN Administration Dry Eyes Artificial Tears 1 drops 01/20/23 09:00 01/23/23 08:18 Artificial Tears OPR 02/19/23 08:59 1 drops QAM PAVAN Administration Aspirin 81 mg 01/20/23 09:00 01/23/23 08:17 Aspirin 81 Mg Ectab PO 02/19/23 08:59 81 mg DAILY PAVAN Administration Bimatoprost 1 drops 01/20/23 21:00 01/22/23 20:59 Bimatoprost 0.01% Op Soln 2.5 Ml Btl OP 02/19/23 20:59 1 drops HS PAVAN Administration Calcium/Vitamin D 1 tab 01/20/23 09:00 01/23/23 08:17 Calcium 600mg + Vit D 400 Iu Tab PO 02/19/23 08:59 1 tab BID PAVAN Administration Potassium Chloride 10 meq in 100 mls @ 100 mls/hr 01/23/23 09:30 01/23/23 12:33 K Patricio / Wtr IV 01/23/23 13:29 100 mls/hr Q1H PAVAN Administration Ipratropium [place] 1 sprays 01/20/23 06:08 01/22/23 09:09 Ipratropium [place] Nasal [place] 0.06% 15ml RADHA 02/19/23 06:07 1 sprays BID PRN Administration allergies Levetiracetam 1,000 mg 01/20/23 09:00 01/23/23 08:15 Levetiracetam 500 Mg Tab PO 02/19/23 08:59 1,000 mg BID PAVAN Administration Loratadine 10 mg 01/20/23 09:00 01/23/23 08:17 Loratadine 10 Mg Tab PO 02/19/23 08:59 10 mg DAILY PAVAN Administration Polyethylene Glycol 17 gm 01/22/23 14:00 01/23/23 08:17 Polyethylene (Miralax) 17 Gm Pack PO 02/21/23 13:59 Not Given TID PAVAN Senna/Docusate Sodium 1 tab 01/22/23 11:15 01/23/23 08:16 Docusate Sodium/Senna 50/8.6mg Tab PO 02/21/23 11:14 1 tab BID PAVAN Administration Timolol Maleate 1 drops 01/20/23 09:00 01/23/23 08:18 Timolol Maleate 0.5% Op Soln 5 Ml Btl OPR 02/19/23 08:59 1 drops QAM PAVAN Administration Past Medical History Medical History (Updated 01/23/23 @ 12:53 by Rip Cruz MD) Dyslipidemia Family history of colon cancer Hyponatremia Osteopenia after menopause Pancreatic cyst Past Family History Family History Sister Breast cancer Coronary heart disease Father Stroke Mother Breast cancer Son Narcolepsy Other No family history of adverse response to anesthesia No family history of bleeding disorder Denies family history of Ovarian cancer Prostate cancer Diabetes Lung cancer Colorectal cancer Past Surgical History Surgical History History of colonoscopy History of varicose vein ligation and stripping S/P tubal ligation Social History Smoking Status: Never smoker Do You Dip or Chew Tobacco: No Hx Alcohol Use: No Alcohol type: wine alcohol intake frequency: a few times a month Hx Substance Use: No Physical Exam Vital Signs Last Vital Signs Temp 37.1 C 01/23/23 03:40 Pulse 96 H 01/23/23 05:59 Resp 20 01/23/23 03:40 BP 121/61 01/23/23 03:40 Pulse Ox 92 01/23/23 03:40 O2 Del Method Room Air 01/23/23 03:40 Testing Laboratory Results 01/23/23 05:28 01/23/23 05:28 PT 11.3 Seconds (9.0-12.0) 01/19/23 23:25 INR 1.0 (0.9-1.1) 01/19/23 23:25 APTT 29.3 Seconds (21.0-31.0) 01/19/23 23:25 Urine Color Yellow 01/20/23 01:15 Urine Appearance Clear (Clear) 01/20/23 01:15 Urine pH 7.0 (4.5-7.5) 01/20/23 01:15 Ur Specific [place] 1.015 (1.000-1.030) 01/20/23 01:15 Urine Protein Negative (Negative) 01/20/23 01:15 Urine Glucose (UA) Negative (Negative) 01/20/23 01:15 Urine Ketones Negative (Negative) 01/20/23 01:15 Urine Nitrite Negative (Negative) 01/20/23 01:15 Ur Leukocyte Esterase Negative (Negative) 01/20/23 01:15 01/19/23 23:25 Aerobic Blood Culture - Preliminary Blood No growth in Aerobic bottle after 48 hours. Anaerobic Blood Culture - Preliminary No growth in Anaerobic bottle after 48 hours. 01/19/23 23:45 Aerobic Blood Culture - Preliminary Blood No growth in Aerobic bottle after 48 hours. Anaerobic Blood Culture - Preliminary No growth in Anaerobic bottle after 48 hours. Electrocardiogram Date: 01/19/23 Findings: + NSR @ (88) Chest X-Ray Date: 01/19/23 Findings: + NAD Echocardiogram Date: 01/21/23 EF: 60-65% LV Function: normal Valvular Disease: + no significant valvular disease
--- NOTE | 2023-01-23 12:55 | History & Physical Bridge Note ---
Date of Service January 23, 2023 History & Physical Bridge Note I have examined the patient, reviewed the History & Physical and in the interval since the performance of the History & Physical I have noted the following changes of clinical significance: no changes noted chart reviewed. discussed risks/options with patient. will proceed with right temporal artery biopsy/possible left. pt agreeable
[2023-01-23] MEDS ORDERED: fentaNYL citrate PF 100 MCG/2 ML VIAL IV PRN (13:15)
[2023-01-23] MEDS ORDERED: ATROPINE SULFATE 0.1 MG/ML 10ML SYR IV PRN (13:15)
[2023-01-23] MEDS ORDERED: ONDANSETRON INJ 2 MG/ML 2 ML VIAL IV PRN (13:15)
[2023-01-23] MEDS ORDERED: fentaNYL citrate PF 100 MCG/2 ML VIAL ONE (13:22)
[2023-01-23] MEDS ORDERED: LIDOCAINE 2% 2 ML VIAL/AMP(20MG/ML) INFIL ONE (13:24)
[2023-01-23] MEDS ORDERED: PROPOFOL IV EMULSION 10 MG/ML 20 ML VIAL IV ONE (13:24)
[2023-01-23] MEDS ORDERED: BUPIVACAINE/EPINEPHRINE 0.5% MPF 1:200,000 30 ML VIAL ONE (13:36)
[2023-01-23] MEDS ORDERED: ceFAZolin 330 MG/ML 1 GM VIAL ONE (13:59)
[2023-01-23] MEDS ORDERED: ceFAZolin 2000MG 2,000 MG/15 ML SYR IV ONE (14:13)
--- NOTE | 2023-01-23 14:29 | Operative Report ---
PG Post Operative Report Pre & Post Diagnosis Operation Date: 01/23/23 07:50 Pre-Op Diagnosis: Fevers, Headaches Post-Op Diagnosis: Fevers, Headaches I identified the patient and participated in the time-out.: Yes Procedure Operation Date: 01/23/23 07:50 Actual Procedures p Right Temporal Artery Biopsy(Right) - Dwight Gleason DO Surgeon Dwight Gleason DO Celery Stripper kierra Maxwell Estimated Blood Loss 3 Findings Consistent with Post-Op Diagnosis Specimens right temporal artery biopsy Description of Procedure After informed consent was obtained the patient was taken to the operating room and placed in supine position. IV sedation was administered by anesthesia and titrated to effect. After adequate sedation the right temporal region was sterilely prepped and draped in usual fashion. I used an on table Doppler to identify the right temporal artery. A skin wheal was created with half percent Marcaine. A 15 blade scalpel was then used to make a longitudinal incision directly over the course of the right temporal artery. Skin flaps were created using cautery. Self-retaining retractor was placed. We continued to use gentle dissection and small amounts of cautery to identify the artery itself. I came around the proximal portion of the artery using a right angle. 3-0 silk was used to tie this off and then a small Hemoclip was placed as well. In similar fashion the distal aspect of the artery was controlled again using a right angle clamp. 2 separate 3-0 ties were placed as the artery was too wide at this point to place a small Hemoclip. We then divided the central portion of the artery which measured probably just under an inch. It was passed off to be sent to pathology. We verified that this was in fact the artery by again using the Doppler to verify that there was no longer pulse present. There was adequate hemostasis. The wound was thoroughly irrigated. It was closed in 2 layers usi ng 3-0 Vicryl for deep layer and 4-0 Monocryl for skin Dermabond glue was used as a dressing. My physician medical claims assistant was present for the entire case was instrumental in providing exposure for my dissection assisting with wound closure and dressing placement. I attest to the content of the Intraoperative Record and any orders documented therein. Any exceptions are noted below.
--- NOTE | 2023-01-23 14:52 | Anesthesiology Progress Note ---
Date of Service January 23, 2023 Anesthesia Post Procedure Vital Signs Vital Signs: Temp Pulse Pulse Pulse Resp BP Pulse Ox 01/23/23 14:50 82 23 109/53 L 95 01/23/23 14:40 80 24 105/52 L 96 01/23/23 14:33 36.2 C L 81 18 96/63 L 99 01/23/23 13:07 37.2 C 96 H 18 133/59 L 92 01/23/23 05:59 96 H 01/23/23 03:40 37.1 C 104 H 20 121/61 92 01/22/23 23:14 37.1 C 105 H 16 134/72 94 01/22/23 23:00 101 H 01/22/23 19:41 36.8 C 94 H 16 138/71 94 01/22/23 17:55 106 H 01/22/23 15:12 36.6 C 108 H 18 156/69 H 96 O2 Del Method O2 Flow Rate 01/23/23 14:50 Room Air 01/23/23 14:40 Room Air 01/23/23 14:33 Nasal Cannula 2 01/23/23 13:07 Room Air 01/23/23 05:59 01/23/23 03:40 Room Air 01/22/23 23:14 Room Air 01/22/23 23:00 01/22/23 19:41 Room Air 01/22/23 17:55 01/22/23 15:12 Room Air Transfer of Care Handoff Completed per policy Notes Mental Status: alert / awake / arousable Patient Amnestic to Procedure: Yes Nausea / Vomiting: adequately controlled Pain: adequately controlled Airway Patency, RR, SpO2: stable & adequate BP & HR: stable & adequate Hydration State: stable & adequate Anesthetic Complications: no major complications apparent
[2023-01-23] MEDS: predniSONE 20 MG TAB PO SCH (16:09)
--- NOTE | 2023-01-23 17:52 | Hospitalist Progress Note ---
Date of Service January 23, 2023 Assessment & Plan (1) Fever: Plan: Patient was reported to have had a fever of 101.3 at the [facility] prior to admission but none since then. No other symptoms other than fatigue and some mild frontal headaches. Has ongoing weight loss, poor po intake, low appetite for the last month or so. Was seen here a month ago and had +FRANCISCO, skin rash deemed to not be vasculitis by Rheum, and had normal CSF workup Chest x-ray did not show any acute pathology, CT abdomen and pelvis showed possible LLQ enteritis and severely distended bladder UA neg for infection, BCxs remain NGTD thus far. COVID/Flu/RSV negative. CT head neg Echo no valvular vegetation WBC count continues to climb now up to 12 and stable from previous as do platelets now up to the 500s, no fevers-could be reactive to Fe def anemia vs other nonspecific inflammation With constipation and ?LLQ enteritis--> stercoral colitis? Doubtful and no abd pain ESR 96 on admission and now up to 124, some of which is elevated due to anemia and age. No proximal muscle weakness necessarily-able to get up from chair, walk,but has c/o bilat hip pain as per daughter over the last month With mild headache, elevated ESR, age, hip girdle pain and also shoulder pains (thought to be more from OA), proceeded with TA biopsy on 01/23 -appreciate d/w Rheum--> recommend TA biopsy--> consulted Gen Surgery appreciated-await pathology results -Start prednisone 20 mg daily and assess for response -consult GI to see about EGD/colonoscopy given fevers, weight loss, progressive anemia-plan for outpt EGD/Colonoscopy -follow CBC, CMP, ESR in AM -Needs rheumatology follow-up after discharge (2) Headache: Plan: as above, need to rule out TA with temporal artery biopsy (3) Hyponatremia: Plan: Serum sodium 125 on admission-Most likely due to poor p.o. intake Patient has been admitted a few times in the past with hyponatremia Received normal saline 100 cc/h and now Na+ improved but remains mildly 130 Recheck BMP in AM (4) Anemia: Plan: progressively worsening, now hgb down to 9.3 with thrombocytosis possibly reactive to Fe def anemia vs inflammation from autoimmune process TSH recently normal checked iron studies--> transferrin sat low at 8%, ferritin high at 483 but also could be APR/elevated in setting of unknown inflammation with fever B12 and folate normal follow CBC, no obvious bleeding from anywhere give Venofer 300mg daily x 3 doses while here check fecal occult GI workup/consult placed Peripheral smear consistent with likely anemia of inflammatory disease +/- iron deficiency-likely combination of both (5) Weight loss: Plan: as above, > 10-20 lbs in last 1-2 months needs GI workup but also could be from PMR and GCA (6) Abnormal SPEP: Plan: slightly abnormal, NOE not conclusive f/u with Heme as outpt (7) Seizure: Plan: Recently diagnosed with seizure disorder Continue Keppra (8) Elevated troponin I level: Plan: Mild elevation in troponin level at 32 and then down to normal at 10, most likely due to demand ischemia from fever EKG did not show any ST changes, patient denies chest pain (9) Constipation: Plan: as above, now moving bowels after giving laxatives (10) Ventricular tachycardia: Plan: had 28 beat run on 01/20, asymptomatic; also with short run of SVT replaced Mag and K to keep at above 2.0 and 4.0, respectively-give more magnesium and potassium today check ECHO-very small pericardial effusion, unchanged from previous, normal EF follow on Tele (11) FRANCISCO positive: Plan: Positive FRANCISCO in previous hospital stay suggestive of inflammatory disease. However patient followed up with pipe and test supervisor outpatient who did not identify any inflammatory disease or rheumatological disease at that time Plan DVT proph- SCDs Dispo-continued stay, will likely need SNF at [facility] on discharge in 1-2 days, change status of code to full as per patient but she would not want prolonged life support in the event of poor prognosis or vegetative state Admission and Anticipated Discharge Date Admission Date: January 20, 2023 Subjective Patient feeling okay, had right temporal artery biopsy performed today, minimal pain at the site. We discussed her CODE STATUS and she would like to be a full code. She did move her bowels loosely overnight Telemetry with normal sinus rhythm and rates in the 90s Discussed her care at length with her daughter and cousin at the bedside. Discussed her case with rheumatology Physical Exam Constitutional: WD/WN, vitals as above Eyes: PERRL, conjunctivae normal, anicteric sclerae Right temporal region with incision with Dermabond in place, no bleeding Neck: trachea midline, no thyromegaly Respiratory: normal respiratory effort, lungs clear to auscultation Cardiovascular: RRR, no murmur, no edema Chest (Breasts): Chest: normal inspection of chest Gastrointestinal (Abdomen): normal bowel sounds, soft, nontender, no hep atosplenomegaly Musculoskeletal: Extremities: extremities normal to inspection; no cyanosis and no clubbing Skin: no rashes, warm and dry Neurologic: moves all extremities and awake; no focal motor deficits Psychiatric: A+Ox3, euthymic affect Lymphatic: no lymphedema Results & Data Results & Data Vital Signs (Past 12 Hours) Vital Signs Temp Pulse Pulse Pulse Pulse Resp BP 01/23/23 17:05 37.0 C 99 H 18 148/69 H 01/23/23 16:05 36.7 C 93 H 18 133/64 01/23/23 15:19 36.7 C 88 20 124/64 01/23/23 15:00 36.8 C 82 20 117/51 L 01/23/23 14:50 82 23 109/53 L 01/23/23 14:40 80 24 105/52 L 01/23/23 14:33 36.2 C L 81 18 96/63 L 01/23/23 13:07 37.2 C 96 H 18 133/59 L 01/23/23 05:59 96 H Pulse Ox O2 Del Method O2 Flow Rate 01/23/23 17:05 95 Room Air 01/23/23 16:05 96 Room Air 01/23/23 15:19 97 Room Air 01/23/23 15:00 94 Room Air 01/23/23 14:50 95 Room Air 01/23/23 14:40 96 Room Air 01/23/23 14:33 99 Nasal Cannula 2 01/23/23 13:07 92 Room Air 01/23/23 05:59 Laboratory Results CBC, CMP, CK, magnesium, ESR, CRP reviewed Peripheral smear reviewed PG Care Time/CCT Total # of Minutes Spent Total Time Spent with Patient: Total time spent is greater than 50% in coordination of care (as documented) at patient's floor/unit and/or counseling patient: Coding Level of Care Code 71174 SUB INP/OBS CARE 3/50MIN Diagnoses Fever R50.9 Headache R51.9 Hyponatremia E87.1 Anemia D64.9 Weight loss R63.4 Abnormal SPEP R77.8 Seizure R56.9 Elevated troponin I level R77.8 Constipation K59.00 Ventricular tachycardia I47.20 FRANCISCO positive R76.8
[2023-01-23] MEDS: BIMATOPROST 0.01% OP SOLN 2.5 ML BTL OP SCH (20:45)
[2023-01-24] MEDS: ACETAMINOPHEN 325 MG TAB PO PRN ×2 (03:50→23:18)
[2023-01-24 06:24] LABS: Basophils # (auto) 0.03 K/uL (0.00-0.20); Basophils % (auto) 0.2 %; Eosinophils # (auto) 0.03 K/uL (0.00-0.50); Eosinophils % (auto) 0.2 %; Hematocrit (blood only) 28.6 % (37.0-47.0); Hemoglobin 9.7 g/dl (12.0-16.0); Immature Granulocytes # (auto) 0.12 K/uL (0.01-0.20); Lymphocytes # (auto) 1.43 K/uL (1.20-3.40); Lymphocytes % (auto) 11.5 %; Mean Corpuscular Hemoglobin 28.1 pg (25.0-34.0); Mean Corpuscular Hgb Conc 33.9 g/dL (32.0-36.0); Mean Corpuscular Volume 82.9 fL (80.0-100.0); Mean Platelet Volume 8.7 fL (9.4-12.4); Monocytes # (auto) 0.92 K/uL (0.11-0.59); Monocytes % (auto) 7.4 %; Neutrophils # (auto) 9.86 K/uL (1.40-6.50); Neutrophils % (auto) 79.7 %; Nucleated RBC # (auto) 0.02 K/uL (0.00-0.12); Nucleated RBC % (auto) 0.2 %; Platelet Count 583 K/uL (130-400); RDW Coefficient of Variation 13.4 % (11.5-14.5); RDW Standard Deviation 40.7 fL (36.4-46.3); Red Blood Count 3.45 M/uL (4.20-5.40); White Blood Count 12.39 K/ul (4.8-10.8)
[2023-01-24 06:46] LABS: BUN Creatinine Ratio 17.6 (10-20); Calcium 8.4 mg/dl (8.6-10.3); Creatinine Clr Calc Pharmacy 92.2 ml/min; Est GFR (African American) 114.5 ml/min; Est GFR (Non-African American) 98.8 ml/min; Magnesium 2.2 mg/dl (1.7-2.4); Potassium 3.6 mmol/L (3.5-5.1)
[2023-01-24 07:03] LABS: C Reactive Protein 32.91 mg/dl (0-0.5)
--- NOTE | 2023-01-24 08:53 | Surgery Progress Note ---
Date of Service January 24, 2023 Assessment & Plan (1) History of biopsy of temporal artery: Plan: POD 1 Right Temporal artery BX Patient reports she is doing well this AM However yesterday afternoon when she got up to the BR her right eye went black for seconds and then she saw burst of light, felt dizzy and then went to lay down in bed, felt a headache coming on, but after a few minutes all the symptoms resolved. Patient did not take any medication after this episode, and reports it only happened once. Do not feel the episode is related to the patients surgical procedure Currently denies visual changes EOM intact, PEELRA Right post operative incision covered with dermabond no s/s of infection noted. General surgery will sign off at this time please call with questions or concerns Thank you for allowing us to participate in the patients care. Admission and Anticipated Discharge Date Admission Date: January 20, 2023 Subjective POD 1 Patient reports she is doing well this AM However yesterday afternoon when she got up to the BR her right eye went black for seconds and then she saw burst of light, felt dizzy and then went to lay down in bed, felt a headache coming on, but after a few minutes all the symptoms resolved. Patient did not take any medication after this episode, and reports it only happened once. Review of Systems Eyes: + problem reported right eye Integumentary: Right post operative incision Physical Exam Physical Exam: alert oriented Constitutional: cooperative and comfortable; no acute distress Eyes: PERRL and EOM intact bilaterally Right eye crease lateral canthus has a small ecchymotic area noted, patient is unsure if this is new or if she has had it, could represent a possible broken blood vessel, denies pain, or current visual changes. Skin: Right post operative incision covered with dermabond no signs of infection noted Results & Data Vital Signs (Past 12 Hours) Vital Signs Temp Pulse Pulse Resp BP Pulse Ox O2 Del Method 01/24/23 07:22 98.4 F 90 18 137/69 95 Room Air 01/24/23 02:56 97.3 F L 91 H 20 123/69 96 Room Air 01/23/23 23:00 93 H 01/23/23 23:05 97.9 F 96 H 16 151/88 H 94 Room Air PG Care Time/CCT Total # of Minutes Spent Total Time Spent with Patient: Total time spent is greater than 50% in coordination of care (as documented) at patient's floor/unit and/or counseling patient: Coding Level of Care Code 82789 Post Operative Follow-Up Diagnoses History of biopsy of temporal artery Z98.890
[2023-01-24] MEDS: amLODIPine BESYLATE 5 MG TAB PO SCH (08:58)
[2023-01-24] MEDS: ARTIFICIAL TEARS OPR SCH (08:59)
[2023-01-24] MEDS: ASPIRIN 81 MG ECTAB PO SCH (08:59)
[2023-01-24] MEDS: CALCIUM 600MG + VIT D 400 IU TAB PO SCH ×2 (08:59→20:39)
[2023-01-24] MEDS: LORATADINE 10 MG TAB PO SCH (09:00)
[2023-01-24] MEDS: levETIRAcetam 500 MG TAB PO SCH ×2 (09:00→20:40)
[2023-01-24] MEDS: predniSONE 20 MG TAB PO SCH (09:00)
[2023-01-24] MEDS: TIMOLOL MALEATE 0.5% OP SOLN 5 ML BTL OPR SCH (09:00)
[2023-01-24] MEDS: POLYETHYLENE (MIRALAX) 17 GM PACK PO SCH (09:31)
[2023-01-24] MEDS: DOCUSATE SODIUM/SENNA 50/8.6MG TAB PO SCH (09:31)
[2023-01-24] MEDS ORDERED: methylPREDNISolone 125 MG in SYRINGE 0 ML IV SCH (09:45)
[2023-01-24] MEDS ORDERED: methylPREDNISolone 250 MG in SYRINGE 0 ML IV SCH (10:00)
[2023-01-24] MEDS: methylPREDNISolone 250mg in D5W 100mL IV SCH ×2 (10:59→20:41)
--- NOTE | 2023-01-24 13:35 | Hospitalist Progress Note ---
Date of Service January 24, 2023 Assessment & Plan (1) Fever: Plan: Patient was reported to have had a fever of 101.3 at the [facility] prior to admission but none since then. No other symptoms other than fatigue and some mild frontal headaches. Has ongoing weight loss, poor po intake, low appetite for the last month or so. Was seen here a month ago and had +FRANCISCO, skin rash deemed to not be vasculitis by Rheum, and had normal CSF workup Chest x-ray did not show any acute pathology, CT abdomen and pelvis showed possible LLQ enteritis and severely distended bladder UA neg for infection, BCxs remain NGTD thus far. COVID/Flu/RSV negative. CT head neg Echo no valvular vegetation WBC count continued to climb up to 12 and stable from previous and platelets now up to the 500s, no fevers-could be reactive to Fe def anemia vs other nonspecific inflammation With constipation and ?LLQ enteritis--> stercoral colitis? Doubtful and no abd pain ESR 96 on admission and now up to >130, some of which is elevated due to anemia and age. No proximal muscle weakness necessarily-able to get up from chair, walk,but has c/o bilat hip pain as per daughter over the last month With mild headache, elevated ESR, age, hip girdle pain and also shoulder pains (thought to be more from OA), proceeded with TA biopsy on 01/23 -appreciate d/w Rheum--> recommend TA biopsy--> consulted Gen Surgery appreciated-await pathology results -Started prednisone 20 mg daily and now with episode of amaurosis fugax evening of 01/23--> increase to SoluMedrol 250mg IV bid today and then 125mg IV bid tomorrow-->assess for response-improving already -consult GI to see about EGD/colonoscopy given fevers, weight loss, progressive anemia-plan for outpt EGD/Colonoscopy -follow CBC, CMP, ESR in AM -Needs rheumatology follow-up after discharge -needs Ophthalmology f/u closely after discharge in case of retinal issue causing visual symptoms (2) Headache: Plan: as above, need to rule out TA with temporal artery biopsy treating with steroids (3) Hyponatremia: Plan: Serum sodium 125 on admission-Most likely due to poor p.o. intake Patient has been admitted a few times in the past with hyponatremia Received normal saline 100 cc/h and now Na+ improved but remains mildly low at 134 Recheck BMP in AM (4) Anemia: Plan: progressively worsening, now hgb down to 9.3 with thrombocytosis possibly reactive to Fe def anemia vs inflammation from autoimmune process TSH recently normal checked iron studies--> transferrin sat low at 8%, ferritin high at 483 but also could be APR/elevated in setting of unknown inflammation with fever B12 and folate normal follow CBC, no obvious bleeding from anywhere gave Venofer 300mg daily x 3 doses while here check fecal occult-negative GI workup/consult placed Peripheral smear consistent with likely anemia of inflammatory disease +/- iron deficiency-likely combination of both (5) Weight loss: Plan: as above, > 10-20 lbs in last 1-2 months needs GI workup but also could be from PMR and GCA appetite now improving with starting steroids (6) Abnormal SPEP: Plan: slightly abnormal, NOE not conclusive f/u with Heme as outpt (7) Seizure: Plan: Recently diagnosed with seizure disorder Continue Keppra (8) Elevated troponin I level: Plan: Mild elevation in troponin level at 32 and then down to normal at 10, most likely due to demand ischemia from fever EKG did not show any ST changes, patient denies chest pain (9) Constipation: Plan: as above, now moving bowels after giving laxatives dc laxatives now for loose stools (10) Ventricular tachycardia: Plan: had 28 beat run on 01/20, asymptomatic; also with short run of SVT replaced Mag and K to keep at above 2.0 and 4.0, respectively-give more magnesium and potassium today check ECHO-very small pericardial effusion, unchanged from previous, normal EF follow on Tele-none further (11) FRANCISCO positive: Plan: Positive FRANCISCO in previous hospital stay suggestive of inflammatory disease. However patient followed up with tooth clerk outpatient who did not identify any inflammatory disease or rheumatological disease at that time Plan DVT proph- SCDs Dispo-continued stay, will need SNF at [facility] on discharge perhaps through the weekend Changed code status AGAIN today back to DNR/DNI as per my repeat discussion with patient Admission and Anticipated Discharge Date Admission Date: January 20, 2023 Subjective Pt had an episode of loss of vision in right eye followed by flashing lights last night that lasted about 3-4 minutes. No further visual symptoms but still having an all over headache about a 3/10 in severity. Feels a little stronger today, walked in the halls but got very tired. Denies joint pains I discussed her care with her Molding Utility Worker Dr. Frankel and with Dr. Obregon of Rheum Pt also reports she wants to be DNR Tele with NSR , 1st degree AVB, PACs, rates 80s Physical Exam Constitutional: WD/WN, vitals as above Eyes: PERRL, conjunctivae normal, anicteric sclerae small bruise right lateral eye Neck: trachea midline, no thyromegaly Respiratory: normal respiratory effort, lungs clear to auscultation Cardiovascular: RRR, no murmur, no edema Chest (Breasts): Chest: normal inspection of chest Gastrointestinal (Abdomen): normal bowel sounds, soft, nontender, no hepatosplenomegaly Musculoskeletal: Extremities: extremities normal to inspection; no cyanosis and no clubbing Skin: no rashes, warm and dry Neurologic: moves all extremities and awake; no focal motor deficits Psychiatric: A+Ox3, euthymic affect Lymphatic: no lymphedema Results & Data Results & Data Vital Signs (Past 12 Hours) Vital Signs Temp Pulse Pulse Resp BP Pulse Ox O2 Del Method 01/24/23 12:39 36.4 C L 86 18 131/66 95 Room Air 01/24/23 08:00 87 01/24/23 07:22 36.9 C 90 18 137/69 95 Room Air 01/24/23 02:56 36.3 C L 91 H 20 123/69 96 Room Air Laboratory Results CBC, BMP, ESR, CRP, magnesium, fecal occult reviewed PG Care Time/CCT Total # of Minutes Spent Total Time Spent with Patient: Total time spent is greater than 50% in coordination of care (as documented) at patient's floor/unit and/or counseling patient: Coding Level of Care Code 17804 SUB INP/OBS CARE 3/50MIN Diagnoses Fever R50.9 Headache R51.9 Hyponatremia E87.1 Anemia D64.9 Weight loss R63.4 Abnormal SPEP R77.8 Seizure R56.9 Elevated troponin I level R77.8 Constipation K59.00 Ventricular tachycardia I47.20 FRANCISCO positive R76.8
[2023-01-24] MEDS: BIMATOPROST 0.01% OP SOLN 2.5 ML BTL OP SCH (20:39)
[2023-01-25] MEDS: LORATADINE 10 MG TAB PO SCH (08:23)
[2023-01-25] MEDS: TIMOLOL MALEATE 0.5% OP SOLN 5 ML BTL OPR SCH (08:23)
[2023-01-25] MEDS: levETIRAcetam 500 MG TAB PO SCH ×2 (08:23→20:56)
[2023-01-25] MEDS: amLODIPine BESYLATE 5 MG TAB PO SCH (08:23)
[2023-01-25] MEDS: CALCIUM 600MG + VIT D 400 IU TAB PO SCH ×2 (08:23→20:56)
[2023-01-25] MEDS: ASPIRIN 81 MG ECTAB PO SCH (08:23)
[2023-01-25] MEDS: ARTIFICIAL TEARS OPR SCH (08:24)
[2023-01-25 08:26] LABS: Basophils # (auto) 0.01 K/uL (0.00-0.20); Basophils % (auto) 0.1 %; Hematocrit (blood only) 27.7 % (37.0-47.0); Hemoglobin 9.7 g/dl (12.0-16.0); Immature Granulocytes # (auto) 0.11 K/uL (0.01-0.20); Lymphocytes # (auto) 1.14 K/uL (1.20-3.40); Lymphocytes % (auto) 10.2 %; Mean Corpuscular Hemoglobin 28.4 pg (25.0-34.0); Mean Platelet Volume 8.8 fL (9.4-12.4); Monocytes # (auto) 0.26 K/uL (0.11-0.59); Monocytes % (auto) 2.3 %; Neutrophils # (auto) 9.63 K/uL (1.40-6.50); Neutrophils % (auto) 86.4 %; Nucleated RBC # (auto) 0.08 K/uL (0.00-0.12); Nucleated RBC % (auto) 0.7 %; Platelet Count 728 K/uL (130-400); RDW Coefficient of Variation 13.5 % (11.5-14.5); RDW Standard Deviation 39.9 fL (36.4-46.3); Red Blood Count 3.42 M/uL (4.20-5.40); White Blood Count 11.15 K/ul (4.8-10.8)
[2023-01-25 08:43] LABS: C Reactive Protein 22.61 mg/dl (0-0.5); Calcium 8.7 mg/dl (8.6-10.3); Creatinine Clr Calc Pharmacy 75.7 ml/min; Est GFR (African American) 108.5 ml/min; Est GFR (Non-African American) 93.7 ml/min; Magnesium 2.1 mg/dl (1.7-2.4); Potassium 3.5 mmol/L (3.5-5.1)
[2023-01-25] MEDS ORDERED: methylPREDNISolone 125 MG in SYRINGE 0 ML IV SCH (09:00)
[2023-01-25] MEDS ORDERED: POTASSIUM CHLORIDE CRTAB 20 MEQ TABCR PO STA (11:18)
[2023-01-25] MEDS ORDERED: methylPREDNISolone 125 MG in SYRINGE 0 ML IV ONE (13:15)
--- NOTE | 2023-01-25 16:06 | Hospitalist Progress Note ---
Date of Service January 25, 2023 Assessment & Plan (1) Temporal giant cell arteritis: Plan: Patient was reported to have had a fever of 101.3 at the [facility] prior to admission but none since then. No other symptoms other than fatigue and some mild frontal headaches. Has ongoing weight loss, poor po intake, low appetite for the last month or so. Was seen here a month ago and had +FRANCISCO, skin rash deemed to not be vasculitis by Rheum, and had normal CSF workup Chest x-ray did not show any acute pathology, CT abdomen and pelvis showed possible LLQ enteritis and severely distended bladder UA neg for infection, BCxs negative COVID/Flu/RSV negative. CT head neg Echo no valvular vegetation WBC count continued to climb up to 12 and platelets continued to rise as acute phase reactant No fevers With constipation and ?LLQ enteritis--> stercoral colitis? 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 Brian Merlos that saw pt previously -Started prednisone 20 mg daily x 1 dose and then had episode of amaurosis fugax evening of 01/23--> increased to SoluMedrol 250mg IV bid x 3 days then go to prednisone 60mg po daily as per Rheum -Rheum then recommends starting Actemra as outpt--> check Hep B,C, and Quantiferon Gold in prep for that treatment -ALready improving--> weakness improving, appetite better, CRP trending downward -consulted GI to see about EGD/colonoscopy given fevers, weight loss, progressive anemia-plan for outpt EGD/Colonoscopy -follow CBC, CMP, ESR in AM -Needs rheumatology follow-up after discharge-has appt with Dr. Merlos but pt is considering seeing Dr. Virk at [facility] however there is not likely availability in the near future -needs Ophthalmology f/u closely after discharge in case of retinal issue causing visual symptoms (2) PMR (polymyalgia rheumatica): Plan: as above (3) Fever: Plan: as above (4) Headache: Plan: related to GCA, now resolved with steroids (5) Hyponatremia: Plan: Serum sodium 125 on admission-Most likely due to poor p.o. intake Patient has been admitted a few times in the past with hyponatremia Received normal saline 100 cc/h and now Na+ improved but remains mildly low at 134 Recheck BMP in AM (6) Anemia: Plan: progressively worsening over the last month but now stable at 9.7 with thrombocytosis possibly reactive to Fe def anemia vs inflammation from autoimmune process TSH recently normal checked iron studies--> transferrin sat low at 8%, ferritin high at 483 but also could be APR/elevated in setting of unknown inflammation with fever B12 and folate normal follow CBC, no obvious bleeding from anywhere gave Venofer 300mg daily x 3 doses while here checked fecal occult-negative GI workup/consult placed-scopes as outpt Peripheral smear consistent with likely anemia of inflammatory disease +/- iron deficiency-likely combination of both (7) Weight loss: Plan: as above, > 10-20 lbs in last 1-2 months needs GI workup but also likely from PMR and GCA appetite now improving with starting steroids (8) Abnormal SPEP: Plan: slightly abnormal, NOE not conclusive f/u with Heme as outpt (9) Seizure: Plan: Recently diagnosed with seizure disorder Continue Keppra F/u with Neuro to see if seizures perhaps were related to GCA? (10) Elevated troponin I level: Plan: Mild elevation in troponin level at 32 and then down to normal at 10, most likely due to demand ischemia from fever EKG did not show any ST changes, patient denies chest pain (11) Constipation: Plan: resolved, now moving bowels after giving laxatives (12) Ventricular tachycardia: Plan: had 28 beat run on 01/20, asymptomatic; also with short run of SVT replaced Mag and K to keep at above 2.0 and 4.0, respectively-give more magnesium and potassium today check ECHO-very small pericardial effusion, unchanged from previous, normal EF follow on Tele-none further (13) FRANCISCO positive: Plan: Positive FRANCISCO in previous hospital stay but does not have SLE Plan DVT proph- SCDs Dispo-continued stay, will need SNF at [facility] on discharge -hopeful for discharge on Saturday-Saturday if continues to improve DNR/DNI Discussed care with daughter at bedside 01/25 Admission and Anticipated Discharge Date Admission Date: January 20, 2023 Subjective Pt states headache has resolved. Not sleeping well. Appetite improving. Moving bowels and no further loose stools. Has some occasional blurry vision but did get her refresh tears today. No further blindness or flashing lights in vision. Tele with SR, PVCs, rates 80-90s Physical Exam Constitutional: WD/WN, vitals as above Neck: trachea midline, no thyromegaly Respiratory: normal respiratory effort, lungs clear to auscultation Cardiovascular: RRR, no murmur, no edema Chest (Breasts): Chest: normal inspection of chest Gastrointestinal (Abdomen): normal bowel sounds, soft, nontender, no hepatospl enomegaly Musculoskeletal: Extremities: extremities normal to inspection; no cyanosis and no clubbing Skin: incision cdi right temporal region Neurologic: moves all extremities and awake; no focal motor deficits Psychiatric: A+Ox3, euthymic affect Lymphatic: no lymphedema Results & Data Results & Data Vital Signs (Past 12 Hours) Vital Signs Temp Pulse Pulse Resp BP Pulse Ox O2 Del Method 01/25/23 12:14 36.5 C 83 18 120/66 96 Room Air 01/25/23 07:29 36.4 C L 87 18 129/69 95 Room Air 01/25/23 06:52 80 01/25/23 04:30 36.4 C L 85 16 129/66 96 Room Air Laboratory Results CBC, BMP, CRP, ESR, magnesium reviewed PG Care Time/CCT Total # of Minutes Spent Total Time Spent with Patient: Total time spent is greater than 50% in coordination of care (as documented) at patient's floor/unit and/or counseling patient: Coding Level of Care Code 88391 SUB INP/OBS CARE 3/50MIN Diagnoses Temporal giant cell arteritis M31.6 PMR (polymyalgia rheumatica) M35.3 Fever R50.9 Headache R51.9 Hyponatremia E87.1 Anemia D64.9 Weight loss R63.4 Abnormal SPEP R77.8 Seizure R56.9 Elevated troponin I level R77.8 Constipation K59.00 Ventricular tachycardia I47.20 FRANCISCO positive R76.8
[2023-01-25] MEDS: MELATONIN 3 MG TAB PO SCH (20:55)
[2023-01-25] MEDS: BIMATOPROST 0.01% OP SOLN 2.5 ML BTL OP SCH (20:56)
[2023-01-25] MEDS ORDERED: methylPREDNISolone 250 MG in SYRINGE 0 ML IV SCH (21:00)
[2023-01-25] MEDS: methylPREDNISolone 250mg in D5W 100mL IV SCH (21:43)
[2023-01-26 04:00] LABS: Basophils # (auto) 0.01 K/uL (0.00-0.20); Basophils % (auto) 0.1 %; Hemoglobin 8.9 g/dl (12.0-16.0); Immature Granulocytes # (auto) 0.14 K/uL (0.01-0.20); Immature Granulocytes % (auto) 0.9 %; Lymphocytes # (auto) 1.18 K/uL (1.20-3.40); Lymphocytes % (auto) 7.9 %; Mean Corpuscular Hemoglobin 28.1 pg (25.0-34.0); Mean Corpuscular Hgb Conc 34.2 g/dL (32.0-36.0); Mean Platelet Volume 8.8 fL (9.4-12.4); Monocytes # (auto) 0.39 K/uL (0.11-0.59); Monocytes % (auto) 2.6 %; Neutrophils # (auto) 13.25 K/uL (1.40-6.50); Neutrophils % (auto) 88.5 %; Nucleated RBC # (auto) 0.06 K/uL (0.00-0.12); Nucleated RBC % (auto) 0.4 %; Platelet Count 702 K/uL (130-400); RDW Coefficient of Variation 13.5 % (11.5-14.5); RDW Standard Deviation 40.6 fL (36.4-46.3); Red Blood Count 3.17 M/uL (4.20-5.40); White Blood Count 14.97 K/ul (4.8-10.8)
[2023-01-26 04:18] LABS: Albumin Globulin Ratio 0.7 (0.9-2); Albumin Level 2.7 gm/dl (3.4-5.0); Bilirubin,Total 0.3 mg/dl (0.2-1.0); C Reactive Protein 12.06 mg/dl (0-0.5); Calcium 8.3 mg/dl (8.6-10.3); Creatinine Clr Calc Pharmacy 75.7 ml/min; Est GFR (African American) 108.5 ml/min; Est GFR (Non-African American) 93.7 ml/min; Globulin 3.8 gm/dl (2.5-4.0); Magnesium 2.1 mg/dl (1.7-2.4); Potassium 3.9 mmol/L (3.5-5.1); Total Protein 6.5 gm/dl (6.0-8.3)
[2023-01-26] MEDS: LORATADINE 10 MG TAB PO SCH (09:12)
[2023-01-26] MEDS: TIMOLOL MALEATE 0.5% OP SOLN 5 ML BTL OPR SCH (09:12)
[2023-01-26] MEDS: ASPIRIN 81 MG ECTAB PO SCH (09:12)
[2023-01-26] MEDS: CALCIUM 600MG + VIT D 400 IU TAB PO SCH ×2 (09:12→21:02)
[2023-01-26] MEDS: amLODIPine BESYLATE 5 MG TAB PO SCH (09:12)
[2023-01-26] MEDS: IPRATROPIUM BROMIDE NASAL SPRAY 0.06% 15ML NAE PRN (09:12)
[2023-01-26] MEDS: levETIRAcetam 500 MG TAB PO SCH ×2 (09:12→21:02)
[2023-01-26] MEDS: ARTIFICIAL TEARS OPR SCH (09:13)
[2023-01-26] MEDS: methylPREDNISolone 250mg in D5W 100mL IV SCH ×2 (09:16→21:02)
[2023-01-26 10:53] LABS: HBSAG NON-REACTIVE (NON-REACTIVE); Hepatitis A Antibody IgM NON-REACTIVE (NON-REACTIVE); Hepatitis B Core Antibody IgM NON-REACTIVE (NON-REACTIVE)
--- NOTE | 2023-01-26 15:23 | Hospitalist Progress Note ---
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 Brian Merlos that saw pt previously -Started prednisone 20 mg daily x 1 dose and then had episode of amaurosis fugax evening of 01/23--> increased to SoluMedrol 250mg IV bid x 3 days then go to prednisone 60mg po daily as per Rheum -Rheum then recommends starting Actemra as outpt--> check Hep B,C, and Quantiferon Gold in prep for that treatment -Already improving--> weakness improving, appetite better, ESR/CRP trending downward -consulted GI to see about EGD/colonoscopy given fevers, weight loss, progressive anemia-plan for outpt EGD/Colonoscopy -follow CBC, CMP, ESR/CRP in AM -Needs rheumatology follow-up after discharge-has appt with Dr. Merlos but pt is considering seeing Dr. Virk at [facility] however there is not likely availability in the near future -needs Ophthalmology f/u closely after discharge in case of retinal issue causing visual symptoms (2) PMR (polymyalgia rheumatica): Plan: as above (3) Headache: Plan: related to GCA, now resolved with steroids (4) Hyponatremia: Plan: Serum sodium 125 on admission-Most likely due to poor p.o. intake Patient has been admitted a few times in the past with hyponatremia Received normal saline 100 cc/h and now Na+ improved but remains mildly low at 134 Recheck BMP in AM (5) Anemia: Plan: progressively worsening over the last month with thrombocytosis possibly reactive to Fe def anemia vs inflammation from autoimmune process TSH recently normal checked iron studies--> transferrin sat low at 8%, ferritin high at 483 but also could be APR/elevated in setting of unknown inflammation with recent fever B12 and folate normal follow CBC, no obvious bleeding from anywhere gave Venofer 300mg daily x 3 doses while here checked fecal occult-negative GI workup/consult placed-scopes as outpt Peripheral smear consistent with likely anemia of inflammatory disease +/- iron deficiency-likely combination of both (6) Weight loss: Plan: > 10-20 lbs in last 1-2 months needs GI workup but also likely from PMR and GCA appetite now improving with starting steroids (7) Abnormal SPEP: Plan: slightly abnormal, NOE not conclusive f/u with Heme as outpt (8) Seizure: Plan: Recently diagnosed with seizure disorder Continue Keppra F/u with Neuro to see if seizures perhaps were related to GCA? (9) Elevated troponin I level: Plan: Mild elevation in troponin level at 32 and then down to normal at 10, most likely due to demand ischemia EKG did not show any ST changes, patient denies chest pain (10) Constipation: Plan: may need to schedule a bowel regimen (11) Ventricular tachycardia: Plan: had 28 beat run on 01/20, asymptomatic; also with short run of SVT replaced Mag and K to keep at above 2.0 and 4.0, respectively-give more magnesium and potassium today check ECHO-very small pericardial effusion, unchanged from previous, normal EF follow on Tele-none further (12) FRANCISCO positive: Plan: Positive FRANCISCO in previous hospital stay but does not have SLE Plan DVT proph- SCDs Dispo-continued stay, will need SNF at [facility] on discharge -hopeful for discharge on Saturday-Saturday if continues to improve DNR/DNI Admission and Anticipated Discharge Date Admission Date: January 20, 2023 Subjective Overall feeling much better. Denies any significant pain. Denies recent passing of gas or bowel movements. Urinating well without concern. Tolerating p.o. well. Denies any lightheadedness or dizziness, chest pains, or shortness of breath. Denies any visual concerns Review of Systems Review of Systems: Per subjective Physical Exam Physical Exam: General: Well-appearing, NAD Neck: Supple, no cervical LAD Cardiovascular: RRR, no M/R/G Pulmonary: CTAB, no W/R/R Integumentary: R sikh biopsy site with c/d/i incision without erythema or purulent drainage Neurologic: AAOx3, no focal deficits Psychiatric: Appropriate mood/affect Results & Data Results & Data Vital Signs (Past 12 Hours) Vital Signs Temp Pulse Pulse Resp BP Pulse Ox O2 Del Method 01/26/23 12:00 36.6 C 71 16 115/77 97 Room Air 01/26/23 09:00 67 01/26/23 08:00 36.5 C 88 18 107/67 97 Room Air 01/26/23 03:28 36.3 C L 73 17 124/66 97 Room Air Laboratory Results Reviewed CBC, CMP, CRP, ESRnotable for decreasing hemoglobin to 8.9, ESR now downtrending to 129, sodium stable at 134, CRP down trended to 12 Hepatitis panel also non-reactive PG Care Time/CCT Total # of Minutes Spent Total Time Spent with Patient: Total time spent is greater than 50% in coordination of care (as documented) at patient's floor/unit and/or counseling patient: Coding Level of Care Code 97624 SUB INP/OBS CARE 2/35MIN Diagnoses Temporal giant cell arteritis M31.6 PMR (polymyalgia rheumatica) M35.3 Headache R51.9 Hyponatremia E87.1 Anemia D64.9 Weight loss R63.4 Abnormal SPEP R77.8 Seizure R56.9 Elevated troponin I level R77.8 Constipation K59.00 Ventricular tachycardia I47.20 FRANCISCO positive R76.8
[2023-01-26] MEDS: MELATONIN 3 MG TAB PO SCH (21:02)
[2023-01-26] MEDS: BIMATOPROST 0.01% OP SOLN 2.5 ML BTL OP SCH (21:03)
[2023-01-27] MEDS: POLYETHYLENE (MIRALAX) 17 GM PACK PO PRN ×2 (05:44→08:46)
[2023-01-27 06:36] LABS: Hematocrit (blood only) 29.6 % (37.0-47.0); Hemoglobin 10.1 g/dl (12.0-16.0); Mean Corpuscular Hemoglobin 28.3 pg (25.0-34.0); Mean Corpuscular Hgb Conc 34.1 g/dL (32.0-36.0); Mean Corpuscular Volume 82.9 fL (80.0-100.0); Mean Platelet Volume 8.8 fL (9.4-12.4); Nucleated RBC # (auto) 0.05 K/uL (0.00-0.12); Nucleated RBC % (auto) 0.4 %; Platelet Count 836 K/uL (130-400); RDW Coefficient of Variation 13.5 % (11.5-14.5); RDW Standard Deviation 41.1 fL (36.4-46.3); Red Blood Count 3.57 M/uL (4.20-5.40)
[2023-01-27 06:58] LABS: BUN Creatinine Ratio 26.5 (10-20); C Reactive Protein 8.12 mg/dl (0-0.5); Calcium 8.5 mg/dl (8.6-10.3); Est GFR (African American) 101.5 ml/min; Est GFR (Non-African American) 87.6 ml/min; Potassium 3.4 mmol/L (3.5-5.1)
[2023-01-27] MEDS: ASPIRIN 81 MG ECTAB PO SCH (08:46)
[2023-01-27] MEDS: LORATADINE 10 MG TAB PO SCH (08:46)
[2023-01-27] MEDS: levETIRAcetam 500 MG TAB PO SCH ×2 (08:46→20:31)
[2023-01-27] MEDS: ARTIFICIAL TEARS OPR SCH (08:46)
[2023-01-27] MEDS: CALCIUM 600MG + VIT D 400 IU TAB PO SCH ×2 (08:46→20:31)
[2023-01-27] MEDS: TIMOLOL MALEATE 0.5% OP SOLN 5 ML BTL OPR SCH (08:47)
[2023-01-27] MEDS: amLODIPine BESYLATE 5 MG TAB PO SCH (08:47)
[2023-01-27] MEDS: methylPREDNISolone 250mg in D5W 100mL IV SCH ×2 (08:48→20:31)
--- NOTE | 2023-01-27 18:06 | Hospitalist Progress Note ---
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 Brian Merlos that saw pt previously -Started prednisone 20 mg daily x 1 dose and then had episode of amaurosis fugax evening of 01/23--> increased to SoluMedrol 250mg IV bid x 3 days (last dose should be 10/2 AM) then go to prednisone 60mg po daily as per Rheum -Rheum then recommends starting Actemra as outpt--> check Hep B,C, and Quantiferon Gold in prep for that treatment -Already improving--> weakness improving, appetite better, ESR/CRP trending downward -consulted GI to see about EGD/colonoscopy given fevers, weight loss, progressive anemia-plan for outpt EGD/Colonoscopy -Needs rheumatology follow-up after discharge-has appt with Dr. Merlos but pt is considering seeing Dr. Virk at [facility] however there is not likely availability in the near future -needs Ophthalmology f/u closely after discharge in case of retinal issue causing visual symptoms (2) PMR (polymyalgia rheumatica): Plan: as above (3) Headache: Plan: related to GCA, now resolved with steroids (4) Hyponatremia: Plan: Serum sodium 125 on admission-Most likely due to poor p.o. intake Patient has been admitted a few times in the past with hyponatremia Received normal saline 100 cc/h and now Na+ improved but remains mildly low at 134 (5) Anemia: Plan: progressively worsening over the last month with thrombocytosis possibly reactive to Fe def anemia vs inflammation from autoimmune process TSH recently normal checked iron studies--> transferrin sat low at 8%, ferritin high at 483 but also could be APR/elevated in setting of unknown inflammation with recent fever B12 and folate normal, no obvious bleeding from anywhere, checked fecal occult- negative gave Venofer 300mg daily x 3 doses while inpatient GI workup/consult placed-scopes as outpt Peripheral smear consistent with likely anemia of inflammatory disease +/- iron deficiency-likely combination of both (6) Weight loss: Plan: > 10-20 lbs in last 1-2 months needs GI workup but also likely from PMR and GCA appetite now improving with starting steroids (7) Abnormal SPEP: Plan: slightly abnormal, NOE not conclusive f/u with Heme as outpt (8) Seizure: Plan: Recently diagnosed with seizure disorder Continue Keppra F/u with Neuro to see if seizures perhaps were related to GCA? (9) Elevated troponin I level: Plan: Mild elevation in troponin level at 32 and then down to normal at 10, most likely due to demand ischemia EKG did not show any ST changes, patient denies chest pain (10) Constipation: Plan: Miralax this morning, may need to augment if no BM today (11) Ventricular tachycardia: Plan: had 28 beat run on 01/20, asymptomatic; also with short run of SVT replaced Mag and K to keep at above 2.0 and 4.0, respectively-give more magnesium and potassium today check ECHO-very small pericardial effusion, unchanged from previous, normal EF follow on Tele-none further (12) FRANCISCO positive: Plan: Positive FRANCISCO in previous hospital stay but does not have SLE Plan DVT proph- SCDs Dispo-continued stay, will need SNF at [facility] on discharge -hopeful for discharge on Saturday-Saturday if continues to improve DNR/DNI Admission and Anticipated Discharge Date Admission Date: January 20, 2023 Subjective Overall doing well without any acute concerns. Denies any vision changes, lightheadedness/dizziness, chest pain, shortness of breath, joint aches. She does note she has not yet had a recent bowel movement in spite of taking MiraLAX Review of Systems Review of Systems: Per subjective Physical Exam Physical Exam: General: Well-appearing, NAD Neck: Supple, no cervical LAD Cardiovascular: RRR, no M/R/G Pulmonary: CTAB, no W/R/R Gastrointestinal: Abdomen with mild distention, nontender and soft Integumentary: R faith biopsy site with c/d/i incision without erythema or purulent drainage Neurologic: AAOx3, no focal deficits Psychiatric: Appropriate mood/affect Results & Data Results & Data Vital Signs (Past 12 Hours) Vital Signs Temp Pulse Pulse Resp BP Pulse Ox O2 Del Method 01/27/23 17:00 36.5 C 77 20 115/58 L 97 Room Air 01/27/23 07:00 76 01/27/23 11:00 36.8 C 89 20 126/60 98 Room Air 01/27/23 07:00 36.5 C 77 16 131/62 97 Room Air Laboratory Results Reviewed CBC, BMP, CRP, and ESRnotable for improved leukocytosis to 13, hemoglobin improved to 10.1, sodium stable at 134, potassium mildly low at 3.4, improved ESR and CRP to 118 and 8.12 respectively PG Care Time/CCT Total # of Minutes Spent Total Time Spent with Patient: Total time spent is greater than 50% in coordination of care (as documented) at patient's floor/unit and/or counseling patient: Coding Level of Care Code 04954 SUB INP/OBS CARE 2/35MIN Diagnoses Temporal giant cell arteritis M31.6 PMR (polymyalgia rheumatica) M35.3 Headache R51.9 Hyponatremia E87.1 Anemia D64.9 Weight loss R63.4 Abnormal SPEP R77.8 Seizure R56.9 Elevated troponin I level R77.8 Constipation K59.00 Ventricular tachycardia I47.20 FRANCISCO positive R76.8
[2023-01-27] MEDS: MELATONIN 3 MG TAB PO SCH (20:31)
[2023-01-27] MEDS: BIMATOPROST 0.01% OP SOLN 2.5 ML BTL OP SCH (20:31)
[2023-01-28 06:02] LABS: Hematocrit (blood only) 26.8 % (37.0-47.0); Hemoglobin 9.2 g/dl (12.0-16.0); Mean Corpuscular Hgb Conc 34.3 g/dL (32.0-36.0); Mean Corpuscular Volume 81.5 fL (80.0-100.0); Mean Platelet Volume 8.8 fL (9.4-12.4); Nucleated RBC # (auto) 0.08 K/uL (0.00-0.12); Nucleated RBC % (auto) 0.5 %; Platelet Count 724 K/uL (130-400); RDW Coefficient of Variation 13.4 % (11.5-14.5); RDW Standard Deviation 39.8 fL (36.4-46.3); Red Blood Count 3.29 M/uL (4.20-5.40)
[2023-01-28 06:20] LABS: BUN Creatinine Ratio 28.6 (10-20); C Reactive Protein 4.29 mg/dl (0-0.5); Calcium 8.1 mg/dl (8.6-10.3); Creatinine Clr Calc Pharmacy 74.6 ml/min; Est GFR (African American) 106.8 ml/min; Est GFR (Non-African American) 92.2 ml/min; Potassium 3.3 mmol/L (3.5-5.1)
[2023-01-28] MEDS: levETIRAcetam 500 MG TAB PO SCH (09:36)
[2023-01-28] MEDS: CALCIUM 600MG + VIT D 400 IU TAB PO SCH (09:36)
[2023-01-28] MEDS: POLYETHYLENE (MIRALAX) 17 GM PACK PO PRN (09:37)
[2023-01-28] MEDS: LORATADINE 10 MG TAB PO SCH (09:37)
[2023-01-28] MEDS: ARTIFICIAL TEARS OPR SCH (09:37)
[2023-01-28] MEDS: TIMOLOL MALEATE 0.5% OP SOLN 5 ML BTL OPR SCH (09:37)
[2023-01-28] MEDS: amLODIPine BESYLATE 5 MG TAB PO SCH (09:37)
[2023-01-28] MEDS: ASPIRIN 81 MG ECTAB PO SCH (09:37)
[2023-01-28] MEDS: methylPREDNISolone 250mg in D5W 100mL IV SCH (10:01)
[2023-01-28] MEDS ORDERED: POTASSIUM CHLORIDE CRTAB 20 MEQ TABCR PO STA (10:51)
[2023-01-28] MEDS ORDERED: POTASSIUM CHLORIDE 20 MEQ/15 ML UDC PO STA (11:06)
[2023-01-28 11:27] LABS: Quantiferon Mitogen-NIL 0.67 IU/mL; Quantiferon NIL 0.03 IU/mL; Quantiferon TB Gold Plus NEGATIVE (NEGATIVE)
--- NOTE | 2023-01-28 13:16 | Discharge Summary ---
Date of Service January 28, 2023 Admission HPI Per Admitting Provider Is an 87-year-old long-term resident with a history of hypertension, hyponatremia, seizure disorder, who presents from the long-term on account of fever. According to reports, her Tmax was 100.3 according to the patient, fever started a day prior to presentation but without chills. She denies a headache or abdominal pain or chest pain or shortness of breath or cough. Here in the emergency department WBC was 11,000 serum sodium 125 initial troponin 22 then a repeat 33. Of note patient has been admitted in the hospital multiple times in the past during her last hospital admission in November 2022 she was suspected to have some underlying systemic inflammation given her elevated inflammatory markers then. She had a follow-up visit with rheumatology last week and the bridge toll collector did not identify any systemic inflammatory arthritis or vasculitis but wanted further investigation with SPEP. Today in emergency department vital signs have been stable, blood pressure 111/57 pulse 75 respiratory rate 20 temperature 98.2 saturation 94% on room air. She will be admitted under observation. Normal saline has been started Principal Diagnosis Temporal arteritis, hypokalemia, hyponatremia Discharge Exam General-alert and oriented x3, no fevers, no chills HEENT-head atraumatic and normocephalic, pupils equal and reactive to light, extraocular muscles intact Neck-no lymphadenopathy or thyromegaly, trachea midline Chest-clear to auscultation percussion. No rales wheezing or rhonchi Cardiac-regular rate and rhythm, normal S1 and S2 Abdomen-normal bowel sounds, nontender, no hepatosplenomegaly Extremities-no cyanosis, clubbing, or edema Neuro-cranial nerves II through XII intact, motor and sensory function within normal limits, strength symmetrical, no focal deficits Psych-normal affect, normal mood Discharge Data Allergies Allergy/AdvReac Type Severity Reaction Status Date / Time Penicillins Allergy Unknown Unknown rxn Verified 01/20/23 01:11 azithromycin [From Zithromax] Allergy Unknown Verified 01/20/23 01:11 doxycycline Allergy Unknown Verified 01/20/23 01:11 risedronate sodium Allergy Unknown Verified 01/20/23 01:11 [From Actonel] Consultations 01/20/23 03:29 ED Decision to Admit Stat 01/21/23 13:26 Consult Gastroenterology Routine 01/22/23 16:51 Consult General Surgery Routine Procedures Performed Operation Date: 01/23/23 07:50 Actual Procedures p Right Temporal Artery Biopsy(Right) - Dwight Gleason, Ordered Studies 01/19/23 23:26 CT abd pelvis IV con only Stat CT head/brain wo con Stat Hospital Course (1) Temporal giant cell arteritis: Improved. She is now on prednisone 60 mg daily. She will follow-up with rheumatology as an outpatient. Consulted GI to see about EGD/colonoscopy given fevers, weight loss, progressive anemia-plan for outpt EGD/Colonoscopy (2) PMR (polymyalgia rheumatica): Prednisone dependent. Outpatient rheumatology management (3) Headache: related to GCA. Resolved with steroids (4) Hyponatremia: Mild on admission-Most likely due to poor p.o. intake. Improved (5) Anemia: progressively worsening over the last month. Iron deficiency documented. She received parenteral iron replacement therapy while hospitalized. Oral iron replacement going forward (6) Weight loss: > 10-20 lbs in last 1-2 months. Needs GI workup but also likely from PMR and GCA (7) Abnormal SPEP: slightly abnormal, NOE not conclusive. f/u with Heme as outpt (8) Seizure: Recently diagnosed. Stable on Keppra (9) Elevated troponin I level: No chest pain. No evidence of acute coronary syndrome. This appears to be due to demand ischemia. No acute EKG changes (10) Constipation: Resolved with MiraLAX (11) Ventricular tachycardia: Asymptomatic wide-complex 28 beat run on January 20. This may have been SVT with aberrancy. ECHO-very small pericardial effusion, unchanged from previous, normal EF (12) FRANCISCO positive: Positive FRANCISCO but no overt SLE Plan Discharge to [facility] today, January 28 Total Time Total Time Spent Total Time Spent (In Minutes): 45 minutes Discharge Plan Discharge Items Patient Disposition: Transfer Nursing Home Fac Reason For Visit: FEVER, HYPONATREMIA Discharge Diagnosis: Temporal arteritis, hyponatremia, hypokalemia, amaurosis fugax Activity: Per Instructions section Lifting: Gradually increase as tolerated Bathing Comment: no soaking in tubs/pools x 2 weeks Exercise/Sports: Gradually increase as tolerated Non-emergency contact: Primary Care Provider Call non-emergency contact if: you have any medication questions, your pain is worsening, you have a fever, your temperature is above 101.5, your wound has increased redness, your wound has increased drainage and your wound pain has increased Follow-up/Referrals: Dwight Gleason DO [Surgeon] - (Please call to schedule follow up in clinic within 2 weeks) Roque Figueroa MD [Primary Care Provider] - Brian Obregon DO [Physician] - 02/01/23 2:30 pm Diet: Regular and Heart Healthy Addtl Attending Provider Instructions: You have skin glue over your incisions called dermabond. you may shower with this on. It will tend to dissolve and fall off within a couple weeks. Do not pick at the skin glue Pending Studies at Discharge: No Stand-Alone Forms: My [facility] Skilled Items Patient informed of condition?: Yes DNR: Yes Discharge Level of Care: Skilled Communicable Disease: No Discharge Prognosis: Stable Lines: None Urinary Catheter: No Medications and DC Order Prescriptions: New ferrous sulfate 325 mg (65 mg iron) tablet 325 mg PO BID Qty: 1 0RF prednisone 20 mg tablet 20 mg PO TID Qty: 1 0RF Continued bisacodyl 10 mg suppository 10 mg OH DAILY PRN (Reason: Constipation) sodium phosphates 19-7 gram/118 mL enema 118 ml OH DAILY PRN (Reason: Constipation) acetaminophen 325 mg capsule 325 mg PO Q4 PRN (Reason: Fever Or Pain) alendronate 70 mg tablet 70 mg PO .Weekly Rx Instructions: Saturday amlodipine 5 mg tablet 5 mg PO DAILY aspirin [Adult Aspirin Regimen] 81 mg tablet,delayed release (DR/EC) 81 mg PO DAILY nystatin-triamcinolone 100,000-0.1 unit/g-% cream 1 applic topical Q8 PRN (Reason: irritation perinium) timolol 0.5 % drops 1 drp OPR QAM triamcinolone acetonide 55 mcg aerosol,spray 1 spray intranasal DAILY Rx Instructions: administer into each nostril calcium carbonate [Tums] 200 mg calcium (500 mg) tablet,chewable 200 mg PO Q6 PRN (Reason: Indigestion) ondansetron HCl 4 mg tablet 4 mg PO Q8H calcium carbonate-vitamin D3 [Calcium 600 + D(3)] 600 mg-10 mcg (400 unit) Tablet 1 tab PO BID Rx Instructions: unable to verify Lumigan 0.01 % drops 1 drp OPB HS betamethasone dipropionate 0.05 % cream 1 applic TOP BID PRN (Reason: itching) Rx Instructions: Apply sparingly to affected area twice a day PRN; loratadine 10 mg Tablet 10 mg PO DAILY polyethylene glycol 3350 [Miralax] 17 gram Powder In Packet 17 g PO QAM ipratropium bromide 21 mcg (0.03 %) spray,non-aerosol 1 spray INTRANASAL BID PRN (Reason: allergies) levetiracetam 1,000 mg tablet 1,000 mg PO BID Artificial Tears (cmc) 1 % Drops 1 drp OPR QAM Artificial Tears (cmc) 1 % Drops 1 drp OPHTHALMIC (EYE) Q6 PRN (Reason: Dry Eyes) Discharge Orders: Discharge Order (Routine); Ordered 01/28/23 Ordered By: Lee Garcia Admission Data Admit Date/Time: 01/20/23 04:00 Attending Provider: Lee Garcia Admit Provider: Ricardo Santos Primary Care Provider: Roque Figueroa Other Providers: Ricardo Santos ; Irma Tubbs Jr ; Ian Potts Coding Level of Care Code 29973 INP/OBS DISCH >30 MIN Diagnoses Temporal giant cell arteritis M31.6 PMR (polymyalgia rheumatica) M35.3 Headache R51.9 Hyponatremia E87.1 Anemia D64.9 Weight loss R63.4 Abnormal SPEP R77.8 Seizure R56.9 Elevated troponin I level R77.8 Constipation K59.00 Ventricular tachycardia I47.20 FRANCISCO positive R76.8
== END 2023-01-28 18:34 | DRG 516 ==
LOC: ED 23:15 → 4W 01-20 04:00 → SUATTDRO 01-20 04:00 → 4W 01-20 05:12

== ENCOUNTER 2023-03-04 11:52 | Inpatient (IN) ==
--- NOTE | 2023-03-04 12:18 | Emergency Department Note ---
Impression & Plan Acute alteration in mental status, Elevated troponin I level, Acidosis, lactic ED Provider Note NAME: LEENA BAIG AGE: 87 SEX: F : 1935 ARRIVES VIA: Ambulance INFORMANT: Patient, EMS, nursing and documentation ED PROVIDER(S): Blanco Collazo DO CHIEF COMPLAINT: Altered mental status HPI: The patient is an 87-year-old female who presented to the emergency department by ambulance. The patient is altered in her mental status. History was obtained from the nursing staff as well as prehospital personnel. The patient has had worsening altered mental status over the course the last 3 days. There was no reported fever or trauma. She does have a seizure history but no reported seizures occurred. They try to obtain a chest x-ray today and they were unable to get 1 so the patient was sent to the emergency department for further evaluation. There is been no reported dysuria or frequency. The patient was compliant with her outpatient medications as far as we can tell. ROS: See above HPI for pertinent positives & negatives. A total of 10 systems reviewed and were otherwise negative. PAST MEDICAL HISTORY: See Below PAST SURGICAL HISTORY: See Below FAMILY HISTORY: See Below SOCIAL HISTORY: See Below HOME MEDICATIONS: See Below ALLERGIES: See Below VITALS: See Below PHYSICAL EXAMINATION: GENERAL: The patient is obtunded. She does not answer questions. EYES: The conjunctivae are clear. The pupils are round and reactive. EARS, NOSE, MOUTH AND THROAT: The nose is without any evidence of any deformity. Mucous membranes are dry. NECK: The neck is nontender and supple. RESPIRATORY: Normal respiratory effort is noted there is no evidence of wheezing rhonchi or rales CARDIOVASCULAR: Regular rate and rhythm noted there no murmurs rubs or gallops normal S1 normal S2. GASTROINTESTINAL: The abdomen is soft. Abdomen is nontender. MUSCULOSKELETAL/EXTREMITIES: There is no evidence of gross deformity full range of motion is noted in the hips and shoulders. SKIN: There is a diffuse rash noted over the torso and upper extremities. This does jaime easily. NEUROLOGIC: Patient is obtunded and does not answer questions. I am unable to assess orientation at this time. MEDICAL DECISION MAKING: The patient is an 87-year-old female who presented to the emergency department with altered mental status. I could not obtain an appropriate history and the patient because of her altered mental status. I discussed patient's laboratory and radiographic studies with the on-call [facility] hospitalist. No definite infectious source could be found but the patient was found to have a lactic acidosis and was treated with IV fluids and IV antibiotics. She was reevaluated multiple times. She only had a minimal improvement in her altered mental status. For this reason I feel the patient would be a better candidate for inpatient management. Triage Nursing notes reviewed. Prior medical records reviewed Vital Signs: reviewed and remarkable for elevated blood pressure Differential diagnosis: Infection, hypoglycemia, electrolyte abnormalities, overdose, toxicologic, cardiac sources, intracerebral event, neurologic, trauma, as well as other pathologies. ER treatment provided: See below Diagnostics interpreted by me: ECG: EKG was obtained in the emergency department. My interpretation is normal sinus rhythm at 92 bpm. There was no ectopy. ST abnormalities as well as T wave inversions were noted in the inferior and low lateral leads. This was compared to a tracing from December 04, 2022. The EKG changes are new compared to the earlier tracing. Cardiac Monitoring: An order was placed for continuous cardiac monitoring. The monitor shows a rate of 91 bpm with sinus rhythm. Laboratory studies: As stated above and show below. Imaging studies: See below. Radiographic imaging was reviewed by myself Consultation(s): I discussed this case with Dr. Martinez who is on-call for the [facility] hospitalist group. Past Med/Surg History Medical History Giant cell arteritis PMR (polymyalgia rheumatica) FRANCISCO positive Weight loss Abnormal SPEP Seizure Hyponatremia Dyslipidemia Family history of colon cancer Osteopenia after menopause Pancreatic cyst Surgical History History of temporal artery biopsy (01/23/23) Right Temporal Artery Biopsy(Right) - Dwight Gleason DO History of biopsy of temporal artery History of varicose vein ligation and stripping History of colonoscopy S/P tubal ligation Family History Sister Breast cancer Coronary heart disease Father Stroke Mother Breast cancer Son Narcolepsy Other No family history of adverse response to anesthesia No family history of bleeding disorder Denies family history of Ovarian cancer Prostate cancer Diabetes Lung cancer Colorectal cancer Social History Smoking Status: Unknown if ever smoked Second Hand Exposure: No; Do You Dip or Chew Tobacco: No; Hx Alcohol Use: No Hx Substance Use: No Preferred Language: Indonesian Communication Ability: Effective Visual Impairment: Limited Hearing Ability: Normal 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 Beliefs That Will Affect Care: None marital status: Current Living Situation: Alone current occupational status: retired How many Children do You have: 3 Feels Safe at Home: Yes Childhood Exposure to Second-Hand Smoke: Yes (father smoked pipe occassionally ) Diet: regular caffeine: Yes (coffee and tea ) Dental Care, Regularly: Yes Physical Activity Frequency: Daily Physical Activity Frequency Comment: walk Seatbelt Use: always Sunscreen Use: Yes Assistive Devices: None Allergies Allergies Allergy/AdvReac Type Severity Reaction Status Date / Time Penicillins Allergy Unknown Unknown rxn Verified 03/01/23 14:46 azithromycin [From Zithromax] Allergy Unknown Verified 03/01/23 14:46 doxycycline Allergy Unknown Verified 03/01/23 14:46 risedronate sodium Allergy Unknown Verified 03/01/23 14:46 [From Actonel] lamotrigine [From Lamictal] AdvReac Intermediate Rash Verified 03/01/23 15:03 Home Meds Home Medications Medication Instructions Recorded Confirmed betamethasone dipropionate 0.05 % 1 applic topical BID PRN itching 11/30/22 03/01/23 topical cream bimatoprost 0.01 % eye drops 1 drp OPB HS 11/30/22 03/01/23 (Jason) calcium carbonate 600 mg-vitamin 1 tab PO BID 11/30/22 03/01/23 D3 10 mcg (400 unit) tablet (Calcium 600 + D(3)) loratadine 10 mg tablet 10 mg PO QAM 12/09/22 03/01/23 acetaminophen 325 mg capsule 325 mg PO Q4 PRN Fever Or Pain 01/07/23 03/01/23 alendronate 70 mg tablet 70 mg PO .Weekly 01/07/23 03/01/23 amlodipine 5 mg tablet 5 mg PO QAM 01/07/23 03/01/23 aspirin 81 mg tablet,delayed 81 mg PO DAILY 01/07/23 03/01/23 release (Adult Aspirin Regimen) bisacodyl 10 mg rectal suppository 10 mg MI DAILY PRN Constipation 01/07/23 03/01/23 calcium carbonate 200 mg calcium 200 mg PO Q6 PRN Indigestion 01/07/23 03/01/23 (500 mg) chewable tablet (Tums) nystatin-triamcinolone 100,000 1 applic topical Q8 PRN irritation 01/07/23 03/01/23 unit/g-0.1 % topical cream perinium ondansetron HCl 4 mg tablet 4 mg PO Q8H PRN nausea/vomiting 01/07/23 03/01/23 sodium phosphates 19 gram-7 118 ml MI DAILY PRN Constipation 01/07/23 03/01/23 gram/118 mL enema timolol 0.5 % eye drops 1 drp OPR QAM 01/07/23 03/01/23 triamcinolone acetonide 55 mcg 1 spray intranasal DAILY rhinitis 01/07/23 03/01/23 nasal spray aerosol carboxymethylcellulose sodium 1 % 1 drp OPR QAM 01/20/23 03/01/23 eye drops (Artificial Tears (carboxymethylcellulose)) carboxymethylcellulose sodium 1 % 1 drp ophthalmic (eye) Q6 PRN Dry 01/20/23 03/01/23 eye drops (Artificial Tears Eyes (carboxymethylcellulose)) ipratropium bromide 21 mcg (0.03 1 spray intranasal Q12 PRN rhinitis 01/20/23 03/01/23 %) nasal spray polyethylene glycol 3350 17 gram 17 g PO QAM 01/20/23 03/01/23 oral powder packet (Miralax) Previous Rx's Medication Instructions Recorded ferrous sulfate 325 mg (65 mg 325 mg PO BID #1 tab 01/28/23 iron) tablet tocilizumab 162 mg/0.9 mL 162 mg (0.9 mL) subcut .weekly 02/14/23 subcutaneous syringe (Actemra) #0.9 mL peg 3350-electrolytes 236 240 ml PO ONCE #4,000 mL 02/20/23 gram-22.74 gram-6.74 gram-5.86 gram solution (Golytely) levetiracetam 1,000 mg tablet 1,000 mg PO BID 30 days #60 tabs 03/01/23 prednisone 20 mg tablet 40 mg (2 x 20 mg) PO DAILY #75 tabs 03/01/23 Results & Data (ED) Vital Signs Vital Signs - 24 hr 03/04/23 11:59 03/04/23 12:21 03/04/23 12:22 Temperature 35.9 C L Temperature Source Temporal Artery Scan Pulse Rate 98 H 96 H 96 H Pulse Rate [Apical] Pulse Rate from SpO2 Sensor 96 H Respiratory Rate 19 20 Respiratory Effort / Characteristics Respiratory Depth Respiratory Pattern Blood Pressure 151/74 H Blood Pressure [Right Arm] Blood Pressure Mean 99 Blood Pressure Mean [Right Arm] Blood Pressure Position [Right Arm] Pulse Oximetry 97 98 Oxygen Delivery Method Room Air Oxygen Flow Rate Sepsis Recent Fever Within 48 Hours No Sepsis New/Unexplained Change in Mental Status N/A Sepsis Action Taken by Nursing No Action Required 03/04/23 12:30 03/04/23 12:30 03/04/23 12:40 Temperature Temperature Source Pulse Rate 88 84 Pulse Rate [Apical] 92 H Pulse Rate from SpO2 Sensor 88 Respiratory Rate 26 H 19 20 Respiratory Effort / Characteristics Non-Labored Respiratory Depth Normal Respiratory Pattern Regular Blood Pressure Blood Pressure [Right Arm] 151/74 H Blood Pressure Mean Blood Pressure Mean [Right Arm] 99 Blood Pressure Position [Right Arm] Pulse Oximetry 98 98 Oxygen Delivery Method Room Air Oxygen Flow Rate Sepsis Recent Fever Within 48 Hours Sepsis New/Unexplained Change in Mental Status Sepsis Action Taken by Nursing 03/04/23 12:48 03/04/23 12:50 03/04/23 12:51 Temperature Temperature Source Pulse Rate 82 84 Pulse Rate [Apical] Pulse Rate from SpO2 Sensor 82 83 Respiratory Rate 25 H 24 Respiratory Effort / Characteristics Respiratory Depth Respiratory Pattern Blood Pressure Blood Pressure [Right Arm] Blood Pressure Mean Blood Pressure Mean [Right Arm] Blood Pressure Position [Right Arm] Pulse Oximetry 98 98 98 Oxygen Delivery Method Room Air Oxygen Flow Rate 0 Sepsis Recent Fever Within 48 Hours Sepsis New/Unexplained Change in Mental Status Sepsis Action Taken by Nursing 03/04/23 12:51 03/04/23 12:52 03/04/23 12:53 Temperature Temperature Source Pulse Rate 79 Pulse Rate [Apical] 79 Pulse Rate from SpO2 Sensor 79 Respiratory Rate 17 20 Respiratory Effort / Characteristics Non-Labored Spontaneous Respiratory Depth Normal Respiratory Pattern Blood Pressure 147/66 H Blood Pressure [Right Arm] 147/66 H Blood Pressure Mean 125 Blood Pressure Mean [Right Arm] 93 Blood Pressure Position [Right Arm] Semi-fowlers Pulse Oximetry 97 98 Oxygen Delivery Method Room Air Oxygen Flow Rate Sepsis Recent Fever Within 48 Hours Sepsis New/Unexplained Change in Mental Status Sepsis Action Taken by Nursing 03/04/23 12:53 03/04/23 13:00 03/04/23 13:00 Temperature Temperature Source Pulse Rate 81 Pulse Rate [Apical] Pulse Rate from SpO2 Sensor 81 Respiratory Rate 13 Respiratory Effort / Characteristics Respiratory Depth Respiratory Pattern Blood Pressure 151/73 H 154/64 H Blood Pressure [Right Arm] Blood Pressure Mean 112 117 Blood Pressure Mean [Right Arm] Blood Pressure Position [Right Arm] Pulse Oximetry 96 Oxygen Delivery Method Oxygen Flow Rate Sepsis Recent Fever Within 48 Hours Sepsis New/Unexplained Change in Mental Status Sepsis Action Taken by Nursing 03/04/23 13:26 03/04/23 13:27 03/04/23 13:27 Temperature Temperature Source Pulse Rate 81 86 Pulse Rate [Apical] Pulse Rate from SpO2 Sensor 78 Respiratory Rate 18 Respiratory Effort / Characteristics Respiratory Depth Respiratory Pattern Blood Pressure 166/72 H Blood Pressure [Right Arm] Blood Pressure Mean 133 Blood Pressure Mean [Right Arm] Blood Pressure Position [Right Arm] Pulse Oximetry 98 Oxygen Delivery Method Oxygen Flow Rate Sepsis Recent Fever Within 48 Hours Sepsis New/Unexplained Change in Mental Status Sepsis Action Taken by Nursing 03/04/23 13:29 03/04/23 13:30 03/04/23 13:30 Temperature Temperature Source Pulse Rate 75 Pulse Rate [Apical] 76 Pulse Rate from SpO2 Sensor 75 Respiratory Rate 22 23 Respiratory Effort / Characteristics Non-Labored Respiratory Depth Normal Respiratory Pattern Regular Blood Pressure 147/65 H Blood Pressure [Right Arm] 166/72 H Blood Pressure Mean 107 Blood Pressure Mean [Right Arm] 103 Blood Pressure Position [Right Arm] Pulse Oximetry 97 97 Oxygen Delivery Method Room Air Oxygen Flow Rate Sepsis Recent Fever Within 48 Hours Sepsis New/Unexplained Change in Mental Status Sepsis Action Taken by Nursing 03/04/23 13:40 03/04/23 13:45 03/04/23 13:45 Temperature Temperature Source Pulse Rate 78 79 Pulse Rate [Apical] Pulse Rate from SpO2 Sensor 78 80 Respiratory Rate 10 L 15 Respiratory Effort / Characteristics Respiratory Depth Respiratory Pattern Blood Pressure 152/71 H Blood Pressure [Right Arm] Blood Pressure Mean 117 Blood Pressure Mean [Right Arm] Blood Pressure Position [Right Arm] Pulse Oximetry 97 97 Oxygen Delivery Method Oxygen Flow Rate Sepsis Recent Fever Within 48 Hours Sepsis New/Unexplained Change in Mental Status Sepsis Action Taken by Nursing 03/04/23 13:50 03/04/23 13:56 03/04/23 14:00 Temperature Temperature Source Pulse Rate 77 Pulse Rate [Apical] Pulse Rate from SpO2 Sensor 78 Respiratory Rate 12 Respiratory Effort / Characteristics Respiratory Depth Respiratory Pattern Blood Pressure 144/65 H Blood Pressure [Right Arm] Blood Pressure Mean 107 Blood Pressure Mean [Right Arm] Blood Pressure Position [Right Arm] Pulse Oximetry 97 97 Oxygen Delivery Method Room Air Oxygen Flow Rate Sepsis Recent Fever Within 48 Hours Sepsis New/Unexplained Change in Mental Status Sepsis Action Taken by Nursing 03/04/23 14:00 03/04/23 14:10 03/04/23 14:15 Temperature Temperature Source Pulse Rate 80 83 79 Pulse Rate [Apical] Pulse Rate from SpO2 Sensor 79 82 77 Respiratory Rate 12 19 18 Respiratory Effort / Characteristics Respiratory Depth Respiratory Pattern Blood Pressure Blood Pressure [Right Arm] Blood Pressure Mean Blood Pressure Mean [Right Arm] Blood Pressure Position [Right Arm] Pulse Oximetry 97 97 97 Oxygen Delivery Method Oxygen Flow Rate Sepsis Recent Fever Within 48 Hours Sepsis New/Unexplained Change in Mental Status Sepsis Action Taken by Nursing 03/04/23 14:15 03/04/23 14:20 03/04/23 14:30 Temperature Temperature Source Pulse Rate 77 98 H Pulse Rate [Apical] Pulse Rate from SpO2 Sensor 77 Respiratory Rate 16 22 Respiratory Effort / Characteristics Respiratory Depth Respiratory Pattern Blood Pressure 147/63 H Blood Pressure [Right Arm] Blood Pressure Mean 109 Blood Pressure Mean [Right Arm] Blood Pressure Position [Right Arm] Pulse Oximetry 97 Oxygen Delivery Method Oxygen Flow Rate Sepsis Recent Fever Within 48 Hours Sepsis New/Unexplained Change in Mental Status Sepsis Action Taken by Nursing 03/04/23 14:30 03/04/23 14:40 03/04/23 14:45 Temperature Temperature Source Pulse Rate 94 H Pulse Rate [Apical] Pulse Rate from SpO2 Sensor Respiratory Rate 21 Respiratory Effort / Characteristics Respiratory Depth Respiratory Pattern Blood Pressure 167/87 H 169/81 H Blood Pressure [Right Arm] Blood Pressure Mean 142 126 Blood Pressure Mean [Right Arm] Blood Pressure Position [Right Arm] Pulse Oximetry Oxygen Delivery Method Oxygen Flow Rate Sepsis Recent Fever Within 48 Hours Sepsis New/Unexplained Change in Mental Status Sepsis Action Taken by Nursing 03/04/23 14:45 03/04/23 14:50 03/04/23 15:28 Temperature Temperature Source Pulse Rate 101 H 97 H Pulse Rate [Apical] 90 Pulse Rate from SpO2 Sensor Respiratory Rate 12 15 12 Respiratory Effort / Characteristics Non-Labored Respiratory Depth Normal Respiratory Pattern Blood Pressure Blood Pressure [Right Arm] 170/83 H Blood Pressure Mean Blood Pressure Mean [Right Arm] 112 Blood Pressure Position [Right Arm] Pulse Oximetry 97 98 Oxygen Delivery Method Room Air Oxygen Flow Rate Sepsis Recent Fever Within 48 Hours Sepsis New/Unexplained Change in Mental Status Sepsis Action Taken by Nursing 03/04/23 15:30 Temperature Temperature Source Pulse Rate 91 H Pulse Rate [Apical] Pulse Rate from SpO2 Sensor Respiratory Rate 17 Respiratory Effort / Characteristics Respiratory Depth Respiratory Pattern Blood Pressure Blood Pressure [Right Arm] Blood Pressure Mean Blood Pressure Mean [Right Arm] Blood Pressure Position [Right Arm] Pulse Oximetry 98 Oxygen Delivery Method Room Air Oxygen Flow Rate Sepsis Recent Fever Within 48 Hours Sepsis New/Unexplained Change in Mental Status Sepsis Action Taken by Assisted Medications Current Medication List: was personally reviewed by me Laboratory Data Attestation: I reviewed the patient's lab results. 03/04/23 12:18 03/04/23 12:18 Lab Results 03/04/23 03/04/23 03/04/23 Range/Units 12:18 12:32 12:46 WBC 7.58 (4.8-10.8) K/ul RBC 4.40 (4.20-5.40) M/uL Hgb 13.4 (12.0-16.0) g/dl Hct 39.8 (37.0-47.0) % MCV 90.5 (80.0-100.0) fL MCH 30.5 (25.0-34.0) pg MCHC 33.7 (32.0-36.0) g/dL RDW Std Deviation 66.2 H (36.4-46.3) fL RDW Coeff of Bandar 20.6 H (11.5-14.5) % Plt Count 205 (130-400) K/uL MPV 9.6 (9.4-12.4) fL Immature Gran % (Auto) 1.1 % Neut % (Auto) 67.4 % Lymph % (Auto) 23.4 % [place] % (Auto) 6.1 % Eos % (Auto) 1.2 % Baso % (Auto) 0.8 % Neut # (Auto) 5.12 (1.40-6.50) K/uL Lymph # (Auto) 1.77 (1.20-3.40) K/uL [place] # (Auto) 0.46 (0.11-0.59) K/uL Eos # (Auto) 0.09 (0.00-0.50) K/uL Baso # (Auto) 0.06 (0.00-0.20) K/uL Immature Gran # (Auto) 0.08 (0.01-0.20) K/uL Anisocytosis Present PT 11.2 (9.0-12.0) Seconds INR 1.0 (0.9-1.1) APTT < 20.0 L (21.0-31.0) Seconds PTT Ratio 0.7 VBG pH 7.41 (7.36-7.41) VBG pCO2 47 (38-50) mmHg VBG pO2 25 mmHg VBG HCO3 30 mmol/L VBG O2 Saturation < 60.0 % VBG Base Excess 4.3 mEq/L Sodium 138 (136-145) mmol/L Potassium 3.9 (3.5-5.1) mmol/L Chloride 105 (98-107) mmol/L Carbon Dioxide 25 (21-32) mmol/L Anion Gap 8 (3-11) BUN 29 H (6-23) mg/dl Creatinine 0.74 (0.6-1.2) mg/dl Est Cr Clr Drug Dosing Not Reportable Est GFR ( Amer) 84.4 ml/min Est GFR (Non-Af Amer) 72.8 ml/min BUN/Creatinine Ratio 39.2 H (10-20) Glucose 188 H (70-99(Fasting)) mg/dl POC Glucose (70-99) mg/dl Lactate 3.7 H* (0.4-2.0) mmol/L Calcium 8.9 (8.6-10.3) mg/dl Magnesium 2.2 (1.7-2.4) mg/dl Total Bilirubin 0.6 (0.2-1.0) mg/dl Direct Bilirubin 0.1 (0-0.2) mg/dl AST 14 (13-39) U/L ALT 24 (7-52) U/L Alkaline Phosphatase 59 (34-104) U/L Ammonia 30.0 (18-72) umol/L Troponin I High Sens 20.4 H (0-14) pg/ml Total Protein 6.1 (6.0-8.3) gm/dl Albumin 3.6 (3.4-5.0) gm/dl Procalcitonin < 0.05 (0-0.5) ng/ml Random Cortisol 10.67 mcg/dl Urine Color Yellow Urine Appearance Clear (Clear) Urine pH 7.5 (4.5-7.5) Ur Specific [place] 1.021 (1.000-1.030) Urine Protein Trace H (Negative) Urine Glucose (UA) 3+ H (Negative) Urine Ketones Negative (Negative) Urine Blood Negative (Negative) Urine Nitrite Negative (Negative) Urine Bilirubin Negative (Negative) Urine Urobilinogen Negative (Negative) Ur Leukocyte Esterase Negative (Negative) Urine WBC (Auto) 1-5 (0-5) /hpf Urine RBC (Auto) 0-4 (0-4) /hpf U Hyaline Cast (Auto) 1-5 (0-5) /lpf U Epithel Cells (Auto) 5-10 H (0-5) /lpf Urine Bacteria (Auto) Negative (Negative) 03/04/23 03/04/23 Range/Units 12:53 14:11 WBC (4.8-10.8) K/ul RBC (4.20-5.40) M/uL Hgb (12.0-16.0) g/dl Hct (37.0-47.0) % MCV (80.0-100.0) fL MCH (25.0-34.0) pg MCHC (32.0-36.0) g/dL RDW Std Deviation (36.4-46.3) fL RDW Coeff of Bandar (11.5-14.5) % Plt Count (130-400) K/uL MPV (9.4-12.4) fL Immature Gran % (Auto) % Neut % (Auto) % Lymph % (Auto) % [place] % (Auto) % Eos % (Auto) % Baso % (Auto) % Neut # (Auto) (1.40-6.50) K/uL Lymph # (Auto) (1.20-3.40) K/uL [place] # (Auto) (0.11-0.59) K/uL Eos # (Auto) (0.00-0.50) K/uL Baso # (Auto) (0.00-0.20) K/uL Immature Gran # (Auto) (0.01-0.20) K/uL Anisocytosis PT (9.0-12.0) Seconds INR (0.9-1.1) APTT (21.0-31.0) Seconds PTT Ratio VBG pH (7.36-7.41) VBG pCO2 (38-50) mmHg VBG pO2 mmHg VBG HCO3 mmol/L VBG O2 Saturation % VBG Base Excess mEq/L Sodium (136-145) mmol/L Potassium (3.5-5.1) mmol/L Chloride (98-107) mmol/L Carbon Dioxide (21-32) mmol/L Anion Gap (3-11) BUN (6-23) mg/dl Creatinine (0.6-1.2) mg/dl Est Cr Clr Drug Dosing Est GFR ( Amer) ml/min Est GFR (Non-Af Amer) ml/min BUN/Creatinine Ratio (10-20) Glucose (70-99(Fasting)) mg/dl POC Glucose 207 H (70-99) mg/dl Lactate 3.6 H* (0.4-2.0) mmol/L Calcium (8.6-10.3) mg/dl Magnesium (1.7-2.4) mg/dl Total Bilirubin (0.2-1.0) mg/dl Direct Bilirubin (0-0.2) mg/dl AST (13-39) U/L ALT (7-52) U/L Alkaline Phosphatase (34-104) U/L Ammonia (18-72) umol/L Troponin I High Sens 16.8 H (0-14) pg/ml Total Protein (6.0-8.3) gm/dl Albumin (3.4-5.0) gm/dl Procalcitonin (0-0.5) ng/ml Random Cortisol mcg/dl Urine Color Urine Appearance (Clear) Urine pH (4.5-7.5) Ur Specific [place] (1.000-1.030) Urine Protein (Negative) Urine Glucose (UA) (Negative) Urine Ketones (Negative) Urine Blood (Negative) Urine Nitrite (Negative) Urine Bilirubin (Negative) Urine Urobilinogen (Negative) Ur Leukocyte Esterase (Negative) Urine WBC (Auto) (0-5) /hpf Urine RBC (Auto) (0-4) /hpf U Hyaline Cast (Auto) (0-5) /lpf U Epithel Cells (Auto) (0-5) /lpf Urine Bacteria (Auto) (Negative) Administered Medications Sodium Chloride (Nss) 1,000 mls @ 999 mls/hr IV .Q1H1M ONE Stop: 03/04/23 16:25 Last Admin: 03/04/23 15:29 Dose: 999 mls/hr Documented By: [facility] Discontinued Medications Sodium Chloride (Nss) 1,000 mls @ 999 mls/hr IV .Q1H1M ONE Stop: 03/04/23 13:36 Last Infusion: 03/04/23 13:47 Dose: Infused Documented By: Admin: 03/04/23 12:46 Dose: 999 mls/hr Documented By: AB Cefepime HCl (Maxipime) 2,000 mg in 20 mls @ 5 mls/min IV NOW STA; Protocol Stop: 03/04/23 12:39 Last Admin: 03/04/23 12:46 Dose: 5 mls/min Documented By: AB Imaging Data Attestation: I personally reviewed and interpreted this imaging study as follows: My Impression: CT the brain was obtained in the emergency department. My interpretation is no intracranial hemorrhage or mass effect, final report below. 1 view chest x-ray was obtained in the emergency department. My interpretation is no free air or definite infiltrate, final report below Radiologist's Impression: Chest X-Ray 03/04/23 12:04 SINGLE VIEW CHEST CLINICAL HISTORY: Sepsis. FINDINGS: An AP, portable, upright chest radiograph is compared to study dated 01/19/2023. Correlation is made with chest CT dated 09/07/2013. The cardiomediastinal silhouette is unremarkable no significant atherosclerotic calcification of the thoracic aorta. Chronic interstitial thickening similar to previous. There is bibasilar scarring/atelectasis. The lungs and pleural spaces are otherwise clear. No pneumothorax is seen. The skeletal structures are osteopenic. The bony thorax is grossly intact. IMPRESSION: No active disease in the chest. ACT 112: Negative or not required by law. Electronically signed by: Magen Freeman M.D. 03/04/2023 1:[address] 03/04/23 12:04 CT SCAN OF THE BRAIN WITHOUT IV CONTRAST CLINICAL HISTORY: Change in mental status. COMPARISON STUDY: CT of the brain dated 02/04/2023. TECHNIQUE: Unenhanced axial CT scan of the brain is performed from the vertex to the skull base. A dose lowering technique was utilized adhering to the principles of ALARA. 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 There is no hemorrhage, mass effect, or evidence of acute territorial ischemia by CT criteria. 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 Suggs-white matter differentiation is preserved. No extra-axial fluid collection is seen. Ventricles, sulci, cisterns: Prominent secondary to involutional change. Intracranial vasculature: There is atherosclerotic calcification of the cavernous carotid and vertebral arteries. Calvarium: Unremarkable. Sinuses and mastoids: There is mucosal thickening and fluid within the sphenoid sinuses. The remaining visualized paranasal sinuses are clear. The mastoid air cells are well pneumatized. Orbits: The bony orbits are grossly intact. There are bilateral ocular lens implants. IMPRESSION: There is no hemorrhage, mass effect, or evidence of acute territorial ischemia by CT criteria. ACT 112: Negative or not required by law. Electronically signed by: Magen Freeman M.D. 03/04/2023 1:24 PM Abdomen/Pelvis CT 03/04/23 13:20 CT SCAN OF THE ABDOMEN AND PELVIS WITHOUT IV CONTRAST CLINICAL HISTORY: Change in mental status. COMPARISON STUDY: Abdominal CT dated 01/20/2023. TECHNIQUE: CT scan of the abdomen and pelvis is performed from the lung bases to the proximal femora. Images are reviewed in the axial, sagittal, and coronal planes. IV contrast was not administered for this examination. Note that the examination is significantly suboptimal without oral and IV contrast. A dose lowering technique was utilized adhering to the principles of ALARA. CT DOSE: 507.72 mGy.cm FINDINGS: Lung bases: The heart is normal in size and without pericardial effusion. A calcified granuloma is seen in the right lower lobe. The lung bases are otherwise clear noting dependent scarring/atelectasis. Liver: The unenhanced liver is normal in size, contour, and attenuation. There is no intrahepatic biliary ductal dilatation. A 9 mm cyst is noted in the left lobe. Gallbladder: Unremarkable. Spleen: Normal in size and attenuation. Pancreas: The unenhanced pancreas is grossly unremarkable. Adrenal glands: Unremarkable. Kidneys: The unenhanced kidneys are normal in size and without hydronephrosis. There are no renal calculi identified. A 12 mm cyst is noted in the interpolar left kidney. Abdominal vasculature: The abdominal aorta is normal in course and caliber noting moderate atherosclerotic calcification. Bowel: There is mild colonic fecal retention. No bowel obstruction is seen. The appendix is well-visualized and normal. Peritoneum: There is no intraperitoneal free air or abdominal ascites. Lymphadenopathy: None. Pelvic viscera: The bladder is decompressed around a Chavez catheter and cannot be assessed. The uterus and adnexa are normal as visualized. A vaginal pessary is in place. Skeletal structures: The skeletal structures are osteopenic. There is moderate lumbosacral spondylosis. No lytic or blastic lesions are seen. IMPRESSION: 1. Suboptimal examination without oral and IV contrast. 2. No acute infectious or inflammatory findings identified in the abdomen or pelvis. 3. Additional findings as above. ACT 112: Negative or not required by law. Electronically signed by: Magen Freeman M.D. 03/04/2023 1:50 PM Discharge Plan Visit Data Chief Complaint: Altered Mental Status Stated Complaint: ALTERED MENTAL STATUS ED Provider: Blanco Collazo Discharge Problem: Acute alteration in mental status, Elevated troponin I level, Acidosis, lactic Patient Disposition: Being Evaluated by Hospitalist Forms Stand Alone Forms: Counts Include [facility] Prescriptions Prescriptions: No Action Actemra 162 mg/0.9 mL syringe 162 mg subcut .weekly Qty: 0.9 12RF peg 3350-electrolytes [Golytely] 236-22.74-6.74 -5.86 gram recon soln 240 ml PO ONCE Qty: 4000 0RF Rx Instructions: TAKE DIRECTED PER SPLIT DOSE INSTRUCTIONS levetiracetam 1,000 mg tablet 1,000 mg PO BID 30 Days Qty: 60 2RF Rx Instructions: D/C Keppra 750 mg BID and start Keppra 1000 mg BID bisacodyl 10 mg suppository 10 mg MI DAILY PRN (Reason: Constipation) sodium phosphates 19-7 gram/118 mL enema 118 ml MI DAILY PRN (Reason: Constipation) acetaminophen 325 mg capsule 325 mg PO Q4 PRN (Reason: Fever Or Pain) alendronate 70 mg tablet 70 mg PO .Weekly Rx Instructions: Saturday amlodipine 5 mg tablet 5 mg PO QAM aspirin [Adult Aspirin Regimen] 81 mg tablet,delayed release (DR/EC) 81 mg PO DAILY nystatin-triamcinolone 100,000-0.1 unit/g-% cream 1 applic topical Q8 PRN (Reason: irritation perinium) timolol 0.5 % drops 1 drp OPR QAM triamcinolone acetonide 55 mcg aerosol,spray 1 spray intranasal DAILY Rx Instructions: administer into each nostril calcium carbonate [Tums] 200 mg calcium (500 mg) tablet,chewable 200 mg PO Q6 PRN (Reason: Indigestion) ondansetron HCl 4 mg tablet 4 mg PO Q8H PRN (Reason: nausea/vomiting) prednisone 20 mg tablet 40 mg PO DAILY Qty: 75 1RF calcium carbonate-vitamin D3 [Calcium 600 + D(3)] 600 mg-10 mcg (400 unit) Tablet 1 tab PO BID Lumigan 0.01 % drops 1 drp OPB HS betamethasone dipropionate 0.05 % cream 1 applic TOP BID PRN (Reason: itching) Rx Instructions: Apply sparingly to affected area twice a day PRN; loratadine 10 mg Tablet 10 mg PO QAM polyethylene glycol 3350 [Miralax] 17 gram Powder In Packet 17 g PO QAM ipratropium bromide 21 mcg (0.03 %) spray,non-aerosol 1 spray INTRANASAL Q12 PRN (Reason: rhinitis) Artificial Tears (cmc) 1 % Drops 1 drp OPR QAM Rx Instructions: administer 5 minutes after timolol Artificial Tears (cmc) 1 % Drops 1 drp OPHTHALMIC (EYE) Q6 PRN (Reason: Dry Eyes) ferrous sulfate 325 mg (65 mg iron) tablet 325 mg PO BID Qty: 1 0RF Referrals Referrals: Shane Sykes [Primary Care Provider] -
[2023-03-04] MEDS ORDERED: SODIUM CHLORIDE 0.9% 1,000 ML IV ONE ×2 (12:36→15:25)
[2023-03-04] MEDS ORDERED: CEFEPIME 2,000 MG/20 ML VIAL IV STA (12:36)
[2023-03-04 12:49] LABS: Albumin Level 3.6 gm/dl (3.4-5.0); Anion Gap 8 (3-11); Bilirubin Direct 0.1 mg/dl (0-0.2); Bilirubin,Total 0.6 mg/dl (0.2-1.0); Calcium 8.9 mg/dl (8.6-10.3); Carbon Dioxide 25 mmol/L (21-32); Chloride 105 mmol/L (98-107); Magnesium 2.2 mg/dl (1.7-2.4); Potassium 3.9 mmol/L (3.5-5.1); Sodium 138 mmol/L (136-145)
[2023-03-04 12:52] LABS: Basophils # (auto) 0.06 K/uL (0.00-0.20); Basophils % (auto) 0.8 %; Eosinophils # (auto) 0.09 K/uL (0.00-0.50); Eosinophils % (auto) 1.2 %; Hematocrit (blood only) 39.8 % (37.0-47.0); Hemoglobin 13.4 g/dl (12.0-16.0); Immature Granulocytes # (auto) 0.08 K/uL (0.01-0.20); Immature Granulocytes % (auto) 1.1 %; Lymphocytes # (auto) 1.77 K/uL (1.20-3.40); Lymphocytes % (auto) 23.4 %; Mean Corpuscular Hemoglobin 30.5 pg (25.0-34.0); Mean Corpuscular Hgb Conc 33.7 g/dL (32.0-36.0); Mean Corpuscular Volume 90.5 fL (80.0-100.0); Mean Platelet Volume 9.6 fL (9.4-12.4); Monocytes # (auto) 0.46 K/uL (0.11-0.59); Monocytes % (auto) 6.1 %; Neutrophils # (auto) 5.12 K/uL (1.40-6.50); Neutrophils % (auto) 67.4 %; Platelet Count 205 K/uL (130-400); RDW Coefficient of Variation 20.6 % (11.5-14.5); RDW Standard Deviation 66.2 fL (36.4-46.3); White Blood Count 7.58 K/ul (4.8-10.8)
[2023-03-04 12:53] LABS: Base Excess VBG 4.3 mEq/L; HCO3 VBG 30 mmol/L; Oxygen Saturation VBG < 60.0 %; PCO2 VBG 47 mmHg (38-50); PO2 VBG 25 mmHg; pH VBG 7.41 (7.36-7.41)
[2023-03-04 12:55] LABS: Alanine Aminotransferase 24 U/L (7-52); Alkaline Phosphatase 59 U/L (34-104); Aspartate Aminotransferase 14 U/L (13-39); BUN Creatinine Ratio 39.2 (10-20); Blood Urea Nitrogen 29 mg/dl (6-23); Est GFR (African American) 84.4 ml/min; Est GFR (Non-African American) 72.8 ml/min; Glucose 188 mg/dl (70-99(Fasting)); Total Protein 6.1 gm/dl (6.0-8.3)
[2023-03-04 13:00] LABS: Troponin I High Sensitivity 20.4 pg/ml (0-14)
[2023-03-04 13:17] LABS: Anisocytosis Present
[2023-03-04 13:19] LABS: Appearance Urine Clear (Clear); Bacteria Urine Automated Negative (Negative); Bilirubin Urine Negative (Negative); Blood Urine Negative (Negative); Color Urine Yellow; Glucose Urine UA 3+ (Negative); Ketones Urine Negative (Negative); Leukocyte Esterase Urine Negative (Negative); Nitrite Urine Negative (Negative); RBC Urine Automated 0-4 /hpf (0-4); Specific Gravity Urine 1.021 (1.000-1.030); Urobilinogen Urine Negative (Negative); pH Urine 7.5 (4.5-7.5)
--- NOTE | 2023-03-04 13:19 | XRay Report ---
SINGLE VIEW CHEST CLINICAL HISTORY: Sepsis. FINDINGS: An AP, portable, upright chest radiograph is compared to study dated 01/19/2023. Correlation is made with chest CT dated 09/07/2013. The cardiomediastinal silhouette is unremarkable no significa nt atherosclerotic calcification of the thoracic aorta. Chronic interstitial thickening similar to pr evious. There is bibasilar scarring/atelectasis. The lungs and pleural spaces are otherwise clear. No pneumothorax is seen. The skeletal structures are osteopenic. The bony thorax is grossly intact. IMPRESSION: No active disease in the chest. ACT 112: Negative or not required by law. Electronically signed by: Magen Freeman M.D. 03/04/2023 1:18 PM
[2023-03-04 13:22] LABS: Partial Thromboplastin Ratio 0.7; Prothrombin Time 11.2 Seconds (9.0-12.0)
[2023-03-04 13:23] LABS: Protein Urine Trace (Negative)
[2023-03-04 13:24] LABS: Partial Thromboplastin Time < 20.0 Seconds (21.0-31.0)
--- NOTE | 2023-03-04 13:26 | CT Scan Report ---
CT SCAN OF THE BRAIN WITHOUT IV CONTRAST CLINICAL HISTORY: Change in mental status. COMPARISON STUDY: CT of the brain dated 02/04/2023. TECHNIQUE: Unenhanced axial CT scan of the brain is performed from the vertex to the skull base. A do se lowering technique was utilized adhering to the principles of ALARA. 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 There is no hemorrhage, mass effect, or evidence of acute t erritorial ischemia by CT criteria. 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 Suggs-white matter differentiation is preserved. No extra-axial fluid collection is seen. Ventricles, sulci, cisterns: Prominent secondary to involutional change. Intracranial vasculature: There is atherosclerotic calcification of the cavernous carotid and vertebr al arteries. Calvarium: Unremarkable. Sinuses and mastoids: There is mucosal thickening and fluid within the sphenoid sinuses. The remainin g visualized paranasal sinuses are clear. The mastoid air cells are well pneumatized. Orbits: The bony orbits are grossly intact. There are bilateral ocular lens implants. IMPRESSION: There is no hemorrhage, mass effect, or evidence of acute territorial ischemia by CT charlie boateng. ACT 112: Negative or not required by law. Electronically signed by: Magen Freeman M.D. 03/04/2023 1:24 PM
--- NOTE | 2023-03-04 13:52 | CT Scan Report ---
CT SCAN OF THE ABDOMEN AND PELVIS WITHOUT IV CONTRAST CLINICAL HISTORY: Change in mental status. COMPARISON STUDY: Abdominal CT dated 01/20/2023. TECHNIQUE: CT scan of the abdomen and pelvis is performed from the lung bases to the proximal femora. Images are reviewed in the axial, sagittal, and coronal planes. IV contrast was not administered for this examination. Note that the examination is significantly suboptimal without oral and IV contrast . A dose lowering technique was utilized adhering to the principles of ALARA. CT DOSE: 507.72 mGy.cm FINDINGS: Lung bases: The heart is normal in size and without pericardial effusion. A calcified granuloma is se en in the right lower lobe. The lung bases are otherwise clear noting dependent scarring/atelectasis. Liver: The unenhanced liver is normal in size, contour, and attenuation. There is no intrahepatic martin iary ductal dilatation. A 9 mm cyst is noted in the left lobe. Gallbladder: Unremarkable. Spleen: Normal in size and attenuation. Pancreas: The unenhanced pancreas is grossly unremarkable. Adrenal glands: Unremarkable. Kidneys: The unenhanced kidneys are normal in size and without hydronephrosis. There are no renal yeimi culi identified. A 12 mm cyst is noted in the interpolar left kidney. Abdominal vasculature: The abdominal aorta is normal in course and caliber noting moderate atheroscle rotic calcification. Bowel: There is mild colonic fecal retention. No bowel obstruction is seen. The appendix is well-vis ualized and normal. Peritoneum: There is no intraperitoneal free air or abdominal ascites. Lymphadenopathy: None. Pelvic viscera: The bladder is decompressed around a Chavez catheter and cannot be assessed. The uteru s and adnexa are normal as visualized. A vaginal pessary is in place. Skeletal structures: The skeletal structures are osteopenic. There is moderate lumbosacral spondylosi s. No lytic or blastic lesions are seen. IMPRESSION: 1. Suboptimal examination without oral and IV contrast. 2. No acute infectious or inflammatory findings identified in the abdomen or pelvis. 3. Additional findings as above. ACT 112: Negative or not required by law. Electronically signed by: Magen Freeman M.D. 03/04/2023 1:50 PM
--- NOTE | 2023-03-04 15:19 | Electrocardiogram Report ---
Test Reason : Blood Pressure : / mmHG Vent. Rate : 092 BPM Atrial Rate : 092 BPM P-R Int : 196 ms QRS Dur : 078 ms QT Int : 320 ms P-R-T Axes : 070 048 158 degrees QTc Int : 395 ms Normal sinus rhythm T wave abnormality, consider inferolateral ischemia Abnormal ECG When compared with ECG of 03-FEB-2023 23:51, Premature atrial complexes are no longer Present Vent. rate has increased BY 32 BPM T wave inversion now evident in Inferior leads T wave inversion now evident in Anterolateral leads Confirmed by Blanco Pierre ([id number]) on 03/04/2023 3:19:32 PM Referred By: Shane Sykes Confirmed By:Blanco Pierre
--- NOTE | 2023-03-04 15:54 | History & Physical Report ---
Date of Service March 04, 2023 Assessment & Plan (1) Acute alteration in mental status: Plan: Interesting patient who I have met before in November. Multiple episodes of similar presentation. In fact I wrote in my communication note on 12/04 a very similar presentation to today although she was rigid at that time and she appears to have lack of tone without posturing. She bit down on the tongue depressor again too. See H&P for summary of recent hospitalizations. No status epilepticus in the ER on EEG. Prior significant workup for the same symptoms including Brain MRI and LP therefore no need to repeat these Discussed with Dr Rivero and will add Vipmat 50mg IV BID to anti-seizure regimen and continue Keppra but space out dosing to 500mg IV q6h Consult neurology Initially suspected patient may be just postictal based on recent notes. However on reading psychiatry note from 12/10 reportedly she said "I know what's happening at the time I just can't say anything." which sounds more like catatonia with what I am observing currently. Her mutism and staring episodes are not seizures given her EEG today was taken at the time of her doing this although this does not rule them out being post-ictal. Interestingly further workup of her inflammatory markers lead to the eventual diagnosis of giant cell arteritis and her ESR and CRP have resolved following prednisone and tocilizumab. (2) Seizure disorder: Plan: As above (3) Acidosis, lactic: Plan: ?from seizure activity (4) Rash: Plan: ?Secondary to Lamictal, continue to monitor (5) Giant cell arteritis: Plan: Restart prednisone when able to take oral medication Taper per rheumatology recommendations Plan VTE Prophylaxis - deferred on admission Diet -NPO Disposition - observation to med/tele Admission and Anticipated Discharge Date Admission Date: March 04, 2023 History of Present Illness Chief Complaint: Altered mental state Primary Care Provider: Shane Sykes Carly Soliman is an 87 year old female who presents to the ER with altered mental state. Unable to get any history from patient as she appears to be non verbal at this time. Tried calling Shane fernandez on hand over sheet from ER but went to voicemail. I left a voicemail but could not get through to Carmella Soliman her legal guardian. History therefore obtained from ER physician, previous notes and ER hand over sheet. Reportedly having increased seizure activity recently with increased periods altered mental state. She was sent to the ER for altered mental state. She has had multiple previous episodes like this which are possible postictal although possible catatonia has also been mentioned in the past. Recent hospitalizations: 11/30 - 12/03 - found by staff at [facility], unsure who long she was down for. Patient somewhat sedated but answering questions appropriately on admission. Did not remember events leading up to fall. Prolactin slightly elevated and postictal state therefore suspected to be seizure although no seizure like activity was witnessed. Given hyponatremia this was suspected to precipitate event therefore no anti-epileptics were started. 12/04 - 11/27- concern for seizure activity at halfway with shaking witnessed and since then just staring into the distance. She was fatigued but otherwise her normal self when I admitted her in the ER. Further shaking (but not classic tonic clonic) was witnessed by nurse when she went from the ER to the floor with staring episode afterwards. Ativan was given and patient was very sedated following 2mg IV Ativan. Seen by neurology and started on Keppra 500mg PO BID 12/09 - 12/14 - found by halfway staff staring into space, non verbal on admission, H&P reports she is aware of these episodes. Seen by psychiatry and did not think it was catatonia at that time. Neurology recommended autoimmune workup and LP. LP was unremarkable except mildly elevated protein. Keppra was increased to 100mg PO BID. 01/20 - 01/28 - Presented to the ER for fever. Na 125 (improved with NSS). CT with possible enteritis. Given Venofer for iron def. anemia. Biopsy taken for GCA (had mild headache at the time and symptoms suggestive of PMR) and pathology subsequently positive - she was treated with prednisone. 02/04 - ER visit for seizure. Found on the ground having a tonic clonic seizure. Lamotrigine started 02/[address] Haq although I cannot find an accompanying note regarding this. This was discontinued 2 days later by rheumatology after developing a rash. Per external med rec I believe she is taking just the Keppra 100mg PO BID currently. Allergies Allergy/AdvReac Type Severity Reaction Status Date / Time Penicillins Allergy Unknown Unknown rxn Verified 03/01/23 14:46 azithromycin [From Zithromax] Allergy Unknown Verified 03/01/23 14:46 doxycycline Allergy Unknown Verified 03/01/23 14:46 risedronate sodium Allergy Unknown Verified 03/01/23 14:46 [From Actonel] lamotrigine [From Lamictal] AdvReac Intermediate Rash Verified 03/01/23 15:03 Home Medications Medication Instructions Recorded Confirmed Type betamethasone dipropionate 0.05 % 1 applic topical Q12 PRN itching 11/30/22 03/04/23 History topical cream bimatoprost 0.01 % eye drops 1 drp OPB HS 11/30/22 03/04/23 History (Lumigan) calcium carbonate 600 mg-vitamin 1 tab PO BID 11/30/22 03/04/23 History D3 10 mcg (400 unit) tablet (Calcium 600 + D(3)) loratadine 10 mg tablet 10 mg PO QAM 12/09/22 03/04/23 History acetaminophen 325 mg capsule 650 mg PO Q4 PRN elevated 01/07/23 03/04/23 History temperature alendronate 70 mg tablet 70 mg PO .Weekly 01/07/23 03/04/23 History amlodipine 5 mg tablet 5 mg PO QAM 01/07/23 03/04/23 History aspirin 81 mg tablet,delayed 81 mg PO QAM 01/07/23 03/04/23 History release (Adult Aspirin Regimen) bisacodyl 10 mg rectal suppository 10 mg FL DAILY PRN Constipation 01/07/23 03/04/23 History calcium carbonate 200 mg calcium 200 mg PO Q6 PRN Indigestion 01/07/23 03/04/23 History (500 mg) chewable tablet (Tums) nystatin-triamcinolone 100,000 1 applic topical Q8 PRN perineum 01/07/23 03/04/23 History unit/g-0.1 % topical cream itching ondansetron HCl 4 mg tablet 4 mg PO Q8H PRN nausea/vomiting 01/07/23 03/04/23 History sodium phosphates 19 gram-7 118 ml FL DAILY PRN Constipation 01/07/23 03/04/23 History gram/118 mL enema timolol 0.5 % eye drops 1 drp OPR QAM 01/07/23 03/04/23 History triamcinolone acetonide 55 mcg 1 spray intranasal QAM rhinitis 01/07/23 03/04/23 History nasal spray aerosol carboxymethylcellulose sodium 1 % 1 drp OPR QAM 01/20/23 03/04/23 History eye drops (Artificial Tears (carboxymethylcellulose)) carboxymethylcellulose sodium 1 % 1 drp ophthalmic (eye) Q6 PRN Dry 01/20/23 03/04/23 History eye drops (Artificial Tears Eyes (carboxymethylcellulose)) ipratropium bromide 21 mcg (0.03 1 spray intranasal Q12 PRN rhinitis 01/20/23 03/04/23 History %) nasal spray polyethylene glycol 3350 17 gram 17 g PO QAM 01/20/23 03/04/23 History oral powder packet (Miralax) ferrous sulfate 325 mg (65 mg 325 mg PO BID #1 tab 01/28/23 03/04/23 Rx iron) tablet tocilizumab 162 mg/0.9 mL 162 mg (0.9 mL) subcut .weekly 02/14/23 03/04/23 Rx subcutaneous syringe (Actemra) #0.9 mL levetiracetam 1,000 mg tablet 1,000 mg PO BID 30 days #60 tabs 03/01/23 03/04/23 Rx acetaminophen 325 mg tablet 650 mg PO Q4 PRN Pain 03/04/23 03/04/23 History potassium chloride 20 mEq 20 meq PO BID 03/04/23 03/04/23 History tablet,extended release(part/cryst) prednisone 20 mg tablet See Rx Instructions .Route .COMPLEX 03/04/23 03/04/23 History Past Med/Surg History Medical History Giant cell arteritis PMR (polymyalgia rheumatica) FRANCISCO positive Weight loss Abnormal SPEP Seizure Hyponatremia Dyslipidemia Family history of colon cancer Osteopenia after menopause Pancreatic cyst Surgical History History of temporal artery biopsy (01/23/23) Right Temporal Artery Biopsy(Right) - Dwight Gleason DO History of biopsy of temporal artery History of varicose vein ligation and stripping History of colonoscopy S/P tubal ligation Family History Sister Breast cancer Coronary heart disease Father Stroke Mother Breast cancer Son Narcolepsy Other No family history of adverse response to anesthesia No family history of bleeding disorder Denies family history of Ovarian cancer Prostate cancer Diabetes Lung cancer Colorectal cancer Social History Smoking Status: Unknown if ever smoked Second Hand Exposure: No; Do You Dip or Chew Tobacco: No; Hx Alcohol Use: No Hx Substance Use: No Preferred Language: Palauan Communication Ability: Impaired Visual Impairment: Limited Hearing Ability: Normal Evaluation Assistant Required: No Beliefs That Will Affect Care: None marital status: Current Living Situation: Alone current occupational status: retired How many Children do You have: 3 Feels Safe at Home: Yes Childhood Exposure to Second-Hand Smoke: Yes (father smoked pipe occassionally ) Diet: regular caffeine: Yes (coffee and tea ) Dental Care, Regularly: Yes Physical Activity Frequency: Daily Physical Activity Frequency Comment: walk Seatbelt Use: always Sunscreen Use: Yes Assistive Devices: None Review of Systems Review of Systems: Unobtainable due to cognitive status Physical Exam Constitutional: WD/WN, vitals as above Eyes: PERRL, conjunctivae normal, anicteric sclerae ENMT: Mouth: + dry oral mucous membranes Respiratory: normal respiratory effort, lungs clear to auscultation Cardiovascular: RRR, no murmur, no edema Gastrointestinal (Abdomen): normal bowel sounds, soft, nontender, no hepatosplenomegaly Skin: Generalized macular-papular rash on back Neurologic: awake; + does not move all extremities No neck stiffness Bites down on tongue depressor Decreased tone in all 4 limbs Not following commands Psychiatric: Orientation: alert Eye Contact: + poor eye contact Motor Behavior: + psychomotor retardation Speech: + mute Affect: euthymic affect Results & Data Results & Data Vital Signs (Past 12 Hours) Vital Signs Temp Pulse Pulse Resp BP BP Pulse Ox 03/04/23 15:30 91 H 17 98 03/04/23 15:28 90 12 170/83 H 98 03/04/23 14:50 97 H 15 97 03/04/23 14:45 101 H 12 03/04/23 14:45 169/81 H 03/04/23 14:40 94 H 21 03/04/23 14:30 167/87 H 03/04/23 14:30 98 H 22 03/04/23 14:20 77 16 97 03/04/23 14:15 147/63 H 03/04/23 14:15 79 18 97 03/04/23 14:10 83 19 97 03/04/23 14:00 80 12 97 03/04/23 14:00 144/65 H 03/04/23 13:56 97 03/04/23 13:50 77 12 97 03/04/23 13:45 79 15 97 03/04/23 13:45 152/71 H 03/04/23 13:40 78 10 L 97 03/04/23 13:30 75 23 97 03/04/23 13:30 147/65 H 03/04/23 13:29 76 22 166/72 H 97 03/04/23 13:27 86 18 98 03/04/23 13:27 166/72 H 03/04/23 13:26 81 03/04/23 13:00 81 13 96 03/04/23 13:00 154/64 H 03/04/23 12:53 151/73 H 03/04/23 12:53 79 20 98 03/04/23 12:52 79 17 147/66 H 97 03/04/23 12:51 147/66 H 03/04/23 12:51 84 24 98 03/04/23 12:50 82 25 H 98 03/04/23 12:48 98 03/04/23 12:40 84 20 03/04/23 12:30 88 19 98 03/04/23 12:30 92 H 26 H 151/74 H 98 03/04/23 12:22 96 H 03/04/23 12:21 96 H 20 98 03/04/23 11:59 35.9 C L 98 H 19 151/74 H 97 O2 Del Method O2 Flow Rate 03/04/23 15:30 Room Air 03/04/23 15:28 Room Air 03/04/23 14:50 03/04/23 14:45 03/04/23 14:45 03/04/23 14:40 03/04/23 14:30 03/04/23 14:30 03/04/23 14:20 03/04/23 14:15 03/04/23 14:15 03/04/23 14:10 03/04/23 14:00 03/04/23 14:00 03/04/23 13:56 Room Air 03/04/23 13:50 03/04/23 13:45 03/04/23 13:45 03/04/23 13:40 03/04/23 13:30 03/04/23 13:30 03/04/23 13:29 Room Air 03/04/23 13:27 03/04/23 13:27 03/04/23 13:26 03/04/23 13:00 03/04/23 13:00 03/04/23 12:53 03/04/23 12:53 03/04/23 12:52 Room Air 03/04/23 12:51 03/04/23 12:51 03/04/23 12:50 03/04/23 12:48 Room Air 0 03/04/23 12:40 03/04/23 12:30 03/04/23 12:30 Room Air 03/04/23 12:22 03/04/23 12:21 03/04/23 11:59 Room Air Laboratory Results Abnormal lab results 03/04/23 03/04/23 03/04/23 Range/Units 12:18 12:32 12:53 RDW Std Deviation 66.2 H (36.4-46.3) fL RDW Coeff of Bandar 20.6 H (11.5-14.5) % APTT < 20.0 L (21.0-31.0) Seconds BUN 29 H (6-23) mg/dl BUN/Creatinine Ratio 39.2 H (10-20) Glucose 188 H (70-99(Fasting)) mg/dl POC Glucose 207 H (70-99) mg/dl Lactate 3.7 H* (0.4-2.0) mmol/L Troponin I High Sens 20.4 H (0-14) pg/ml Urine Protein Trace H (Negative) Urine Glucose (UA) 3+ H (Negative) U Epithel Cells (Auto) 5-10 H (0-5) /lpf 03/04/23 Range/Units 14:11 RDW Std Deviation (36.4-46.3) fL RDW Coeff of Bandar (11.5-14.5) % APTT (21.0-31.0) Seconds BUN (6-23) mg/dl BUN/Creatinine Ratio (10-20) Glucose (70-99(Fasting)) mg/dl POC Glucose (70-99) mg/dl Lactate 3.6 H* (0.4-2.0) mmol/L Troponin I High Sens 16.8 H (0-14) pg/ml Urine Protein (Negative) Urine Glucose (UA) (Negative) U Epithel Cells (Auto) (0-5) /lpf Diagnostic Findings CT SCAN OF THE BRAIN WITHOUT IV CONTRAST CLINICAL HISTORY: Change in mental status. COMPARISON STUDY: CT of the brain dated 02/04/2023. TECHNIQUE: Unenhanced axial CT scan of the brain is performed from the vertex to the skull base. A dose lowering technique was utilized adhering to the principles of ALARA. 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 There is no hemorrhage, mass effect, or evidence of acute territorial ischemia by CT criteria. 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 Suggs-white matter differentiation is preserved. No extra-axial fluid collection is seen. Ventricles, sulci, cisterns: Prominent secondary to involutional change. Intracranial vasculature: There is atherosclerotic calcification of the cav ernous carotid and vertebral arteries. Calvarium: Unremarkable. Sinuses and mastoids: There is mucosal thickening and fluid within the sphenoid sinuses. The remaining visualized paranasal sinuses are clear. The mastoid air cells are well pneumatized. Orbits: The bony orbits are grossly intact. There are bilateral ocular lens implants. IMPRESSION: There is no hemorrhage, mass effect, or evidence of acute territorial ischemia by CT criteria. SINGLE VIEW CHEST CLINICAL HISTORY: Sepsis. FINDINGS: An AP, portable, upright chest radiograph is compared to study dated 01/19/2023. Correlation is made with chest CT dated 09/07/2013. The cardiomediastinal silhouette is unremarkable no significant atherosclerotic calcification of the thoracic aorta. Chronic interstitial thickening similar to previous. There is bibasilar scarring/atelectasis. The lungs and pleural spaces are otherwise clear. No pneumothorax is seen. The skeletal structures are osteopenic. The bony thorax is grossly intact. IMPRESSION: No active disease in the chest. CT SCAN OF THE ABDOMEN AND PELVIS WITHOUT IV CONTRAST CLINICAL HISTORY: Change in mental status. COMPARISON STUDY: Abdominal CT dated 01/20/2023. TECHNIQUE: CT scan of the abdomen and pelvis is performed from the lung bases to the proximal femora. Images are reviewed in the axial, sagittal, and coronal planes. IV contrast was not administered for this examination. Note that the examination is significantly suboptimal without oral and IV contrast. A dose lowering technique was utilized adhering to the principles of ALARA. CT DOSE: 507.72 mGy.cm FINDINGS: Lung bases: The heart is normal in size and without pericardial effusion. A calcified granuloma is seen in the right lower lobe. The lung bases are ot herwise clear noting dependent scarring/atelectasis. Liver: The unenhanced liver is normal in size, contour, and attenuation. There is no intrahepatic biliary ductal dilatation. A 9 mm cyst is noted in the left lobe. Gallbladder: Unremarkable. Spleen: Normal in size and attenuation. Pancreas: The unenhanced pancreas is grossly unremarkable. Adrenal glands: Unremarkable. Kidneys: The unenhanced kidneys are normal in size and without hydronephrosis. There are no renal calculi identified. A 12 mm cyst is noted in the interpolar left kidney. Abdominal vasculature: The abdominal aorta is normal in course and caliber noting moderate atherosclerotic calcification. Bowel: There is mild colonic fecal retention. No bowel obstruction is seen. The appendix is well-visualized and normal. Peritoneum: There is no intraperitoneal free air or abdominal ascites. Lymphadenopathy: None. Pelvic viscera: The bladder is decompressed around a Chavez catheter and cannot be assessed. The uterus and adnexa are normal as visualized. A vaginal pessary is in place. Skeletal structures: The skeletal structures are osteopenic. There is moderate lumbosacral spondylosis. No lytic or blastic lesions are seen. IMPRESSION: 1. Suboptimal examination without oral and IV contrast. 2. No acute infectious or inflammatory findings identified in the abdomen or pelvis. 3. Additional findings as above. Medications Administered ER Medications Given: Normal saline 1000ml bolus Cefepime 2000mg IV Normal saline 1000ml bolus Code Status & VTE Plan Code Status DNR/DNI per prior admission - unable to discuss with patient or legal guardian on admission VTE Prophylaxis Plan VTE Prophylaxis will be ordered: Yes PG Care Time/CCT Total # of Minutes Spent Total Time Spent with Patient: Total time spent is greater than 50% in coordination of care (as documented) at patient's floor/unit and/or counseling patient: Coding Level of Care Code 41829 INT INP/OBS CARE 3/75MIN Diagnoses Acute alteration in mental status R41.82 Seizure disorder G40.909 Acidosis, lactic E87.20 Rash R21 Giant cell arteritis M31.6
--- NOTE | 2023-03-04 18:03 | Electroencephalogram ---
EEG Procedure Note Date of Service March 04, 2023 Start / End Times Start Time: 1723 End Time: [address] Martinez History 87 year old with seizures Home Medication List Medication Instructions Recorded Confirmed Type betamethasone dipropionate 0.05 % 1 applic topical Q12 PRN itching 11/30/22 03/04/23 History topical cream bimatoprost 0.01 % eye drops 1 drp OPB HS 11/30/22 03/04/23 History (Lumigan) calcium carbonate 600 mg-vitamin 1 tab PO BID 11/30/22 03/04/23 History D3 10 mcg (400 unit) tablet (Calcium 600 + D(3)) loratadine 10 mg tablet 10 mg PO QAM 12/09/22 03/04/23 History acetaminophen 325 mg capsule 650 mg PO Q4 PRN elevated 01/07/23 03/04/23 History temperature alendronate 70 mg tablet 70 mg PO .Weekly 01/07/23 03/04/23 History amlodipine 5 mg tablet 5 mg PO QAM 01/07/23 03/04/23 History aspirin 81 mg tablet,delayed 81 mg PO QAM 01/07/23 03/04/23 History release (Adult Aspirin Regimen) bisacodyl 10 mg rectal suppository 10 mg MD DAILY PRN Constipation 01/07/23 03/04/23 History calcium carbonate 200 mg calcium 200 mg PO Q6 PRN Indigestion 01/07/23 03/04/23 History (500 mg) chewable tablet (Tums) nystatin-triamcinolone 100,000 1 applic topical Q8 PRN perineum 01/07/23 03/04/23 History unit/g-0.1 % topical cream itching ondansetron HCl 4 mg tablet 4 mg PO Q8H PRN nausea/vomiting 01/07/23 03/04/23 History sodium phosphates 19 gram-7 118 ml MD DAILY PRN Constipation 01/07/23 03/04/23 History gram/118 mL enema timolol 0.5 % eye drops 1 drp OPR QAM 01/07/23 03/04/23 History triamcinolone acetonide 55 mcg 1 spray intranasal QAM rhinitis 01/07/23 03/04/23 History nasal spray aerosol carboxymethylcellulose sodium 1 % 1 drp OPR QAM 01/20/23 03/04/23 History eye drops (Artificial Tears (carboxymethylcellulose)) carboxymethylcellulose sodium 1 % 1 drp ophthalmic (eye) Q6 PRN Dry 01/20/23 03/04/23 History eye drops (Artificial Tears Eyes (carboxymethylcellulose)) ipratropium bromide 21 mcg (0.03 1 spray intranasal Q12 PRN rhinitis 01/20/23 History %) nasal spray polyethylene glycol 3350 17 gram 17 g PO QAM 01/20/23 03/04/23 History oral powder packet (Miralax) ferrous sulfate 325 mg (65 mg 325 mg PO BID #1 tab 01/28/23 03/04/23 Rx iron) tablet tocilizumab 162 mg/0.9 mL 162 mg (0.9 mL) subcut .weekly 02/14/23 03/04/23 Rx subcutaneous syringe (Actemra) #0.9 mL levetiracetam 1,000 mg tablet 1,000 mg PO BID 30 days #60 tabs 03/01/23 03/04/23 Rx acetaminophen 325 mg tablet 650 mg PO Q4 PRN Pain 03/04/23 03/04/23 History potassium chloride 20 mEq 20 meq PO BID 03/04/23 03/04/23 History tablet,extended release(part/cryst) prednisone 20 mg tablet See Rx Instructions .Route .COMPLEX 03/04/23 03/04/23 History Inpatient Medication List Discontinued Medications Sodium Chloride (Nss) 1,000 mls @ 999 mls/hr IV .Q1H1M ONE Stop: 03/04/23 13:36 Last Infusion: 03/04/23 13:47 Dose: Infused Documented By: Admin: 03/04/23 12:46 Dose: 999 mls/hr Documented By: AB Cefepime HCl (Maxipime) 2,000 mg in 20 mls @ 5 mls/min IV NOW STA; Protocol Stop: 03/04/23 12:39 Last Admin: 03/04/23 12:46 Dose: 5 mls/min Documented By: AB Sodium Chloride (Nss) 1,000 mls @ 999 mls/hr IV .Q1H1M ONE Stop: 03/04/23 16:25 Last Infusion: 03/04/23 17:05 Dose: Infused Documented By: Admin: 03/04/23 15:29 Dose: 999 mls/hr Documented By: [facility] Description This is a 21 electrode EEG with a single channel dedicated to limited EKG. The electrodes were placed in accordance with the International 10-20 system. Interpretation The predominant background activity consists of a fairly well modulated 7 Hz activity, of up to 40 mV in amplitude, seen symmetrically distributed over the posterior head regions bilaterally. This activity has little attenuation with alerting procedures. Photic stimulation was performed and elicited no change in the background activity and no abnormal responses were seen. Hyperventilation was not performed. A minimal amount of muscle and movement artifact activity contaminated the recording and did not hinder interpretation to any significant degree. Throughout the recording, no focal abnormalities or potentially epileptogenic discharges were seen. In summary, this EEG was remarkable for a very mild generalized cerebral dysrhythmia. No focal abnormalities or potentially epileptogenic discharges were seen. Clinical Correlation The mild generalized slowing is consistent with an encephalopathy, which could be due to a wide variety of causes, including post-ictal.The absence of potentially epileptogenic activity does not exclude a seizure disorder, since interictally, EEGs can be normal. Clinical correlation is required. [facility] [place] Procedure Codes Indication for Procedure (1) Seizure disorder: Neurology Neurology: 76706 EEG include record awake & drowsy
[2023-03-04] MEDS ORDERED: LACOSAMIDE 50 MG in SODIUM CHLORIDE 0.9% 50 ML IV STA (18:21)
[2023-03-04] MEDS ORDERED: levETIRAcetam 500 MG in 0.9 % SODIUM CHLORIDE 100 ML IV STA (18:23)
[2023-03-04] MEDS ORDERED: LACTATED RINGER'S 1,000 ML IV SCH (18:30)
[2023-03-04 19:48] LABS: C Reactive Protein < 0.50 mg/dl (0-0.5)
[2023-03-04 20:03] LABS: Thyroid Stimulating Hormone 0.654 uIu/ml (0.300-4.500)
[2023-03-04] MEDS: PLASMA-LYTE A 1,000 ML IV SCH (20:04)
[2023-03-04] MEDS ORDERED: ACETAMINOPHEN 1,000 MG/100 ML VIAL IV PRN (20:31)
[2023-03-04 20:57] LABS: Influenza A virus by PCR Negative (Neg); Influenza B virus by PCR Negative (Neg); RSV by PCR Negative (Neg); SARS CoV2 RNA(COVID-19) Ceph NEGATIVE (Negative)
[2023-03-04] MEDS ORDERED: ARTIFICIAL TEARS OP PRN (22:03)
[2023-03-05] MEDS: BIMATOPROST 0.01% OP SOLN 2.5 ML BTL OP SCH ×2 (00:33→20:08)
[2023-03-05] MEDS: levETIRAcetam 500 MG in 0.9 % SODIUM CHLORIDE 100 ML IV SCH ×4 (00:35→18:00)
[2023-03-05] MEDS: PLASMA-LYTE A 1,000 ML IV SCH ×2 (05:55→15:33)
[2023-03-05] MEDS: ARTIFICIAL TEARS OP SCH (10:04)
[2023-03-05] MEDS: LACOSAMIDE 50 MG in SODIUM CHLORIDE 0.9% 50 ML IV SCH ×2 (10:04→21:03)
--- NOTE | 2023-03-05 10:14 | Neurology Consultation ---
Date of Consultation March 05, 2023 Assessment & Plan (1) Unresponsive state: (2) Seizure disorder: (3) Giant cell arteritis: Plan This patient has a history of biopsy-proven giant cell arteritis followed by Rheumatology on steroids. She has a history of staring spells and presumed seizures (EEGs have been unremarkable) on levetiracetam (currently 500 mg q.6 hours). Because of her possible seizure and postictal state lacosamide 50 mg IV q.12 was initiated last evening. Currently her exam is more consistent with catatonia/psychiatric condition as there are too many inconsistencies with her exam to call this a true unresponsive state. Recommendations: 1. Neurologically I see no indication for lumbar puncture. There are no meningeal signs or signs of infection 2. MRI of the brain with and without contrast. Also, consider MR angiography of the head and neck sees head does not need contrast but neck does) 3. Re-initiate steroids at current dose 4. Obtain a trough levetiracetam level 5. I will follow Overall, I spent a total of 60 minutes with this case including review of records, review of MRI films, direct evaluation the patient, report generation, and discussing the case with RN at bedside and Dr. Eubanks including differential diagnosis History of Present Illness Reason for Consultation: Patient is an 87-year-old, who I was asked to see the request of Dr. Martinez, for neurologic evaluation regarding unresponsive episode. Requesting Physician: Dr. Martinez Attending Physician: Kenisha Eubanks MD History of Present Illness This patient has a history of seizure disorder and was seen by Dr. Haq in November of this year for staring spell episodes possible seizure. She had an elevated sed rate and presumed inflammatory disease. LP showed a protein of 52 and no white cells and the rest of the LP was negative. MRI of the brain showed atrophy consistent with advanced age and [id number] small-vessel ischemic disease of an old nature. An EEG was normal. She was given levetiracetam. A right temporal lobe biopsy in December of 2022 was positive for giant cell arteritis and she is been followed by Dr. Obregon on steroids. Lamictal was given this fall but a rash develops and the Lamictal was stopped. The patient had altered mental status for the last 3 days. She came to the emergency room March 04, at 11:59 a.m. with a temperature is 35.9, pulse 98 and regular, respiratory rate 19, blood pressure 151/74, O2 saturation 97%. She was described as obtunded without giving answers and the exam was limited. CBC and Chem profile were unremarkable except for a mildly elevated BUN of 29, glucose of 188. Lactate was elevated at 3.7 but she was afebrile and had no elevated white count. Troponin was slightly elevated at 16.8. TSH, calcium, and magnesium were normal. Prolactin was 26 (normal 2.7-20) CT scan of the head was unremarkable. CT scan of the abdomen and pelvis was unremarkable. Chest x-ray was. An EEG was obtained in the emergency room last night and was remarkable for very mild generalized slowing only. There were no potentially epileptic discharges or focal abnormalities. This was nonspecific but could be seen in a postictal state. Overnight there was concern the patient was purposely not responding and was in a catatonic state)" Allergies Allergy/AdvReac Type Severity Reaction Status Date / Time Penicillins Allergy Unknown Unknown rxn Verified 03/01/23 14:46 azithromycin [From Zithromax] Allergy Unknown Verified 03/01/23 14:46 doxycycline Allergy Unknown Verified 03/01/23 14:46 risedronate sodium Allergy Unknown Verified 03/01/23 14:46 [From Actonel] lamotrigine [From Lamictal] AdvReac Intermediate Rash Verified 03/01/23 15:03 Home Medications Medication Instructions Recorded Confirmed Type betamethasone dipropionate 0.05 % 1 applic topical Q12 PRN itching 11/30/22 03/04/23 History topical cream bimatoprost 0.01 % eye drops 1 drp OPB HS 11/30/22 03/04/23 History (Jason) calcium carbonate 600 mg-vitamin 1 tab PO BID 11/30/22 03/04/23 History D3 10 mcg (400 unit) tablet (Calcium 600 + D(3)) loratadine 10 mg tablet 10 mg PO QAM 12/09/22 03/04/23 History acetaminophen 325 mg capsule 650 mg PO Q4 PRN elevated 01/07/23 03/04/23 History temperature alendronate 70 mg tablet 70 mg PO .Weekly 01/07/23 03/04/23 History amlodipine 5 mg tablet 5 mg PO QAM 01/07/23 03/04/23 History aspirin 81 mg tablet,delayed 81 mg PO QAM 01/07/23 03/04/23 History release (Adult Aspirin Regimen) bisacodyl 10 mg rectal suppository 10 mg VA DAILY PRN Constipation 01/07/23 03/04/23 History calcium carbonate 200 mg calcium 200 mg PO Q6 PRN Indigestion 01/07/23 03/04/23 History (500 mg) chewable tablet (Tums) nystatin-triamcinolone 100,000 1 applic topical Q8 PRN perineum 01/07/23 03/04/23 History unit/g-0.1 % topical cream itching ondansetron HCl 4 mg tablet 4 mg PO Q8H PRN nausea/vomiting 01/07/23 03/04/23 History sodium phosphates 19 gram-7 118 ml VA DAILY PRN Constipation 01/07/23 03/04/23 History gram/118 mL enema timolol 0.5 % eye drops 1 drp OPR QAM 01/07/23 03/04/23 History triamcinolone acetonide 55 mcg 1 spray intranasal QAM rhinitis 01/07/23 03/04/23 History nasal spray aerosol carboxymethylcellulose sodium 1 % 1 drp OPR QAM 01/20/23 03/04/23 History eye drops (Artificial Tears (carboxymethylcellulose)) carboxymethylcellulose sodium 1 % 1 drp ophthalmic (eye) Q6 PRN Dry 01/20/23 03/04/23 History eye drops (Artificial Tears Eyes (carboxymethylcellulose)) ipratropium bromide 21 mcg (0.03 1 spray intranasal Q12 PRN rhinitis 01/20/23 03/04/23 History %) nasal spray polyethylene glycol 3350 17 gram 17 g PO QAM 01/20/23 03/04/23 History oral powder packet (Miralax) ferrous sulfate 325 mg (65 mg 325 mg PO BID #1 tab 01/28/23 03/04/23 Rx iron) tablet tocilizumab 162 mg/0.9 mL 162 mg (0.9 mL) subcut .weekly 02/14/23 03/04/23 Rx subcutaneous syringe (Actemra) #0.9 mL levetiracetam 1,000 mg tablet 1,000 mg PO BID 30 days #60 tabs 03/01/23 03/04/23 Rx acetaminophen 325 mg tablet 650 mg PO Q4 PRN Pain 03/04/23 03/04/23 History potassium chloride 20 mEq 20 meq PO BID 03/04/23 03/04/23 History tablet,extended release(part/cryst) prednisone 20 mg tablet See Rx Instructions .Route .COMPLEX 03/04/23 03/04/23 History Patient History Medical History Giant cell arteritis PMR (polymyalgia rheumatica) FRANCISCO positive Weight loss Abnormal SPEP Seizure Hyponatremia Dyslipidemia Family history of colon cancer Osteopenia after menopause Pancreatic cyst Surgical History History of temporal artery biopsy (01/23/23) Right Temporal Artery Biopsy(Right) - Dwight Gleason DO History of biopsy of temporal artery History of varicose vein ligation and stripping History of colonoscopy S/P tubal ligation Family History Sister Breast cancer Coronary heart disease Father Stroke Mother Breast cancer Son Narcolepsy Other No family history of adverse response to anesthesia No family history of bleeding disorder Denies family history of Ovarian cancer Prostate cancer Diabetes Lung cancer Colorectal cancer Social History Smoking Status: Unknown if ever smoked Second Hand Exposure: No; Do You Dip or Chew Tobacco: No; Hx Alcohol Use: No Hx Substance Use: No Preferred Language: Malawian Communication Ability: Impaired Visual Impairment: Limited Hearing Ability: Normal Chromium Plater Required: No Beliefs That Will Affect Care: None marital status: Current Living Situation: Alone current occupational status: retired How many Children do You have: 3 Feels Safe at Home: Yes Childhood Exposure to Second-Hand Smoke: Yes (father smoked pipe occassionally ) Diet: regular caffeine: Yes (coffee and tea ) Dental Care, Regularly: Yes Physical Activity Frequency: Daily Physical Activity Frequency Comment: walk Seatbelt Use: always Sunscreen Use: Yes Assistive Devices: None Review of Systems Review of Systems: Unobtainable due to cognitive status Exam (Neuro) Physical Exam: The patient was lying in bed with her eyes closed with her hands folded on her lap very still. When I talk to her and came into the room next her she opened her right eye a bit and looked at me then quickly closed her eye. She would not follow any commands or questions. Eyes open passively at 1st and eyes started conjugately in different directions. Pupils were 4 mm and reactive. There was no facial droop and tongue was midline. But went back to open her eyes passively, she resisted. She had blink to threat. Neck was quite supple. I sat her up and she needed support but held her head up. When letting her go back down to the bed she went back in a controlled fashion and then readjusted herself. She would not hit her head with her arms as I let them fall towards her head and she was floppy/loose in all 4 limbs. Reflexes were 1/4 throughout and toes were distinctly downgoing plantar stimulation bilaterally. She withdrew grimaced and made noises with deep pain in all 4 limbs Results & Data Vital Signs (Past 12 Hours) Vital Signs Pulse Resp BP Pulse Ox Pulse Ox O2 Del Method O2 Flow Rate 03/05/23 07:00 91 H 22 99 03/05/23 06:57 97 H 03/05/23 06:30 165/85 H 03/05/23 06:30 88 29 H 100 03/05/23 06:00 93 H 25 H 100 03/05/23 05:30 84 20 160/82 H 98 03/05/23 05:00 75 17 98 03/05/23 04:30 73 17 99 03/05/23 03:00 85 22 161/81 H 98 03/05/23 02:40 100 Room Air 0 03/05/23 02:30 176/92 H 03/05/23 02:30 96 H 34 H 100 03/05/23 02:20 90 20 100 03/05/23 02:10 90 24 100 03/05/23 02:00 165/86 H 03/05/23 02:00 99 H 26 H 100 03/05/23 01:50 85 24 99 03/05/23 01:40 82 28 H 99 03/05/23 01:30 93 H 26 H 99 03/05/23 01:30 157/81 H 03/05/23 01:20 83 21 99 03/05/23 01:10 81 17 98 03/05/23 01:00 160/76 H 03/05/23 01:00 87 20 98 11/07/23 00:50 82 23 97 03/05/23 00:40 86 24 99 03/05/23 00:30 180/86 H 03/05/23 00:30 103 H 26 H 100 03/05/23 00:20 113 H 16 99 03/05/23 00:10 103 H 19 99 03/05/23 00:00 192/99 H 03/05/23 00:00 100 H 23 99 03/04/23 23:50 103 H 31 H 99 03/04/23 23:40 91 H 21 99 03/04/23 23:31 96 H 03/04/23 23:30 176/85 H 03/04/23 23:30 92 H 14 99 03/04/23 23:20 92 H 12 98 03/04/23 23:10 92 H 17 100 03/04/23 23:00 174/87 H 03/04/23 23:00 94 H 19 99 03/04/23 22:50 93 H 27 H 98 03/04/23 22:40 91 H 26 H 99 03/04/23 22:30 181/88 H 03/04/23 22:30 93 H 24 99 PG Care Time/CCT Total # of Minutes Spent Total Time Spent with Patient: Total time spent is greater than 50% in coordination of care (as documented) at patient's floor/unit and/or counseling patient: Coding Level of Care Code 93009 INT INP/OBS CARE 2/55MIN Diagnoses Unresponsive state R41.89 Seizure disorder G40.909 Giant cell arteritis M31.6 Time Spent (min) 60
[2023-03-05] MEDS: TIMOLOL MALEATE 0.5% OP SOLN 5 ML BTL OP SCH (11:19)
[2023-03-05] MEDS: methylPREDNISolone 40 MG in SYRINGE 0 ML IV SCH ×2 (11:21→20:09)
[2023-03-05] MEDS ORDERED: GADOBUTROL 65ML VIAL IV ONE (13:30)
--- NOTE | 2023-03-05 14:31 | Magnetic Resonance Report ---
MR ANGIOGRAM OF THE BRAIN CLINICAL HISTORY: Encephalopathy.. COMPARISON STUDY: MRI of the brain performed concurrently on 03/05/2023. MR angiogram of the brain justice ed 04/20/2009. TECHNIQUE: 3-D [id number] MR angiography of the intracranial circulation is performed. 3-D tumble views are created and assessed. IV contrast was not administered for this examination. FINDINGS: The internal carotid arteries are widely patent bilaterally, as are the anterior and middle cerebral arteries. The vertebral arteries and basilar artery are widely patent. The right posterior cerebral artery is normal. There is apparent decreased flow within the left posterior cerebral artery which may represent flow related phenomenon. There is no clear evidence of vessel occlusion. The ri ght vertebral artery is dominant. There is a large left posterior communicating artery. The left P1 s egment is diminutive. There is no aneurysm, high-grade stenosis, or focal vessel cutoff seen througho ut the intracranial circulation. The brain parenchyma is normal as visualized. Mucosal thickening is noted in the sphenoid sinuses. IMPRESSION: 1. Apparent asymmetrically diminished flow within the left posterior cerebral artery may represent fl ow related phenomenon. There is no clear evidence that this vessel is occluded. 2. Otherwise unremarkable MR angiogram of the brain. ACT 112: Negative or not required by law. Electronically signed by: Magen Freeman M.D. 03/05/2023 2:30 PM
--- NOTE | 2023-03-05 14:53 | Magnetic Resonance Report ---
MR ANGIOGRAM OF THE NECK COMBO CLINICAL HISTORY: Encephalopathy. COMPARISON STUDY: No priors. TECHNIQUE: Axial 3-D [id number] MR angiography of the neck is performed. Subsequently, following the IV administration of 5 cc of Gadavist. Coronal MR angiogram of the neck was performed to corrobor ate the findings. 3-D reformats are created and assessed. All measurements were calculated based on N ASCET criteria. FINDINGS: Visualized portions of the thoracic aorta are normal in caliber. The aortic arch demonstrat es standard 3-vessel anatomy. The subclavian arteries are widely patent bilaterally. The right common carotid artery is widely patent, as are the right internal and external carotid arteries. The left c ommon carotid artery is widely patent, as are the left internal and external carotid arteries. The ve rtebral arteries are widely patent. The vertebral arteries are codominant and neck. The visualized in tracranial vessels at the skull base appear patent. IMPRESSION: 1. Unremarkable MR angiogram of the neck. 2. Contrast opacification confirms patency of the left posterior cerebral artery as questioned on the MR angiogram of the brain. ACT 112: Negative or not required by law. Electronically signed by: Magen Freeman M.D. 03/05/2023 2:52 PM
--- NOTE | 2023-03-05 14:58 | Magnetic Resonance Report ---
MR brain wo/w con HISTORY: 87 years-old Female encephalopathy,known temporal arteritis COMPARISON: MRA of the head of same day TECHNIQUE: Multiplanar multisequence MRI of the head was obtained with and without the use of IV cont rast. FINDINGS: No restricted diffusion. The midline structures are unremarkable. Degenerative changes of the cervica l spine. No acute intracranial hemorrhage, midline shift, abnormal extra-axial collection, hydrocepha joelle or intra-axial mass. No pathologic blooming artifact. Involutional changes with moderate T2/FLAIR hyperintense foci throughout the white matter. No abnormal enhancement. Cerebral venous sinuses and major arterial flow voids appear patent. The skull, orbits and soft tissu es are unremarkable. Prior bilateral injury. Moderate mucosal thickening with air-fluid level in the left sphenoid sinus. IMPRESSION: 1. No acute intracranial abnormality. 2. Involutional changes with moderate chronic microvascular ischemic disease. 3. No abnormal enhancement. ACT 112: Negative or not required by law. The above report was generated using voice recognition software. It may contain grammatical, syntax o r spelling errors. Electronically signed by: Anand Moore M.D. 03/05/2023 2:57 PM
--- NOTE | 2023-03-05 15:17 | Hospitalist Progress Note ---
Date of Service March 05, 2023 Assessment & Plan (1) Acute encephalopathy: Plan: Presented with significant lethargy and was obtunded on admission but protecting airway after being found down, suspected recurrent seizure No evidence of infection anywhere, CT head negative, VBG no CO2 retention EEG with slowing consistent with post-ictal state perhaps but no status epilepticus Prolactin 26, TSH normal CT A/P, CXR negative for acute issues Afebrile, no need for LP as per Neuro Daughter reports patient has been acting very strange since she started taking Lamictal-no more regular phone calls to her daughter each night, giving terse answers to questions, and wandered out of the assisted living facility to [place] in the middle of the night, incontinence episodes SHe is improved since admission but definitely not back to her baseline. Nonfocal Neuro exam but does have nystagmus on my exam Appreciate Neuro consult-suspect post-ictal state but needs further imaging--> check brain MRI, MRA head and neck--> all normal Continue treatment for seizures as below Supportive care check CBC, NH3, CMP levels in AM continue IVFs for hydration advance diet to clear liquids as tolerated STOPPED lamictal and hopefully after metabolizes out of her system, she will be improved (2) Seizure disorder: Plan: had seizures in summer 2022 and started on Keppra Had seizure and seen in ER 02/04, discharged to home Had another seizure at [facility] 02/13 and did not come to the hospital--> Neuro contacted as outpt and recommended starting on Lamictal Developed worsening mental status and then rash since starting Lamictal 02/14--> stopped Here now with likely prolonged post-ictal state as above--> started IV Vimpat and continue IV Keppra EEG here shows slowing which could be consistent with post-ictal state check Keppra level Appreciate Neuro consult (3) Acidosis, lactic: Plan: Likely from seizure activity hydrate with IVFs (4) Rash: Plan: Likely secondary to Lamictal which was stopped on 03/01 monitor for improvement (5) Giant cell arteritis: Plan: Restart prednisone when able to take oral medication-for now, start IV SOlumedrol 40mg IV bid Currently on Actemra started on Feb 20 ESR now [address] Obregon of [place] [facility] (6) Essential hypertension: Plan: BPs elevated without taking amlodipine from home start IV hydralazine prn SBP>180 resume home amlodipine once able to take po meds (7) Abnormal SPEP: Plan: abnormal in 11/2022 repeat here now Plan VTE Prophylaxis - add Lovenox, SCDs Disposition - continued stay med/tele FULL CODE-status changed as per d/w daughter who reports that since her last discharge, patient filled out another POLST form that says she is to be a FULL CODE Spent 75 minutes in total in care of this patient today Admission and Anticipated Discharge Date Admission Date: March 04, 2023 Subjective Discussed care with Neuro earlier in the morning and again in the afternoon for a total of 20 min. When I saw the patient in the early afternoon, she awoke easily to verbal stimulation and answered questions with mostly yes and no answers. She denies headache, nausea, CP, SOB, abd pains or pains anywhere. She does not remember anything that happened the day before. She knows she is in "the hospital...in [place]." She declines to drink anything. I discussed her care with her two daughters on the phone as well for 22 min. Physical Exam Constitutional: + thin; no acute distress Eyes: PERRL, conjunctivae normal, anicteric sclerae + nystagmus ENMT: external ear and nose normal, oropharynx normal (except dry MM) Neck: trachea midline, no thyromegaly Respiratory: normal respiratory effort, lungs clear to auscultation Cardiovascular: RRR, no murmur, no edema Gastrointestinal (Abdomen): normal bowel sounds, soft, nontender, no hepatosplenomegaly Musculoskeletal: no cyanosis or clubbing, extremities motor strength 5/5 Skin: + rash (erythematous macular rash torso) Neurologic: CN's II-XI intact bilaterally, deep tendon reflexes 2+ bilaterally, moves all extremities, awake and + confused; no focal motor deficits follows all commands neg pronator drift Psychiatric: Orientation: alert, oriented to person, oriented to place (knew "hospital" and "[place]") and cooperative; + not oriented to time (knew the year but not month or date) Results & Data Results & Data Vital Signs (Past 12 Hours) Vital Signs Pulse Resp BP Pulse Ox O2 Del Method 03/05/23 14:48 59 L 16 171/80 H 98 Room Air 03/05/23 11:26 73 17 153/75 H 99 Room Air 03/05/23 11:00 82 20 99 03/05/23 10:00 79 19 99 03/05/23 09:53 79 21 153/75 H 100 03/05/23 09:00 71 15 99 03/05/23 08:00 93 H 13 99 03/05/23 07:00 91 H 22 99 03/05/23 06:57 97 H 03/05/23 06:30 165/85 H 03/05/23 06:30 88 29 H 100 03/05/23 06:00 93 H 25 H 100 03/05/23 05:30 84 20 160/82 H 98 03/05/23 05:00 75 17 98 03/05/23 04:30 73 17 99 Laboratory Results no labs today Diagnostic Findings MRI brain, MRA head and neck reviewed PG Care Time/CCT Total # of Minutes Spent Total Time Spent with Patient: Total time spent is greater than 50% in coordination of care (as documented) at patient's floor/unit and/or counseling patient: Coding Level of Care Code 76887 SUB INP/OBS CARE 3/50MIN Diagnoses Acute encephalopathy G93.40 Seizure disorder G40.909 Acidosis, lactic E87.20 Rash R21 Giant cell arteritis M31.6 Essential hypertension I10 Abnormal SPEP R77.8
[2023-03-05] MEDS ORDERED: hydrALAZINE HCL 20 MG/ML VIAL IV PRN (22:44)
[2023-03-06] MEDS: ENOXAPARIN INJ 30 MG/0.3 ML SYR SQ SCH ×2 (00:09→20:20)
[2023-03-06] MEDS: levETIRAcetam 500 MG in 0.9 % SODIUM CHLORIDE 100 ML IV SCH ×2 (00:09→06:09)
[2023-03-06] MEDS: PLASMA-LYTE A 1,000 ML IV SCH (02:30)
[2023-03-06 06:47] LABS: Basophils # (auto) 0.02 K/uL (0.00-0.20); Basophils % (auto) 0.3 %; Hematocrit (blood only) 31.8 % (37.0-47.0); Immature Granulocytes # (auto) 0.09 K/uL (0.01-0.20); Immature Granulocytes % (auto) 1.2 %; Mean Corpuscular Hemoglobin 30.2 pg (25.0-34.0); Mean Corpuscular Hgb Conc 34.6 g/dL (32.0-36.0); Mean Corpuscular Volume 87.4 fL (80.0-100.0); Mean Platelet Volume 8.9 fL (9.4-12.4); Monocytes # (auto) 0.31 K/uL (0.11-0.59); Monocytes % (auto) 4.1 %; Neutrophils % (auto) 78.4 %; Platelet Count 188 K/uL (130-400); RDW Coefficient of Variation 18.9 % (11.5-14.5); RDW Standard Deviation 60.1 fL (36.4-46.3); Red Blood Count 3.64 M/uL (4.20-5.40); White Blood Count 7.52 K/ul (4.8-10.8)
[2023-03-06 07:18] LABS: Albumin Globulin Ratio 1.6 (0.9-2); BUN Creatinine Ratio 29.5 (10-20); Bilirubin,Total 0.6 mg/dl (0.2-1.0); Calcium 6.6 mg/dl (8.6-10.3); Creatinine Clr Calc Pharmacy 68.1 ml/min; Est GFR (African American) 105.2 ml/min; Est GFR (Non-African American) 90.8 ml/min; Globulin 1.9 gm/dl (2.5-4.0); Magnesium 2.1 mg/dl (1.7-2.4); Potassium 3.2 mmol/L (3.5-5.1); Total Protein 4.9 gm/dl (6.0-8.3)
[2023-03-06] MEDS: LACOSAMIDE 50 MG in SODIUM CHLORIDE 0.9% 50 ML IV SCH (08:36)
[2023-03-06] MEDS: methylPREDNISolone 40 MG in SYRINGE 0 ML IV SCH (08:36)
[2023-03-06] MEDS: TIMOLOL MALEATE 0.5% OP SOLN 5 ML BTL OP SCH (08:36)
[2023-03-06] MEDS: ARTIFICIAL TEARS OP SCH (08:36)
[2023-03-06] MEDS ORDERED: POTASSIUM CHLORIDE CRTAB 20 MEQ TABCR PO STA (08:42)
[2023-03-06] MEDS ORDERED: STAT IV/IM STA (08:44)
[2023-03-06] MEDS ORDERED: CALCIUM GLUCONATE 10% 1,000 MG in SODIUM CHLOR 0.9% MINI-B 50 ML IV ONE (08:45)
--- NOTE | 2023-03-06 09:10 | Neurology Progress Note ---
Date of Service March 06, 2023 Assessment & Plan (1) Unresponsive state: (2) Seizure disorder: (3) Giant cell arteritis: (4) Dementia: Plan This patient has a history of biopsy-proven giant cell arteritis followed by Rheumatology on steroids and Actemra. She has a history of staring spells and presumed seizures (EEGs have been unremarkable) on levetiracetam (currently 500 mg q.6 hours). Because of her possible seizure and postictal state, lacosamide 50 mg IV q.12 was initiated March 04. March 05 she was sleepy/confused although I was not positive she was unresponsive. Her exam was somewhat inconsistent Today, however, she is quite awake and alert with no signs of delirium or encephalopathy. I suspect she has some underlying dementia consistent with age. In addition there are no focal findings on exam although she does have some mild nonspecific action tremor bilaterally. Overall, therefore, she probably had a post ictal state which has since resolved. MRI of the brain showed no abnormalities. MR angiography of the head neck showed no specific abnormalities as well Recommendations: 1. Neurologically I see no indication for lumbar puncture. There are no meningeal signs or signs of infection 2. Convert anticonvulsants to p.o. as she increases activity and starts to eat: Lacosamide 50 mg p.o. twice a day and levetiracetam 1000 mg twice daily 3. Awaiting levetiracetam level 4. Increase activity as able and consider physical and occupational therapy to evaluate and treat. She may need a walker for stability. Overall, I spent a total of 75 minutes with this case including review of records, review of MRI films, direct evaluation of the patient, report generation, and discussiion of the case with RN at bedside and Dr. Eubanks including differential diagnosis Admission and Anticipated Discharge Date Admission Date: March 04, 2023 Subjective Patient has no complaint of headache or pain. She does not have any dizziness, shortness of breath, or symptoms of weakness or numbness. Nursing reports no new events overnight and no seizure activity. Her mental status is improved according to nursing and she has been pleasant and cooperative. MRI of the brain with and without contrast showed no acute or active lesions. She had moderate generalized cerebral atrophy consistent with age with some hydrocephalus ex vacuo to a mild degree. In addition she had mild old small- vessel ischemic disease only. Contrast produced no enhancement. Therefore, there was no acute or chronic stroke, tumor, area of cerebritis, or other abnormality. I reviewed these films MR angiography of the head revealed some possible decrease flow in the left posterior cerebral artery with no other vascular abnormalities. MR angiography of the neck was unremarkable with no stenoses or vascular anomalies either. CBC showed some very mild anemia and Chem profile was largely unremarkable except for glucose of 112 and calcium of 6.6. She is been in normal sinus rhythm in the 70s and 80s overnight with some first- degree AV block. Results & Data Vital Signs (Past 12 Hours) Vital Signs Temp Pulse Resp BP Pulse Ox 03/06/23 08:36 36.5 C 67 16 160/79 H 99 03/06/23 07:00 89 03/06/23 04:00 37.1 C 72 16 161/78 H 96 03/06/23 00:05 36.7 C 75 16 154/80 H 98 03/05/23 22:55 78 Exam (Neuro) Physical Exam: Patient was oriented to name, year, place but she did not know the president. She followed commands well and was very pleasant and cooperative. She had no obvious hearing loss. Pupils were 4 mm bilaterally and reactive to light. Extraocular muscles were intact without nystagmus. There is no facial droop. Tongue was midline with good strength bilaterally. Neck was supple. Coordination was normal in the arms without ataxia. She had some mild action tremor bilaterally but no resting tremor. Motor strength was essentially 5/5 in all major muscle groups in the arms and legs both proximally and distally with no focal weakness. Reflexes were 2/4 in the biceps, triceps, and brachioradialis tendons bilaterally. Reflexes were 1/4 in the quadriceps and absent in the Achilles tendons bilaterally. Toes are downgoing with plantar stimulation bilaterally. Patient had moderate vibratory sense loss in the feet. She had a stocking decreased pinprick sense loss legs from the feet up to close to her knees bilaterally. Patient had difficulty sitting up and standing on her own and gait was very slow and cautious. PG Care Time/CCT Total # of Minutes Spent Total Time Spent with Patient: Total time spent is greater than 50% in coordination of care (as documented) at patient's floor/unit and/or counseling patient: Coding Level of Care Code 41132 SUB INP/OBS CARE 3/50MIN Diagnoses Unresponsive state R41.89 Seizure disorder G40.909 Giant cell arteritis M31.6 Dementia F03.90 Time Spent (min) 75
[2023-03-06] MEDS ORDERED: levETIRAcetam 500 MG TAB PO ONE (09:13)
--- NOTE | 2023-03-06 16:23 | Hospitalist Progress Note ---
Date of Service March 06, 2023 Assessment & Plan (1) Acute encephalopathy: Plan: Presented with significant lethargy and was obtunded on admission but protecting airway after being found down, suspected recurrent seizure No evidence of infection anywhere, CT head negative, VBG no CO2 retention EEG with slowing consistent with post-ictal state perhaps but no status epilepticus Prolactin 26, TSH normal CT A/P, CXR negative for acute issues Afebrile, no need for LP as per Neuro Daughter reports patient has been acting very strange since she started taking Lamictal-no more regular phone calls to her daughter each night, giving terse answers to questions, and wandered out of the assisted living facility to [place] in the middle of the night, incontinence episodes. She now likely had another seizure after the LAMICTAL was stopped on 03/01 for rash She is now completely back to her baseline (with likely some mild underlying cognitive impairment)-alert, interactive, oriented x 2, recalls me from previous admission. Is eating/drinking, moving bowels, ambulating. Appreciate Neuro consult-suspect post-ictal state as cause of AMS Brain MRI, MRA head and neck--> all normal Continue treatment for seizures as below Supportive care Dc IVFs advance diet to regular STOPPED lamictal on 03/01 for rash and also likely caused encephalopathy (2) Seizure disorder: Plan: had seizures in summer 2022 and started on Keppra Had seizure and seen in ER 02/04, discharged to home Had another seizure at [facility] 02/13 and did not come to the hospital--> Neuro contacted as outpt and recommended starting on Lamictal Developed worsening mental status and then rash since starting Lamictal 02/14--> stopped Here now with prolonged post-ictal state as above--> started IV Vimpat and continued on IV Keppra---> now back to baseline, taking po--> convert back to po Keppra and Vimpat EEG here shows slowing which could be consistent with post-ictal state check Keppra level-pending Appreciate Neuro consult Follow up in Neurology clinic (3) Acidosis, lactic: Plan: Likely from seizure activity (4) Rash: Plan: Likely secondary to Lamictal which was stopped on 03/01 monitor for improvement-similar to previous Is on prednisone which will help (5) Giant cell arteritis: Plan: Restart prednisone now that she is able to take oral medication -dc SoluMedrol Currently on Actemra started on Feb 20-due for dose on 03/07-can be brought in from [facility] now [address] Obregon of [place] [facility] (6) Essential hypertension: Plan: resume home amlodipine now that she is able to take po meds (7) Abnormal SPEP: Plan: abnormal in 11/2022 repeat here now (8) Hypocalcemia: Plan: Significantly low, restart home calcium and vitamin D Give IV calcium gluconate Check levels in the morning (9) Dementia: Plan: Neurology thinks she has mild dementia Supportive care Follow-up with neurology outpatient (10) Hypokalemia: Plan: Replaced with oral potassium chloride Follow BMP Plan VTE Prophylaxis - Lovenox, SCDs Disposition - continued stay med/tele FULL CODE-status changed as per d/w daughter who reports that since her last discharge, patient filled out another POLST form that says she is to be a FULL CODE discussed care with daughter on the phone again on 03/06 Admission and Anticipated Discharge Date Admission Date: March 06, 2023 Subjective Pt feels well, remembers me from previous admission but does not recall seeing me yesterday. Denies headache or pain anywhere. Is eating and moving bowels, ambulating with assistance. Tele with 1st degree AVB, NSR, rates 70-80s Discussed her care with Neurology Physical Exam Constitutional: + thin; no acute distress Neck: trachea midline, no thyromegaly Respiratory: normal respiratory effort, lungs clear to auscultation Cardiovascular: RRR, no murmur, no edema Gastrointestinal (Abdomen): normal bowel sounds, soft, nontender, no hepatosplenomegaly Musculoskeletal: no cyanosis or clubbing, extremities motor strength 5/5 Skin: + rash (erythematous macular rash torso) Neurologic: moves all extremities and awake; no focal motor deficits Psychiatric: Orientation: alert, oriented to person, oriented to place and cooperative Results & Data Results & Data Vital Signs (Past 12 Hours) Vital Signs Temp Pulse Resp BP Pulse Ox O2 Del Method 03/06/23 15:39 83 03/06/23 15:31 36.4 C L 80 18 117/65 96 03/06/23 11:14 36.4 C L 71 18 127/62 99 03/06/23 10:00 Room Air 03/06/23 08:36 36.5 C 67 16 160/79 H 99 03/06/23 07:00 89 Laboratory Results CBC, BMP, magnesium, calcium, NH3 levels reviewed PG Care Time/CCT Total # of Minutes Spent Total Time Spent with Patient: Total time spent is greater than 50% in coordination of care (as documented) at patient's floor/unit and/or counseling patient: Coding Level of Care Code 92535 SUB INP/OBS CARE 3/50MIN Diagnoses Acute encephalopathy G93.40 Seizure disorder G40.909 Acidosis, lactic E87.20 Rash R21 Giant cell arteritis M31.6 Essential hypertension I10 Abnormal SPEP R77.8 Hypocalcemia E83.51 Dementia F03.90 Hypokalemia E87.6
[2023-03-06] MEDS ORDERED: ACETAMINOPHEN 325 MG TAB PO PRN (16:39)
[2023-03-06] MEDS: ASPIRIN 81 MG ECTAB PO SCH (17:12)
[2023-03-06] MEDS: BIMATOPROST 0.01% OP SOLN 2.5 ML BTL OP SCH (20:20)
[2023-03-06] MEDS: LACOSAMIDE 50 MG TABLET PO SCH (20:21)
[2023-03-06] MEDS: levETIRAcetam 500 MG TAB PO SCH (20:21)
[2023-03-06] MEDS: CALCIUM 600MG + VIT D 400 IU TAB PO SCH (20:22)
[2023-03-06] MEDS: POTASSIUM CHLORIDE CRTAB 20 MEQ TABCR PO SCH (20:23)
[2023-03-06] MEDS: FERROUS SULFATE 325 MG TAB PO SCH (20:23)
[2023-03-07 07:33] LABS: Basophils # (auto) 0.02 K/uL (0.00-0.20); Basophils % (auto) 0.3 %; Eosinophils # (auto) 0.07 K/uL (0.00-0.50); Hematocrit (blood only) 29.7 % (37.0-47.0); Hemoglobin 10.4 g/dl (12.0-16.0); Immature Granulocytes % (auto) 1.4 %; Lymphocytes # (auto) 3.54 K/uL (1.20-3.40); Lymphocytes % (auto) 48.3 %; Mean Corpuscular Hemoglobin 30.9 pg (25.0-34.0); Mean Corpuscular Volume 88.1 fL (80.0-100.0); Mean Platelet Volume 9.5 fL (9.4-12.4); Monocytes # (auto) 0.52 K/uL (0.11-0.59); Monocytes % (auto) 7.1 %; Neutrophils # (auto) 3.08 K/uL (1.40-6.50); Neutrophils % (auto) 41.9 %; Platelet Count 191 K/uL (130-400); RDW Coefficient of Variation 19.9 % (11.5-14.5); RDW Standard Deviation 62.9 fL (36.4-46.3); Red Blood Count 3.37 M/uL (4.20-5.40); White Blood Count 7.33 K/ul (4.8-10.8)
[2023-03-07 07:59] LABS: Albumin Globulin Ratio 1.6 (0.9-2); Albumin Level 2.9 gm/dl (3.4-5.0); Bilirubin,Total 0.5 mg/dl (0.2-1.0); Creatinine Clr Calc Pharmacy 55.6 ml/min; Est GFR (African American) 98.3 ml/min; Est GFR (Non-African American) 84.8 ml/min; Globulin 1.8 gm/dl (2.5-4.0); Magnesium 2.1 mg/dl (1.7-2.4); Potassium 3.6 mmol/L (3.5-5.1); Total Protein 4.7 gm/dl (6.0-8.3)
[2023-03-07] MEDS: predniSONE 20 MG TAB PO SCH (08:33)
[2023-03-07] MEDS: ASPIRIN 81 MG ECTAB PO SCH (08:33)
[2023-03-07] MEDS: FERROUS SULFATE 325 MG TAB PO SCH ×2 (08:33→21:49)
[2023-03-07] MEDS: amLODIPine BESYLATE 5 MG TAB PO SCH (08:34)
[2023-03-07] MEDS: POTASSIUM CHLORIDE CRTAB 20 MEQ TABCR PO SCH ×2 (08:34→21:49)
[2023-03-07] MEDS: TIMOLOL MALEATE 0.5% OP SOLN 5 ML BTL OP SCH (08:34)
[2023-03-07] MEDS: LORATADINE 10 MG TAB PO SCH (08:34)
[2023-03-07] MEDS: levETIRAcetam 500 MG TAB PO SCH ×2 (08:34→21:49)
[2023-03-07] MEDS: ARTIFICIAL TEARS OP SCH (08:35)
[2023-03-07] MEDS: LACOSAMIDE 50 MG TABLET PO SCH ×2 (09:09→21:49)
[2023-03-07] MEDS: CALCIUM 600MG + VIT D 400 IU TAB PO SCH ×2 (09:10→21:49)
--- NOTE | 2023-03-07 13:44 | Hospitalist Progress Note ---
Date of Service March 07, 2023 Assessment & Plan (1) Acute encephalopathy: Plan: Presented with significant lethargy and was obtunded on admission but protecting airway after being found down, suspected recurrent seizure No evidence of infection anywhere, CT head negative, VBG no CO2 retention EEG with slowing consistent with post-ictal state perhaps but no status epilepticus Prolactin 26, TSH normal CT A/P, CXR negative for acute issues Afebrile, no need for LP as per Neuro Daughter reports patient has been acting very strange since she started taking Lamictal-no more regular phone calls to her daughter each night, giving terse answers to questions, and wandered out of the assisted living facility to her old [place] in the middle of the night, incontinence episodes. She now likely had another seizure after the LAMICTAL was stopped on 03/01 for rash She is completely back to her baseline on 03/06 (with likely some mild underlying cognitive impairment)-alert, interactive, oriented x 2, recalls me from previous admission.Was eating/drinking, moving bowels, ambulating. On 03/07, more lethargic, poor appetite, slightly more confused. Is having ongoing urinary incontinence and retention. Remains afebrile, VSS, labs normal. Perhaps from poor sleep? Perhaps hospital delirium Appreciate Neuro consult-suspect post-ictal state as cause of AMS Brain MRI, MRA head and neck--> all normal Continue treatment for seizures as below Supportive care STOPPED lamictal on 03/01 for rash and also likely caused encephalopathy Promote good sleep/wake cycles (2) Seizure disorder: Plan: had seizures in summer 2022 and started on Keppra Had seizure and seen in ER 02/04, discharged to home Had another seizure at [facility] 02/13 and did not come to the hospital--> Neuro contacted as outpt and recommended starting on Lamictal Developed worsening mental status and then rash since starting Lamictal 02/14--> stopped Here now with prolonged post-ictal state as above--> started IV Vimpat and continued on IV Keppra---> now back to baseline, taking po--> convert back to po Keppra and Vimpat EEG here shows slowing which could be consistent with post-ictal state checked Keppra level-pending Appreciate Neuro consult Follow up in Neurology clinic (3) Acidosis, lactic: Plan: Likely from seizure activity resolved (4) Rash: Plan: Likely secondary to Lamictal which was stopped on 03/01 monitor for improvement-similar to previous Is on prednisone which will help (5) Giant cell arteritis: Plan: Continue prednisone Currently on Actemra started on Feb 20-due for dose on 03/07-can be brought in from [facility] ESR now [address] Obregon of [place] [facility] (6) Essential hypertension: Plan: continue amlodipine BPs stable (7) Abnormal SPEP: Plan: abnormal in 11/2022 repeat here now pending (8) Hypocalcemia: Plan: Significantly low, restart home calcium and vitamin D and repleted with IV calcium now improved (9) Dementia: Plan: Neurology thinks she has mild dementia Supportive care Follow-up with neurology outpatient (10) Hypokalemia: Plan: Replaced and resolved (11) Urine retention: Plan: straight cathed for 600mL on 03/06 overnight perhaps having overflow incontinence the last few weeks as described by her daughter bladder scan qshift and straight cath as needed no offending medications that are typical for causing urine retention She does have a pessary in place and therefore has a h/o prolapse will montior on consult Urology or [facility] if needed (12) Anemia: Plan: hgb 10-11, improved from previous and thought to be secondary to iron deficiency and mostly from severe inflammation from previous GCA continue ferrous sulfate Plan VTE Prophylaxis - Lovenox, SCDs Disposition - continued stay med/tele FULL CODE-status changed as per d/w daughter who reports that since her last discharge, patient filled out another POLST form that says she is to be a FULL CODE discussed care with daughter on the phone again on 03/06 Admission and Anticipated Discharge Date Admission Date: March 06, 2023 Subjective Pt straight cathed o/n for 600mL. Had incontinence to stool and urine today as per RN. SHe is more tired today and sleeping in the chair when I saw her. She reports not having a good night but can't specify why. SHe does not want to eat her lunch. Tele with SB, SR 1st degree AVB, rates average 70s Physical Exam Constitutional: + thin; no acute distress Neck: trachea midline, no thyromegaly Respiratory: normal respiratory effort, lungs clear to auscultation Cardiovascular: RRR, no murmur, no edema Skin: + rash (erythematous macular rash torso) Neurologic: + not awake (drowsy but wakes up to verb al stim) Psychiatric: Orientation: cooperative Results & Data Results & Data Vital Signs (Past 12 Hours) Vital Signs Temp Pulse Pulse Resp BP Pulse Ox O2 Del Method 03/07/23 11:08 36.5 C 85 20 97/66 L 98 Room Air 03/07/23 08:30 Room Air 03/07/23 07:51 36.4 C L 58 L 20 161/64 H 99 Room Air 03/07/23 07:19 63 03/07/23 04:00 36.5 C 61 18 145/86 H 96 Room Air PG Care Time/CCT Total # of Minutes Spent Total Time Spent with Patient: Total time spent is greater than 50% in coordination of care (as documented) at patient's floor/unit and/or counseling patient: Coding Level of Care Code 74268 SUB INP/OBS CARE 2/35MIN Diagnoses Acute encephalopathy G93.40 Seizure disorder G40.909 Acidosis, lactic E87.20 Rash R21 Giant cell arteritis M31.6 Essential hypertension I10 Abnormal SPEP R77.8 Hypocalcemia E83.51 Dementia F03.90 Hypokalemia E87.6 Urine retention R33.9 Anemia D64.9
[2023-03-07] MEDS ORDERED: Nursing to Pharmacy Communication SCH (14:30)
[2023-03-07 14:31] LABS: Appearance Urine Clear (Clear); Bilirubin Urine Negative (Negative); Blood Urine Negative (Negative); Color Urine Yellow; Glucose Urine UA Negative (Negative); Ketones Urine Negative (Negative); Leukocyte Esterase Urine Negative (Negative); Nitrite Urine Negative (Negative); Protein Urine Negative (Negative); Specific Gravity Urine 1.009 (1.000-1.030); Urobilinogen Urine Negative (Negative)
--- NOTE | 2023-03-07 18:26 | OB/GYN Consultation ---
Date of Consultation March 07, 2023 Assessment & Plan (1) Cystocele with prolapse: I evaluated the patient's prolapse and pessary placement at bedside. The pessary was properly positioned, and is adequately supporting her cystocele. Would recommend she keep the pessary in place, as supporting the cystocele is likely preventing prolapse-related urinary retention. Patient is in agreement that she would like to keep the pessary in place. I agree with the recommendation from the medicine team to straight cath and/or Chavez as needed for urinary retention. Recommend patient continue her routine follow-up with Dr. Patrick in the [facility] office for pessary maintenance. Please contact on-call [facility] with any questions. History of Present Illness Reason for Consultation: Urinary retention, pessary in place Requesting Physician: Dr Eubanks Attending Physician: Kenisha Eubanks MD History of Present Illness Patient is an 87-year-old admitted to the medicine service with acute alteration in mental status. OBGYN consulted by Dr. Eubanks for concern regarding urinary retention. Last night, overnight, she needed to undergo straight catheterization for 600 mL. She has a history of vaginal prolapse with a grade 3/4 cystocele, and this is managed with a [id number]-[id number] pessary by Dr. Patrick in the [facility]. I evaluated patient at bedside, and she was awake and talking. Had tried to eat some dinner but was not hungry. She told me she is happy with her pessary, and that she has not had any recent troubles with it. She feels that the pessary is properly positioned. Has not noticed any vaginal bleeding, pain, or discharge. Allergies Allergy/AdvReac Type Severity Reaction Status Date / Time Penicillins Allergy Unknown Unknown rxn Verified 03/01/23 14:46 azithromycin [From Zithromax] Allergy Unknown Verified 03/01/23 14:46 doxycycline Allergy Unknown Verified 03/01/23 14:46 risedronate sodium Allergy Unknown Verified 03/01/23 14:46 [From Actonel] lamotrigine [From Lamictal] AdvReac Intermediate Rash Verified 03/01/23 15:03 Home Medications Medication Instructions Recorded Confirmed Type betamethasone dipropionate 0.05 % 1 applic topical Q12 PRN itching 11/30/22 03/04/23 History topical cream bimatoprost 0.01 % eye drops 1 drp OPB HS 11/30/22 03/04/23 History (Lumigan) calcium carbonate 600 mg-vitamin 1 tab PO BID 11/30/22 03/04/23 History D3 10 mcg (400 unit) tablet (Calcium 600 + D(3)) loratadine 10 mg tablet 10 mg PO QAM 12/09/22 03/04/23 History acetaminophen 325 mg capsule 650 mg PO Q4 PRN elevated 01/07/23 03/04/23 History temperature alendronate 70 mg tablet 70 mg PO .Weekly 01/07/23 03/04/23 History amlodipine 5 mg tablet 5 mg PO QAM 01/07/23 03/04/23 History aspirin 81 mg tablet,delayed 81 mg PO QAM 01/07/23 03/04/23 History release (Adult Aspirin Regimen) bisacodyl 10 mg rectal suppository 10 mg VA DAILY PRN Constipation 01/07/23 03/04/23 History calcium carbonate 200 mg calcium 200 mg PO Q6 PRN Indigestion 01/07/23 03/04/23 History (500 mg) chewable tablet (Tums) nystatin-triamcinolone 100,000 1 applic topical Q8 PRN perineum 01/07/23 03/04/23 History unit/g-0.1 % topical cream itching ondansetron HCl 4 mg tablet 4 mg PO Q8H PRN nausea/vomiting 01/07/23 03/04/23 History sodium phosphates 19 gram-7 118 ml VA DAILY PRN Constipation 01/07/23 03/04/23 History gram/118 mL enema timolol 0.5 % eye drops 1 drp OPR QAM 01/07/23 03/04/23 History triamcinolone acetonide 55 mcg 1 spray intranasal QAM rhinitis 01/07/23 03/04/23 History nasal spray aerosol carboxymethylcellulose sodium 1 % 1 drp OPR QAM 01/20/23 03/04/23 History eye drops (Artificial Tears (carboxymethylcellulose)) carboxymethylcellulose sodium 1 % 1 drp ophthalmic (eye) Q6 PRN Dry 01/20/23 03/04/23 History eye drops (Artificial Tears Eyes (carboxymethylcellulose)) ipratropium bromide 21 mcg (0.03 1 spray intranasal Q12 PRN rhinitis 01/20/23 03/04/23 History %) nasal spray polyethylene glycol 3350 17 gram 17 g PO QAM 01/20/23 03/04/23 History oral powder packet (Miralax) ferrous sulfate 325 mg (65 mg 325 mg PO BID #1 tab 01/28/23 03/04/23 Rx iron) tablet tocilizumab 162 mg/0.9 mL 162 mg (0.9 mL) subcut .weekly 02/14/23 03/04/23 Rx subcutaneous syringe (Actemra) #0.9 mL levetiracetam 1,000 mg tablet 1,000 mg PO BID 30 days #60 tabs 03/01/23 03/04/23 Rx acetaminophen 325 mg tablet 650 mg PO Q4 PRN Pain 03/04/23 03/04/23 History potassium chloride 20 mEq 20 meq PO BID 03/04/23 03/04/23 History tablet,extended release(part/cryst) prednisone 20 mg tablet See Rx Instructions .Route .COMPLEX 03/04/23 03/04/23 History Patient History Medical History (Updated 03/07/23 @ 13:34 by Kenisha Eubanks MD) Abnormal SPEP Giant cell arteritis PMR (polymyalgia rheumatica) FRANCISCO positive Weight loss Seizure Hyponatremia Dyslipidemia Family history of colon cancer Osteopenia after menopause Pancreatic cyst Surgical History History of temporal artery biopsy (01/23/23) Right Temporal Artery Biopsy(Right) - Dwight Gleason, History of biopsy of temporal artery History of varicose vein ligation and stripping History of colonoscopy S/P tubal ligation Family History Sister Breast cancer Coronary heart disease Father Stroke Mother Breast cancer Son Narcolepsy Other No family history of adverse response to anesthesia No family history of bleeding disorder Denies family history of Ovarian cancer Prostate cancer Diabetes Lung cancer Colorectal cancer Social History Smoking Status: Unknown if ever smoked Second Hand Exposure: No; Do You Dip or Chew Tobacco: No; Hx Alcohol Use: No Hx Substance Use: No Preferred Language: Slovenian Communication Ability: Impaired Visual Impairment: Limited Hearing Ability: Normal M[employer] Clerk Required: No Beliefs That Will Affect Care: None marital status: Current Living Situation: Personal Care Facility Current Living Situation Comment: [facility] current occupational status: retired How many Children do You have: 3 Other Information That Helps Us Care for You: No Feels Safe at Home: Yes Safety Concerns: Feels Safe At This Time Childhood Exposure to Second-Hand Smoke: Yes (father smoked pipe occassionally ) Diet: regular caffeine: Yes (coffee and tea ) Dental Care, Regularly: Yes Physical Activity Frequency: Daily Physical Activity Frequency Comment: walk Seatbelt Use: always Sunscreen Use: Yes Assistive Devices: Walker Physical Exam Physical Exam: On vaginal exam, there is no bleeding or discharge, and the vaginal mucosa appears healthy. The ring with support pessary is properly positioned in the vagina and is adequately supporting her cystocele. Results & Data Vital Signs (Past 12 Hours) Vital Signs Temp Pulse Pulse Resp BP Pulse Ox O2 Del Method 03/07/23 15:27 36.3 C L 68 20 175/78 H 97 Room Air 03/07/23 15:22 67 03/07/23 11:08 36.5 C 85 20 97/66 L 98 Room Air 03/07/23 08:30 Room Air 03/07/23 07:51 36.4 C L 58 L 20 161/64 H 99 Room Air 03/07/23 07:19 63 PG Care Time/CCT Total # of Minutes Spent Total Time Spent with Patient: Total time spent is greater than 50% in coordination of care (as documented) at patient's floor/unit and/or counseling patient: Coding Level of Care Code 64862 INT INP/OBS CARE 40MIN Diagnoses Cystocele with prolapse N81.4
[2023-03-07] MEDS ORDERED: TOCILIZUMAB 162 MG/0.9 ML SQ SCH (21:00)
[2023-03-07] MEDS: BIMATOPROST 0.01% OP SOLN 2.5 ML BTL OP SCH (21:49)
[2023-03-07] MEDS: ENOXAPARIN INJ 30 MG/0.3 ML SYR SQ SCH (21:50)
[2023-03-08 06:11] LABS: Basophils # (auto) 0.01 K/uL (0.00-0.20); Basophils % (auto) 0.1 %; Eosinophils # (auto) 0.04 K/uL (0.00-0.50); Eosinophils % (auto) 0.6 %; Hematocrit (blood only) 31.1 % (37.0-47.0); Hemoglobin 10.3 g/dl (12.0-16.0); Immature Granulocytes # (auto) 0.08 K/uL (0.01-0.20); Immature Granulocytes % (auto) 1.2 %; Lymphocytes # (auto) 2.51 K/uL (1.20-3.40); Lymphocytes % (auto) 36.4 %; Mean Corpuscular Hemoglobin 29.9 pg (25.0-34.0); Mean Corpuscular Hgb Conc 33.1 g/dL (32.0-36.0); Mean Corpuscular Volume 90.1 fL (80.0-100.0); Mean Platelet Volume 9.6 fL (9.4-12.4); Monocytes # (auto) 0.46 K/uL (0.11-0.59); Monocytes % (auto) 6.7 %; Nucleated RBC # (auto) 0.02 K/uL (0.00-0.12); Nucleated RBC % (auto) 0.3 %; Platelet Count 198 K/uL (130-400); RDW Coefficient of Variation 20.4 % (11.5-14.5); RDW Standard Deviation 66.5 fL (36.4-46.3); Red Blood Count 3.45 M/uL (4.20-5.40)
[2023-03-08 06:20] LABS: Potassium 3.9 mmol/L (3.5-5.1)
[2023-03-08 06:26] LABS: BUN Creatinine Ratio 40.9 (10-20); Creatinine Clr Calc Pharmacy 68.3 ml/min; Est GFR (African American) 105.2 ml/min; Est GFR (Non-African American) 90.8 ml/min
[2023-03-08 06:34] LABS: Anisocytosis Present
--- NOTE | 2023-03-08 09:38 | Neurology Progress Note ---
Date of Service March 08, 2023 Assessment & Plan (1) Unresponsive state: (2) Seizure disorder: (3) Giant cell arteritis: (4) Dementia: Plan This patient has a history of biopsy-proven giant cell arteritis followed by Rheumatology on steroids and Actemra. She has a history of staring spells and presumed seizures (EEGs have been unremarkable) on levetiracetam (currently 500 mg q.6 hours). Because of her possible seizure and postictal state, lacosamide 50 mg IV q.12 was initiated March 04. March 05 she was sleepy/confused although I was not positive she was unresponsive. Her exam was somewhat inconsistent Today, however, she is quite awake and alert with no signs of delirium or encephalopathy. I suspect she has some underlying dementia consistent with age. In addition there are no focal findings on exam although she does have some mild nonspecific action tremor bilaterally. Overall, therefore, she probably had a post ictal state which has since resolved. MRI of the brain showed no abnormalities. MR angiography of the head neck showed no specific abnormalities as well There are a few cases of high doses of lacosamide giving confusion/obtundation but she is on a relatively low dose. Recommendations: 1. Neurologically I see no indication for lumbar puncture. There are no meningeal signs or signs of infection 2. Convert anticonvulsants to p.o. as she increases activity and starts to eat: Lacosamide 50 mg p.o. twice a day and levetiracetam 1000 mg twice daily 3. Awaiting levetiracetam level 4. Increase activity as able and consider physical and occupational therapy to evaluate and treat. She may need a walker for stability. 5. If she is still somewhat lethargic/sleepy tomorrow I may lower lacosamide or switch to another medication Overall, I spent a total of 35 minutes with this case including review of records, direct evaluation of the patient, report generation, and discussion of the case with RN at bedside and Dr. Eubanks including differential diagnosis and treatment options Admission and Anticipated Discharge Date Admission Date: March 06, 2023 Subjective According to the patient's nurse, she was extremely lethargic/sleepy overnight and barely responding. This morning, she is still somewhat sleepy. There is complaint of pain. CBC and Chem profile were largely unremarkable. Blood pressure is 165/88 she is afebrile. Results & Data Vital Signs (Past 12 Hours) Vital Signs Temp Pulse Pulse Resp BP BP Pulse Ox 03/08/23 07:43 55 L 03/08/23 07:39 36.5 C 63 16 165/68 H 97 03/08/23 04:00 36.8 C 70 18 171/99 H 96 03/08/23 00:00 36.6 C 71 18 131/77 96 03/07/23 22:01 71 O2 Del Method 03/08/23 07:43 03/08/23 07:39 Room Air 03/08/23 04:00 Room Air 03/08/23 00:00 Room Air 03/07/23 22:01 Exam (Neuro) Physical Exam: Patient is sleeping but easily aroused with voice. She turns makes eye contact and seemed to recognize me when I told her my name. She followed 1 step commands well and was pleasant and cooperative. Limb was symmetrical were no involuntary movements. PG Care Time/CCT Total # of Minutes Spent Total Time Spent with Patient: Total time spent is greater than 50% in coordination of care (as documented) at patient's floor/unit and/or counseling patient: Coding Level of Care Code 02724 SUB INP/OBS CARE 2/35MIN Diagnoses Unresponsive state R41.89 Seizure disorder G40.909 Giant cell arteritis M31.6 Dementia F03.90 Time Spent (min) 35
[2023-03-08] MEDS: ARTIFICIAL TEARS OP SCH (13:47)
[2023-03-08] MEDS: amLODIPine BESYLATE 5 MG TAB PO SCH (13:47)
[2023-03-08] MEDS: ASPIRIN 81 MG ECTAB PO SCH (13:47)
[2023-03-08] MEDS: LACOSAMIDE 50 MG TABLET PO SCH (13:47)
[2023-03-08] MEDS: FERROUS SULFATE 325 MG TAB PO SCH ×2 (13:48→20:10)
[2023-03-08] MEDS: POTASSIUM CHLORIDE CRTAB 20 MEQ TABCR PO SCH ×2 (13:48→20:10)
[2023-03-08] MEDS: LORATADINE 10 MG TAB PO SCH (13:48)
[2023-03-08] MEDS: CALCIUM 600MG + VIT D 400 IU TAB PO SCH ×2 (13:48→20:10)
[2023-03-08] MEDS: levETIRAcetam 500 MG TAB PO SCH (13:48)
[2023-03-08] MEDS: predniSONE 20 MG TAB PO SCH (13:49)
[2023-03-08] MEDS: TIMOLOL MALEATE 0.5% OP SOLN 5 ML BTL OP SCH (13:53)
--- NOTE | 2023-03-08 17:43 | Hospitalist Progress Note ---
Date of Service March 08, 2023 Assessment & Plan (1) Acute encephalopathy: Plan: Presented with significant lethargy and was obtunded on admission but protecting airway after being found down, suspected recurrent seizure No evidence of infection anywhere, CT head negative, VBG no CO2 retention EEG with slowing consistent with post-ictal state perhaps but no status epilepticus Prolactin 26, TSH normal CT A/P, CXR negative for acute issues Afebrile, no need for LP as per Neuro Brain MRI, MRA head and neck--> all normal Daughter reports patient has been acting very strange since she started taking Lamictal-no more regular phone calls to her daughter each night, giving terse answers to questions, and wandered out of the assisted living facility [place] in the middle of the night, incontinence episodes. She was completely back to her baseline on 03/06 (with likely some mild underlying cognitive impairment)-alert, interactive, oriented x 2, recalls me from previous admission.Was eating/drinking, moving bowels, ambulating. On 03/07, more lethargic, poor appetite, slightly more confused. Is having ongoing urinary incontinence and retention. Remains afebrile, VSS, labs normal. Perhaps from poor sleep? Perhaps hospital delirium On 03/08--> very lethargic all day but vitals normal, labs normal Initially thought her presentation was from having another seizure after the LAMICTAL was stopped on 03/01 for rash and that this was a post-ictal period However, with recurrent significant encephalopathy here in hospital again on 03/08---> question Keppra toxicity--> lower dose of Keppra to 500mg IV q12hrs (renal dosing for 500mg q8h) down from 1000mg bid Appreciate Neuro consult-will now lower Keppra dose to 500mg IV q12h and monitor for clinical improvement -Follow Keppra level when available (send out lab) -Continue treatment for seizures as below -Supportive care -STOPPED lamictal on 03/01 for rash and also likely caused encephalopathy -Promote good sleep/wake cycles -STOP lacosamide now in case worsening encephalopathy on 03/08 from that -check NH3 and VBG but doubt abnormal (2) Seizure disorder: Plan: had seizures in summer 2022 and started on Keppra Had seizure and seen in ER 02/04, discharged to home Had another seizure at [facility] 02/13 and did not come to the hospital--> Neuro contacted as outpt and recommended starting on Lamictal Developed worsening mental status and then rash since starting Lamictal 02/14--> stopped Here now with prolonged post-ictal state vs Keppra toxicity as above EEG here shows slowing which could be consistent with post-ictal state checked Keppra level-pending Reduce Keppra dose as above, dc lacosamide If has recurrent seizures, next drug would be Depakote as per Neuro Appreciate Neuro consult Follow up in Neurology clinic (3) Acidosis, lactic: Plan: Likely from seizure activity resolved (4) Rash: Plan: Likely secondary to Lamictal which was stopped on 03/01 monitor for improvement-similar to previous Is on prednisone which will help (5) Giant cell arteritis: Plan: Continue prednisone Currently on Actemra started on Feb 20-received her dose on 03/07 ESR now [address] Obregon of [facility] (6) Essential hypertension: Plan: continue amlodipine BPs stable (7) Abnormal SPEP: Plan: abnormal in 11/2022 repeat here now pending (8) Hypocalcemia: Plan: Significantly low, restart home calcium and vitamin D and repleted with IV calcium now improved (9) Dementia: Plan: Neurology thinks she has mild dementia Supportive care Follow-up with neurology outpatient (10) Hypokalemia: Plan: Replaced and resolved (11) Urine retention: Plan: straight cathed for 600mL on 03/06 overnight perhaps having overflow incontinence the last few weeks as described by her daughter bladder scan qshift and straight cath as needed no offending medications that are typical for causing urine retention She does have a pessary in place and therefore has a h/o prolapse--> consult SLAB LIFTING ENGINEER and pessary is in place and functioning properly Maintain Chavez for now and trial of void after encephalopathy resolves (12) Anemia: Plan: hgb 10-11, improved from previous and thought to be secondary to iron deficiency and mostly from severe inflammation from previous GCA continue ferrous sulfate Plan VTE Prophylaxis - Lovenox, SCDs Disposition - continued stay med/tele FULL CODE-status changed as per d/w daughter who reports that since her last discharge, patient filled out another POLST form that says she is to be a FULL CODE discussed care with daughter on the phone again on 03/08 Admission and Anticipated Discharge Date Admission Date: March 06, 2023 Subjective Pt very lethargic all day today and barely wok eup to take her pills. SHe would not speak to me and would only grimace with painful stimuli with pen to toenails. She did squint eyes with pen light to pupils. I discussed her care with Dr. Rivero of Neurology on two occasions as well as with her Metal Stamper. Tele with NSR normal rates I also discussed her care with her daughter on the phone Physical Exam Constitutional: + thin; no acute distress Eyes: PERRL, conjunctivae normal, anicteric sclerae Neck: trachea midline, no thyromegaly Respiratory: normal respiratory effort, lungs clear to auscultation Cardiovascular: RRR, no murmur, no edema Gastrointestinal (Abdomen): normal bowel sounds, soft, nontender, no hepatosplenomegaly Musculoskeletal: no cyanosis or clubbing, extremities motor strength 5/5 Skin: + rash (erythematous macular rash torso) Neurologic: + not awake grimaced in response to painful stimuli bilat, no nystagmus, no facial droop Results & Data Results & Data Vital Signs (Past 12 Hours) Vital Signs Temp Pulse Pulse Resp BP Pulse Ox O2 Del Method 03/08/23 16:57 36.4 C L 58 L 16 134/75 96 Room Air 03/08/23 16:00 77 03/08/23 11:18 36.7 C 63 16 123/66 97 Room Air 03/08/23 07:43 55 L 03/08/23 07:39 36.5 C 63 16 165/68 H 97 Room Air Laboratory Results CBC, BMP, magnesium, blood cxs reviewed PG Care Time/CCT Total # of Minutes Spent Total Time Spent with Patient: Total time spent is greater than 50% in coordination of care (as documented) at patient's floor/unit and/or counseling patient: Coding Level of Care Code 58155 SUB INP/OBS CARE 3/50MIN Diagnoses Acute encephalopathy G93.40 Seizure disorder G40.909 Acidosis, lactic E87.20 Rash R21 Giant cell arteritis M31.6 Essential hypertension I10 Abnormal SPEP R77.8 Hypocalcemia E83.51 Dementia F03.90 Hypokalemia E87.6 Urine retention R33.9 Anemia D64.9
[2023-03-08] MEDS ORDERED: levETIRAcetam 500 MG in SODIUM CHLOR 0.9% MINI-B 100 ML IV SCH ×2 (18:00→22:00)
[2023-03-08 18:09] LABS: Base Excess VBG 4.2 mEq/L; HCO3 VBG 28 mmol/L; Oxygen Saturation VBG 92.3 %; PCO2 VBG 40 mmHg (38-50); PO2 VBG 61 mmHg; pH VBG 7.46 (7.36-7.41)
[2023-03-08] MEDS: NSS + 20MEQ KCL 20 MEQ/1,000 ML BAG IV SCH (18:53)
[2023-03-08] MEDS: BIMATOPROST 0.01% OP SOLN 2.5 ML BTL OP SCH (20:11)
[2023-03-08] MEDS: ENOXAPARIN INJ 30 MG/0.3 ML SYR SQ SCH (20:11)
[2023-03-09 06:10] LABS: Basophils # (auto) 0.02 K/uL (0.00-0.20); Basophils % (auto) 0.3 %; Eosinophils # (auto) 0.02 K/uL (0.00-0.50); Eosinophils % (auto) 0.3 %; Hematocrit (blood only) 31.9 % (37.0-47.0); Hemoglobin 10.6 g/dl (12.0-16.0); Immature Granulocytes # (auto) 0.08 K/uL (0.01-0.20); Immature Granulocytes % (auto) 1.2 %; Lymphocytes % (auto) 32.3 %; Mean Corpuscular Hemoglobin 30.4 pg (25.0-34.0); Mean Corpuscular Hgb Conc 33.2 g/dL (32.0-36.0); Mean Corpuscular Volume 91.4 fL (80.0-100.0); Mean Platelet Volume 9.1 fL (9.4-12.4); Monocytes # (auto) 0.46 K/uL (0.11-0.59); Monocytes % (auto) 6.8 %; Neutrophils # (auto) 4.03 K/uL (1.40-6.50); Neutrophils % (auto) 59.1 %; Platelet Count 211 K/uL (130-400); RDW Coefficient of Variation 20.1 % (11.5-14.5); RDW Standard Deviation 66.8 fL (36.4-46.3); Red Blood Count 3.49 M/uL (4.20-5.40); White Blood Count 6.81 K/ul (4.8-10.8)
[2023-03-09 06:20] LABS: Albumin Level 3.2 gm/dl (3.4-5.0); Bilirubin,Total 0.5 mg/dl (0.2-1.0); Calcium 8.4 mg/dl (8.6-10.3); Magnesium 1.9 mg/dl (1.7-2.4); Potassium 3.9 mmol/L (3.5-5.1)
[2023-03-09 06:27] LABS: Albumin Globulin Ratio 1.6 (0.9-2); BUN Creatinine Ratio 26.1 (10-20); Creatinine Clr Calc Pharmacy 64.1 ml/min; Est GFR (African American) 103.7 ml/min; Est GFR (Non-African American) 89.4 ml/min; Phosphorus 2.9 mg/dl (2.5-4.9); Total Protein 5.2 gm/dl (6.0-8.3)
[2023-03-09 06:41] LABS: Anisocytosis Present
[2023-03-09] MEDS: NSS + 20MEQ KCL 20 MEQ/1,000 ML BAG IV SCH ×2 (09:20→21:59)
--- NOTE | 2023-03-09 09:27 | Neurology Progress Note ---
Date of Service March 09, 2023 Assessment & Plan (1) Unresponsive state: (2) Seizure disorder: (3) Giant cell arteritis: (4) Dementia: Plan This patient has a history of biopsy-proven giant cell arteritis followed by Rheumatology on steroids and Actemra. She has a history of staring spells and presumed seizures (EEGs have been unremarkable) on levetiracetam (currently 500 mg q.6 hours). Because of her possible seizure and postictal state, lacosamide 50 mg IV q.12 was initiated March 04. March 05 she was sleepy/confused although I was not positive she was unresponsive. Her exam was somewhat inconsistent. On March 06, however, she was quite awake and alert with no signs of delirium or encephalopathy. She does have an underlying dementia. She had no focal findings on exam. On March 08 as well as today, however, she has been more obtunded/lack of responsiveness. Her exam is a little inconsistent in that she will make eye contact and smile, but not follow commands. Again, there is nothing focal on exam MRI of the brain showed no abnormalities. MR angiography of the head neck showed no specific abnormalities as well There are a few cases of high doses of lacosamide giving confusion/obtundation but she is on a relatively low dose. Levetiracetam can give an encephalopathy as well. Lacosamide was discontinued after March 08 and the levetiracetam was cut in half to 500 mg twice a day. Recommendations: 1. Neurologically I see no indication for lumbar puncture. There are no meningeal signs or signs of infection 2. Discontinue levetiracetam 3. Keep off lacosamide 4. Initiate valproic acid 250 mg IV q.6 hours (give IV since unable to take p.o. well at this time) 5. Awaiting levetiracetam level from admission Overall, I spent a total of 50 minutes with this case including review of records, direct evaluation of the patient, report generation, and discussion of the case with RN at bedside and Dr. Lara, including differential diagnosis and treatment options Admission and Anticipated Discharge Date Admission Date: March 06, 2023 Subjective Patient is not responding as well as before. Nursing has not noted any seizure- like activity. There are no episodes of staring. The patient has had some communication overnight but this morning will look at me, smile, but not talk or follow commands. CBC is stable as is CMP. Blood Pressure is 131/64 and she is afebrile. Results & Data Vital Signs (Past 12 Hours) Vital Signs Temp Pulse Pulse Resp BP BP Pulse Ox 03/09/23 08:05 36.3 C L 71 17 131/64 99 03/09/23 07:03 58 L 03/09/23 04:03 36.9 C 55 L 18 158/74 H 98 03/08/23 23:48 68 03/08/23 23:06 37.2 C 88 18 121/66 95 O2 Del Method 03/09/23 08:05 Room Air 03/09/23 07:03 03/09/23 04:03 Room Air 03/08/23 23:48 03/08/23 23:06 Room Air Exam (Neuro) Physical Exam: She is lying on her left side in bed pulling the covers up around her shoulders moving her limbs. When I talked to her she opens her eyes, looks at me and then look straight ahead. When I turned her head towards me she smiled and then turned back looking away. There is good tone in the limbs but she will not follow one-step commands. There are no abnormal involuntary movements and she resists equally in all limbs. Eyes are conjugate and there is no facial droop. PG Care Time/CCT Total # of Minutes Spent Total Time Spent with Patient: Total time spent is greater than 50% in coordination of care (as documented) at patient's floor/unit and/or counseling patient: Coding Level of Care Code 70454 SUB INP/OBS CARE 3/50MIN Diagnoses Unresponsive state R41.89 Seizure disorder G40.909 Giant cell arteritis M31.6 Dementia F03.90 Time Spent (min) 50
[2023-03-09] MEDS: amLODIPine BESYLATE 5 MG TAB PO SCH (10:12)
[2023-03-09] MEDS: ASPIRIN 81 MG ECTAB PO SCH (10:13)
[2023-03-09] MEDS: CALCIUM 600MG + VIT D 400 IU TAB PO SCH ×2 (10:13→21:51)
[2023-03-09] MEDS: predniSONE 20 MG TAB PO SCH (10:13)
[2023-03-09] MEDS: POTASSIUM CHLORIDE CRTAB 20 MEQ TABCR PO SCH ×2 (10:13→21:51)
[2023-03-09] MEDS: FERROUS SULFATE 325 MG TAB PO SCH ×2 (10:13→21:51)
[2023-03-09] MEDS: LORATADINE 10 MG TAB PO SCH (10:13)
[2023-03-09] MEDS: VALPROATE SOD 250 MG in DEXTROSE 5% 50 ML IV SCH ×3 (10:58→21:56)
[2023-03-09] MEDS: TIMOLOL MALEATE 0.5% OP SOLN 5 ML BTL OP SCH (11:03)
[2023-03-09] MEDS: ARTIFICIAL TEARS OP SCH (11:05)
--- NOTE | 2023-03-09 16:45 | Hospitalist Progress Note ---
Date of Service March 09, 2023 Assessment & Plan (1) Acute encephalopathy: Plan: Presented with significant lethargy and was obtunded on admission but protecting airway after being found down, suspected recurrent seizure No evidence of infection anywhere, CT head negative, VBG no CO2 retention, ammonia normal EEG with slowing consistent with post-ictal state perhaps but no status epilepticus Prolactin 26, TSH normal CT A/P, CXR, U/A negative for acute issues Afebrile, no need for LP as per Neuro Brain MRI, MRA head and neck--> all normal Daughter reports patient has been acting very strange since she started taking Lamictal-no more regular phone calls to her daughter each night, giving terse answers to questions, and wandered out of the assisted living facility [place] old [place] in the middle of the night, incontinence episodes. She was completely back to her baseline on 03/06 (with likely some mild underlying cognitive impairment)-alert, interactive, oriented x 2, recalls me from previous admission.Was eating/drinking, moving bowels, ambulating. On 03/07, more lethargic, poor appetite, slightly more confused. Is having ongoing urinary incontinence and retention. Remains afebrile, VSS, labs normal. Perhaps from poor sleep? Perhaps hospital delirium On 03/08--> very lethargic all day but vitals normal, labs normal 03/09 --> very lethargic, not interactive Initially thought her presentation was from having another seizure after the LAMICTAL was stopped on 03/01 for rash and that this was a post-ictal period However, with recurrent significant encephalopathy here in hospital again on 03/08---> question Keppra toxicity--> Keppra decreased and then discontinued 03/09 -Neuro consulted -Follow Keppra level when available (send out lab) -Continue treatment for seizures as below -STOPPED lamictal on 03/01 for rash and also likely caused encephalopathy -STOPPED lacosamide 03/08 -STOPPED Keppra 03/09 -Delirium precautions discussed with family -STARTED Depakote 03/09 - likely will need trough concentration drawn on day 3 or 4 (2) Seizure disorder: Plan: had seizures in summer 2022 and started on Keppra Had seizure and seen in ER 02/04, discharged to home Had another seizure at [facility] 02/13 and did not come to the hospital--> Neuro contacted as outpt and recommended starting on Lamictal Developed worsening mental status and then rash since starting Lamictal 02/14--> stopped Here now with prolonged post-ictal state vs Keppra toxicity as above EEG here shows slowing which could be consistent with post-ictal state checked Keppra level-pending -STOPPED lamictal on 03/01 for rash and also likely caused encephalopathy -STOPPED lacosamide 03/08 -STOPPED Keppra 03/09 -STARTED Depakote 03/09 - likely will need trough concentration drawn on day 3 or 4 Appreciate Neuro consult, will need outpatient neurology f/u (3) Rash: Plan: Likely secondary to Lamictal which was stopped on 03/01 monitor for improvement-similar to previous Is on prednisone which will help (4) Giant cell arteritis: Plan: Continue prednisone Currently on Actemra started on Feb 20-received her dose on 03/07 ESR now [address] Obregon of [place] [facility] (5) Essential hypertension: Plan: continue amlodipine BPs stable (6) Abnormal SPEP: Plan: abnormal in 11/2022 repeat here now pending (7) Hypocalcemia: Plan: Significantly low, restart home calcium and vitamin D and repleted with IV calcium check ionized calcium 03/10 (8) Dementia: Plan: Neurology thinks she has mild dementia Supportive care Follow-up with neurology outpatient (9) Hypokalemia: Plan: Replaced and resolved (10) Urine retention: Plan: straight cathed for 600mL on 03/06 overnight perhaps having overflow incontinence the last few weeks as described by her daughter bladder scan qshift and straight cath as needed no offending medications that are typical for causing urine retention She does have a pessary in place and therefore has a h/o prolapse--> consult DIRECTOR OF ELEMENTARY EDUCATION and pessary is in place and functioning properly Maintain Chavez for now and trial of void after encephalopathy resolves (11) Anemia: Plan: hgb 10-11, improved from previous and thought to be secondary to iron deficiency and mostly from severe inflammation from previous GCA continue ferrous sulfate Plan VTE Prophylaxis - Lovenox, SCDs Disposition - continued stay med/tele FULL CODE-status changed as per d/w daughter who reports that since her last discharge, patient filled out another POLST form that says she is to be a FULL CODE discussed care with daughters (one in person and one on phone) 03/09 Admission and Anticipated Discharge Date Admission Date: March 06, 2023 Subjective Minimally interactive and unable to voice any concerns today Review of Systems Review of Systems: Per subjective Physical Exam Physical Exam: General: Laying on back/left side Cardiovascular: RRR, no M/R/G Pulmonary: CTAB anteriorly Abdomen: Soft, ND Extremities: no pedal edema Integumentary: Mild scabbing/bruising on distal LEs Neurologic: Eyes remain closed except opened briefly spontaneously, does not follow commands Results & Data Results & Data Vital Signs (Past 12 Hours) Vital Signs Temp Pulse Pulse Pulse Resp BP BP 03/09/23 16:28 36.4 C L 61 18 135/58 L 03/09/23 16:00 63 03/09/23 11:47 36.5 C 75 17 138/66 03/09/23 08:05 36.3 C L 71 17 131/64 03/09/23 07:03 58 L Pulse Ox O2 Del Method 03/09/23 16:28 95 Room Air 03/09/23 16:00 03/09/23 11:47 100 Room Air 03/09/23 08:05 99 Room Air 03/09/23 07:03 Laboratory Results Reviewed labs today including CBC, CMP, phosphorus, magnesium,overall unremarkable with exception of hemoglobin 10.6. Reviewed VBG from yesterday and ammonia from yesterdayunremarkable PG Care Time/CCT Total # of Minutes Spent Total Time Spent: 60 Total Time Spent with Patient: I spent over 60 minutes reviewing previous notes, reviewing prior test results, obtaining a history, conducting physical examination, counseling and educating family, ordering tests, ordering medications, communicating with consultants, and documenting in the EHR. Coding Level of Care Code 95601 SUB INP/OBS CARE 3/50MIN Diagnoses Acute encephalopathy G93.40 Seizure disorder G40.909 Rash R21 Giant cell arteritis M31.6 Essential hypertension I10 Abnormal SPEP R77.8 Hypocalcemia E83.51 Dementia F03.90 Hypokalemia E87.6 Urine retention R33.9 Anemia D64.9
[2023-03-09] MEDS: ENOXAPARIN INJ 30 MG/0.3 ML SYR SQ SCH (21:52)
[2023-03-09] MEDS: BIMATOPROST 0.01% OP SOLN 2.5 ML BTL OP SCH (21:52)
[2023-03-10] MEDS: VALPROATE SOD 250 MG in DEXTROSE 5% 50 ML IV SCH ×4 (04:11→21:30)
[2023-03-10 06:28] LABS: Hematocrit (blood only) 37.4 % (37.0-47.0); Hemoglobin 12.4 g/dl (12.0-16.0); Mean Corpuscular Hemoglobin 30.2 pg (25.0-34.0); Mean Corpuscular Hgb Conc 33.2 g/dL (32.0-36.0); Mean Corpuscular Volume 91.2 fL (80.0-100.0); Mean Platelet Volume 9.2 fL (9.4-12.4); Platelet Count 259 K/uL (130-400); RDW Coefficient of Variation 20.2 % (11.5-14.5); RDW Standard Deviation 67.2 fL (36.4-46.3); White Blood Count 5.33 K/ul (4.8-10.8)
[2023-03-10 06:43] LABS: Calcium 8.3 mg/dl (8.6-10.3); Potassium 3.8 mmol/L (3.5-5.1)
[2023-03-10 06:49] LABS: BUN Creatinine Ratio 22.2 (10-20); Creatinine Clr Calc Pharmacy 65.5 ml/min; Est GFR (African American) 104.4 ml/min; Est GFR (Non-African American) 90.1 ml/min
[2023-03-10 09:49] LABS: Lyme Ab IgG w/WB Rflx Negative (Negative)
[2023-03-10 09:50] LABS: Lyme Ab IgM w/WB Rflx Negative (Negative)
[2023-03-10] MEDS: amLODIPine BESYLATE 5 MG TAB PO SCH (10:49)
[2023-03-10] MEDS: CALCIUM 600MG + VIT D 400 IU TAB PO SCH ×2 (10:49→20:38)
[2023-03-10] MEDS: ASPIRIN 81 MG ECTAB PO SCH (10:49)
[2023-03-10] MEDS: FERROUS SULFATE 325 MG TAB PO SCH ×2 (10:49→20:36)
[2023-03-10] MEDS: LORATADINE 10 MG TAB PO SCH (10:50)
[2023-03-10] MEDS: POTASSIUM CHLORIDE CRTAB 20 MEQ TABCR PO SCH ×2 (10:50→20:41)
[2023-03-10] MEDS: predniSONE 20 MG TAB PO SCH (10:50)
[2023-03-10] MEDS: NSS + 20MEQ KCL 20 MEQ/1,000 ML BAG IV SCH (11:15)
[2023-03-10] MEDS: TIMOLOL MALEATE 0.5% OP SOLN 5 ML BTL OP SCH (11:22)
[2023-03-10] MEDS: ARTIFICIAL TEARS OP SCH (11:22)
--- NOTE | 2023-03-10 15:13 | Hospitalist Progress Note ---
Date of Service March 10, 2023 Assessment & Plan (1) Acute encephalopathy: Plan: Presented with significant lethargy and was obtunded on admission but protecting airway after being found down, suspected recurrent seizure No evidence of infection anywhere, CT head negative, VBG no CO2 retention, ammonia normal EEG with slowing consistent with post-ictal state perhaps but no status epilepticus Prolactin 26, TSH normal CT A/P, CXR, U/A negative for acute issues Afebrile, no need for LP as per Neuro Brain MRI, MRA head and neck--> all normal Serum Lyme IgG and IgM negative 03/10 Daughter reports patient has been acting very strange since she started taking Lamictal-no more regular phone calls to her daughter each night, giving terse answers to questions, and wandered out of the assisted living facility to her old [place] in the middle of the night, incontinence episodes. She was completely back to her baseline on 03/06 (with likely some mild underlying cognitive impairment)-alert, interactive, oriented x 2, recognized treating provider at that time, was eating/drinking, moving bowels, ambulating. On 03/07, more lethargic, poor appetite, slightly more confused. Is having ongoing urinary incontinence and retention. Remains afebrile, VSS, labs normal. Perhaps from poor sleep? Perhaps hospital delirium On 03/08--> very lethargic all day but vitals normal, labs normal 03/09 and 03/10 --> very lethargic, not interactive, not taking PO Initially thought her presentation was from having another seizure after the LAMICTAL was stopped on 03/01 for rash and that this was a post-ictal period However, with recurrent significant encephalopathy here in hospital again on 03/08---> Keppra decreased and then discontinued 03/09 though level returned as normal -Neuro consulted - communicated again on 03/10 -Keppra level from 03/05/23 returned as normal at 24.1 -Continue treatment for seizures as below -STOPPED lamictal on 03/01 for rash and also likely caused encephalopathy -STOPPED lacosamide 03/08 -STOPPED Keppra 03/09 -Delirium precautions discussed with family -STARTED Depakote 03/09 - trough level to be obtained 03/11 per neuro -Changed oral prednisone to solumedrol equivalent given inability to take PO (2) Seizure disorder: Plan: had seizures in summer 2022 and started on Keppra Had seizure and seen in ER 02/04, discharged to home Had another seizure at [facility] 02/13 and did not come to the hospital--> Neuro contacted as outpt and recommended starting on Lamictal Developed worsening mental status and then rash since starting Lamictal 02/14--> stopped Here now with prolonged post-ictal state vs Keppra toxicity as above EEG here shows slowing which could be consistent with post-ictal state -Keppra level from 03/05/23 returned as normal at 24.1 -STOPPED lamictal on 03/01 for rash and also likely caused encephalopathy -STOPPED lacosamide 03/08 -STOPPED Keppra 03/09 -STARTED Depakote 03/09 - trough level to be obtained 03/11 per neuro Appreciate Neuro consult, will need outpatient neurology f/u (3) Rash: Plan: Likely secondary to Lamictal which was stopped on 03/01 monitor for improvement-similar to previous Is on systemic steroids which will likely help (4) Giant cell arteritis: Plan: Has not received prednisone due to inability to take PO from poor mental status - switched 03/10 to methylprednisolone 32mg daily Currently on Actemra started on Feb 20-received her dose on 03/07 ESR now [address] Obregon of [facility] (5) Essential hypertension: Plan: continue amlodipine when able to take PO when mental status improves BPs stable (6) Abnormal SPEP: Plan: abnormal in 11/2022 repeat here now pending (7) Hypocalcemia: Plan: Significantly low early in hospitalization, restart home calcium and vitamin D and repleted with IV calcium checked ionized calcium 03/10 - marginally low at 1.09, will hold on repletion (8) Dementia: Plan: Neurology thinks she has mild dementia Supportive care Follow-up with neurology outpatient (9) Hypokalemia: Plan: Replaced and resolved (10) Urine retention: Plan: straight cathed for 600mL on 03/06 overnight perhaps having overflow incontinence the last few weeks as described by her daughter bladder scan qshift and straight cath as needed no offending medications that are typical for causing urine retention She does have a pessary in place and therefore has a h/o prolapse--> consult GOLD STAMPER and pessary is in place and functioning properly Maintain Chavez for now and trial of void after encephalopathy resolves (11) Anemia: Plan: Improved as of 03/10 thought to be secondary to iron deficiency and mostly from severe inflammation from previous GCA continue ferrous sulfate when able to take PO Plan VTE Prophylaxis - Lovenox, SCDs Disposition - continued stay med/tele FULL CODE-status changed as per d/w daughter who reports that since her last discharge, patient filled out another POLST form that says she is to be a FULL CODE Called and LMOM on daughter's phone Admission and Anticipated Discharge Date Admission Date: March 06, 2023 Subjective Minimally interactive and unable to voice any concerns today Review of Systems Review of Systems: Per subjective Physical Exam Physical Exam: Seen during her bathing process this morning General: Laying on back,, not interacting with the staff bathing her Cardiovascular: RRR, no M/R/G Pulmonary: CTAB anteriorly Extremities: no pedal edema Integumentary: Mild scabbing/bruising on distal LEs Neurologic: Eyes remain closed except opened briefly spontaneously, does not follow commands Results & Data Results & Data Vital Signs (Past 12 Hours) Vital Signs Temp Pulse Pulse Resp BP Pulse Ox O2 Del Method 03/10/23 11:30 81 20 122/72 98 Room Air 03/10/23 08:04 36.3 C L 74 20 114/69 99 Room Air 03/10/23 07:36 63 Laboratory Results Reviewed CBCnotable for hemoglobin increased to 12.4, reviewed BMPnotable for normal sodium and potassium, glucose low this morning at 64, ionized calcium minimally low at 1.09, negative Lyme IgG and IgM Keppra level from 03/05/2023 returned normal at 24.1 PG Care Time/CCT Total # of Minutes Spent Total Time Spent with Patient: Total time spent is greater than 50% in coordination of care (as documented) at patient's floor/unit and/or counseling patient: Coding Level of Care Code 87037 SUB INP/OBS CARE 3/50MIN Diagnoses Acute encephalopathy G93.40 Seizure disorder G40.909 Rash R21 Giant cell arteritis M31.6 Essential hypertension I10 Abnormal SPEP R77.8 Hypocalcemia E83.51 Dementia F03.90 Hypokalemia E87.6 Urine retention R33.9 Anemia D64.9
[2023-03-10] MEDS: methylPREDNISolone 32 MG in SYRINGE 0 ML IV SCH (16:21)
[2023-03-10] MEDS: ENOXAPARIN INJ 30 MG/0.3 ML SYR SQ SCH (20:36)
[2023-03-10] MEDS: BIMATOPROST 0.01% OP SOLN 2.5 ML BTL OP SCH (20:36)
[2023-03-11] MEDS: NSS + 20MEQ KCL 20 MEQ/1,000 ML BAG IV SCH ×2 (00:21→15:02)
[2023-03-11] MEDS: VALPROATE SOD 250 MG in DEXTROSE 5% 50 ML IV SCH ×3 (04:13→17:22)
[2023-03-11 08:47] LABS: Hematocrit (blood only) 32.3 % (37.0-47.0); Mean Corpuscular Hemoglobin 30.7 pg (25.0-34.0); Mean Corpuscular Hgb Conc 34.1 g/dL (32.0-36.0); Mean Corpuscular Volume 90.2 fL (80.0-100.0); Mean Platelet Volume 9.5 fL (9.4-12.4); Platelet Count 209 K/uL (130-400); RDW Coefficient of Variation 20.1 % (11.5-14.5); RDW Standard Deviation 65.9 fL (36.4-46.3); Red Blood Count 3.58 M/uL (4.20-5.40); White Blood Count 5.52 K/ul (4.8-10.8)
[2023-03-11 08:55] LABS: Calcium 7.6 mg/dl (8.6-10.3); Potassium 3.8 mmol/L (3.5-5.1)
[2023-03-11] MEDS: methylPREDNISolone 32 MG in SYRINGE 0 ML IV SCH (08:56)
[2023-03-11] MEDS: TIMOLOL MALEATE 0.5% OP SOLN 5 ML BTL OP SCH (08:57)
[2023-03-11] MEDS: ARTIFICIAL TEARS OP SCH (08:58)
[2023-03-11 09:01] LABS: BUN Creatinine Ratio 19.5 (10-20); Creatinine Clr Calc Pharmacy 71.9 ml/min; Est GFR (African American) 107.7 ml/min; Est GFR (Non-African American) 92.9 ml/min
[2023-03-11] MEDS: FERROUS SULFATE 325 MG TAB PO SCH ×2 (11:30→20:15)
[2023-03-11] MEDS: CALCIUM 600MG + VIT D 400 IU TAB PO SCH ×2 (11:30→20:15)
[2023-03-11] MEDS: LORATADINE 10 MG TAB PO SCH (11:30)
[2023-03-11] MEDS: ASPIRIN 81 MG ECTAB PO SCH (11:30)
[2023-03-11] MEDS: amLODIPine BESYLATE 5 MG TAB PO SCH (11:30)
[2023-03-11] MEDS: POTASSIUM CHLORIDE CRTAB 20 MEQ TABCR PO SCH ×2 (11:31→20:15)
[2023-03-11] MEDS ORDERED: HYDROCORTISONE SOD 50 MG in SYRINGE 0 ML IV STA (14:18)
--- NOTE | 2023-03-11 15:56 | Hospitalist Progress Note ---
Date of Service March 11, 2023 Assessment & Plan (1) Acute encephalopathy: Plan: Supportive care. All BILL BOARD POSTER depressants have been discontinued including loratadine. Neurology consultation and recommendations appreciated. Antiepileptics have been switched to Depakote. (2) Seizure disorder: Plan: Antiepileptics have been switched to Depakote. Appreciate neurology consultation and recommendations. Continue seizure precautions. (3) Rash: Plan: Likely secondary to Lamictal which was stopped on 03/01. Now resolved. (4) Giant cell arteritis: Plan: Steroid-dependent. She is now on intravenous hydrocortisone until she is able to take her oral prednisone tablets again. Currently on Actemra started on Feb 20. Follow-up with rheumatology as an outpatient (5) Essential hypertension: Plan: She normally takes amlodipine. Parenteral medications as needed for now (6) Hypocalcemia: Plan: Continues oral calcium and vitamin D and repleted with IV calcium. Serial labs (7) Dementia: Plan: Mild per neurology. Supportive care. (8) Hypokalemia: Plan: Replaced and resolved. Serial labs (9) Urine retention: Plan: Chavez catheter now in place. Pessary for cystocele may be contributing. Appreciate METHODS SPECIALIST ENGINEER consultation and recommendations. (10) Anemia: Plan: Chronic. No overt bleeding. Serial labs. Continue ferrous sulfate when able to take PO (11) Cystocele with prolapse: Plan: Appreciate METHODS SPECIALIST ENGINEER consultation and recommendations. Pessary is in place. This may be contributing to urinary retention. Chavez catheter is now in place Plan To be determined. Admission and Anticipated Discharge Date Admission Date: March 06, 2023 Subjective The patient remains lethargic and encephalopathic. Daughter is at the bedside. Loratadine has been discontinued. She is prednisone dependent for giant cell arteritis and is now on intravenous hydrocortisone. She was previously seen this admission by METHODS SPECIALIST ENGINEER for her cystocele with prolapse. She has a pessary in place. Neurology consultation appreciated. Review of Systems 2 Review of Systems: The patient cannot answer any questions regarding review of systems at this time Physical Exam 2 Physical Exam: General-lethargic. Nonverbal. No apparent distress HEENT-head atraumatic and normocephalic, pupils equal and reactive to light, extraocular muscles intact Neck-no lymphadenopathy or thyromegaly, trachea midline Chest-clear to auscultation anteriorly. No rales, wheezing or rhonchi Cardiac-regular rate and rhythm, normal S1 and S2 Abdomen-normal bowel sounds, no hepatosplenomegaly Extremities-no cyanosis, clubbing, or edema Neuro-lethargic. She moves all 4 extremities randomly. No apparent focal deficits. Psych-cannot assess Results & Data Results & Data Vital Signs (Past 12 Hours) Vital Signs Temp Pulse Pulse Resp BP BP Pulse Ox 03/11/23 15:37 36.9 C 66 17 165/74 H 97 03/11/23 11:21 36.7 C 67 18 133/74 96 03/11/23 07:39 83 03/11/23 07:38 36.2 C L 71 18 180/72 H 100 O2 Del Method 03/11/23 15:37 Room Air 03/11/23 11:21 Room Air 03/11/23 07:39 03/11/23 07:38 Room Air Laboratory Results 03/11/23 08:00 03/11/23 08:00 PG Care Time/CCT Total # of Minutes Spent Total Time Spent with Patient: Total time spent is greater than 50% in coordination of care (as documented) at patient's floor/unit and/or counseling patient: Coding Level of Care Code 45017 SUB INP/OBS CARE 3/50MIN Diagnoses Acute encephalopathy G93.40 Seizure disorder G40.909 Rash R21 Giant cell arteritis M31.6 Essential hypertension I10 Hypocalcemia E83.51 Dementia F03.90 Hypokalemia E87.6 Urine retention R33.9 Anemia D64.9 Cystocele with prolapse N81.4
[2023-03-11] MEDS ORDERED: Nursing to Pharmacy Communication SCH (18:15)
[2023-03-11] MEDS: BIMATOPROST 0.01% OP SOLN 2.5 ML BTL OP SCH (20:14)
[2023-03-11] MEDS: ENOXAPARIN INJ 30 MG/0.3 ML SYR SQ SCH (20:15)
[2023-03-11] MEDS: HYDROCORTISONE SOD 50 MG in SYRINGE 0 ML IV SCH (20:15)
[2023-03-12] MEDS: NSS + 20MEQ KCL 20 MEQ/1,000 ML BAG IV SCH ×2 (03:00→15:25)
[2023-03-12 08:18] LABS: Albumin 2.9 g/dL (3.8-4.8); Alpha 1 Globulin 0.2 g/dL (0.2-0.3); Alpha 2 Globulin 0.6 g/dL (0.5-0.9); Beta-1-Globulin 0.3 g/dL (0.4-0.6); Beta-2-Globulin 0.3 g/dL (0.2-0.5); Gamma Globulin 0.5 g/dL (0.8-1.7); Monoclonal Protein Band 2 DNR g/dL (NONE DETECTED); Monoclonal Protein Band 3 DNR g/dL (NONE DETECTED); Total Protein 4.7 g/dL (6.1-8.1)
[2023-03-12 08:46] LABS: Hematocrit (blood only) 30.9 % (37.0-47.0); Hemoglobin 10.3 g/dl (12.0-16.0); Mean Corpuscular Hemoglobin 30.3 pg (25.0-34.0); Mean Corpuscular Hgb Conc 33.3 g/dL (32.0-36.0); Mean Corpuscular Volume 90.9 fL (80.0-100.0); Mean Platelet Volume 9.6 fL (9.4-12.4); Platelet Count 221 K/uL (130-400); RDW Coefficient of Variation 20.2 % (11.5-14.5); RDW Standard Deviation 66.1 fL (36.4-46.3); White Blood Count 5.99 K/ul (4.8-10.8)
[2023-03-12 09:03] LABS: Calcium 7.4 mg/dl (8.6-10.3); Creatinine Clr Calc Pharmacy 63.2 ml/min; Est GFR (African American) 102.9 ml/min; Est GFR (Non-African American) 88.8 ml/min; Potassium 3.4 mmol/L (3.5-5.1)
[2023-03-12] MEDS: ASPIRIN 81 MG ECTAB PO SCH (11:50)
[2023-03-12] MEDS: CALCIUM 600MG + VIT D 400 IU TAB PO SCH ×2 (11:50→20:37)
[2023-03-12] MEDS: amLODIPine BESYLATE 5 MG TAB PO SCH (11:50)
[2023-03-12] MEDS: FERROUS SULFATE 325 MG TAB PO SCH ×2 (11:53→20:37)
[2023-03-12] MEDS: POTASSIUM CHLORIDE CRTAB 20 MEQ TABCR PO SCH ×2 (12:33→20:37)
[2023-03-12] MEDS: VALPROATE SOD 250 MG in DEXTROSE 5% 50 ML IV SCH ×2 (15:22→20:47)
[2023-03-12] MEDS: HYDROCORTISONE SOD 50 MG in SYRINGE 0 ML IV SCH ×2 (15:22→20:38)
[2023-03-12] MEDS: ARTIFICIAL TEARS OP SCH (15:25)
[2023-03-12] MEDS: TIMOLOL MALEATE 0.5% OP SOLN 5 ML BTL OP SCH (15:25)
--- NOTE | 2023-03-12 15:33 | Hospitalist Progress Note ---
Date of Service March 12, 2023 Assessment & Plan (1) Acute encephalopathy: Plan: Supportive care. All FOOD SPECIALIST depressants have been discontinued including loratadine. Neurology consultation and recommendations appreciated. Antiepileptics have been switched to Depakote. She is definitely better today, March 12 (2) Seizure disorder: Plan: Antiepileptics have been switched to Depakote. Appreciate neurology consultation and recommendations. Continue seizure precautions. (3) Rash: Plan: Possibly secondary to Lamictal which was stopped on 03/01. Now resolved. (4) Giant cell arteritis: Plan: Steroid-dependent. She is now on intravenous hydrocortisone until she is able to take her oral prednisone tablets again. Currently on Actemra started on Feb 20. Follow-up with rheumatology as an outpatient (5) Essential hypertension: Plan: She normally takes amlodipine. Parenteral medications as needed for now (6) Hypocalcemia: Plan: Continues oral calcium and vitamin D and repleted with IV calcium. Serial labs (7) Dementia: Plan: Mild per neurology. Supportive care. (8) Hypokalemia: Plan: Replaced and resolved. Serial labs (9) Urine retention: Plan: Chavez catheter now in place. Pessary for cystocele may be contributing. Appreciate SALAD CHEF consultation and recommendations. (10) Anemia: Plan: Chronic. No overt bleeding. Serial labs. Continue ferrous sulfate when able to take PO (11) Cystocele with prolapse: Plan: Appreciate SALAD CHEF consultation and recommendations. Pessary is in place. This may be contributing to urinary retention. Chavez catheter is now in place Plan Hopeful return to [facility] soon, hopefully yet this week Admission and Anticipated Discharge Date Admission Date: March 06, 2023 Subjective Definite improvement in mental status today. She was able to converse with me clearly. She prefers however to keep her eyes closed and appear to be sleeping. Depakote level is now in a normal range. IV Depakote has been restarted at a lower dose. Eventual switch to oral dosing. EEG previously done this admission reveals diffuse slowing. She remains on parenteral hydrocortisone and will eventually be switched back to her usual prednisone dosage. Review of Systems 2 Review of Systems: The patient will not answer any questions regarding review of systems at this time Physical Exam 2 Physical Exam: General-eyes closed but able to speak clearly when she speaks. This is an improvement. No apparent distress HEENT-head atraumatic and normocephalic, pupils equal and reactive to light, extraocular muscles intact Neck-no lymphadenopathy or thyromegaly, trachea midline Chest-clear to auscultation anteriorly. No rales, wheezing or rhonchi Cardiac-regular rate and rhythm, normal S1 and S2 Abdomen-normal bowel sounds, no hepatosplenomegaly Extremities-no cyanosis, clubbing, or edema Neuro-able to speak clearly. She prefers to keep her eyes closed and act somnolent. She is able to move all 4 extremities and there are no apparent focal deficits. Psych-cannot assess Results & Data Results & Data Vital Signs (Past 12 Hours) Vital Signs Temp Pulse Pulse Resp BP Pulse Ox O2 Del Method 03/12/23 11:25 36.5 C 62 17 181/61 H 98 Room Air 03/12/23 07:50 36.6 C 67 17 185/71 H 97 Room Air 03/12/23 07:13 64 03/12/23 03:45 36.6 C 63 18 159/79 H 98 Room Air Laboratory Results 03/12/23 08:07 03/12/23 08:07 PG Care Time/CCT Total # of Minutes Spent Total Time Spent with Patient: Total time spent is greater than 50% in coordination of care (as documented) at patient's floor/unit and/or counseling patient: Coding Level of Care Code 42527 SUB INP/OBS CARE 3/50MIN Diagnoses Acute encephalopathy G93.40 Seizure disorder G40.909 Rash R21 Giant cell arteritis M31.6 Essential hypertension I10 Hypocalcemia E83.51 Dementia F03.90 Hypokalemia E87.6 Urine retention R33.9 Anemia D64.9 Cystocele with prolapse N81.4
[2023-03-12] MEDS: BIMATOPROST 0.01% OP SOLN 2.5 ML BTL OP SCH (20:37)
[2023-03-12] MEDS: ENOXAPARIN INJ 30 MG/0.3 ML SYR SQ SCH (20:38)
[2023-03-13] MEDS ORDERED: MELATONIN 3 MG TAB PO PRN (01:58)
[2023-03-13] MEDS: VALPROATE SOD 250 MG in DEXTROSE 5% 50 ML IV SCH ×2 (02:17→11:12)
[2023-03-13] MEDS: NSS + 20MEQ KCL 20 MEQ/1,000 ML BAG IV SCH (04:48)
[2023-03-13 06:30] LABS: Hematocrit (blood only) 28.4 % (37.0-47.0); Hemoglobin 9.8 g/dl (12.0-16.0); Mean Corpuscular Hemoglobin 30.7 pg (25.0-34.0); Mean Corpuscular Hgb Conc 34.5 g/dL (32.0-36.0); Mean Platelet Volume 9.2 fL (9.4-12.4); Platelet Count 192 K/uL (130-400); RDW Coefficient of Variation 20.1 % (11.5-14.5); RDW Standard Deviation 64.9 fL (36.4-46.3); Red Blood Count 3.19 M/uL (4.20-5.40); White Blood Count 4.88 K/ul (4.8-10.8)
[2023-03-13 06:40] LABS: Potassium 3.4 mmol/L (3.5-5.1)
[2023-03-13 06:46] LABS: BUN Creatinine Ratio 13.2 (10-20); Creatinine Clr Calc Pharmacy 78.2 ml/min; Est GFR (African American) 110.4 ml/min; Est GFR (Non-African American) 95.2 ml/min
[2023-03-13] MEDS: POTASSIUM CHLORIDE CRTAB 20 MEQ TABCR PO SCH ×3 (09:00→21:01)
[2023-03-13] MEDS: HYDROCORTISONE SOD 50 MG in SYRINGE 0 ML IV SCH (09:00)
[2023-03-13] MEDS: FERROUS SULFATE 325 MG TAB PO SCH ×2 (11:13→20:56)
[2023-03-13] MEDS: CALCIUM 600MG + VIT D 400 IU TAB PO SCH ×2 (11:13→21:00)
[2023-03-13] MEDS: ASPIRIN 81 MG ECTAB PO SCH (11:14)
[2023-03-13] MEDS: amLODIPine BESYLATE 5 MG TAB PO SCH (11:14)
[2023-03-13] MEDS: TIMOLOL MALEATE 0.5% OP SOLN 5 ML BTL OP SCH (11:15)
[2023-03-13] MEDS: ARTIFICIAL TEARS OP SCH (11:15)
--- NOTE | 2023-03-13 14:37 | Hospitalist Progress Note ---
Date of Service March 13, 2023 Assessment & Plan (1) Acute encephalopathy: Plan: Supportive care. All RECREATION AIDE depressants have been discontinued including loratadine. Neurology consultation and recommendations appreciated. Antiepileptics have been switched to Depakote. She is awake and alert. IV Depakote switched to oral dosing today, March 13. (2) Seizure disorder: Plan: Antiepileptics have been switched to Depakote. Appreciate neurology consultation and recommendations. Continue seizure precautions. (3) Rash: Plan: Possibly secondary to Lamictal which was stopped on 03/01. Now resolved. (4) Giant cell arteritis: Plan: Steroid-dependent. Intravenous hydrocortisone switch to oral prednisone dosing today, March 13. Actemra will not be restarted since this may have caused an adverse reaction. Follow-up with rheumatology as an outpatient (5) Essential hypertension: Plan: Stable. Continue amlodipine (6) Hypocalcemia: Plan: Continues oral calcium and vitamin D and repleted with IV calcium. Serial labs (7) Dementia: Plan: Mild per neurology. Supportive care. (8) Hypokalemia: Plan: Potassium supplementation uptitrated today, March 13. Serial labs (9) Urine retention: Plan: Chavez catheter now in place. Pessary for cystocele may be contributing. Appreciate DEPUTY COUNTY CLERK consultation and recommendations. (10) Anemia: Plan: Chronic. No overt bleeding. Serial labs. Continue oral iron replacement (11) Cystocele with prolapse: Plan: Appreciate DEPUTY COUNTY CLERK consultation and recommendations. Pessary is in place. This may be contributing to urinary retention. Chavez catheter is now in place (12) Poor appetite: Plan: Megestrol started today, March 13 Plan Nurse navigator informs me that [facility] will not have a bed for the patient. Case management will need to pursue other placement options. Admission and Anticipated Discharge Date Admission Date: March 06, 2023 Subjective Awake and alert. She is able to communicate appropriately. Daughter is at the bedside. Intravenous Solu-Cortef switch to oral prednisone therapy. Intravenous Depakote switched to oral dosing. May gastral added for appetite stimulant. IV fluids discontinued. Potassium replacement uptitrated. Nurse navigator states that [facility] is unable to accept the patient back tomorrow, March 14. Case management will need to pursue other placement options. Review of Systems 2 Review of Systems: Constitutionalno fever or chills ENTno blurred vision, no double vision, no epistaxis, no sore throat Respiratoryno cough, no wheezing, no shortness of breath Cardiacno palpitations, no chest pain, no syncope Wendi nausea, vomiting, diarrhea, melena, hematochezia GUno urinary retention, no urinary incontinence, no dysuria, no hematuria Musculoskeletalno joint pain, no muscle tenderness Skinno bruising, no rashes, no pruritus Neurono isolated weakness, no paresthesia, no weakness Psychno depression, no anxiety Physical Exam 2 Physical Exam: General-alert and oriented. She frequently closes her eyes however. She is able to speak and communicate clearly. No apparent distress HEENT-head atraumatic and normocephalic, pupils equal and reactive to light, extraocular muscles intact Neck-no lymphadenopathy or thyromegaly, trachea midline Chest-clear to auscultation anteriorly. No rales, wheezing or rhonchi Cardiac-regular rate and rhythm, normal S1 and S2 Abdomen-normal bowel sounds, no hepatosplenomegaly Extremities-no cyanosis, clubbing, or edema Neuro-able to speak clearly. She keeps her eyes closed frequently. She is able to move all 4 extremities and there are no apparent focal deficits. Psych-flat affect Results & Data Results & Data Vital Signs (Past 12 Hours) Vital Signs Temp Pulse Pulse Resp BP Pulse Ox O2 Del Method 03/13/23 12:02 36.4 C L 69 16 135/66 96 Room Air 03/13/23 07:43 36.5 C 59 L 17 172/51 H 97 Room Air 03/13/23 07:18 68 03/13/23 03:03 36.8 C 65 18 138/77 97 Room Air Laboratory Results 03/13/23 05:40 03/13/23 05:40 PG Care Time/CCT Total # of Minutes Spent Total Time Spent with Patient: Total time spent is greater than 50% in coordination of care (as documented) at patient's floor/unit and/or counseling patient: Coding Level of Care Code 43641 SUB INP/OBS CARE 3/50MIN Diagnoses Acute encephalopathy G93.40 Seizure disorder G40.909 Rash R21 Giant cell arteritis M31.6 Essential hypertension I10 Hypocalcemia E83.51 Dementia F03.90 Hypokalemia E87.6 Urine retention R33.9 Anemia D64.9 Cystocele with prolapse N81.4 Poor appetite R63.0
[2023-03-13] MEDS: MEGESTROL ACETATE 40 MG TAB PO SCH (17:19)
[2023-03-13] MEDS: predniSONE 10 MG TABLET PO SCH (20:55)
[2023-03-13] MEDS: ENOXAPARIN INJ 30 MG/0.3 ML SYR SQ SCH (20:56)
[2023-03-13] MEDS: BIMATOPROST 0.01% OP SOLN 2.5 ML BTL OP SCH (20:57)
[2023-03-13] MEDS: DIVALPROEX DELAY RELEASE 500 MG TAB PO SCH (20:57)
[2023-03-14 06:04] LABS: Creatinine Clr Calc Pharmacy 59.4 ml/min; Est GFR (African American) 100.9 ml/min
[2023-03-14] MEDS: POTASSIUM CHLORIDE CRTAB 20 MEQ TABCR PO SCH ×4 (08:33→22:10)
[2023-03-14] MEDS: FERROUS SULFATE 325 MG TAB PO SCH ×3 (08:33→22:10)
[2023-03-14] MEDS: CALCIUM 600MG + VIT D 400 IU TAB PO SCH ×3 (08:34→22:10)
[2023-03-14] MEDS: ASPIRIN 81 MG ECTAB PO SCH ×2 (08:34→14:31)
[2023-03-14] MEDS: predniSONE 10 MG TABLET PO SCH ×2 (08:34→14:33)
[2023-03-14] MEDS: amLODIPine BESYLATE 5 MG TAB PO SCH ×2 (08:34→14:32)
[2023-03-14] MEDS: ARTIFICIAL TEARS OP SCH (08:37)
[2023-03-14] MEDS: DIVALPROEX DELAY RELEASE 500 MG TAB PO SCH ×2 (08:38→14:34)
[2023-03-14] MEDS: MEGESTROL ACETATE 40 MG TAB PO SCH (08:38)
[2023-03-14] MEDS: POTASSIUM CHLORIDE / WTR 10 MEQ/100 ML PLCT IV SCH ×4 (11:43→16:35)
[2023-03-14] MEDS: TIMOLOL MALEATE 0.5% OP SOLN 5 ML BTL OP SCH (14:37)
[2023-03-14] MEDS ORDERED: HYDROCORTISONE SOD 50 MG in SYRINGE 0 ML IV ONE (15:30)
--- NOTE | 2023-03-14 16:34 | Hospitalist Progress Note ---
Date of Service March 14, 2023 Assessment & Plan (1) Acute encephalopathy: Plan: Supportive care. All COOKER CASING depressants have been discontinued including loratadine. Neurology consultation and recommendations appreciated. Antiepileptics have been switched to Depakote. She is awake and alert. IV Depakote switched to oral dosing on March 13 but she has been refusing to swallow her pills. She has been switched back to intravenous dosing until PEG tube placement has been completed. (2) Seizure disorder: Plan: Antiepileptics have been switched to Depakote. Appreciate neurology consultation and recommendations. Continue seizure precautions. Depakote will need to be given intravenously until she can use the PEG tube (3) Rash: Plan: Possibly secondary to Lamictal which was stopped on 03/01. Now resolved. (4) Giant cell arteritis: Plan: Steroid-dependent. Intravenous hydrocortisone switch to oral prednisone dosing on today, March 13 but switched back to parenteral hydrocortisone dosing on March 14 because she is refusing to swallow her prednisone.. Actemra will not be restarted until discharge. Follow-up with rheumatology as an outpatient (5) Essential hypertension: Plan: Stable. Continue amlodipine . Intravenous hydralazine as needed (6) Hypocalcemia: Plan: Continues oral calcium and vitamin D and repleted with IV calcium. Serial labs (7) Dementia: Plan: Mild per neurology. Supportive care. (8) Hypokalemia: Plan: Potassium supplementation uptitrated on March 13. Serial labs (9) Urine retention: Plan: Chavez catheter now in place. Pessary for cystocele may be contributing. Appreciate QA ANALYST consultation and recommendations. (10) Anemia: Plan: Chronic. No overt bleeding. Serial labs. Continue oral iron replacement (11) Cystocele with prolapse: Plan: Appreciate QA ANALYST consultation and recommendations. Pessary is in place. This may be contributing to urinary retention. Chavez catheter is now in place (12) Poor appetite: Plan: Megestrol started on March 13 Plan GI consultation requested for PEG tube placement. Eventual return to SNF Admission and Anticipated Discharge Date Admission Date: March 06, 2023 Subjective The patient is arousable but minimally talkative with a flat affect. She continues to refuse medications. Both daughters agree that a feeding PEG tube is necessary which will allow for intermittent tube feeds and medication administration. They understand the patient will still be allowed to eat if she desires and take her medications orally if she desires but we will have access to the intestinal tract if she refuses which she has been doing. She is now on parenteral steroid therapy which replaces oral prednisone temporarily. Review of Systems 2 Review of Systems: Constitutionalno fever or chills ENTno blurred vision, no double vision, no epistaxis, no sore throat Respiratoryno cough, no wheezing, no shortness of breath Cardiacno palpitations, no chest pain, no syncope Wendi nausea, vomiting, diarrhea, melena, hematochezia GUno urinary retention, no urinary incontinence, no dysuria, no hematuria Musculoskeletalno joint pain, no muscle tenderness Skinno bruising, no rashes, no pruritus Neurono isolated weakness, no paresthesia, no weakness Psychno depression, no anxiety Physical Exam 2 Physical Exam: General-alert and oriented. She frequently closes her eyes however. She is able to speak and communicate clearly. No apparent distress HEENT-head atraumatic and normocephalic, pupils equal and reactive to light, extraocular muscles intact Neck-no lymphadenopathy or thyromegaly, trachea midline Chest-clear to auscultation anteriorly. No rales, wheezing or rhonchi Cardiac-regular rate and rhythm, normal S1 and S2 Abdomen-normal bowel sounds, no hepatosplenomegaly Extremities-no cyanosis, clubbing, or edema Neuro-able to speak clearly. She keeps her eyes closed frequently. She is able to move all 4 extremities and there are no apparent focal deficits. Psych-flat affect Results & Data Results & Data Vital Signs (Past 12 Hours) Vital Signs Temp Pulse Pulse Resp BP Pulse Ox O2 Del Method 03/14/23 15:17 36.3 C L 54 L 16 165/73 H 96 Room Air 03/14/23 15:14 52 L 03/14/23 11:33 36.4 C L 58 L 14 149/64 H 97 Room Air 03/14/23 07:55 36.5 C 70 16 141/60 H 98 Room Air Laboratory Results 03/13/23 05:40 03/14/23 05:01 PG Care Time/CCT Total # of Minutes Spent Total Time Spent with Patient: Total time spent is greater than 50% in coordination of care (as documented) at patient's floor/unit and/or counseling patient: Coding Level of Care Code 30939 SUB INP/OBS CARE 3/50MIN Diagnoses Acute encephalopathy G93.40 Seizure disorder G40.909 Rash R21 Giant cell arteritis M31.6 Essential hypertension I10 Hypocalcemia E83.51 Dementia F03.90 Hypokalemia E87.6 Urine retention R33.9 Anemia D64.9 Cystocele with prolapse N81.4 Poor appetite R63.0
--- NOTE | 2023-03-14 16:41 | Hospitalist Progress Note ---
Date of Service March 14, 2023 Assessment & Plan (1) Acute encephalopathy: Plan: Supportive care. 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 Neurology consultation and recommendations appreciated. Antiepileptics have been switched to Depakote. She is awake and alert. IV Depakote switched to oral dosing on March 13 but she has been refusing to swallow her pills. She has been switched back to intravenous dosing until PEG tube placement has been completed. (2) Seizure disorder: Plan: Antiepileptics have been switched to Depakote. Appreciate neurology consultation and recommendations. Continue seizure precautions. Depakote will need to be given intravenously until she can use the PEG tube (3) Rash: Plan: Possibly secondary to Lamictal which was stopped on 03/01. Now resolved. (4) Giant cell arteritis: Plan: Steroid-dependent. Intravenous hydrocortisone switch to oral prednisone dosing on today, March 13 but switched back to parenteral hydrocortisone dosing on March 14 because she is refusing to swallow her prednisone.. Actemra will not be restarted until discharge. Follow-up with rheumatology as an outpatient (5) Essential hypertension: Plan: Stable. Continue amlodipine . Intravenous hydralazine as needed (6) Hypocalcemia: Plan: Continues oral calcium and vitamin D and repleted with IV calcium. Serial labs (7) Dementia: Plan: Mild per neurology. Supportive care. (8) Hypokalemia: Plan: Potassium supplementation uptitrated on March 13. Serial labs . She will receive parenteral potassium replacement for now (9) Urine retention: Plan: Chavez catheter now in place. Pessary for cystocele may be contributing. Appreciate PROTECTIVE SIGNAL SUPERINTENDENT consultation and recommendations. (10) Anemia: Plan: Chronic. No overt bleeding. Serial labs. Continue oral iron replacement (11) Cystocele with prolapse: Plan: Appreciate PROTECTIVE SIGNAL SUPERINTENDENT consultation and recommendations. Pessary is in place. This may be contributing to urinary retention. Chavez catheter is now in place (12) Poor appetite: Plan: Megestrol started on March 13 Plan GI consultation requested for PEG tube placement. Eventual return to SNF Admission and Anticipated Discharge Date Admission Date: March 06, 2023 Subjective The patient is awake but nonverbal with me. Daughter is at the bedside. She is refusing her oral medications. Both daughters agree with PEG tube placement for feeding purposes and medication administration. GI consultation has been requested. Hopefully the PEG tube can be placed tomorrow and bolus tube feeding started immediately then she can return to SNF when arrangements are finalized. Prednisone switched to intravenous hydrocortisone for now and Depakote will be administered intravenously for now. Review of Systems 2 Review of Systems: Constitutionalno fever or chills ENTno blurred vision, no double vision, no epistaxis, no sore throat Respiratoryno cough, no wheezing, no shortness of breath Cardiacno palpitations, no chest pain, no syncope Wendi nausea, vomiting, diarrhea, melena, hematochezia GUno urinary retention, no urinary incontinence, no dysuria, no hematuria Musculoskeletalno joint pain, no muscle tenderness Skinno bruising, no rashes, no pruritus Neurono isolated weakness, no paresthesia, no weakness Psychno depression, no anxiety Physical Exam 2 Physical Exam: General-alert and oriented. She frequently closes her eyes however. She is able to speak and communicate clearly. No apparent distress HEENT-head atraumatic and normocephalic, pupils equal and reactive to light, extraocular muscles intact Neck-no lymphadenopathy or thyromegaly, trachea midline Chest-clear to auscultation anteriorly. No rales, wheezing or rhonchi Cardiac-regular rate and rhythm, normal S1 and S2 Abdomen-normal bowel sounds, no hepatosplenomegaly Extremities-no cyanosis, clubbing, or edema Neuro-able to speak clearly. She keeps her eyes closed frequently. She is able to move all 4 extremities and there are no apparent focal deficits. Psych-flat affect Results & Data Results & Data Vital Signs (Past 12 Hours) Vital Signs Temp Pulse Pulse Resp BP Pulse Ox O2 Del Method 03/14/23 15:17 36.3 C L 54 L 16 165/73 H 96 Room Air 03/14/23 15:14 52 L 03/14/23 11:33 36.4 C L 58 L 14 149/64 H 97 Room Air 03/14/23 07:55 36.5 C 70 16 141/60 H 98 Room Air Laboratory Results 03/13/23 05:40 03/14/23 05:01 PG Care Time/CCT Total # of Minutes Spent Total Time Spent with Patient: Total time spent is greater than 50% in coordination of care (as documented) at patient's floor/unit and/or counseling patient: Coding Level of Care Code 79062 SUB INP/OBS CARE 3/50MIN Diagnoses Acute encephalopathy G93.40 Seizure disorder G40.909 Rash R21 Giant cell arteritis M31.6 Essential hypertension I10 Hypocalcemia E83.51 Dementia F03.90 Hypokalemia E87.6 Urine retention R33.9 Anemia D64.9 Cystocele with prolapse N81.4 Poor appetite R63.0
[2023-03-14] MEDS: VALPROATE SOD 250 MG in DEXTROSE 5% 50 ML IV SCH (18:18)
[2023-03-14] MEDS: BIMATOPROST 0.01% OP SOLN 2.5 ML BTL OP SCH (22:08)
[2023-03-14] MEDS: HYDROCORTISONE SOD 50 MG in SYRINGE 0 ML IV SCH (22:09)
[2023-03-15] MEDS: VALPROATE SOD 250 MG in DEXTROSE 5% 50 ML IV SCH ×2 (01:39→11:20)
[2023-03-15 07:03] LABS: BUN Creatinine Ratio 22.4 (10-20); Calcium 8.1 mg/dl (8.6-10.3); Creatinine Clr Calc Pharmacy 60.7 ml/min; Est GFR (African American) 101.5 ml/min; Est GFR (Non-African American) 87.6 ml/min; Potassium 3.3 mmol/L (3.5-5.1)
--- NOTE | 2023-03-15 08:30 | Anesthesiology Consultation ---
Date of Service March 15, 2023 Assessment & Plan (1) Encounter for pre-operative examination: Chart Review Chart Review: Acceptable Risk for Surgery History Surgery Operation Date: 03/15/23 17:00 Proposed Procedures p Esophagogastroduodenoscopy Dr. Paz with Gastric Tube Placement - Ashish Paz MD Height/Weight Height: 5 ft 5 in Weight: 47.5 kg Allergies Allergy/AdvReac Type Severity Reaction Status Date / Time Penicillins Allergy Unknown Unknown rxn Verified 03/15/23 08:14 azithromycin [From Zithromax] Allergy Unknown Verified 03/15/23 08:14 doxycycline Allergy Unknown Verified 03/15/23 08:14 risedronate sodium Allergy Unknown Verified 03/15/23 08:14 [From Actonel] lamotrigine [From Lamictal] AdvReac Intermediate Rash Verified 03/15/23 08:14 Medications Home Medications Medication Instructions Recorded Confirmed Last Taken betamethasone dipropionate 0.05 % 1 applic topical Q12 PRN itching 11/30/22 03/04/23 Unknown topical cream bimatoprost 0.01 % eye drops 1 drp OPB HS 11/30/22 03/04/23 Unknown (Lumigan) calcium carbonate 600 mg-vitamin 1 tab PO BID 11/30/22 03/04/23 Unknown D3 10 mcg (400 unit) tablet (Calcium 600 + D(3)) loratadine 10 mg tablet 10 mg PO QAM 12/09/22 03/04/23 Unknown acetaminophen 325 mg capsule 650 mg PO Q4 PRN elevated 01/07/23 03/04/23 Unknown temperature alendronate 70 mg tablet 70 mg PO .Weekly 01/07/23 03/04/23 Unknown amlodipine 5 mg tablet 5 mg PO QAM 01/07/23 03/04/23 Unknown aspirin 81 mg tablet,delayed 81 mg PO QAM 01/07/23 03/04/23 Unknown release (Adult Aspirin Regimen) bisacodyl 10 mg rectal suppository 10 mg OK DAILY PRN Constipation 01/07/23 03/04/23 Unknown calcium carbonate 200 mg calcium 200 mg PO Q6 PRN Indigestion 01/07/23 03/04/23 Unknown (500 mg) chewable tablet (Tums) nystatin-triamcinolone 100,000 1 applic topical Q8 PRN perineum 01/07/23 03/04/23 Unknown unit/g-0.1 % topical cream itching ondansetron HCl 4 mg tablet 4 mg PO Q8H PRN nausea/vomiting 01/07/23 03/04/23 Unknown sodium phosphates 19 gram-7 118 ml OK DAILY PRN Constipation 01/07/23 03/04/23 Unknown gram/118 mL enema timolol 0.5 % eye drops 1 drp OPR QAM 01/07/23 03/04/23 Unknown triamcinolone acetonide 55 mcg 1 spray intranasal QAM rhinitis 01/07/23 03/04/23 Unknown nasal spray aerosol carboxymethylcellulose sodium 1 % 1 drp OPR QAM 01/20/23 03/04/23 Unknown eye drops (Artificial Tears (carboxymethylcellulose)) carboxymethylcellulose sodium 1 % 1 drp ophthalmic (eye) Q6 PRN Dry 01/20/23 03/04/23 Unknown eye drops (Artificial Tears Eyes (carboxymethylcellulose)) ipratropium bromide 21 mcg (0.03 1 spray intranasal Q12 PRN rhinitis 01/20/23 03/04/23 Unknown %) nasal spray polyethylene glycol 3350 17 gram 17 g PO QAM 01/20/23 03/04/23 Unknown oral powder packet (Miralax) ferrous sulfate 325 mg (65 mg 325 mg PO BID #1 tab 01/28/23 03/04/23 Unknown iron) tablet tocilizumab 162 mg/0.9 mL 162 mg (0.9 mL) subcut .weekly 02/14/23 03/04/23 Unknown subcutaneous syringe (Actemra) #0.9 mL levetiracetam 1,000 mg tablet 1,000 mg PO BID 30 days #60 tabs 03/01/23 03/04/23 Unknown acetaminophen 325 mg tablet 650 mg PO Q4 PRN Pain 03/04/23 03/04/23 Unknown potassium chloride 20 mEq 20 meq PO BID 03/04/23 03/04/23 Unknown tablet,extended release(part/cryst) prednisone 20 mg tablet See Rx Instructions .Route .COMPLEX 03/04/23 03/04/23 Unknown Active Medications Generic Name Dose Route Start Last Admin Trade Name Freq PRN Reason Stop Dose Admin Amlodipine Besylate 5 mg 03/07/23 09:00 03/14/23 14:32 Amlodipine Besylate 5 Mg Tab PO 04/06/23 08:59 5 mg QAM PAVAN Administration Artificial Tears 1 drops 03/05/23 09:00 03/14/23 08:37 Artificial Tears OP 04/04/23 08:59 1 drops QAM PAVAN Administration Aspirin 81 mg 03/06/23 16:40 03/14/23 14:31 Aspirin 81 Mg Ectab PO 04/05/23 16:39 81 mg QAM PAVAN Administration Bimatoprost 1 drops 03/04/23 21:00 03/14/23 22:08 Bimatoprost 0.01% Op Soln 2.5 Ml Btl OP 04/03/23 20:59 1 drops HS PAVAN Administration Calcium/Vitamin D 1 tab 03/06/23 21:00 03/14/23 22:10 Calcium 600mg + Vit D 400 Iu Tab PO 04/05/23 20:59 Not Given BID PAVAN Ferrous Sulfate 325 mg 03/06/23 21:00 03/14/23 22:10 Ferrous Sulfate 325 Mg Tab PO 04/05/23 20:59 Not Given BID PAVAN Hydrocortisone Sodium 1 mls @ 4 mls/min 03/14/23 21:00 03/14/23 22:09 Succinate 50 mg/ Syringe IV 04/13/23 20:59 4 mls/min Q12 PAVAN Administration Valproic Acid 250 mg/ Dextrose 52.5 mls @ 55 mls/hr 03/14/23 17:00 03/15/23 03:03 IV 04/13/23 16:59 Infused Q8H PAVAN Infusion Megestrol Acetate 40 mg 03/13/23 14:30 03/14/23 08:38 Megestrol Acetate 40 Mg Tab PO 04/12/23 14:29 Not Given QAM PAVAN Melatonin 6 mg 03/13/23 01:58 03/13/23 02:18 Melatonin 3 Mg Tab PO 04/12/23 01:57 6 mg HS PRN Administration Sleep Potassium Chloride 20 meq 03/13/23 14:00 03/14/23 22:10 Potassium Chloride Crtab 20 Meq Tabcr PO 04/12/23 13:59 Not Given TID PAVAN Timolol Maleate 1 drops 03/05/23 09:00 03/14/23 14:37 Timolol Maleate 0.5% Op Soln 5 Ml Btl OP 04/04/23 08:59 1 drops QAM PAVAN Administration Past Medical History Medical History (Updated 03/15/23 @ 08:30 by Rip Cruz MD) Acute encephalopathy Abnormal SPEP Giant cell arteritis PMR (polymyalgia rheumatica) FRANCISCO positive Weight loss Seizure Hyponatremia Dyslipidemia Family history of colon cancer Osteopenia after menopause Pancreatic cyst Past Family History Family History Sister Breast cancer Coronary heart disease Father Stroke Mother Breast cancer Son Narcolepsy Other No family history of adverse response to anesthesia No family history of bleeding disorder Denies family history of Ovarian cancer Prostate cancer Diabetes Lung cancer Colorectal cancer Past Surgical History Surgical History History of temporal artery biopsy (01/23/23) Right Temporal Artery Biopsy(Right) - Dwight Gleason DO History of biopsy of temporal artery History of varicose vein ligation and stripping History of colonoscopy S/P tubal ligation Social History Smoking Status: Unknown if ever smoked Do You Dip or Chew Tobacco: No Hx Alcohol Use: No Alcohol type: wine alcohol intake frequency: a few times a month Hx Substance Use: No substance use type: does not use Physical Exam Vital Signs Last Vital Signs Temp 34.8 C L 03/15/23 07:50 Pulse 52 L 03/15/23 07:50 Resp 17 03/15/23 07:50 BP 139/65 03/15/23 07:50 Pulse Ox 96 03/15/23 07:50 O2 Del Method Room Air 03/15/23 07:50 O2 Flow Rate 0 03/05/23 02:40 Testing Laboratory Results 03/13/23 05:40 03/15/23 05:24 PT 11.2 Seconds (9.0-12.0) 03/04/23 12:18 INR 1.0 (0.9-1.1) 03/04/23 12:18 APTT < 20.0 Seconds (21.0-31.0) L 03/04/23 12:18 Urine Color Yellow 03/07/23 14:10 Urine Appearance Clear (Clear) 03/07/23 14:10 Urine pH 7.0 (4.5-7.5) 03/07/23 14:10 Ur Specific [place] 1.009 (1.000-1.030) 03/07/23 14:10 Urine Protein Negative (Negative) 03/07/23 14:10 Urine Glucose (UA) Negative (Negative) 03/07/23 14:10 Urine Ketones Negative (Negative) 03/07/23 14:10 Urine Nitrite Negative (Negative) 03/07/23 14:10 Ur Leukocyte Esterase Negative (Negative) 03/07/23 14:10 Urine WBC (Auto) 1-5 /hpf (0-5) 03/04/23 12:32 Urine RBC (Auto) 0-4 /hpf (0-4) 03/04/23 12:32 U Hyaline Cast (Auto) 1-5 /lpf (0-5) 03/04/23 12:32 U Epithel Cells (Auto) 5-10 /lpf (0-5) H 03/04/23 12:32 Urine Bacteria (Auto) Negative (Negative) 03/04/23 12:32 03/04/23 12:39 Aerobic Blood Culture - Final Blood No growth in Aerobic bottle after 5 days. Anaerobic Blood Culture - Final 03/04/23 12:18 Aerobic Blood Culture - Final Blood No growth in Aerobic bottle after 5 days. Anaerobic Blood Culture - Final No growth in Anaerobic bottle after 5 days. Electrocardiogram Date: 03/04/23 Findings: + NSR @ (92) lateral t wave changes - consider ischemia Echocardiogram Date: 01/21/23 EF: 60-65% LV Function: normal Valvular Disease: + no significant valvular disease very small pericardial effusion
--- NOTE | 2023-03-15 08:44 | Gastrointestinal Consultation ---
Date of Consultation March 15, 2023 Assessment & Plan (1) Poor appetite: (2) Dementia: Plan Patient is a 87 y.o. female with a history of dementia admitted wtih AMS changes and poor PO intake. -NPO. -EGD with PEG placement. -2 G Ancef now. -Further recommendations pending results of testing. Supervising Physician Co-Signing Physician Notes I saw the patient and agree with the findings as documented by TAB Stout Proceed with EGD and PEG placement for nutrition and med administration risks/benefits and procedure discussed with patient, who agrees to proceed History of Present Illness Reason for Consultation: PEG Requesting Physician: Dr. Garcia Attending Physician: Lee Garcia MD History of Present Illness Patient is 87 y.o. female with a history of dementia admitted with AMS. GI has been consulted due to poor PO nutrition. Patient is unable to provide history. Daughter consents for PEG placement for nutrition and medication administration. Allergies Allergy/AdvReac Type Severity Reaction Status Date / Time Penicillins Allergy Unknown Unknown rxn Verified 03/15/23 08:14 azithromycin [From Zithromax] Allergy Unknown Verified 03/15/23 08:14 doxycycline Allergy Unknown Verified 03/15/23 08:14 risedronate sodium Allergy Unknown Verified 03/15/23 08:14 [From Actonel] lamotrigine [From Lamictal] AdvReac Intermediate Rash Verified 03/15/23 08:14 Home Medications Medication Instructions Recorded Confirmed Type betamethasone dipropionate 0.05 % 1 applic topical Q12 PRN itching 11/30/22 03/04/23 History topical cream bimatoprost 0.01 % eye drops 1 drp OPB HS 11/30/22 03/04/23 History (Jason) calcium carbonate 600 mg-vitamin 1 tab PO BID 11/30/22 03/04/23 History D3 10 mcg (400 unit) tablet (Calcium 600 + D(3)) loratadine 10 mg tablet 10 mg PO QAM 12/09/22 03/04/23 History acetaminophen 325 mg capsule 650 mg PO Q4 PRN elevated 01/07/23 03/04/23 History temperature alendronate 70 mg tablet 70 mg PO .Weekly 01/07/23 03/04/23 History amlodipine 5 mg tablet 5 mg PO QAM 01/07/23 03/04/23 History aspirin 81 mg tablet,delayed 81 mg PO QAM 01/07/23 03/04/23 History release (Adult Aspirin Regimen) bisacodyl 10 mg rectal suppository 10 mg MN DAILY PRN Constipation 01/07/23 03/04/23 History calcium carbonate 200 mg calcium 200 mg PO Q6 PRN Indigestion 01/07/23 03/04/23 History (500 mg) chewable tablet (Tums) nystatin-triamcinolone 100,000 1 applic topical Q8 PRN perineum 01/07/23 03/04/23 History unit/g-0.1 % topical cream itching ondansetron HCl 4 mg tablet 4 mg PO Q8H PRN nausea/vomiting 01/07/23 03/04/23 History sodium phosphates 19 gram-7 118 ml MN DAILY PRN Constipation 01/07/23 03/04/23 History gram/118 mL enema timolol 0.5 % eye drops 1 drp OPR QAM 01/07/23 03/04/23 History triamcinolone acetonide 55 mcg 1 spray intranasal QAM rhinitis 01/07/23 03/04/23 History nasal spray aerosol carboxymethylcellulose sodium 1 % 1 drp OPR QAM 01/20/23 03/04/23 History eye drops (Artificial Tears (carboxymethylcellulose)) carboxymethylcellulose sodium 1 % 1 drp ophthalmic (eye) Q6 PRN Dry 01/20/23 03/04/23 History eye drops (Artificial Tears Eyes (carboxymethylcellulose)) ipratropium bromide 21 mcg (0.03 1 spray intranasal Q12 PRN rhinitis 01/20/23 03/04/23 History %) nasal spray polyethylene glycol 3350 17 gram 17 g PO QAM 01/20/23 03/04/23 History oral powder packet (Miralax) ferrous sulfate 325 mg (65 mg 325 mg PO BID #1 tab 01/28/23 03/04/23 Rx iron) tablet tocilizumab 162 mg/0.9 mL 162 mg (0.9 mL) subcut .weekly 02/14/23 03/04/23 Rx subcutaneous syringe (Actemra) #0.9 mL levetiracetam 1,000 mg tablet 1,000 mg PO BID 30 days #60 tabs 03/01/23 03/04/23 Rx acetaminophen 325 mg tablet 650 mg PO Q4 PRN Pain 03/04/23 03/04/23 History potassium chloride 20 mEq 20 meq PO BID 03/04/23 03/04/23 History tablet,extended release(part/cryst) prednisone 20 mg tablet See Rx Instructions .Route .COMPLEX 03/04/23 03/04/23 History Patient History Medical History Acute encephalopathy Abnormal SPEP Giant cell arteritis PMR (polymyalgia rheumatica) FRANCISCO positive Weight loss Seizure Hyponatremia Dyslipidemia Family history of colon cancer Osteopenia after menopause Pancreatic cyst Surgical History History of temporal artery biopsy (01/23/23) Right Temporal Artery Biopsy(Right) - Dwight Gleason DO History of biopsy of temporal artery History of varicose vein ligation and stripping History of colonoscopy S/P tubal ligation Family History Sister Breast cancer Coronary heart disease Father Stroke Mother Breast cancer Son Narcolepsy Other No family history of adverse response to anesthesia No family history of bleeding disorder Denies family history of Ovarian cancer Prostate cancer Diabetes Lung cancer Colorectal cancer Social History Smoking Status: Unknown if ever smoked Second Hand Exposure: No; Do You Dip or Chew Tobacco: No; Hx Alcohol Use: No Hx Substance Use: No Preferred Language: Khmer Communication Ability: Impaired Visual Impairment: Limited Hearing Ability: Normal 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 Beliefs That Will Affect Care: None marital status: Current Living Situation: Personal Care Facility Current Living Situation Comment: [facility] current occupational status: retired How many Children do You have: 3 Other Information That Helps Us Care for You: No Feels Safe at Home: Yes Safety Concerns: Feels Safe At This Time Childhood Exposure to Second-Hand Smoke: Yes (father smoked pipe occassionally ) Diet: regular caffeine: Yes (coffee and tea ) Dental Care, Regularly: Yes Physical Activity Frequency: Daily Physical Activity Frequency Comment: walk Seatbelt Use: always Sunscreen Use: Yes Assistive Devices: Walker Review of Systems Review of Systems: Unobtainable due to cognitive status Physical Exam Constitutional: WD/WN, vitals as above Respiratory: normal respiratory effort, lungs clear to auscultation Cardiovascular: RRR, no murmur, no edema Gastrointestinal (Abdomen): normal bowel sounds, soft, nontender, no hepatosplenomegaly Psychiatric: drowsy Results & Data Vital Signs (Past 12 Hours) Vital Signs Temp Pulse Pulse Pulse Resp BP BP 03/15/23 08:14 36.6 C 53 L 14 147/60 H 03/15/23 07:50 34.8 C L 52 L 17 139/65 03/15/23 04:20 36.8 C 52 L 18 118/63 03/15/23 00:05 36.4 C L 53 L 18 116/64 03/14/23 21:57 50 L Pulse Ox O2 Del Method 03/15/23 08:14 97 Room Air 03/15/23 07:50 96 Room Air 03/15/23 04:20 96 Room Air 03/15/23 00:05 97 Room Air 03/14/23 21:57 Diagnostic Findings Laboratory Results WBC 4.88 K/ul (4.8-10.8) 03/13/23 05:40 RBC 3.19 M/uL (4.20-5.40) L 03/13/23 05:40 Hgb 9.8 g/dl (12.0-16.0) L 03/13/23 05:40 Hct 28.4 % (37.0-47.0) L 03/13/23 05:40 MCV 89.0 fL (80.0-100.0) 03/13/23 05:40 MCH 30.7 pg (25.0-34.0) 03/13/23 05:40 MCHC 34.5 g/dL (32.0-36.0) 03/13/23 05:40 RDW Std Deviation 64.9 fL (36.4-46.3) H 03/13/23 05:40 RDW Coeff of Bandar 20.1 % (11.5-14.5) H 03/13/23 05:40 Plt Count 192 K/uL (130-400) 03/13/23 05:40 MPV 9.2 fL (9.4-12.4) L 03/13/23 05:40 Immature Gran % (Auto) 1.2 % 03/09/23 05:35 Neut % (Auto) 59.1 % 03/09/23 05:35 Lymph % (Auto) 32.3 % 03/09/23 05:35 Miner % (Auto) 6.8 % 03/09/23 05:35 Eos % (Auto) 0.3 % 03/09/23 05:35 Baso % (Auto) 0.3 % 03/09/23 05:35 Neut # (Auto) 4.03 K/uL (1.40-6.50) 03/09/23 05:35 Lymph # (Auto) 2.20 K/uL (1.20-3.40) 03/09/23 05:35 Miner # (Auto) 0.46 K/uL (0.11-0.59) 03/09/23 05:35 Eos # (Auto) 0.02 K/uL (0.00-0.50) 03/09/23 05:35 Baso # (Auto) 0.02 K/uL (0.00-0.20) 03/09/23 05:35 Immature Gran # (Auto) 0.08 K/uL (0.01-0.20) 03/09/23 05:35 Absolute Nucleated RBC 0.02 K/uL (0.00-0.12) 03/08/23 05:31 Nucleated RBC % (auto) 0.3 % 03/08/23 05:31 Anisocytosis Present 03/09/23 05:35 ESR 5 mm/hr (0-30) 03/04/23 12:18 PT 11.2 Seconds (9.0-12.0) 03/04/23 12:18 INR 1.0 (0.9-1.1) 03/04/23 12:18 APTT < 20.0 Seconds (21.0-31.0) L 03/04/23 12:18 PTT Ratio 0.7 03/04/23 12:18 VBG pH 7.46 (7.36-7.41) H 03/08/23 17:58 VBG pCO2 40 mmHg (38-50) 03/08/23 17:58 VBG pO2 61 mmHg 03/08/23 17:58 VBG HCO3 28 mmol/L 03/08/23 17:58 VBG O2 Saturation 92.3 % 03/08/23 17:58 VBG Base Excess 4.2 mEq/L 03/08/23 17:58 Sodium 137 mmol/L (136-145) 03/15/23 05:24 Potassium 3.3 mmol/L (3.5-5.1) L 03/15/23 05:24 Chloride 100 mmol/L (98-107) 03/15/23 05:24 Carbon Dioxide 27 mmol/L (21-32) 03/15/23 05:24 Anion Gap 10 (3-11) 03/15/23 05:24 BUN 11 mg/dl (6-23) 03/15/23 05:24 Creatinine 0.49 mg/dl (0.6-1.2) L 03/15/23 05:24 Est Cr Clr Drug Dosing 60.7 ml/min 03/15/23 05:24 Est GFR ( Amer) 101.5 ml/min 03/15/23 05:24 Est GFR (Non-Af Amer) 87.6 ml/min 03/15/23 05:24 BUN/Creatinine Ratio 22.4 (10-20) H 03/15/23 05:24 Glucose 91 mg/dl (70-99(Fasting)) 03/15/23 05:24 POC Glucose 207 mg/dl (70-99) H 03/04/23 12:53 Lactate 3.6 mmol/L (0.4-2.0) H* 03/04/23 14:11 Calcium 8.1 mg/dl (8.6-10.3) L 03/15/23 05:24 Ionized Calcium 1.09 mmol/L (1.12-1.32) L 03/10/23 06:11 Phosphorus 2.9 mg/dl (2.5-4.9) 03/09/23 05:35 Magnesium 1.9 mg/dl (1.7-2.4) 03/09/23 05:35 Total Bilirubin 0.5 mg/dl (0.2-1.0) 03/09/23 05:35 Direct Bilirubin 0.1 mg/dl (0-0.2) 03/04/23 12:18 AST 18 U/L (13-39) 03/09/23 05:35 ALT 33 U/L (7-52) 03/09/23 05:35 Alkaline Phosphatase 47 U/L (34-104) 03/09/23 05:35 Ammonia 33.0 umol/L (18-72) 03/08/23 17:58 Troponin I High Sens 16.8 pg/ml (0-14) H 03/04/23 14:11 C-Reactive Protein < 0.50 mg/dl (0-0.5) 03/04/23 14:11 Total Protein 5.2 gm/dl (6.0-8.3) L 03/09/23 05:35 Total Protein (PEP) 4.7 g/dL (6.1-8.1) L 03/06/23 06:20 Albumin 3.2 gm/dl (3.4-5.0) L 03/09/23 05:35 Albumin (PEP) 2.9 g/dL (3.8-4.8) L 03/06/23 06:20 Globulin 2.0 gm/dl (2.5-4.0) L 03/09/23 05:35 Albumin/Globulin Ratio 1.6 (0.9-2) 03/09/23 05:35 Dnbxm-2-Cxxxvlfuf 0.2 g/dL (0.2-0.3) 03/06/23 06:20 Nsjfm-2-Hptnvgubg 0.6 g/dL (0.5-0.9) 03/06/23 06:20 Ubue-3-Oltwiqon 0.3 g/dL (0.4-0.6) L 03/06/23 06:20 Lhal-7-Emvnvouq 0.3 g/dL (0.2-0.5) 03/06/23 06:20 Gamma Globulins 0.5 g/dL (0.8-1.7) L 03/06/23 06:20 Monoclonal Peak 3 DNR g/dL (NONE DETECTED) 03/06/23 06:20 Ser Monoclonl Protein SEE NOTE g/dL (NONE DETECTED) 03/06/23 06:20 Ser Monoclonal Prot 2 DNR g/dL (NONE DETECTED) 03/06/23 06:20 PEP Interpretation SEE NOTE 03/06/23 06:20 Procalcitonin < 0.05 ng/ml (0-0.5) 03/04/23 12:18 TSH 0.654 uIu/ml (0.300-4.500) 03/04/23 14:11 Prolactin 26.09 ng/ml 03/04/23 12:18 Random Cortisol 10.67 mcg/dl 03/04/23 12:18 Urine Color Yellow 03/07/23 14:10 Urine Appearance Clear (Clear) 03/07/23 14:10 Urine pH 7.0 (4.5-7.5) 03/07/23 14:10 Ur Specific [place] 1.009 (1.000-1.030) 03/07/23 14:10 Urine Protein Negative (Negative) 03/07/23 14:10 Urine Glucose (UA) Negative (Negative) 03/07/23 14:10 Urine Ketones Negative (Negative) 03/07/23 14:10 Urine Blood Negative (Negative) 03/07/23 14:10 Urine Nitrite Negative (Negative) 03/07/23 14:10 Urine Bilirubin Negative (Negative) 03/07/23 14:10 Urine Urobilinogen Negative (Negative) 03/07/23 14:10 Ur Leukocyte Esterase Negative (Negative) 03/07/23 14:10 Urine WBC (Auto) 1-5 /hpf (0-5) 03/04/23 12:32 Urine RBC (Auto) 0-4 /hpf (0-4) 03/04/23 12:32 U Hyaline Cast (Auto) 1-5 /lpf (0-5) 03/04/23 12:32 U Epithel Cells (Auto) 5-10 /lpf (0-5) H 03/04/23 12:32 Urine Bacteria (Auto) Negative (Negative) 03/04/23 12:32 Nasal Screen MRSA (PCR) Negative (Negative) 03/09/23 00:40 Valproic Acid 95 mcg/ml (50-100) 03/14/23 05:01 Levetiracetam 24.1 mcg/mL (6.0-46.0) 03/05/23 16:05 Serum Immunofixation SEE NOTE 03/06/23 06:20 Lyme Disease IgG Ab Negative (Negative) 03/10/23 08:47 Lyme Disease IgM Ab Negative (Negative) 03/10/23 08:47 SARS-CoV-2 (PCR) NEGATIVE (Negative) 03/04/23 20:08 Influenza Type A (PCR) Negative (Neg) 03/04/23 20:08 Influenza Type B (PCR) Negative (Neg) 03/04/23 20:08 RSV (RT-PCR) Negative (Neg) 03/04/23 20:08 Impressions Chest X-Ray 03/04/23 12:04 SINGLE VIEW CHEST CLINICAL HISTORY: Sepsis. FINDINGS: An AP, portable, upright chest radiograph is compared to study dated 01/19/2023. Correlation is made with chest CT dated 09/07/2013. The cardiomediastinal silhouette is unremarkable no significant atherosclerotic calcification of the thoracic aorta. Chronic interstitial thickening similar to previous. There is bibasilar scarring/atelectasis. The lungs and pleural spaces are otherwise clear. No pneumothorax is seen. The skeletal structures are osteopenic. The bony thorax is grossly intact. IMPRESSION: No active disease in the chest. ACT 112: Negative or not required by law. Electronically signed by: Magen Freeman M.D. 03/04/2023 1:[address] 03/04/23 12:04 CT SCAN OF THE BRAIN WITHOUT IV CONTRAST CLINICAL HISTORY: Change in mental status. COMPARISON STUDY: CT of the brain dated 02/04/2023. TECHNIQUE: Unenhanced axial CT scan of the brain is performed from the vertex to the skull base. A dose lowering technique was utilized adhering to the principles of ALARA. 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 There is no hemorrhage, mass effect, or evidence of acute territorial ischemia by CT criteria. 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 Suggs-white matter differentiation is preserved. No extra-axial fluid collection is seen. Ventricles, sulci, cisterns: Prominent secondary to involutional change. Intracranial vasculature: There is atherosclerotic calcification of the cavernous carotid and vertebral arteries. Calvarium: Unremarkable. Sinuses and mastoids: There is mucosal thickening and fluid within the sphenoid sinuses. The remaining visualized paranasal sinuses are clear. The mastoid air cells are well pneumatized. Orbits: The bony orbits are grossly intact. There are bilateral ocular lens implants. IMPRESSION: There is no hemorrhage, mass effect, or evidence of acute territorial ischemia by CT criteria. ACT 112: Negative or not required by law. Electronically signed by: Magen Freeman M.D. 03/04/2023 1:24 PM Abdomen/Pelvis CT 03/04/23 13:20 CT SCAN OF THE ABDOMEN AND PELVIS WITHOUT IV CONTRAST CLINICAL HISTORY: Change in mental status. COMPARISON STUDY: Abdominal CT dated 01/20/2023. TECHNIQUE: CT scan of the abdomen and pelvis is performed from the lung bases to the proximal femora. Images are reviewed in the axial, sagittal, and coronal planes. IV contrast was not administered for this examination. Note that the examination is significantly suboptimal without oral and IV contrast. A dose lowering technique was utilized adhering to the principles of ALARA. CT DOSE: 507.72 mGy.cm FINDINGS: Lung bases: The heart is normal in size and without pericardial effusion. A calcified granuloma is seen in the right lower lobe. The lung bases are otherwise clear noting dependent scarring/atelectasis. Liver: The unenhanced liver is normal in size, contour, and attenuation. There is no intrahepatic biliary ductal dilatation. A 9 mm cyst is noted in the left lobe. Gallbladder: Unremarkable. Spleen: Normal in size and attenuation. Pancreas: The unenhanced pancreas is grossly unremarkable. Adrenal glands: Unremarkable. Kidneys: The unenhanced kidneys are normal in size and without hydronephrosis. There are no renal calculi identified. A 12 mm cyst is noted in the interpolar left kidney. Abdominal vasculature: The abdominal aorta is normal in course and caliber noting moderate atherosclerotic calcification. Bowel: There is mild colonic fecal retention. No bowel obstruction is seen. The appendix is well-visualized and normal. Peritoneum: There is no intraperitoneal free air or abdominal ascites. Lymphadenopathy: None. Pelvic viscera: The bladder is decompressed around a Chavez catheter and cannot be assessed. The uterus and adnexa are normal as visualized. A vaginal pessary is in place. Skeletal structures: The skeletal structures are osteopenic. There is moderate lumbosacral spondylosis. No lytic or blastic lesions are seen. IMPRESSION: 1. Suboptimal examination without oral and IV contrast. 2. No acute infectious or inflammatory findings identified in the abdomen or pelvis. 3. Additional findings as above. ACT 112: Negative or not required by law. Electronically signed by: Magen Freeman M.D. 03/04/2023 1:50 PM Brain MRI 03/05/23 10:20 MR brain wo/w con HISTORY: 87 years-old Female encephalopathy,known temporal arteritis COMPARISON: MRA of the head of same day TECHNIQUE: Multiplanar multisequence MRI of the head was obtained with and without the use of IV contrast. FINDINGS: No restricted diffusion. The midline structures are unremarkable. Degenerative changes of the cervical spine. No acute intracranial hemorrhage, midline shift, abnormal extra-axial collection, hydrocephalus or intra-axial mass. No pathologic blooming artifact. Involutional changes with moderate T2/FLAIR hyperintense foci throughout the white matter. No abnormal enhancement. Cerebral venous sinuses and major arterial flow voids appear patent. The skull, orbits and soft tissues are unremarkable. Prior bilateral injury. Moderate mucosal thickening with air-fluid level in the left sphenoid sinus. IMPRESSION: 1. No acute intracranial abnormality. 2. Involutional changes with moderate chronic microvascular ischemic disease. 3. No abnormal enhancement. ACT 112: Negative or not required by law. The above report was generated using voice recognition software. It may contain grammatical, syntax or spelling errors. Electronically signed by: Anand Moore M.D. 03/05/2023 2:57 PM Head MRA 03/05/23 10:21 MR ANGIOGRAM OF THE BRAIN CLINICAL HISTORY: Encephalopathy.. COMPARISON STUDY: MRI of the brain performed concurrently on 03/05/2023. MR angiogram of the brain dated 04/20/2009. TECHNIQUE: 3-D [id number] MR angiography of the intracranial circulation is performed. 3-D tumble views are created and assessed. IV contrast was not administered for this examination. FINDINGS: The internal carotid arteries are widely patent bilaterally, as are the anterior and middle cerebral arteries. The vertebral arteries and basilar artery are widely patent. The right posterior cerebral artery is normal. There is apparent decreased flow within the left posterior cerebral artery which may represent flow related phenomenon. There is no clear evidence of vessel occlusion. The right vertebral artery is dominant. There is a large left posterior communicating artery. The left P1 segment is diminutive. There is no aneurysm, high-grade stenosis, or focal vessel cutoff seen throughout the intracranial circulation. The brain parenchyma is normal as visualized. Mucosal thickening is noted in the sphenoid sinuses. IMPRESSION: 1. Apparent asymmetrically diminished flow within the left posterior cerebral artery may represent flow related phenomenon. There is no clear evidence that this vessel is occluded. 2. Otherwise unremarkable MR angiogram of the brain. ACT 112: Negative or not required by law. Electronically signed by: Magen Freeman M.D. 03/05/2023 2:30 PM Neck MRA 03/05/23 10:35 MR ANGIOGRAM OF THE NECK COMBO CLINICAL HISTORY: Encephalopathy. COMPARISON STUDY: No priors. TECHNIQUE: Axial 3-D [id number] MR angiography of the neck is performed. Subsequently, following the IV administration of 5 cc of Gadavist. Coronal MR angiogram of the neck was performed to corroborate the findings. 3-D reformats are created and assessed. All measurements were calculated based on NASCET criteria. FINDINGS: Visualized portions of the thoracic aorta are normal in caliber. The aortic arch demonstrates standard 3-vessel anatomy. The subclavian arteries are widely patent bilaterally. The right common carotid artery is widely patent, as are the right internal and external carotid arteries. The left common carotid artery is widely patent, as are the left internal and external carotid arteries. The vertebral arteries are widely patent. The vertebral arteries are codominant and neck. The visualized intracranial vessels at the skull base appear patent. IMPRESSION: 1. Unremarkable MR angiogram of the neck. 2. Contrast opacification confirms patency of the left posterior cerebral artery as questioned on the MR angiogram of the brain. ACT 112: Negative or not required by law. Electronically signed by: Magen Freeman M.D. 03/05/2023 2:52 PM PG Care Time/CCT Total # of Minutes Spent Total Time Spent with Patient: Total time spent is greater than 50% in coordination of care (as documented) at patient's floor/unit and/or counseling patient: Coding Level of Care Code 15046 INT INP/OBS CARE 3/75MIN Diagnoses Poor appetite R63.0 Dementia F03.90
[2023-03-15] MEDS ORDERED: PROPOFOL IV EMULSION 10 MG/ML 20 ML VIAL IV ONE (08:49)
[2023-03-15] MEDS ORDERED: LIDOCAINE 2% 2 ML VIAL/AMP(20MG/ML) INFIL ONE ×2 (08:49→09:16)
[2023-03-15] MEDS ORDERED: cefTRIAXone SODIUM 2,000 MG in DEXTROSE 5 % MINI-B 50 ML IV STA (08:50)
[2023-03-15] MEDS ORDERED: ceFAZolin 2,000 MG/15 ML IV PUSH IV ONE (08:51)
--- NOTE | 2023-03-15 09:20 | GI REPORT ---
Patient Name: Carly Soliman Procedure Date: 03/15/2023 8:46 AM Date of : 1935 Admit Type: Inpatient Age: 87 Gender: Female Attending MD: Ashish Paz MD, Procedure: Upper GI endoscopy Providers: Ashish Paz MD Referring MD: Lee Garcia Indications: Malnutrition Medicines: Monitored Anesthesia Care Complications: No immediate complications. Estimated blood loss: None. Estimated Blood Loss: Estimated blood loss: none. Procedure: Pre-Anesthesia Assessment: - Prior Anticoagulants: The patient has taken no anticoagulant or antiplatelet agents. - ASA Grade Assessment: III - A patient with severe systemic disease. After obtaining informed consent, the endoscope was passed under direct vision. Throughout the procedure, the patient's blood pressure, pulse, and oxygen saturations were monitored continuously. The Endoscope was introduced through the mouth, and advanced to the second part of duodenum. The upper GI endoscopy was accomplished without difficulty. The patient tolerated the procedure well. Findings: The examined esophagus was normal. A few dispersed erosions with no stigmata of recent bleeding were found in the stomach. The patient was placed in the supine position for PEG placement. The stomach was insufflated to appose gastric and abdominal olivas. A site was located in the body of the stomach with excellent transillumination and manual external pressure for placement. The abdominal wall was marked and prepped in a sterile manner. The area was anesthetized with 0.5% lidocaine. The trocar needle was introduced through the abdominal wall and into the stomach under direct endoscopic view. A snare was introduced through the endoscope and opened in the gastric lumen. The guide wire was passed through the trocar and into the open snare. The snare was closed around the guide wire. The endoscope and snare were removed, pulling the wire out through the mouth. A skin incision was made at the site of needle insertion. The externally removable 24 Fr Sabas-Cook gastrostomy tube was lubricated. The G-tube was tied to the guide wire and pulled through the mouth and into the stomach. The trocar needle was removed, and the gastrostomy tube was pulled out from the stomach through the skin. The external bumper was attached to the gastrostomy tube, and the tube was cut to remove the guide wire. The final position of the gastrostomy tube was confirmed by relook endoscopy, and skin marking noted to be 4 cm at the external bumper. The final tension and compression of the abdominal wall by the PEG tube and external bumper were checked and revealed that the bumper was loose and lightly touching the skin and that the PEG balloon was loose and lightly touching the stomach. The feeding tube was capped, and the tube site cleaned and dressed. Estimated blood loss: none. The duodenal bulb and second portion of the duodenum were normal. Impression: - Normal esophagus. - Erosive gastropathy with no stigmata of recent bleeding. - Normal duodenal bulb and second portion of the duodenum. - An externally removable PEG placement was successfully completed. - No specimens collected. Recommendation: - [facility]. - Please follow the post-PEG recommendations including: Nutrition consult for formula and volume, advance food and medications per primary care provider, NPO x4 hrs then water today, may use PEG tomorrow for feedings and flush PEG daily with 60 ml water. Ashish Paz MD 03/15/2023 9:20:51 AM This report has been signed electronically. Note Initiated On: 03/15/2023 8:46 AM Number of Addenda: 0 I attest to the content of the Intraoperative Record and orders documented therein, exceptions below {[id number]}
--- NOTE | 2023-03-15 10:49 | Anesthesiology Progress Note ---
Date of Service March 15, 2023 Anesthesia Post Procedure Vital Signs Vital Signs: Temp Pulse Pulse Pulse Resp BP BP 03/15/23 10:29 50 L 03/15/23 10:10 33.9 C L 50 L 16 169/72 H 03/15/23 09:51 51 L 15 160/59 H 03/15/23 09:36 61 15 146/59 H 03/15/23 09:21 55 L 15 137/61 03/15/23 08:14 36.6 C 53 L 14 147/60 H 03/15/23 07:50 34.8 C L 52 L 17 139/65 03/15/23 04:20 36.8 C 52 L 18 118/63 03/15/23 00:05 36.4 C L 53 L 18 116/64 03/14/23 21:57 50 L 03/14/23 20:06 36.3 C L 52 L 18 118/69 03/14/23 16:47 36.4 C L 50 L 16 153/59 H 03/14/23 15:17 36.3 C L 54 L 16 165/73 H 03/14/23 15:14 52 L 03/14/23 11:33 36.4 C L 58 L 14 149/64 H Pulse Ox O2 Del Method 03/15/23 10:29 03/15/23 10:10 96 Room Air 03/15/23 09:51 96 Room Air 03/15/23 09:36 97 Room Air 03/15/23 09:21 100 Room Air 03/15/23 08:14 97 Room Air 03/15/23 07:50 96 Room Air 03/15/23 04:20 96 Room Air 03/15/23 00:05 97 Room Air 03/14/23 21:57 03/14/23 20:06 98 Room Air 03/14/23 16:47 97 Room Air 03/14/23 15:17 96 Room Air 03/14/23 15:14 03/14/23 11:33 97 Room Air Transfer of Care Handoff Completed per policy Notes Mental Status: alert / awake / arousable Patient Amnestic to Procedure: Yes Nausea / Vomiting: adequately controlled Pain: adequately controlled Airway Patency, RR, SpO2: stable & adequate BP & HR: stable & adequate Hydration State: stable & adequate Anesthetic Complications: no major complications apparent
[2023-03-15] MEDS: HYDROCORTISONE SOD 50 MG in SYRINGE 0 ML IV SCH (11:20)
[2023-03-15] MEDS: MEGESTROL ACETATE 40 MG TAB PO SCH (11:36)
[2023-03-15] MEDS: ASPIRIN 81 MG ECTAB PO SCH (11:37)
[2023-03-15] MEDS: FERROUS SULFATE 325 MG TAB PO SCH ×2 (11:37→22:15)
[2023-03-15] MEDS: POTASSIUM CHLORIDE CRTAB 20 MEQ TABCR PO SCH ×3 (11:38→22:13)
[2023-03-15] MEDS: CALCIUM 600MG + VIT D 400 IU TAB PO SCH ×2 (11:40→22:14)
[2023-03-15] MEDS: TIMOLOL MALEATE 0.5% OP SOLN 5 ML BTL OP SCH (11:40)
[2023-03-15] MEDS: ARTIFICIAL TEARS OP SCH (11:40)
[2023-03-15] MEDS: POTASSIUM CHLORIDE / WTR 10 MEQ/100 ML PLCT IV SCH ×3 (12:00→15:30)
--- NOTE | 2023-03-15 14:09 | Hospitalist Progress Note ---
Date of Service March 15, 2023 Assessment & Plan (1) Acute encephalopathy: Plan: Supportive care. All [employer] depressants have been discontinued including loratadine. Neurology consultation and recommendations appreciated. Antiepileptics have been switched to Depakote. She is awake and alert. IV Depakote switched to oral dosing on March 13 but she has been refusing to swallow her pills. She was switched back to intravenous dosing until PEG tube placement completed today, March 15, then she was switched back to oral dosing. Medications will be administered through the PEG tube if she refuses to take them orally. (2) Seizure disorder: Plan: Antiepileptics have been switched to Depakote. Appreciate neurology consultation and recommendations. Continue seizure precautions. Depakote was given intravenously until the PEG tube was placed and can be used if needed. (3) Rash: Plan: Possibly secondary to Lamictal which was stopped on 03/01. Now resolved. (4) Giant cell arteritis: Plan: Steroid-dependent. Intravenous hydrocortisone switch to oral prednisone dosing on today, March 13 but switched back to parenteral hydrocortisone dosing on March 14 because she refused to swallow her prednisone. Prednisone has been restarted orally. If she refuses to take the pills, it will be administered through the PEG tube. Intravenous hydrocortisone has been discontinued. Actemra will not be restarted until discharge. Follow-up with rheumatology as an outpatient (5) Essential hypertension: Plan: Stable. Continue amlodipine . Intravenous hydralazine as needed (6) Hypocalcemia: Plan: Continues oral calcium and vitamin D and repleted with IV calcium. Serial labs (7) Dementia: Plan: Mild per neurology. Supportive care. (8) Hypokalemia: Plan: Potassium supplementation uptitrated on March 13. Serial labs (9) Urine retention: Plan: Chavez catheter now in place. Pessary for cystocele may be contributing. Appreciate ELECTRONIC COMPONENTS ASSEMBLER consultation and recommendations. (10) Anemia: Plan: Chronic. No overt bleeding. Serial labs. Continue oral iron replacement (11) Cystocele with prolapse: Plan: Appreciate ELECTRONIC COMPONENTS ASSEMBLER consultation and recommendations. Pessary is in place. This may be contributing to urinary retention. Chavez catheter is now in place (12) Poor appetite: Plan: Megestrol started on March 13 Plan Hopeful return to [facility] tomorrow, March 16 Admission and Anticipated Discharge Date Admission Date: March 06, 2023 Subjective The patient was seen earlier today after PEG tube placement. We will offer her medications orally but if she refuses they will be given through the PEG tube. Diet has been reordered. She can always have dietary supplements administered through the PEG tube if it becomes necessary. She is medically stable. Hopefully she can return to [facility] tomorrow, March 16. I spoke to the daughter at the bedside Review of Systems 2 Review of Systems: Constitutionalno fever or chills ENTno blurred vision, no double vision, no epistaxis, no sore throat Respiratoryno cough, no wheezing, no shortness of breath Cardiacno palpitations, no chest pain, no syncope Wendi nausea, vomiting, diarrhea, melena, hematochezia GUno urinary retention, no urinary incontinence, no dysuria, no hematuria Musculoskeletalno joint pain, no muscle tenderness Skinno bruising, no rashes, no pruritus Neurono isolated weakness, no paresthesia, no weakness Psychno depression, no anxiety Physical Exam 2 Physical Exam: General-alert and oriented. She frequently closes her eyes however. She is able to speak and communicate clearly. No apparent distress HEENT-head atraumatic and normocephalic, pupils equal and reactive to light, extraocular muscles intact Neck-no lymphadenopathy or thyromegaly, trachea midline Chest-clear to auscultation anteriorly. No rales, wheezing or rhonchi Cardiac-regular rate and rhythm, normal S1 and S2 Abdomen-normal bowel sounds, no hepatosplenomegaly. PEG tube insertion site is clean and dry Extremities-no cyanosis, clubbing, or edema Neuro-able to speak clearly. She keeps her eyes closed frequently. She is able to move all 4 extremities and there are no apparent focal deficits. Psych-flat affect Results & Data Results & Data Vital Signs (Past 12 Hours) Vital Signs Temp Pulse Pulse Pulse Resp BP BP 03/15/23 12:10 36.3 C L 58 L 17 151/71 H 03/15/23 11:25 36.4 C L 53 L 16 148/70 H 03/15/23 10:40 36.3 C L 52 L 16 166/71 H 03/15/23 10:29 50 L 03/15/23 10:10 33.9 C L 50 L 16 169/72 H 03/15/23 09:51 51 L 15 160/59 H 03/15/23 09:36 61 15 146/59 H 03/15/23 09:21 55 L 15 137/61 03/15/23 08:14 36.6 C 53 L 14 147/60 H 03/15/23 07:50 34.8 C L 52 L 17 139/65 03/15/23 04:20 36.8 C 52 L 18 118/63 Pulse Ox O2 Del Method 03/15/23 12:10 96 Room Air 03/15/23 11:25 96 Room Air 03/15/23 10:40 96 Room Air 03/15/23 10:29 03/15/23 10:10 96 Room Air 03/15/23 09:51 96 Room Air 03/15/23 09:36 97 Room Air 03/15/23 09:21 100 Room Air 03/15/23 08:14 97 Room Air 03/15/23 07:50 96 Room Air 03/15/23 04:20 96 Room Air Laboratory Results 03/13/23 05:40 03/15/23 05:24 PG Care Time/CCT Total # of Minutes Spent Total Time Spent with Patient: Total time spent is greater than 50% in coordination of care (as documented) at patient's floor/unit and/or counseling patient: Coding Level of Care Code 65628 SUB INP/OBS CARE 3/50MIN Diagnoses Acute encephalopathy G93.40 Seizure disorder G40.909 Rash R21 Giant cell arteritis M31.6 Essential hypertension I10 Hypocalcemia E83.51 Dementia F03.90 Hypokalemia E87.6 Urine retention R33.9 Anemia D64.9 Cystocele with prolapse N81.4 Poor appetite R63.0
[2023-03-15] MEDS: NSS + 20MEQ KCL 20 MEQ/1,000 ML BAG IV SCH (16:46)
[2023-03-15] MEDS: BIMATOPROST 0.01% OP SOLN 2.5 ML BTL OP SCH (22:13)
[2023-03-15] MEDS: DIVALPROEX DELAY RELEASE 500 MG TAB PO SCH (22:14)
[2023-03-15] MEDS: predniSONE 10 MG TABLET PO SCH (23:31)
[2023-03-16] MEDS: NSS + 20MEQ KCL 20 MEQ/1,000 ML BAG IV SCH (05:48)
[2023-03-16 07:22] LABS: Calcium 8.1 mg/dl (8.6-10.3); Potassium 3.7 mmol/L (3.5-5.1)
[2023-03-16 07:27] LABS: BUN Creatinine Ratio 28.2 (10-20); Creatinine Clr Calc Pharmacy 76.2 ml/min; Est GFR (African American) 109.5 ml/min; Est GFR (Non-African American) 94.4 ml/min
[2023-03-16] MEDS: POTASSIUM CHLORIDE CRTAB 20 MEQ TABCR PO SCH ×3 (09:46→22:01)
[2023-03-16] MEDS: MEGESTROL ACETATE 40 MG TAB PO SCH (09:46)
[2023-03-16] MEDS: CALCIUM 600MG + VIT D 400 IU TAB PO SCH ×2 (09:47→22:00)
[2023-03-16] MEDS: ASPIRIN 81 MG ECTAB PO SCH (09:47)
[2023-03-16] MEDS: amLODIPine BESYLATE 5 MG TAB PO SCH (09:47)
[2023-03-16] MEDS: DIVALPROEX DELAY RELEASE 500 MG TAB PO SCH ×2 (09:47→22:01)
[2023-03-16] MEDS: FERROUS SULFATE 325 MG TAB PO SCH ×2 (09:47→22:00)
[2023-03-16] MEDS: TIMOLOL MALEATE 0.5% OP SOLN 5 ML BTL OP SCH (09:48)
[2023-03-16] MEDS: predniSONE 10 MG TABLET PO SCH ×2 (09:48→22:01)
[2023-03-16] MEDS: ARTIFICIAL TEARS OP SCH (09:49)
[2023-03-16] MEDS ORDERED: PEPTAMEN 1.5 CAL 1,000 ML BAG PEG SCH (10:30)
--- NOTE | 2023-03-16 12:46 | Hospitalist Progress Note ---
Date of Service March 16, 2023 Assessment & Plan (1) Acute encephalopathy: Plan: Supportive care. All [employer] depressants have been discontinued including loratadine. Neurology consultation and recommendations appreciated. Antiepileptics have been switched to Depakote. She is now awake and alert. Continue supportive care. Medications will be administered through the PEG tube if she refuses to take them orally. (2) Seizure disorder: Plan: Antiepileptics have been switched to Depakote. Appreciate neurology consultation and recommendations. Continue seizure precautions. (3) Rash: Plan: Possibly secondary to Lamictal which was stopped on 03/01. Now resolved. (4) Giant cell arteritis: Plan: Steroid-dependent. Intravenous hydrocortisone switch to oral prednisone dosing on today, March 13 but switched back to parenteral hydrocortisone dosing on March 14 because she refused to swallow her prednisone. Prednisone has been restarted orally. If she refuses to take the pills, it will be administered through the PEG tube. Intravenous hydrocortisone has been discontinued. Actemra will not be restarted until discharge. Follow-up with rheumatology as an outpatient (5) Essential hypertension: Plan: Stable. Continue amlodipine . Intravenous hydralazine as needed (6) Hypocalcemia: Plan: Continues oral calcium and vitamin D and repleted with IV calcium. Serial labs (7) Dementia: Plan: Mild per neurology. Supportive care. (8) Hypokalemia: Plan: Corrected. Potassium supplementation uptitrated on March 13. Serial labs (9) Urine retention: Plan: Chavez catheter now in place. Pessary for cystocele may be contributing. Appreciate TAX LAWYER consultation and recommendations. (10) Anemia: Plan: Chronic. No overt bleeding. Serial labs. Continue oral iron replacement (11) Cystocele with prolapse: Plan: Appreciate TAX LAWYER consultation and recommendations. Pessary is in place. This may be contributing to urinary retention. Chavez catheter is now in place (12) Poor appetite: Plan: Megestrol started on March 13. She now has a PEG tube. Peptamen will be administered and a bolus feeding fashion twice daily Plan Anticipate return to [facility] at discharge soon. Admission and Anticipated Discharge Date Admission Date: March 06, 2023 Subjective The patient is awake and alert today in good spirits. Daughter is at the bedside. They are aware that PEG tube feeding will start and a bolus dose fashion twice daily. IV fluids discontinued. If she does not take her meds orally then they will be given via PEG tube. Mild hypokalemia corrected at 3.7. Hopefully she can return to [facility] soon. Review of Systems 2 Review of Systems: Constitutionalno fever or chills ENTno blurred vision, no double vision, no epistaxis, no sore throat Respiratoryno cough, no wheezing, no shortness of breath Cardiacno palpitations, no chest pain, no syncope Wendi nausea, vomiting, diarrhea, melena, hematochezia GUno urinary retention, no urinary incontinence, no dysuria, no hematuria Musculoskeletalno joint pain, no muscle tenderness Skinno bruising, no rashes, no pruritus Neurono isolated weakness, no paresthesia, no weakness Psychno depression, no anxiety Physical Exam 2 Physical Exam: General-alert and oriented. She frequently closes her eyes however. She is able to speak and communicate clearly. No apparent distress HEENT-head atraumatic and normocephalic, pupils equal and reactive to light, extraocular muscles intact Neck-no lymphadenopathy or thyromegaly, trachea midline Chest-clear to auscultation anteriorly. No rales, wheezing or rhonchi Cardiac-regular rate and rhythm, normal S1 and S2 Abdomen-normal bowel sounds, no hepatosplenomegaly. PEG tube insertion site is clean and dry Extremities-no cyanosis, clubbing, or edema Neuro-able to speak clearly. She keeps her eyes closed frequently. She is able to move all 4 extremities and there are no apparent focal deficits. Psych-flat affect Results & Data Results & Data Vital Signs (Past 12 Hours) Vital Signs Temp Pulse Resp BP Pulse Ox O2 Del Method 03/16/23 11:35 36.4 C L 59 L 17 152/72 H 97 Room Air 03/16/23 07:45 36.6 C 59 L 17 162/70 H 98 Room Air Laboratory Results 03/13/23 05:40 03/16/23 05:26 PG Care Time/CCT Total # of Minutes Spent Total Time Spent with Patient: Total time spent is greater than 50% in coordination of care (as documented) at patient's floor/unit and/or counseling patient: Coding Level of Care Code 77501 SUB INP/OBS CARE 3/50MIN Diagnoses Acute encephalopathy G93.40 Seizure disorder G40.909 Rash R21 Giant cell arteritis M31.6 Essential hypertension I10 Hypocalcemia E83.51 Dementia F03.90 Hypokalemia E87.6 Urine retention R33.9 Anemia D64.9 Cystocele with prolapse N81.4 Poor appetite R63.0
[2023-03-16] MEDS: BIMATOPROST 0.01% OP SOLN 2.5 ML BTL OP SCH (22:02)
[2023-03-16] MEDS: PEPTAMEN 1.5 CAL 1,000 ML BAG PEG SCH (22:08)
[2023-03-17] MEDS: DIVALPROEX DELAY RELEASE 500 MG TAB PO SCH ×2 (09:27→20:54)
[2023-03-17] MEDS: predniSONE 10 MG TABLET PO SCH ×2 (09:27→20:55)
[2023-03-17] MEDS: POTASSIUM CHLORIDE CRTAB 20 MEQ TABCR PO SCH ×3 (09:27→20:54)
[2023-03-17] MEDS: amLODIPine BESYLATE 5 MG TAB PO SCH (09:28)
[2023-03-17] MEDS: FERROUS SULFATE 325 MG TAB PO SCH ×2 (09:28→20:54)
[2023-03-17] MEDS: MEGESTROL ACETATE 40 MG TAB PO SCH (09:28)
[2023-03-17] MEDS: ASPIRIN 81 MG ECTAB PO SCH (09:28)
[2023-03-17] MEDS: TIMOLOL MALEATE 0.5% OP SOLN 5 ML BTL OP SCH (09:28)
[2023-03-17] MEDS: CALCIUM 600MG + VIT D 400 IU TAB PO SCH ×2 (09:28→20:54)
[2023-03-17] MEDS: PEPTAMEN 1.5 CAL 1,000 ML BAG PEG SCH ×2 (10:00→20:55)
[2023-03-17] MEDS: ARTIFICIAL TEARS OP SCH (11:25)
--- NOTE | 2023-03-17 13:47 | Hospitalist Progress Note ---
Date of Service March 17, 2023 Assessment & Plan (1) Acute encephalopathy: Plan: Supportive care. All [employer] depressants have been discontinued including loratadine. Neurology consultation and recommendations appreciated. Antiepileptics have been switched to Depakote. She is now awake and alert. Continue supportive care. Medications will be administered through the PEG tube if she refuses to take them orally. (2) Seizure disorder: Plan: Antiepileptics have been switched to Depakote. Appreciate neurology consultation and recommendations. Continue seizure precautions. (3) Rash: Plan: Possibly secondary to Lamictal which was stopped on 03/01. Now resolved. (4) Giant cell arteritis: Plan: Steroid-dependent. Intravenous hydrocortisone switch to oral prednisone dosing on today, March 13 but switched back to parenteral hydrocortisone dosing on March 14 because she refused to swallow her prednisone. Prednisone has been restarted orally. If she refuses to take the pills, it will be administered through the PEG tube. Intravenous hydrocortisone has been discontinued. Actemra will not be restarted until discharge. Follow-up with rheumatology as an outpatient (5) Essential hypertension: Plan: Stable. Continue amlodipine . Intravenous hydralazine as needed (6) Hypocalcemia: Plan: Continues oral calcium and vitamin D and repleted with IV calcium. Serial labs (7) Dementia: Plan: Mild per neurology. Supportive care. (8) Hypokalemia: Plan: Corrected. Potassium supplementation uptitrated on March 13. Serial labs (9) Urine retention: Plan: Chavez catheter now in place. We will remove it today, March 17 . Pessary for cystocele may have contributed to urinary retention. Appreciate AUTOMATION CONTROLS ENGINEER consultation and recommendations. (10) Anemia: Plan: Chronic. No overt bleeding. Serial labs. Continue oral iron replacement (11) Cystocele with prolapse: Plan: Appreciate AUTOMATION CONTROLS ENGINEER consultation and recommendations. Pessary is in place. This may have contributed to urinary retention. Chavez catheter will be removed today, March 17 (12) Poor appetite: Plan: Megestrol started on March 13. She now has a PEG tube. Peptamen is being administered in bolus feeding fashion twice daily Plan Anticipate return to [facility] tomorrow, March 18 Admission and Anticipated Discharge Date Admission Date: March 06, 2023 Subjective No new problems. She is tolerating enteral tube feedings in bolus form per PEG tube. Daughter is at the bedside. Chavez catheter will be removed. Anticipate discharge to [facility] tomorrow, March 18 Review of Systems 2 Review of Systems: Constitutionalno fever or chills ENTno blurred vision, no double vision, no epistaxis, no sore throat Respiratoryno cough, no wheezing, no shortness of breath Cardiacno palpitations, no chest pain, no syncope Wendi nausea, vomiting, diarrhea, melena, hematochezia GUno urinary retention, no urinary incontinence, no dysuria, no hematuria Musculoskeletalno joint pain, no muscle tenderness Skinno bruising, no rashes, no pruritus Neurono isolated weakness, no paresthesia, no weakness Psychno depression, no anxiety Physical Exam 2 Physical Exam: General-alert and oriented. She frequently closes her eyes however. She is able to speak and communicate clearly. No apparent distress HEENT-head atraumatic and normocephalic, pupils equal and reactive to light, extraocular muscles intact Neck-no lymphadenopathy or thyromegaly, trachea midline Chest-clear to auscultation anteriorly. No rales, wheezing or rhonchi Cardiac-regular rate and rhythm, normal S1 and S2 Abdomen-normal bowel sounds, no hepatosplenomegaly. PEG tube insertion site is clean and dry Extremities-no cyanosis, clubbing, or edema Neuro-able to speak clearly. She keeps her eyes closed frequently. She is able to move all 4 extremities and there are no apparent focal deficits. Psych-flat affect Results & Data Results & Data Vital Signs (Past 12 Hours) Vital Signs Temp Pulse Pulse Resp BP Pulse Ox O2 Del Method 03/17/23 11:33 36.6 C 62 17 128/71 97 Room Air 03/17/23 09:00 61 03/17/23 07:55 36.4 C L 63 17 129/71 98 Room Air 03/17/23 04:08 36.7 C 65 18 129/61 96 Room Air Laboratory Results 03/13/23 05:40 03/16/23 05:26 PG Care Time/CCT Total # of Minutes Spent Total Time Spent with Patient: Total time spent is greater than 50% in coordination of care (as documented) at patient's floor/unit and/or counseling patient: Coding Level of Care Code 80074 SUB INP/OBS CARE 3/50MIN Diagnoses Acute encephalopathy G93.40 Seizure disorder G40.909 Rash R21 Giant cell arteritis M31.6 Essential hypertension I10 Hypocalcemia E83.51 Dementia F03.90 Hypokalemia E87.6 Urine retention R33.9 Anemia D64.9 Cystocele with prolapse N81.4 Poor appetite R63.0
[2023-03-17] MEDS: BIMATOPROST 0.01% OP SOLN 2.5 ML BTL OP SCH (20:51)
[2023-03-18 06:21] LABS: BUN Creatinine Ratio 32.5 (10-20); Calcium 9.3 mg/dl (8.6-10.3); Creatinine Clr Calc Pharmacy 74.3 ml/min; Est GFR (African American) 108.5 ml/min; Est GFR (Non-African American) 93.7 ml/min; Potassium 4.9 mmol/L (3.5-5.1)
[2023-03-18] MEDS: POTASSIUM CHLORIDE CRTAB 20 MEQ TABCR PO SCH ×2 (10:19→15:32)
[2023-03-18] MEDS: ASPIRIN 81 MG ECTAB PO SCH (10:19)
[2023-03-18] MEDS: MEGESTROL ACETATE 40 MG TAB PO SCH (10:19)
[2023-03-18] MEDS: amLODIPine BESYLATE 5 MG TAB PO SCH (10:19)
[2023-03-18] MEDS: predniSONE 10 MG TABLET PO SCH (10:20)
[2023-03-18] MEDS: CALCIUM 600MG + VIT D 400 IU TAB PO SCH (10:20)
[2023-03-18] MEDS: DIVALPROEX DELAY RELEASE 500 MG TAB PO SCH (10:20)
[2023-03-18] MEDS: ARTIFICIAL TEARS OP SCH (10:21)
[2023-03-18] MEDS: TIMOLOL MALEATE 0.5% OP SOLN 5 ML BTL OP SCH (10:22)
--- NOTE | 2023-03-18 10:49 | Neurology Progress Note ---
Date of Service March 18, 2023 Assessment & Plan (1) Unresponsive state: (2) Seizure disorder: (3) Giant cell arteritis: (4) Dementia: Plan This patient has a history of biopsy-proven giant cell arteritis followed by Rheumatology on steroids and Actemra. She has a history of staring spells and presumed seizures (EEGs have been unremarkable) on levetiracetam (currently 500 mg q.6 hours). Because of her possible seizure and postictal state, lacosamide 50 mg IV q.12 was initiated March 04. March 05 she was sleepy/confused although I was not positive she was unresponsive. Her exam was somewhat inconsistent. On March 06, however, she was quite awake and alert with no signs of delirium or encephalopathy. She does have an underlying dementia. She had no focal findings on exam. MRI of the brain showed no abnormalities. MR angiography of the head neck showed no specific abnormalities as well There are a few cases of high doses of lacosamide giving confusion/obtundation but she is on a relatively low dose. Levetiracetam can give an encephalopathy as well. Lacosamide and levetiracetam were discontinued. Depakote was initiated on March 09 and she is on 500 mg twice a day. She is been much more awake and alert the last several days and she is had no seizure activity since Recommendations: 1. Continue Depakote 500 mg p.o. twice daily. 2. Check trough Depakote level in 1-2 weeks. 3. Keep off lacosamide and levetiracetam 4. Follow-up in neurology in 2-3 weeks with PA, if desired Overall, I spent a total of 50 minutes with this case including review of records, direct evaluation of the patient, report generation, and discussion of the case with the patient, daughters, RN, and case management at bedside as well as Dr. Garcia including differential diagnosis and treatment options. Admission and Anticipated Discharge Date Admission Date: March 06, 2023 Subjective Patient has no complaint of pain Nursing reports the patient is doing much better and she has been awake and alert now. Laboratory studies have been unremarkable Results & Data Vital Signs (Past 12 Hours) Vital Signs Temp Pulse Pulse Resp BP BP Pulse Ox 03/18/23 07:59 34.8 C L 78 18 124/74 98 03/18/23 04:00 36.7 C 76 18 128/71 98 03/18/23 00:00 36.6 C 81 18 105/66 97 O2 Del Method 03/18/23 07:59 Room Air 03/18/23 04:00 Room Air 03/18/23 00:00 Room Air Exam (Neuro) Physical Exam: She is awake and alert. Speech is without aphasia or dysarthria. Mood and affect seem normal appropriate. She is pleasant and cooperative. Extraocular eye muscles are intact without nystagmus. There is no facial droop. Tongue is midline. There are no abnormal involuntary movements. Strength seems symmetrical. she is sitting up in bed without issue PG Care Time/CCT Total # of Minutes Spent Total Time Spent with Patient: Total time spent is greater than 50% in coordination of care (as documented) at patient's floor/unit and/or counseling patient: Coding Level of Care Code 07727 SUB INP/OBS CARE 3/50MIN Diagnoses Unresponsive state R41.89 Seizure disorder G40.909 Giant cell arteritis M31.6 Dementia F03.90 Time Spent (min) 50
[2023-03-18] MEDS: PEPTAMEN 1.5 CAL 1,000 ML BAG PEG SCH (11:25)
[2023-03-18] MEDS: FERROUS SULFATE 325 MG TAB PO SCH (11:25)
--- NOTE | 2023-03-18 11:59 | Discharge Summary ---
Date of Service March 18, 2023 Admission HPI Per Admitting Provider Carly Soliman is an 87 year old female who presents to the ER with altered mental state. Unable to get any history from patient as she appears to be non verbal at this time. Tried calling Shane number on hand over sheet from ER but went to voicemail. I left a voicemail but could not get through to Carmella Soliman her legal guardian. History therefore obtained from ER physician, previous notes and ER hand over sheet. Reportedly having increased seizure activity recently with increased periods altered mental state. She was sent to the ER for altered mental state. She has had multiple previous episodes like this which are possible postictal although possible catatonia has also been mentioned in the past. Recent hospitalizations: 11/30 - 12/03 - found by staff at [facility], unsure who long she was down for. Patient somewhat sedated but answering questions appropriately on admission. Did not remember events leading up to fall. Prolactin slightly elevated and postictal state therefore suspected to be seizure although no seizure like activity was witnessed. Given hyponatremia this was suspected to precipitate event therefore no anti-epileptics were started. 12/04 - 11/27- concern for seizure activity at long term with shaking witnessed and since then just staring into the distance. She was fatigued but otherwise her normal self when I admitted her in the ER. Further shaking (but not classic tonic clonic) was witnessed by nurse when she went from the ER to the floor with staring episode afterwards. Ativan was given and patient was very sedated following 2mg IV Ativan. Seen by neurology and started on Keppra 500mg PO BID 12/09 - 12/14 - found by long term staff staring into space, non verbal on admission, H&P reports she is aware of these episodes. Seen by psychiatry and did not think it was catatonia at that time. Neurology recommended autoimmune workup and LP. LP was unremarkable except mildly elevated protein. Keppra was increased to 100mg PO BID. 01/20 - 01/28 - Presented to the ER for fever. Na 125 (improved with NSS). CT with possible enteritis. Given Venofer for iron def. anemia. Biopsy taken for GCA (had mild headache at the time and symptoms suggestive of PMR) and pathology subsequently positive - she was treated with prednisone. 02/04 - ER visit for seizure. Found on the ground having a tonic clonic seizure. Lamotrigine started 02/[address] Haq although I cannot find an accompanying note regarding this. This was discontinued 2 days later by rheumatology after developing a rash. Per external med rec I believe she is taking just the Keppra 100mg PO BID currently. Principal Diagnosis Suspected recurrent seizures with altered mental status, hypocalcemia, hypokalemia Discharge Exam General-alert and oriented. She seems much better over the past 2 days. She is able to speak and communicate clearly. No apparent distress HEENT-head atraumatic and normocephalic, pupils equal and reactive to light, extraocular muscles intact Neck-no lymphadenopathy or thyromegaly, trachea midline Chest-clear to auscultation anteriorly. No rales, wheezing or rhonchi Cardiac-regular rate and rhythm, normal S1 and S2 Abdomen-normal bowel sounds, no hepatosplenomegaly. PEG tube insertion site is clean and dry Extremities-no cyanosis, clubbing, or edema Neuro-able to speak clearly. She keeps her eyes closed frequently. She is able to move all 4 extremities and there are no apparent focal deficits. Psych-flat affect Discharge Data Allergies Allergy/AdvReac Type Severity Reaction Status Date / Time Penicillins Allergy Unknown Unknown rxn Verified 03/15/23 08:14 azithromycin [From Zithromax] Allergy Unknown Verified 03/15/23 08:14 doxycycline Allergy Unknown Verified 03/15/23 08:14 risedronate sodium Allergy Unknown Verified 03/15/23 08:14 [From Actonel] lamotrigine [From Lamictal] AdvReac Intermediate Rash Verified 03/15/23 08:14 Consultations 03/04/23 15:55 ED Decision to Admit Stat 03/04/23 20:31 Consult Neurology Routine 03/07/23 13:56 Consult Gynecology Routine 03/14/23 15:17 Consult Gastroenterology Routine Procedures Performed Operation Date: 03/15/23 17:00 Actual Procedures p EGD Gastric Tube Placement - Ashish Paz MD Ordered Studies 03/04/23 12:04 CT head/brain wo con Stat 03/04/23 13:20 CT abd pelvis wo con Stat 03/05/23 10:20 MRI Brain [MR brain wo/w con] Stat 03/05/23 10:21 MR angio head wo con Stat 03/05/23 10:35 MR angio neck wo/w con Stat Hospital Course (1) Acute encephalopathy: Supportive care. All OVERLOCKER depressants have been discontinued including loratadine. Neurology consultation and recommendations appreciated. Antiepileptics have been switched to Depakote. She is now awake and alert. Continue supportive care. Medications will be administered through the PEG tube if she refuses to take them orally. She is tolerating the bolus feeding through the newly placed PEG tube quite well. She will follow-up with neurology as an outpatient in 2 to 3 weeks, Dr. Cade Rivero (2) Seizure disorder: Antiepileptics have been switched to Depakote. Appreciate neurology consultation and recommendations. Continue seizure precautions. (3) Rash: Possibly secondary to Lamictal which was stopped on 03/01. Now resolved. (4) Giant cell arteritis: Steroid-dependent. Intravenous hydrocortisone switched to oral prednisone dosing on March 13 but switched back to parenteral hydrocortisone dosing on March 14 because she refused to swallow her prednisone. Prednisone has again been restarted orally. If she refuses to take the pills, it will be administered through the PEG tube. Intravenous hydrocortisone has been discontinued. Actemra will not be restarted until discharge. Follow-up with rheumatology as an outpatient (5) Essential hypertension: Stable. Continue amlodipine . Intravenous hydralazine as needed while hospitalized (6) Hypocalcemia: Continues oral calcium and vitamin D and repleted with IV calcium. Serial labs (7) Dementia: Mild per neurology. Supportive care. (8) Hypokalemia: Corrected. Potassium supplementation uptitrated on March 13. Serial labs (9) Urine retention: Chavez catheter was removed on March 17 but she has since required straight catheterization a few times. Hopefully the Chavez catheter will not need to be replaced. Pessary for cystocele may have contributed to urinary retention. Appreciate [employer] consultation and recommendations. (10) Anemia: Chronic. No overt bleeding. Serial labs. Continue oral iron replacement (11) Cystocele with prolapse: Appreciate [employer] consultation and recommendations. Pessary is in place. This may have contributed to urinary retention. Chavez catheter was removed on March 17 (12) Poor appetite: Megestrol started on March 13. She now has a PEG tube. Peptamen is being administered in bolus feeding fashion twice daily. Very well-tolerated so far Plan Discharge back to [facility] today, March 18 Total Time Total Time Spent Total Time Spent (In Minutes): 45-minute Discharge Plan Discharge Items Patient Disposition: Transfer Halfway Fac Reason For Visit: ALTERED MENTAL STATUS Discharge Diagnosis: Recurrent seizures with altered mental status due to metabolic encephalopathy, hypokalemia, hypocalcemia Activity: Resume your previous activity Non-emergency contact: Primary Care Provider and Neurologist Call non-emergency contact if: you have any medication questions and your symptoms worsen Follow-up/Referrals: Shane Sykes [Primary Care Provider] - Diet: Regular Diet Comment: Peptamen or equivalent 240 cc per PEG tube twice daily Addtl Attending Provider Instructions: Flush PEG tube per protocol after each use. Administer any oral medication that is refused orally per PEG tube. Pending Studies at Discharge: No Stand-Alone Forms: My [facility] Skilled Items Patient informed of condition?: Yes DNR: Yes Discharge Level of Care: Skilled Communicable Disease: No Discharge Prognosis: Stable Lines: None Urinary Catheter: No Medications and DC Order Prescriptions: New divalproex 500 mg Tablet,Delayed Release (Dr/Ec) 500 mg PO BID Qty: 0 0RF melatonin 3 mg Tablet 6 mg PO HS PRN (Reason: sleep) Qty: 0 0RF megestrol 40 mg Tablet 40 mg PO QAM Qty: 0 0RF prednisone 10 mg Tablet 10 mg PO BID Qty: 0 0RF Peptamen 1.5 0.068 gram- 1.5 kcal/mL Liquid See Rx Instructions .ROUTE .COMPLEX Qty: 0 0RF Rx Instructions: 240ml bid per PEG Continued Actemra 162 mg/0.9 mL syringe 162 mg subcut .weekly Qty: 0.9 12RF Rx Instructions: inject 162 mg subcutaneously at bedtime every saturday bisacodyl 10 mg suppository 10 mg [place] DAILY PRN (Reason: Constipation) sodium phosphates 19-7 gram/118 mL enema 118 ml [place] DAILY PRN (Reason: Constipation) alendronate 70 mg tablet 70 mg PO .Weekly Rx Instructions: Saturday amlodipine 5 mg tablet 5 mg PO QAM aspirin [Adult Aspirin Regimen] 81 mg tablet,delayed release (DR/EC) 81 mg PO QAM nystatin-triamcinolone 100,000-0.1 unit/g-% cream 1 applic topical Q8 PRN (Reason: perineum itching) timolol 0.5 % drops 1 drp OPR QAM triamcinolone acetonide 55 mcg aerosol,spray 1 spray intranasal QAM Rx Instructions: administer into each nostril calcium carbonate [Tums] 200 mg calcium (500 mg) tablet,chewable 200 mg PO Q6 PRN (Reason: Indigestion) ondansetron HCl 4 mg tablet 4 mg PO Q8H PRN (Reason: nausea/vomiting) calcium carbonate-vitamin D3 [Calcium 600 + D(3)] 600 mg-10 mcg (400 unit) Tablet 1 tab PO BID Lumigan 0.01 % drops 1 drp OPB HS betamethasone dipropionate 0.05 % cream 1 applic TOP Q12 PRN (Reason: itching) polyethylene glycol 3350 [Miralax] 17 gram Powder In Packet 17 g PO QAM ipratropium bromide 21 mcg (0.03 %) spray,non-aerosol 1 spray INTRANASAL Q12 PRN (Reason: rhinitis) Artificial Tears (cmc) 1 % Drops 1 drp OPHTHALMIC (EYE) Q6 PRN (Reason: Dry Eyes) ferrous sulfate 325 mg (65 mg iron) tablet 325 mg PO BID Qty: 1 0RF acetaminophen 325 mg Tablet 650 mg PO Q4 MDD 3g PRN (Reason: Pain) potassium chloride 20 mEq tablet,ER particles/crystals 20 meq PO BID Discontinued levetiracetam 1,000 mg tablet 1,000 mg PO BID 30 Days Qty: 60 2RF loratadine 10 mg Tablet 10 mg PO QAM prednisone 20 mg tablet See Rx Instructions .ROUTE .COMPLEX Rx Instructions: give orally in mornin mg start date 02/27/23 end date 03/05/23 35 mg start date 03/06/23 end date 03/12/23 30 mg start date 03/13/23 end date 03/19/23 25 mg start date 03/20/23 end date 03/26/23 20 mg start date 03/27/23 Discharge Orders: Discharge Order (Routine); Ordered 03/18/23 Ordered By: Lee Garcia Admission Data Admit Date/Time: 03/06/23 15:23 Attending Provider: Lee Garcia Admit Provider: Kenisha Eubanks Primary Care Provider: Shane Sykes Other Providers: Gilberto Martinez; Gaby Rivero Kaitlyn B.; Guilherme Starr; William Nolen; Malina Chairez; Pastora Lozoya; Amanda Cisneros; Sheri Huffman; Ashish Paz; Jett Sosa; Devin Liang; Andre Paniagua; Carlos Porras; Carter Jimenez; Sonja Shafer; Anamika Soto; Farzana Aviles; Dorothy Guillaume; Mandi Solano; Osman Gonzales; Alfonso Rosales; Michelle Galicia; Irma Tubbs Jr Coding Level of Care Code 71021 INP/OBS DISCH >30 MIN Diagnoses Acute encephalopathy G93.40 Seizure disorder G40.909 Rash R21 Giant cell arteritis M31.6 Essential hypertension I10 Hypocalcemia E83.51 Dementia F03.90 Hypokalemia E87.6 Urine retention R33.9 Anemia D64.9 Cystocele with prolapse N81.4 Poor appetite R63.0
== END 2023-03-18 15:59 | DRG 100 ==
LOC: EDINP 11:52 → ED 11:52 → SUATTDRO 18:29 → 2N 03-05 17:10 → SUATTDRO 03-06 15:23

== ENCOUNTER 2023-03-31 10:39 | Inpatient (IN) ==
[2023-03-31] MEDS ORDERED: cefTRIAXone SODIUM 2,000 MG/50 ML BAG IV STA (10:54)
[2023-03-31] MEDS ORDERED: dexAMETHasone**PF** 10 MG/ML VIAL IV ONE (10:54)
--- NOTE | 2023-03-31 10:57 | Emergency Department Note ---
Impression & Plan Sepsis, Elevated lactic acid level, COVID-19, Hypoxia ED Provider Note NAME: LEENA BAIG AGE: 87 SEX: F : 1935 ARRIVES VIA: Ambulance INFORMANT: Patient ED PROVIDER(S): Román Duckworth DO CHIEF COMPLAINT: hypoxic HPI: Patient is an 87-year-old female who is demented with a past medical history of temporal arteritis, hyponatremia, encephalopathy who presents to the ER for positive COVID test in combination with hypoxia at 88% on room air. Patient was brought in by EMS. History was obtained by EMS. Patient gives no history. Patient did have contact with patient at [facility] who is COVID- positive. No additional history is obtained from the patient. Does have a PEG tube as well as a Valerio. ADDITIONAL HISTORY OBTAINED: Per HPI Chronic Medical/Social Conditions Affecting Care: Per HPI PAST MEDICAL HISTORY:See Below PAST SURGICAL HISTORY:See Below FAMILY HISTORY:See Below SOCIAL HISTORY:See Below HOME MEDICATIONS:See Below ALLERGIES:See Below VITALS:See Below PHYSICAL EXAMINATION: GENERAL: Sitting up in bed, alert moving arms, moaning, intermittent coughing EYE EXAM: normal conjunctiva. PERRL and EOM's grossly intact. OROPHARYNX: no exudate, no erythema, lips, buccal mucosa, and tongue normal and mucous membranes are dry NECK: supple, no nuchal rigidity, no adenopathy, non-tender LUNGS: Diminished bilateral. Normal chest wall mechanics HEART: Tachycardia, S1 normal and S2 normal ABDOMEN: abdomen soft, non-tender, PEG in place, normo-active bowel sounds, no masses, no rebound or guarding. : valerio in place UPPER EXTREMITIES: upper extremities are grossly normal. LOWER EXTREMITIES: No pitting edema. NEURO EXAM: Not oriented to person place or time but is awake moving her arms and her head around moaning MEDICAL DECISION MAKING: Patient is an 87-year-old female who presents ER with a history of dementia for COVID-positive hypoxia and pneumonia. IV was established blood work was obtained. Patient was found to be hypotensive with systolics in the 80s. 2 IVs were obtained and systolic pressures trended up to the low 100s with 2.5 L of normal saline. Heart rate trended down. She was hypoxic and remained on 3 L nasal cannula. Labs show leukocytosis of 14,000. Mild anemia 10. INR unremarkable. Hyponatremia 127. Mild hyperkalemia 5.7. Lactate elevated at nearly 4. Troponin was elevated at 300. Pro-Juan Alberto elevated 5. COVID-positive. Chest x-ray with infiltrates. CRP was elevated. Lab notified that this all inclusion bodies in the neutrophils concerning for bacteremia. Did add on cefepime patient was already given Rocephin and IV vancomycin. Daughter was updated at bedside. Discussed with Dr. Gilberto Martinez for further evaluation management treatment. External Records Reviewed: Recent admission within the past month to Dr. Turner for recurrent seizures and altered mental status Consults/Care Managements Discussions: Per [facility] Triage Nursing notes reviewed. Limited review of prior medical records performed Vital Signs: reviewed and remarkable for no significant abnormalities Differential diagnosis: Differential diagnosis includes etiologies such as sepsis, UTI, pneumonia, metabolic, electrolyte abnormalities, cardiac sources, intracerebral event, toxicologic, neurological, as well as others were entertained. ER treatment provided: See below Diagnostics interpreted by me include EKG and cardiac monitoring as listed below: -Cardiac Monitoring: An order was placed for continuous cardiac monitoring. The monitor shows a rate of 110 with sinus rhythm. -ECG: Sinus tachycardia rate 106 First-degree AV block Poor baseline Septal Q waves QTc 355 -Laboratory studies:Interpreted by me as stated above in MDM and shown below. Imaging studies: Xrays: As interpreted by me: Portable AP upright 1 view of the chest shows left lower lobe effusion Portable AP upright 1 view the chest shows infiltrates and effusion per radiology CTs show: none Procedures:none Critical Care: I have personally spent 35 minutes of critical care time in the direct management of this patient. This includes bedside care, interpretation of diagnostic studies, and testing, discussion with consultants, patient, and family members, and other required patient management activities. This 35 minutes is in excess of all separately billable procedures. Past Med/Surg History Medical History Acute encephalopathy Abnormal SPEP Giant cell arteritis PMR (polymyalgia rheumatica) FRANCISCO positive Weight loss Seizure Hyponatremia Dyslipidemia Family history of colon cancer Osteopenia after menopause Pancreatic cyst Surgical History History of temporal artery biopsy (01/23/23) Right Temporal Artery Biopsy(Right) - Dwight D. Gleason, DO History of biopsy of temporal artery History of varicose vein ligation and stripping History of colonoscopy S/P tubal ligation Family History Sister Breast cancer Coronary heart disease Father Stroke Mother Breast cancer Son Narcolepsy Other No family history of adverse response to anesthesia No family history of bleeding disorder Denies family history of Ovarian cancer Prostate cancer Diabetes Lung cancer Colorectal cancer Social History Smoking Status: Never smoker Second Hand Exposure: No; Do You Dip or Chew Tobacco: No; Hx Alcohol Use: No Hx Substance Use: No Preferred Language: Tamazight Communication Ability: Impaired Visual Impairment: Limited Hearing Ability: Normal Product Marketing Coordinator Required: No Beliefs That Will Affect Care: None marital status: Current Living Situation: Personal Care Facility Current Living Situation Comment: [facility] current occupational status: retired How many Children do You have: 3 Feels Safe at Home: Yes Childhood Exposure to Second-Hand Smoke: Yes (father smoked pipe occassionally ) Diet: regular caffeine: Yes (coffee and tea ) Dental Care, Regularly: Yes Physical Activity Frequency: Daily Physical Activity Frequency Comment: walk Seatbelt Use: always Sunscreen Use: Yes Assistive Devices: Walker Allergies Allergies Allergy/AdvReac Type Severity Reaction Status Date / Time Penicillins Allergy Unknown Unknown rxn Verified 03/31/23 13:46 azithromycin [From Zithromax] Allergy Unknown Verified 03/31/23 13:46 doxycycline Allergy Unknown Verified 03/31/23 13:46 risedronate sodium Allergy Unknown Verified 03/31/23 13:46 [From Actonel] lamotrigine [From Lamictal] AdvReac Intermediate Rash Verified 03/15/23 08:14 Home Meds Home Medications Medication Instructions Recorded Confirmed betamethasone dipropionate 0.05 % 1 applic topical Q12 PRN itching 11/30/22 03/31/23 topical cream bimatoprost 0.01 % eye drops 1 drp OPB HS 11/30/22 03/31/23 (Lumigan) calcium carbonate 600 mg-vitamin 1 tab PO BID 11/30/22 03/31/23 D3 10 mcg (400 unit) tablet (Calcium 600 + D(3)) alendronate 70 mg tablet 70 mg PO .Weekly 01/07/23 03/31/23 amlodipine 5 mg tablet 5 mg PO QAM 01/07/23 03/31/23 aspirin 81 mg tablet,delayed 81 mg PO QAM 01/07/23 03/31/23 release (Adult Aspirin Regimen) bisacodyl 10 mg rectal suppository 10 mg MD DAILY PRN Constipation 01/07/23 03/31/23 calcium carbonate 200 mg calcium 200 mg PO Q6H PRN Indigestion 01/07/23 03/31/23 (500 mg) chewable tablet (Tums) timolol 0.5 % eye drops 1 drp OPR QAM 01/07/23 03/31/23 carboxymethylcellulose sodium 1 % 1 drp ophthalmic (eye) Q6 PRN Dry 01/20/23 03/31/23 eye drops (Artificial Tears Eyes (carboxymethylcellulose)) ipratropium bromide 21 mcg (0.03 1 spray intranasal Q12 PRN rhinitis 01/20/23 03/31/23 %) nasal spray polyethylene glycol 3350 17 gram 17 g PO QAM 01/20/23 03/31/23 oral powder packet (Miralax) potassium chloride 20 mEq 20 meq PO BID 03/04/23 03/31/23 tablet,extended release(part/cryst) acetaminophen 500 mg tablet 500 mg PO QID PRN Pain 03/31/23 03/31/23 molnupiravir 200 mg capsule (EUA) 800 mg PO Q12H 03/31/23 03/31/23 ondansetron HCl 4 mg tablet 4 mg PO Q8H PRN Nausea And Vomiting 03/31/23 03/31/23 prednisone 10 mg tablet 20 mg PO QAM 03/31/23 03/31/23 sennosides 8.6 mg tablet (Senokot) 8.6 mg PO HS 03/31/23 03/31/23 tramadol 50 mg tablet 25 mg PO Q4H PRN Pain 03/31/23 03/31/23 Previous Rx's Medication Instructions Recorded ferrous sulfate 325 mg (65 mg 325 mg PO BID #1 tab 01/28/23 iron) tablet tocilizumab 162 mg/0.9 mL 162 mg (0.9 mL) subcut .weekly 02/14/23 subcutaneous syringe (Actemra) #0.9 mL divalproex 500 mg tablet,delayed 500 mg PO BID #0 tabs 03/18/23 release megestrol 40 mg tablet 40 mg PO QAM #0 tabs 03/18/23 melatonin 3 mg tablet 6 mg (2 x 3 mg) PO HS PRN sleep #0 03/18/23 tabs Results & Data (ED) Vital Signs Vital Signs - 24 hr 03/31/23 10:59 03/31/23 10:59 03/31/23 10:59 Temperature 37 C Temperature Source Oral Pulse Rate 108 H 108 H Pulse Rate [Apical] 108 H Pulse Rate from SpO2 Sensor Respiratory Rate 22 22 20 Respiratory Effort / Characteristics Non-Labored Spontaneous Non-Labored Spontaneous Respiratory Depth Normal Normal Respiratory Pattern Regular Regular Blood Pressure 90/52 L Blood Pressure [Right Arm] 90/52 L Blood Pressure Mean 64 Blood Pressure Mean [Right Arm] 64 Pulse Oximetry 88 L 88 L 93 Oxygen Delivery Method Room Air Room Air Nasal Cannula Oxygen Flow Rate 3 Sepsis Recent Fever Within 48 Hours No Sepsis New/Unexplained Change in Mental Status No Sepsis Action Taken by Nursing Physician Notified 03/31/23 11:00 03/31/23 11:30 03/31/23 12:00 Temperature Temperature Source Pulse Rate 102 H 99 H 103 H Pulse Rate [Apical] Pulse Rate from SpO2 Sensor 100 H 103 H Respiratory Rate 27 H 39 H Respiratory Effort / Characteristics Respiratory Depth Respiratory Pattern Blood Pressure 83/50 L 83/56 L Blood Pressure [Right Arm] Blood Pressure Mean 61 65 Blood Pressure Mean [Right Arm] Pulse Oximetry 97 93 Oxygen Delivery Method Oxygen Flow Rate Sepsis Recent Fever Within 48 Hours Sepsis New/Unexplained Change in Mental Status Sepsis Action Taken by Nursing 03/31/23 12:30 03/31/23 12:45 03/31/23 13:00 Temperature Temperature Source Pulse Rate 105 H 97 H 100 H Pulse Rate [Apical] Pulse Rate from SpO2 Sensor 104 H 97 H 101 H Respiratory Rate 26 H 25 H 24 Respiratory Effort / Characteristics Respiratory Depth Respiratory Pattern Blood Pressure 105/64 91/45 L 97/62 L Blood Pressure [Right Arm] Blood Pressure Mean 77 60 73 Blood Pressure Mean [Right Arm] Pulse Oximetry 94 98 91 Oxygen Delivery Method Oxygen Flow Rate Sepsis Recent Fever Within 48 Hours Sepsis New/Unexplained Change in Mental Status Sepsis Action Taken by Nursing 03/31/23 13:15 03/31/23 13:31 Temperature Temperature Source Pulse Rate 102 H 112 H Pulse Rate [Apical] Pulse Rate from SpO2 Sensor 101 H 115 H Respiratory Rate 27 H 34 H Respiratory Effort / Characteristics Respiratory Depth Respiratory Pattern Blood Pressure 111/58 L 80/54 L Blood Pressure [Right Arm] Blood Pressure Mean 75 62 Blood Pressure Mean [Right Arm] Pulse Oximetry 96 93 Oxygen Delivery Method Oxygen Flow Rate Sepsis Recent Fever Within 48 Hours Sepsis New/Unexplained Change in Mental Status Sepsis Action Taken by Nursing Laboratory Data 03/31/23 11:50 03/31/23 11:50 Lab Results 03/31/23 03/31/23 Range/Units 11:50 11:52 WBC 13.98 H (4.8-10.8) K/ul RBC 3.35 L (4.20-5.40) M/uL Hgb 10.5 L (12.0-16.0) g/dl Hct 30.3 L (37.0-47.0) % MCV 90.4 (80.0-100.0) fL MCH 31.3 (25.0-34.0) pg MCHC 34.7 (32.0-36.0) g/dL RDW Std Deviation 72.5 H (36.4-46.3) fL RDW Coeff of Bandar 22.5 H (11.5-14.5) % Plt Count 84 L (130-400) K/uL MPV 11.7 (9.4-12.4) fL Immature Gran % (Auto) 2.4 % Neut % (Auto) 91.1 % Lymph % (Auto) 1.7 % [place] % (Auto) 4.7 % Eos % (Auto) 0.0 % Baso % (Auto) 0.1 % Neut # (Auto) 12.74 H (1.40-6.50) K/uL Lymph # (Auto) 0.24 L (1.20-3.40) K/uL [place] # (Auto) 0.66 H (0.11-0.59) K/uL Eos # (Auto) 0.00 (0.00-0.50) K/uL Baso # (Auto) 0.01 (0.00-0.20) K/uL Immature Gran # (Auto) 0.33 H (0.01-0.20) K/uL Absolute Nucleated RBC 0.02 (0.00-0.12) K/uL Nucleated RBC % (auto) 0.1 % Toxic Vacuolation 3+ Polychromasia 1+ PT 11.1 (9.0-12.0) Seconds INR 1.0 (0.9-1.1) APTT 22.5 (21.0-31.0) Seconds PTT Ratio 0.8 Sodium 127 L (136-145) mmol/L Potassium 5.7 H (3.5-5.1) mmol/L Chloride 96 L (98-107) mmol/L Carbon Dioxide 22 (21-32) mmol/L Anion Gap 9 (3-11) BUN 21 (6-23) mg/dl Creatinine 0.69 (0.6-1.2) mg/dl Est Cr Clr Drug Dosing Not Reportable Est GFR ( Amer) 90.7 ml/min Est GFR (Non-Af Amer) 78.3 ml/min BUN/Creatinine Ratio 30.4 H (10-20) Glucose 154 H (70-99(Fasting)) mg/dl Lactate 3.8 H* (0.4-2.0) mmol/L Calcium 8.7 (8.6-10.3) mg/dl Magnesium 2.1 (1.7-2.4) mg/dl Total Bilirubin 0.3 (0.2-1.0) mg/dl Direct Bilirubin 0.1 (0-0.2) mg/dl AST 22 (13-39) U/L ALT 20 (7-52) U/L Alkaline Phosphatase 93 (34-104) U/L C-Reactive Protein 27.99 H (0-0.5) mg/dl Total Protein 4.9 L (6.0-8.3) gm/dl Albumin 2.6 L (3.4-5.0) gm/dl Procalcitonin 5.19 H (0-0.5) ng/ml SARS-CoV-2 (PCR) POSITIVE A* (Negative) Administered Medications Discontinued Medications Dexamethasone Sodium Phosphate (DexamethasonePf 10 Mg/Ml Vial) 10 mg IV NOW ONE Stop: 03/31/23 10:55 Last Admin: 03/31/23 11:57 Dose: 10 mg Documented By: OAM Ceftriaxone Sodium (Rocephin) 2,000 mg in 50 mls @ 100 mls/hr IV NOW STA Stop: 03/31/23 11:23 Last Infusion: 03/31/23 12:57 Dose: Infused Documented By: Admin: 03/31/23 12:21 Dose: 100 mls/hr Documented By: OAM Sodium Chloride (Nss) 1,000 mls @ 999 mls/hr IV .Q1H1M PAVAN Stop: 03/31/23 13:00 Last Infusion: 03/31/23 13:36 Dose: 0 mls/hr Documented By: Admin: 03/31/23 13:25 Dose: 999 mls/hr Documented By: Infusion: 03/31/23 12:57 Dose: Infused Documented By: Admin: 03/31/23 11:56 Dose: 999 mls/hr Documented By: OAM Imaging Data Radiologist's Impression: Chest X-Ray 03/31/23 10:53 XR chest 1V portable CLINICAL HISTORY: Sepsis. COMPARISON STUDY: Chest radiograph March 04, 2023. Chest CT September 07, 2013. FINDINGS: There is no pneumothorax. Small left and trace right pleural effusions are present. Mild bibasilar opacities favor atelectasis. There is no evidence for pulmonary edema. Cardiomediastinal silhouette is normal. A few nodular opacities within the right lung are new since prior exam. IMPRESSION: 1. A few small right lung nodular opacities which are new since prior exam. These may reflect an infectious process. However, pulmonary nodules cannot be excluded and PA and lateral chest radiographs in 1 month are recommended to ensure resolution. 2. Small left and trace right pleural effusions. Bibasilar opacities favor atelectasis. ACT 112: Negative or not required by law. Electronically signed by: Jignesh Garcia M.D. 03/31/2023 11:41 AM Discharge Plan Visit Data Chief Complaint: Illness ED Provider: Román Duckworth Discharge Problem: Sepsis, Elevated lactic acid level, COVID-19, Hypoxia Forms Stand Alone Forms: My [facility] [employer] Prescriptions Prescriptions: No Action Actemra 162 mg/0.9 mL syringe 162 mg subcut .weekly Qty: 0.9 12RF Rx Instructions: inject 162 mg subcutaneously at bedtime every saturday bisacodyl 10 mg suppository 10 mg MD DAILY PRN (Reason: Constipation) alendronate 70 mg tablet 70 mg PO .Weekly Rx Instructions: Saturday amlodipine 5 mg tablet 5 mg PO QAM aspirin [Adult Aspirin Regimen] 81 mg tablet,delayed release (DR/EC) 81 mg PO QAM timolol 0.5 % drops 1 drp OPR QAM calcium carbonate [Tums] 200 mg calcium (500 mg) tablet,chewable 200 mg PO Q6H PRN (Reason: Indigestion) calcium carbonate-vitamin D3 [Calcium 600 + D(3)] 600 mg-10 mcg (400 unit) Tablet 1 tab PO BID Lumigan 0.01 % drops 1 drp OPB HS betamethasone dipropionate 0.05 % cream 1 applic TOP Q12 PRN (Reason: itching) polyethylene glycol 3350 [Miralax] 17 gram Powder In Packet 17 g PO QAM ipratropium bromide 21 mcg (0.03 %) spray,non-aerosol 1 spray INTRANASAL Q12 PRN (Reason: rhinitis) Artificial Tears (cmc) 1 % Drops 1 drp OPHTHALMIC (EYE) Q6 PRN (Reason: Dry Eyes) ferrous sulfate 325 mg (65 mg iron) tablet 325 mg PO BID Qty: 1 0RF potassium chloride 20 mEq tablet,ER particles/crystals 20 meq PO BID melatonin 3 mg Tablet 6 mg PO HS PRN (Reason: sleep) Qty: 0 0RF divalproex 500 mg Tablet,Delayed Release (Dr/Ec) 500 mg PO BID Qty: 0 0RF megestrol 40 mg Tablet 40 mg PO QAM Qty: 0 0RF sennosides [Senokot] 8.6 mg Tablet 8.6 mg PO HS ondansetron HCl [Zofran] 4 mg Tablet 4 mg PO Q8H PRN (Reason: Nausea And Vomiting) tramadol 50 mg Tablet 25 mg PO Q4H PRN (Reason: Pain) acetaminophen [Tylenol Ex Str Rapid Release] 500 mg Tablet 500 mg PO QID PRN (Reason: Pain) molnupiravir 200 mg Capsule 800 mg PO Q12H Rx Instructions: Start Date 03/30/23 - End Date 04/04/23 prednisone 10 mg tablet 20 mg PO QAM Rx Instructions: Start Date 03/27/23 - End Date 04/03/23 Referrals Referrals: Shane Sykes [Primary Care Provider] -
--- NOTE | 2023-03-31 11:43 | XRay Report ---
XR chest 1V portable CLINICAL HISTORY: Sepsis. COMPARISON STUDY: Chest radiograph March 04, 2023. Chest CT September 07, 2013. FINDINGS: There is no pneumothorax. Small left and trace right pleural effusions are present. Mild bi basilar opacities favor atelectasis. There is no evidence for pulmonary edema. Cardiomediastinal silh ouette is normal. A few nodular opacities within the right lung are new since prior exam. IMPRESSION: 1. A few small right lung nodular opacities which are new since prior exam. These may reflect an infe ctious process. However, pulmonary nodules cannot be excluded and PA and lateral chest radiographs in 1 month are recommended to ensure resolution. 2. Small left and trace right pleural effusions. Bibasilar opacities favor atelectasis. ACT 112: Negative or not required by law. Electronically signed by: Jignesh Garcia M.D. 03/31/2023 11:41 AM
[2023-03-31] MEDS: SODIUM CHLORIDE 0.9% 1,000 ML IV SCH ×2 (11:56→13:25)
[2023-03-31 12:37] LABS: Alanine Aminotransferase 20 U/L (7-52); Albumin Level 2.6 gm/dl (3.4-5.0); Alkaline Phosphatase 93 U/L (34-104); Anion Gap 9 (3-11); Aspartate Aminotransferase 22 U/L (13-39); BUN Creatinine Ratio 30.4 (10-20); Bilirubin Direct 0.1 mg/dl (0-0.2); Bilirubin,Total 0.3 mg/dl (0.2-1.0); Blood Urea Nitrogen 21 mg/dl (6-23); Calcium 8.7 mg/dl (8.6-10.3); Carbon Dioxide 22 mmol/L (21-32); Chloride 96 mmol/L (98-107); Est GFR (African American) 90.7 ml/min; Est GFR (Non-African American) 78.3 ml/min; Glucose 154 mg/dl (70-99(Fasting)); Magnesium 2.1 mg/dl (1.7-2.4); Potassium 5.7 mmol/L (3.5-5.1); Sodium 127 mmol/L (136-145); Total Protein 4.9 gm/dl (6.0-8.3)
[2023-03-31 12:40] LABS: Hematocrit (blood only) 30.3 % (37.0-47.0); Hemoglobin 10.5 g/dl (12.0-16.0); Mean Corpuscular Hemoglobin 31.3 pg (25.0-34.0); Mean Corpuscular Hgb Conc 34.7 g/dL (32.0-36.0); Mean Corpuscular Volume 90.4 fL (80.0-100.0); Mean Platelet Volume 11.7 fL (9.4-12.4); Nucleated RBC # (auto) 0.02 K/uL (0.00-0.12); Nucleated RBC % (auto) 0.1 %; Platelet Count 84 K/uL (130-400); RDW Coefficient of Variation 22.5 % (11.5-14.5); RDW Standard Deviation 72.5 fL (36.4-46.3); Red Blood Count 3.35 M/uL (4.20-5.40); White Blood Count 13.98 K/ul (4.8-10.8)
[2023-03-31 12:42] LABS: Basophils # (auto) 0.01 K/uL (0.00-0.20); Basophils % (auto) 0.1 %; Immature Granulocytes # (auto) 0.33 K/uL (0.01-0.20); Immature Granulocytes % (auto) 2.4 %; Lymphocytes # (auto) 0.24 K/uL (1.20-3.40); Lymphocytes % (auto) 1.7 %; Monocytes # (auto) 0.66 K/uL (0.11-0.59); Monocytes % (auto) 4.7 %; Neutrophils # (auto) 12.74 K/uL (1.40-6.50); Neutrophils % (auto) 91.1 %; Polychromasia 1+; Toxic Vacuolation 3+
[2023-03-31 12:46] LABS: Partial Thromboplastin Ratio 0.8; Partial Thromboplastin Time 22.5 Seconds (21.0-31.0); Prothrombin Time 11.1 Seconds (9.0-12.0)
--- NOTE | 2023-03-31 12:59 | History & Physical Report ---
Date of Service March 31, 2023 Assessment & Plan (1) Sepsis: Plan: 30ml/kr sepsis bolus - 1650ml, 2000ml bolus given in the ER Suspected source = urine +/- pneumonia Cefepime + vancomycin, will add on Levaquin for atypical coverage Follow up blood/urine cultures Valerio catheter changed in the ER for urine culture Holding antihypertensives (2) COVID: Plan: Remdesivir + Dexamethasone COVID isolation precautions flutter valve Incentive spirometer (3) Multifocal pneumonia: Plan: Vancomycin, cefepime, Levaquin Frequent respiratory therapist assessments for suctioning Flutter valve Incentive spirometer is patient able (4) Catheter-associated urinary tract infection: Plan: Vancomycin, cefepime, Levaquin Valerio catheter changed in ER for sample Follow up urine culture Pyelitis/cystitis seen on CT (5) Acute encephalopathy: Plan: Suspect due to infection as above (6) Urine retention: Plan: Valerio catheter in place since last admission (7) Hyperkalemia: Plan: Secondary to supplementation with dehydration Should improve with hydration and holding supplementation Continue to monitor (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 Unable to get any history from the patient. History obtained from ER and daughter at bedside. Tested positive for COVID yesterday. Hypoxic to 86% on room air on arrival to the ER. She was doing better from her previous hospitalization when she required a PEG tube for nutrition and valerio catheter for urinary retention up until about 4-5 days ago and has been on a progressive decline since then. Patient moaning in pain when seen but cannot tell me where she has pain. Allergies Allergy/AdvReac Type Severity Reaction Status Date / Time Penicillins Allergy Unknown Unknown rxn Verified 03/31/23 13:46 azithromycin [From Zithromax] Allergy Unknown Verified 03/31/23 13:46 doxycycline Allergy Unknown Verified 03/31/23 13:46 risedronate sodium Allergy Unknown Verified 03/31/23 13:46 [From Actonel] lamotrigine [From Lamictal] AdvReac Intermediate Rash Verified 03/15/23 08:14 Home Medications Medication Instructions Recorded Confirmed Type betamethasone dipropionate 0.05 % 1 applic topical Q12 PRN itching 11/30/22 03/31/23 History topical cream bimatoprost 0.01 % eye drops 1 drp OPB HS 11/30/22 03/31/23 History (Lumigan) calcium carbonate 600 mg-vitamin 1 tab PO BID 11/30/22 03/31/23 History D3 10 mcg (400 unit) tablet (Calcium 600 + D(3)) alendronate 70 mg tablet 70 mg PO .Weekly 01/07/23 03/31/23 History amlodipine 5 mg tablet 5 mg PO QAM 01/07/23 03/31/23 History aspirin 81 mg tablet,delayed 81 mg PO QAM 01/07/23 03/31/23 History release (Adult Aspirin Regimen) bisacodyl 10 mg rectal suppository 10 mg NH DAILY PRN Constipation 01/07/23 03/31/23 History calcium carbonate 200 mg calcium 200 mg PO Q6H PRN Indigestion 01/07/23 03/31/23 History (500 mg) chewable tablet (Tums) timolol 0.5 % eye drops 1 drp OPR QAM 01/07/23 03/31/23 History carboxymethylcellulose sodium 1 % 1 drp ophthalmic (eye) Q6 PRN Dry 01/20/23 03/31/23 History eye drops (Artificial Tears Eyes (carboxymethylcellulose)) ipratropium bromide 21 mcg (0.03 1 spray intranasal Q12 PRN rhinitis 01/20/23 03/31/23 History %) nasal spray polyethylene glycol 3350 17 gram 17 g PO QAM 01/20/23 03/31/23 History oral powder packet (Miralax) ferrous sulfate 325 mg (65 mg 325 mg PO BID #1 tab 01/28/23 03/31/23 Rx iron) tablet tocilizumab 162 mg/0.9 mL 162 mg (0.9 mL) subcut .weekly 02/14/23 03/31/23 Rx subcutaneous syringe (Actemra) #0.9 mL potassium chloride 20 mEq 20 meq PO BID 03/04/23 03/31/23 History tablet,extended release(part/cryst) divalproex 500 mg tablet,delayed 500 mg PO BID #0 tabs 03/18/23 03/31/23 Rx release megestrol 40 mg tablet 40 mg PO QAM #0 tabs 03/18/23 03/31/23 Rx melatonin 3 mg tablet 6 mg (2 x 3 mg) PO HS PRN sleep #0 03/18/23 03/31/23 Rx tabs acetaminophen 500 mg tablet 500 mg PO QID PRN Pain 03/31/23 03/31/23 History molnupiravir 200 mg capsule (EUA) 800 mg PO Q12H 03/31/23 03/31/23 History ondansetron HCl 4 mg tablet 4 mg PO Q8H PRN Nausea And Vomiting 03/31/23 03/31/23 History prednisone 10 mg tablet 20 mg PO QAM 03/31/23 03/31/23 History sennosides 8.6 mg tablet (Senokot) 8.6 mg PO HS 03/31/23 03/31/23 History tramadol 50 mg tablet 25 mg PO Q4H PRN Pain 03/31/23 03/31/23 History Past Med/Surg History Medical History Acute encephalopathy Abnormal SPEP Giant cell arteritis PMR (polymyalgia rheumatica) FRANCISCO positive Weight loss Seizure Hyponatremia Dyslipidemia Family history of colon cancer Osteopenia after menopause Pancreatic cyst Surgical History History of temporal artery biopsy (01/23/23) Right Temporal Artery Biopsy(Right) - Dwight Gleason DO History of biopsy of temporal artery History of varicose vein ligation and stripping History of colonoscopy S/P tubal ligation Family History Sister Breast cancer Coronary heart disease Father Stroke Mother Breast cancer Son Narcolepsy Other No family history of adverse response to anesthesia No family history of bleeding disorder Denies family history of Ovarian cancer Prostate cancer Diabetes Lung cancer Colorectal cancer Social History Smoking Status: Never smoker Second Hand Exposure: No; Do You Dip or Chew Tobacco: No; Hx Alcohol Use: No Hx Substance Use: No Preferred Language: Palauan Communication Ability: Impaired Visual Impairment: Limited Hearing Ability: Normal Nutrition Technician Required: No Beliefs That Will Affect Care: None marital status: Current Living Situation: Personal Care Facility Current Living Situation Comment: [facility] current occupational status: retired How many Children do You have: 3 Feels Safe at Home: Yes Childhood Exposure to Second-Hand Smoke: Yes (father smoked pipe occassionally ) Diet: regular caffeine: Yes (coffee and tea ) Dental Care, Regularly: Yes Physical Activity Frequency: Daily Physical Activity Frequency Comment: walk Seatbelt Use: always Sunscreen Use: Yes Assistive Devices: Walker Review of Systems Review of Systems: Unobtainable due to cognitive status Physical Exam Constitutional: well developed and + acute distress (moaning in distress); + not well nourished Eyes: PERRL, conjunctivae normal, anicteric sclerae ENMT: Mouth: + dry oral mucous membranes (very) Respiratory: + labored breathing, + uses accessory mu scles and + tachypneic; expiratory phase not prolonged and no stridor Auscultation: + rhonchi (extensive throughout) Cardiovascular: Rate/Rhythm: regular rhythm and + tachycardic Heart Sounds: no murmur Extremities: normal capillary refill; no calf tenderness and no pedal edema Gastrointestinal (Abdomen): normal bowel sounds, soft, nontender, no hepatosplenomegaly Skin: no rashes, warm and dry (no areas of cellulitis noted) Neurologic: awake and + confused Psychiatric: Orientation: alert; + not oriented x 3 Genitourinary: no CVA tenderness Results & Data Results & Data Vital Signs (Past 12 Hours) Vital Signs Temp Pulse Pulse Resp BP BP Pulse Ox 03/31/23 12:30 105 H 26 H 105/64 94 03/31/23 12:00 103 H 39 H 83/56 L 93 03/31/23 11:30 99 H 03/31/23 11:00 102 H 27 H 83/50 L 97 03/31/23 10:59 108 H 20 93 03/31/23 10:59 108 H 22 90/52 L 88 L 03/31/23 10:59 37 C 108 H 22 90/52 L 88 L O2 Del Method O2 Flow Rate 03/31/23 12:30 03/31/23 12:00 03/31/23 11:30 03/31/23 11:00 03/31/23 10:59 Nasal Cannula 3 03/31/23 10:59 Room Air 03/31/23 10:59 Room Air Laboratory Results Abnormal lab results 03/31/23 Range/Units 11:50 WBC 13.98 H (4.8-10.8) K/ul RBC 3.35 L (4.20-5.40) M/uL Hgb 10.5 L (12.0-16.0) g/dl Hct 30.3 L (37.0-47.0) % RDW Std Deviation 72.5 H (36.4-46.3) fL RDW Coeff of Bandar 22.5 H (11.5-14.5) % Plt Count 84 L (130-400) K/uL Neut # (Auto) 12.74 H (1.40-6.50) K/uL Lymph # (Auto) 0.24 L (1.20-3.40) K/uL [place] # (Auto) 0.66 H (0.11-0.59) K/uL Immature Gran # (Auto) 0.33 H (0.01-0.20) K/uL Sodium 127 L (136-145) mmol/L Potassium 5.7 H (3.5-5.1) mmol/L Chloride 96 L (98-107) mmol/L BUN/Creatinine Ratio 30.4 H (10-20) Glucose 154 H (70-99(Fasting)) mg/dl Total Protein 4.9 L (6.0-8.3) gm/dl Albumin 2.6 L (3.4-5.0) gm/dl Diagnostic Findings XR chest 1V portable CLINICAL HISTORY: Sepsis. COMPARISON STUDY: Chest radiograph March 04, 2023. Chest CT September 07, 2013. FINDINGS: There is no pneumothorax. Small left and trace right pleural effusions are present. Mild bibasilar opacities favor atelectasis. There is no evidence for pulmonary edema. Cardiomediastinal silhouette is normal. A few nodular opacities within the right lung are new since prior exam. IMPRESSION: 1. A few small right lung nodular opacities which are new since prior exam. These may reflect an infectious process. However, pulmonary nodules cannot be excluded and PA and lateral chest radiographs in 1 month are recommended to ensure resolution. 2. Small left and trace right pleural effusions. Bibasilar opacities favor atelectasis. Medications Administered ER Medications Given: Ceftriaxone 2000mg IV Dexamethasone 10mg IV NSS 2000 ml bolus ECG Rate (beats per minute): 106 Rhythm: sinus tachycardia Findings: no acute ischemic change Comparison ECG Date: from (March 04, 2023) Change: no significant change Code Status & VTE Plan Code Status Conditional - all treatment outside of cardiac arrest including intubation VTE Prophylaxis Plan VTE Prophylaxis will be ordered: Yes Critical Care Time Critical Care Time: Yes Total Critical Care Time: 50 PG Care Time/CCT Total # of Minutes Spent Total Time Spent with Patient: Total time spent is greater than 50% in coordination of care (as documented) at patient's floor/unit and/or counseling patient: Critical Care Time: Yes Total Critical Care Time: 50 Coding Level of Care Code 96665 INT INP/OBS CARE 3/75MIN Diagnoses Sepsis A41.9 COVID U07.1 Multifocal pneumonia J18.9 Catheter-associated urinary tract infection T83.511A; N39.0 Acute encephalopathy G93.40 Urine retention R33.9 Hyperkalemia E87.5 Temporal giant cell arteritis M31.6 Hyponatremia E87.1 Additional Codes Critical Care Time - Critical Care Time: Yes ([id number])
--- NOTE | 2023-03-31 13:32 | Electrocardiogram Report ---
Test Reason : Blood Pressure : / mmHG Vent. Rate : 106 BPM Atrial Rate : 106 BPM P-R Int : 230 ms QRS Dur : 070 ms QT Int : 268 ms P-R-T Axes : 077 062 -60 degrees QTc Int : 355 ms Sinus tachycardia with 1st degree A-V block Low voltage QRS Septal infarct (cited on or before 31-MAR-2023) Abnormal ECG When compared with ECG of 04-MAR-2023 11:58, PA interval has increased Serial changes of Septal infarct Present Confirmed by Blanco Pierre ([id number]) on 03/31/2023 1:32:10 PM Referred By: REFERRED SELF Confirmed By:Blanco Pierre
[2023-03-31 13:49] LABS: C Reactive Protein 27.99 mg/dl (0-0.5)
[2023-03-31] MEDS ORDERED: CEFEPIME 2,000 MG/20 ML VIAL IV STA (13:54)
[2023-03-31] MEDS ORDERED: VANCOMYCIN CONSULT ACTIVE PRN (13:56)
[2023-03-31] MEDS ORDERED: VANCOMYCIN HCL 1,000 MG in SODIUM CHLORIDE 0.9% 500 ML IV ONE (13:56)
[2023-03-31] MEDS ORDERED: Patient's HEIGHT &/or WEIGHT Needed SCH (14:00)
[2023-03-31 14:02] LABS: Troponin I High Sensitivity 305.6 pg/ml (0-14)
[2023-03-31] MEDS ORDERED: OPTIRAY 320 125ml IV ONE (15:12)
--- NOTE | 2023-03-31 15:31 | CT Scan Report ---
CHEST CTA for PULMONARY ARTERIES CT DOSE: 997.93 mGy.cm HISTORY: Shortness of breath. TECHNIQUE: Multiaxial CT images of the chest were performed following the intravenous administration of contrast to evaluate the pulmonary arteries. 3D/Maximal intensity projection images were also obta ined. Sagittal and coronal reformations were also reviewed. A dose lowering technique was utilized a dhering to the principles of ALARA. COMPARISON STUDY: Chest CT 09/07/2013. FINDINGS: Normal caliber thoracic aorta with no evidence for a dissection. The heart is normal in siz e. Trace bilateral pleural effusions are noted. Respiratory motion artifact results in nondiagnostic evaluation of the majority of the segmental and subsegmental pulmonary arteries. Otherwise, no fillin g defects within the remaining pulmonary arteries to suggest a pulmonary embolus. No acute fractures. The abdominal structures will be reported on the same day abdomen and pelvis CT. Normal esophagus. T he thyroid gland enhances normally. Mild body wall edema. No mediastinal or hilar lymphadenopathy. No pneumothorax. Mild bronchial wall thickening with a few partially opacified lower lobe bronchi. Biap ical pleural-parenchymal scarring is again noted. There are right greater than left multifocal patchy airspace opacities. These are most pronounced within the lower lobes and the right upper lobe. This likely represents a pneumonia. Additional airspace opacities within the lower lobes posteriorly favor dependent change/atelectasis. A pneumonia could also have a similar appearance. IMPRESSION: 1. No evidence for a pulmonary embolus with limitations as described above. 2. Multifocal patchy airspace opacities described above. This likely represents a pneumonia. 3. Trace bilateral pleural effusions. ACT 112: Negative or not required by law. Electronically signed by: Timothy Rasmussen M.D. 03/31/2023 3:28 PM
--- NOTE | 2023-03-31 15:37 | CT Scan Report ---
ABDOMEN AND PELVIS CT WITH IV CONTRAST CT DOSE: HISTORY: Sepsis ?source TECHNIQUE: Multiaxial CT images of the abdomen and pelvis were performed following the use of intrave nous contrast. A dose lowering technique was utilized adhering to the principles of ALARA. COMPARISON STUDY: Abdomen and pelvis CT 03/04/2023. FINDINGS: The lung bases will be reported on the same day chest CT. No pneumoperitoneum. No pneumatos is. A gastrostomy tube appears in good position. Gas within the bladder lumen secondary to the Chavez catheter which appears in good position. A pessary device is noted. No acute fractures. Stable 9 mm h ypodense lesion within the left hepatic lobe. This favors a cyst. The gallbladder is suboptimally ass essed due to motion artifact but appears within normal limits. The spleen and adrenal glands unremark able. Scattered small hypodensities within the kidneys favor cysts. Mild urothelial thickening within the bilateral ureters. This also mild bladder wall thickening. There is adjacent fat stranding withi n the bladder. This could represent a cystitis/pyelitis. Calcified plaque within the normal caliber a bdominal aorta. No retroperitoneal or pelvic lymphadenopathy. No pelvic free fluid. There is 1.5 cm c ystic focus within the body the pancreas. 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 Mild bilateral perinephric edema, unchanged. The uterus and ovaries are unremarkable. M ild presacral edema which is likely chronic. Mild to moderate fecal retention. No bowel wall thickeni ng or obstruction. Mild body wall edema. IMPRESSION: 1. Mild bladder wall thickening as well as mild urothelial thickening within the ureters. This may re present a cystitis/pyelitis. Recommend correlation with urinalysis. 2. No bowel wall thickening or obstruction. 3. Suboptimal evaluation due to the motion artifact. 4. Mild body wall edema. 6. A gastrostomy tube and Chavez catheter in position. 7. Additional findings as described above. ACT 112: Negative or not required by law. Electronically signed by: Timothy Rasmussen M.D. 03/31/2023 3:35 PM
[2023-03-31 15:44] LABS: Appearance Urine Clear (Clear); Bacteria Urine Automated Negative (Negative); Bilirubin Urine Negative (Negative); Blood Urine 1+ (Negative); Color Urine Yellow; Glucose Urine UA Negative (Negative); Ketones Urine Negative (Negative); Leukocyte Esterase Urine Trace (Negative); Nitrite Urine Negative (Negative); Specific Gravity Urine 1.008 (1.000-1.030); Urobilinogen Urine Negative (Negative); pH Urine 7.5 (4.5-7.5)
[2023-03-31 15:55] LABS: Base Excess ABG -4.9 mEq/L (-9-1.8); HCO3 ABG 18 mmol/L (19-24); Oxygen Saturation ABG 95.6 % (90-95); PCO2 ABG 27 mmHg (35-46); PO2 ABG 78 mmHg (80-95); pH ABG 7.43 (7.35-7.45)
[2023-03-31 15:57] LABS: Allen Test Pos (Pos)
[2023-03-31 16:00] LABS: Protein Urine Trace (Negative)
[2023-03-31] MEDS ORDERED: ACETAMINOPHEN 325 MG TAB PO PRN (17:26)
[2023-03-31] MEDS ORDERED: MELATONIN 3 MG TAB PO PRN (17:26)
[2023-03-31] MEDS ORDERED: traMADol HCL 50 MG TABLET PO PRN (17:26)
[2023-03-31] MEDS ORDERED: ARTIFICIAL TEARS OP PRN (17:26)
[2023-03-31] MEDS ORDERED: REMDESIVIR 200 MG in SODIUM CHLORIDE 0.9% 210 ML IV ONE (17:45)
[2023-03-31] MEDS ORDERED: levoFLOXacin/D5W 750 MG/150 ML BAG IV SCH (17:45)
[2023-03-31] MEDS ORDERED: CEFEPIME 2,000 MG in SYRINGE 0 ML IV SCH (17:45)
[2023-03-31 18:15] LABS: BUN Creatinine Ratio 31.1 (10-20); Calcium 7.6 mg/dl (8.6-10.3); Creatinine Clr Calc Pharmacy 56.1 ml/min; Est GFR (African American) 94.5 ml/min; Est GFR (Non-African American) 81.5 ml/min; Potassium 4.8 mmol/L (3.5-5.1)
[2023-03-31] MEDS ORDERED: ASPIRIN 81 MG CHEW PEG ONE (19:02)
[2023-03-31] MEDS ORDERED: PLASMA-LYTE A 1,000 ML IV SCH (19:15)
[2023-03-31] MEDS ORDERED: LACTATED RINGER'S 1,000 ML IV ONE (20:51)
[2023-03-31] MEDS ORDERED: ONDANSETRON INJ 2 MG/ML 2 ML VIAL IV PRN (20:58)
[2023-03-31] MEDS ORDERED: HYOSCYAMINE SULFATE 0.125 MG TAB SL PRN (20:58)
[2023-03-31] MEDS ORDERED: ATROPINE SULFATE 1% OP SOLN 5 ML BTL SL PRN (20:58)
[2023-03-31] MEDS ORDERED: LORazepam 0.5 MG TAB PO PRN (20:58)
[2023-03-31] MEDS ORDERED: ONDANSETRON 4 MG OD TAB SL PRN (20:58)
[2023-03-31] MEDS ORDERED: LORazepam 0.5 MG in SYRINGE 0.25 ML IV PRN (20:58)
[2023-03-31] MEDS ORDERED: GLYCOPYRROLATE 0.2 MG/ML VIAL IV PRN (20:58)
[2023-03-31] MEDS ORDERED: MoRPHine SULFATE 10 MG/0.5 ML UDP PO PRN (20:58)
[2023-03-31] MEDS ORDERED: CALCIUM 600MG + VIT D 400 IU TAB PO SCH (21:00)
[2023-03-31] MEDS ORDERED: SENNA 8.6 MG TAB PO SCH (21:00)
[2023-03-31] MEDS ORDERED: BIMATOPROST 0.01% OP SOLN 2.5 ML BTL OPB SCH (21:00)
[2023-03-31] MEDS ORDERED: DIVALPROEX DELAY RELEASE 500 MG TAB PO SCH (21:00)
[2023-03-31] MEDS: MoRPHine SULFATE 2 MG/ML CARP IV PRN (21:13)
--- NOTE | 2023-03-31 22:12 | Communication Note ---
Date of Service: March 31, 2023 After her other daughter arrived we discussed goals of care at bedside with the patient's son in law (a physician in [place]) over the phone. Her BP had dropped again despite being positive 2.7L at this point. 1L LR bolus ordered. However the family wished to switch to a comfort care approach. Given her overall prognosis this appears to be reasonable. The patient is unable to make any decisions at this time and is moaning constantly and not managing her own secretions. Despite significant rhonchi she does not have any significant cough. We discussed continuing antibiotics and they wish to stop these in addition. Comfort care orders placed and asked RN to give 2mg morphine IV. Transfer to med/surg.
[2023-03-31 22:33] LABS: A calco-baum cmplx NotReported Not Detected (NotDetected); Bact fragilis Not Reported Not Detected (NotDetected); Blood Culture Id Panel See PCR Comment (NotDetected); C auris Not Reported Not Detected (NotDetected); Calbicans Not Reported Not Detected (NotDetected); Candida glabrata Not Reported Not Detected (NotDetected); Candida krusei Not Reported Not Detected (NotDetected); Cneoformans/gatti Not Reported Not Detected (NotDetected); Cparapsilosis Not Reported Not Detected (NotDetected); E cloacae compx Not Reported Not Detected (NotDetected); Efaecalis Not Reported Not Detected (NotDetected); Efaecium Not Reported Not Detected (NotDetected); Enterobacterales Not Reported Not Detected (NotDetected); Escherichia coli Not Reported Not Detected (NotDetected); H influenzae Not Reported Not Detected (NotDetected); K aerogenes Not Reported Not Detected (NotDetected); Koxytoca Not Reported Not Detected (NotDetected); Kpneumoniae grp Not Reported Not Detected (NotDetected); Lmonocyt Not Reported Not Detected (NotDetected); N meningitidis Not Reported Not Detected (NotDetected); P aeruginosa Not Reported Not Detected (NotDetected); Proteus spp Not Reported Not Detected (NotDetected); Salmonella spp Not Reported Not Detected (NotDetected); Smarcescens Not Reported Not Detected (NotDetected); Staph lugdunensis Not Reported Not Detected (NotDetected); Staph spp. Not Reported DETECTED (NotDetected); Staphaureus Not Reported DETECTED (NotDetected); Staphepi Not Reported Not Detected (NotDetected); Staphylococcus spp. DETECTED (NotDetected); Stenmaltophilia Not Reported Not Detected (NotDetected); Strep agal(GrpB) Not Reported Not Detected (NotDetected); Strep pneum Not Reported Not Detected (NotDetected); Strep pyog (GrpA) Not Reported Not Detected (NotDetected); Strep spp Not Reported Not Detected (NotDetected); mecAC+MREJ Resistant Gene MRSA Not Detected (NotDetected)
[2023-03-31] MEDS ORDERED: MoRPHine SULFATE 2 MG/ML CARP IV PRN (23:01)
[2023-03-31] MEDS: SENNOSIDES 8.8 MG/5 ML UDC PEG SCH (23:26)
[2023-04-01] MEDS ORDERED: VANCOMYCIN HCL 1,000 MG in SODIUM CHLORIDE 0.9% 250 ML IV SCH
[2023-04-01] MEDS: VALPROIC ACID SOLN 250 MG/5 ML UDC PEG SCH ×5 (00:38→23:02)
[2023-04-01] MEDS: MoRPHine SULFATE 2 MG/ML CARP IV PRN ×3 (04:03→11:57)
--- NOTE | 2023-04-01 08:04 | Communication Note ---
Date of Service: April 01, 2023 Brief Pall med note consult received for "goals of care" and chart reviewed pt now comfort care following d/w family which included her daughters and a son in law who is a physician in [place] No acute inpatient pall med consult is warranted mgt/dispo planning per care mgt and primary team with pt family Pt not seen, NO charge submitted. Thank you for allowing us to participate in the ongoing care of this patient. Please don't hesitate to call or page with any additional concerns. Dr. Atiya Barragan DNP Director, Palliative Care
[2023-04-01] MEDS: POLYETHYLENE (MIRALAX) 17 GM PACK PEG SCH (08:39)
[2023-04-01] MEDS ORDERED: TIMOLOL MALEATE 0.5% OP SOLN 5 ML BTL OPR SCH (09:00)
[2023-04-01] MEDS ORDERED: ASPIRIN 81 MG ECTAB PO SCH (09:00)
[2023-04-01] MEDS ORDERED: MEGESTROL ACETATE 40 MG TAB PO SCH (09:00)
[2023-04-01] MEDS ORDERED: POLYETHYLENE (MIRALAX) 17 GM PACK PO SCH (09:00)
--- NOTE | 2023-04-01 12:34 | Electrocardiogram Report ---
Test Reason : Blood Pressure : / mmHG Vent. Rate : 119 BPM Atrial Rate : 000 BPM P-R Int : 000 ms QRS Dur : 066 ms QT Int : 202 ms P-R-T Axes : 000 071 246 degrees QTc Int : 284 ms Poor data quality, interpretation may be adversely affected Sinus tachycardia Low voltage QRS Septal infarct (cited on or before 31-MAR-2023) Abnormal ECG When compared with ECG of 31-MAR-2023 11:22, ST now depressed in Inferior leads T wave inversion more evident in Anterior leads Confirmed by Blanco Pierre ([id number]) on 04/01/2023 12:34:39 PM Referred By: REFERRED SELF Confirmed By:Blanco Pierre
[2023-04-01] MEDS ORDERED: REMDESIVIR 100 MG in SODIUM CHLORIDE 0.9% 230 ML IV SCH (20:00)
[2023-04-01] MEDS: SENNOSIDES 8.8 MG/5 ML UDC PEG SCH (20:01)
--- NOTE | 2023-04-01 22:18 | Hospitalist Progress Note ---
Date of Service April 01, 2023 Assessment & Plan (1) Sepsis: Plan: Patient was transitioned to comfort measures overnight. Expected to pass away in hospital. WIll continue to monitor and provide supportive care. Below was plan in place prior to converting to comfort measures (2) COVID: Plan: Remdesivir + Dexamethasone COVID isolation precautions flutter valve Incentive spirometer (3) Multifocal pneumonia: Plan: Vancomycin, cefepime, Levaquin Frequent respiratory therapist assessments for suctioning Flutter valve Incentive spirometer is patient able (4) Catheter-associated urinary tract infection: Plan: Vancomycin, cefepime, Levaquin Chavez catheter changed in ER for sample Follow up urine culture Pyelitis/cystitis seen on CT (5) Acute encephalopathy: Plan: Suspect due to infection as above (6) Urine retention: Plan: Chavez catheter in place since last admission (7) Hyperkalemia: Plan: Secondary to supplementation with dehydration Should improve with hydration and holding supplementation Continue to monitor (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 Results & Data Results & Data Vital Signs (Past 12 Hours) Vital Signs O2 Del Method 04/01/23 20:00 Room Air PG Care Time/CCT Total # of Minutes Spent Total Time Spent with Patient: Total time spent is greater than 50% in coordination of care (as documented) at patient's floor/unit and/or counseling patient: Coding Level of Care Code 67338 SUB INP/OBS CARE 1/25MIN Diagnoses Sepsis A41.9 COVID U07.1 Multifocal pneumonia J18.9 Catheter-associated urinary tract infection T83.511A; N39.0 Acute encephalopathy G93.40 Urine retention R33.9 Hyperkalemia E87.5 Temporal giant cell arteritis M31.6 Hyponatremia E87.1
[2023-04-02] MEDS: VALPROIC ACID SOLN 250 MG/5 ML UDC PEG SCH ×4 (05:06→23:02)
[2023-04-02] MEDS: POLYETHYLENE (MIRALAX) 17 GM PACK PEG SCH (08:03)
--- NOTE | 2023-04-02 10:56 | Hospitalist Progress Note ---
Date of Service April 02, 2023 Assessment & Plan (1) Sepsis: Plan: Patient was transitioned to comfort measures. Expected to pass away in hospital. WIll continue to monitor and provide supportive care. Below was plan in place prior to converting to comfort measures (2) COVID: Plan: Remdesivir + Dexamethasone COVID isolation precautions flutter valve Incentive spirometer (3) Multifocal pneumonia: Plan: Vancomycin, cefepime, Levaquin Frequent respiratory therapist assessments for suctioning Flutter valve Incentive spirometer is patient able (4) Catheter-associated urinary tract infection: Plan: Vancomycin, cefepime, Levaquin Chavez catheter changed in ER for sample Follow up urine culture Pyelitis/cystitis seen on CT (5) Acute encephalopathy: Plan: Suspect due to infection as above (6) Urine retention: Plan: Chavez catheter in place since last admission (7) Hyperkalemia: Plan: Secondary to supplementation with dehydration Should improve with hydration and holding supplementation Continue to monitor (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 D/W family at bedside Physical Exam Physical Exam: Patient resting. Results & Data Results & Data Vital Signs (Past 12 Hours) Vital Signs O2 Del Method 04/02/23 07:55 Room Air PG Care Time/CCT Total # of Minutes Spent Total Time Spent with Patient: Total time spent is greater than 50% in coordination of care (as documented) at patient's floor/unit and/or counseling patient: Coding Level of Care Code 73016 SUB INP/OBS CARE 1/25MIN Diagnoses Sepsis A41.9 COVID U07.1 Multifocal pneumonia J18.9 Catheter-associated urinary tract infection T83.511A; N39.0 Acute encephalopathy G93.40 Urine retention R33.9 Hyperkalemia E87.5 Temporal giant cell arteritis M31.6 Hyponatremia E87.1
[2023-04-02] MEDS: MoRPHine SULFATE 2 MG/ML CARP IV PRN (12:04)
[2023-04-02] MEDS: SENNOSIDES 8.8 MG/5 ML UDC PEG SCH (19:47)
[2023-04-03] MEDS: VALPROIC ACID SOLN 250 MG/5 ML UDC PEG SCH ×4 (05:05→18:19)
[2023-04-03] MEDS: POLYETHYLENE (MIRALAX) 17 GM PACK PEG SCH (08:50)
[2023-04-03] MEDS: MoRPHine SULFATE 2 MG/ML CARP IV PRN ×3 (14:11→22:29)
[2023-04-03] MEDS: SENNOSIDES 8.8 MG/5 ML UDC PEG SCH (20:59)
--- NOTE | 2023-04-03 22:18 | Hospitalist Progress Note ---
Date of Service April 03, 2023 Assessment & Plan (1) Sepsis: Plan: Patient was transitioned to comfort measures. Expected to pass away in hospital. WIll continue to monitor and provide supportive care. Below was plan in place prior to converting to comfort measures (2) COVID: Plan: Remdesivir + Dexamethasone COVID isolation precautions flutter valve Incentive spirometer (3) Multifocal pneumonia: Plan: Vancomycin, cefepime, Levaquin Frequent respiratory therapist assessments for suctioning Flutter valve Incentive spirometer is patient able (4) Catheter-associated urinary tract infection: Plan: Vancomycin, cefepime, Levaquin Chavez catheter changed in ER for sample Follow up urine culture Pyelitis/cystitis seen on CT (5) Acute encephalopathy: Plan: Suspect due to infection as above (6) Urine retention: Plan: Chavez catheter in place since last admission (7) Hyperkalemia: Plan: Secondary to supplementation with dehydration Should improve with hydration and holding supplementation Continue to monitor (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 Physical Exam Physical Exam: Patient resting. PG Care Time/CCT Total # of Minutes Spent Total Time Spent with Patient: Total time spent is greater than 50% in coordination of care (as documented) at patient's floor/unit and/or counseling patient: Coding Level of Care Code 86638 SUB INP/OBS CARE 25MIN Diagnoses Sepsis A41.9 COVID U07.1 Multifocal pneumonia J18.9 Catheter-associated urinary tract infection T83.511A; N39.0 Acute encephalopathy G93.40 Urine retention R33.9 Hyperkalemia E87.5 Temporal giant cell arteritis M31.6 Hyponatremia E87.1
[2023-04-04] MEDS: VALPROIC ACID SOLN 250 MG/5 ML UDC PEG SCH ×4 (00:44→17:47)
[2023-04-04] MEDS: MoRPHine SULFATE 2 MG/ML CARP IV PRN ×5 (03:25→20:47)
[2023-04-04] MEDS: POLYETHYLENE (MIRALAX) 17 GM PACK PEG SCH (08:26)
--- NOTE | 2023-04-04 15:07 | Hospitalist Progress Note ---
Date of Service April 04, 2023 Assessment & Plan (1) Sepsis: Plan: Present on admission. No further treatment. Comfort care measures only (2) COVID: Plan: Present on admission. No further treatment. Comfort care measures only (3) Multifocal pneumonia: Plan: Present on admission. No further treatment. Comfort care measures only (4) Catheter-associated urinary tract infection: Plan: Present on admission. No further treatment. Comfort care measures only (5) Acute encephalopathy: Plan: Present on admission. No further treatment. Comfort care measures only (6) Urine retention: Plan: Chavez catheter in place since last admission (7) Hyperkalemia: Plan: Present on admission. No further treatment or lab assessment. 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 No further treatment. Comfort care measures only (9) Hyponatremia: Plan: Present on admission. No further lab testing. Comfort care measures only Plan Comfort care measures in place. Patient is expected to while hospitalized this admission Admission and Anticipated Discharge Date Admission Date: March 31, 2023 Subjective The patient is unresponsive. Family is at the bedside Review of Systems 2 Review of Systems: The patient is unable to answer any questions regarding review of systems at this time Physical Exam 2 Physical Exam: General-unresponsive. Appears terminal HEENT-head atraumatic and normocephalic, pupils equal and reactive to light Neck-no lymphadenopathy or thyromegaly, trachea midline Chest-diminished breath sounds bilaterally. Scattered rhonchi. No wheezing Cardiac-mildly tachycardic irregular rate and rhythm. Normal S1 and S2 Abdomen-hypoactive bowel sounds, no hepatosplenomegaly Extremities-no cyanosis, clubbing, or edema Neuro-cannot assess Psych-cannot assess Results & Data Results & Data Vital Signs (Past 12 Hours) Vital Signs Resp O2 Del Method 04/04/23 07:25 Room Air 04/04/23 06:13 14 Laboratory Results 03/31/23 11:50 03/31/23 17:46 PG Care Time/CCT Total # of Minutes Spent Total Time Spent with Patient: Total time spent is greater than 50% in coordination of care (as documented) at patient's floor/unit and/or counseling patient: Coding Level of Care Code 63646 SUB INP/OBS CARE 3/50MIN Diagnoses Sepsis A41.9 COVID U07.1 Multifocal pneumonia J18.9 Catheter-associated urinary tract infection T83.511A; N39.0 Acute encephalopathy G93.40 Urine retention R33.9 Hyperkalemia E87.5 Temporal giant cell arteritis M31.6 Hyponatremia E87.1
[2023-04-04] MEDS: SENNOSIDES 8.8 MG/5 ML UDC PEG SCH (20:22)
[2023-04-05] MEDS: VALPROIC ACID SOLN 250 MG/5 ML UDC PEG SCH ×4 (00:58→17:19)
[2023-04-05] MEDS: MoRPHine SULFATE 2 MG/ML CARP IV PRN ×5 (00:58→17:18)
[2023-04-05] MEDS: POLYETHYLENE (MIRALAX) 17 GM PACK PEG SCH (08:30)
--- NOTE | 2023-04-05 15:38 | Hospitalist Progress Note ---
Date of Service April 05, 2023 Assessment & Plan (1) Sepsis: Plan: Present on admission. No further treatment. Comfort care measures only (2) COVID: Plan: Present on admission. No further treatment. Comfort care measures only (3) Multifocal pneumonia: Plan: Present on admission. No further treatment. Comfort care measures only (4) Catheter-associated urinary tract infection: Plan: Present on admission. No further treatment. Comfort care measures only (5) Acute encephalopathy: Plan: Present on admission. No further treatment. Comfort care measures only (6) Urine retention: Plan: Chavez catheter in place since last admission (7) Hyperkalemia: Plan: Present on admission. No further treatment or lab assessment. 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 No further treatment. Comfort care measures only (9) Hyponatremia: Plan: Present on admission. No further lab testing. Comfort care measures only Plan Comfort care measures in place. Patient is expected to while hospitalized this admission. Quite possibly todayApril 05 Admission and Anticipated Discharge Date Admission Date: March 31, 2023 Subjective Unresponsive. Agonal respiratory activity. Family is in attendance. They were informed that she appears to be actively dying and likely to pass todayApril 05 Review of Systems 2 Review of Systems: The patient is unable to answer any questions regarding review of systems at this time Physical Exam 2 Physical Exam: General-unresponsive. Appears terminal HEENT-head atraumatic and normocephalic, pupils equal and reactive to light Neck-no lymphadenopathy or thyromegaly, trachea midline Chest-diminished breath sounds bilaterally. Scattered rhonchi. No wheezing . Agonal respiratory activity Cardiac-mildly tachycardic irregular rate and rhythm. Normal S1 and S2 Abdomen-hypoactive bowel sounds, no hepatosplenomegaly Extremities-no cyanosis, clubbing, or edema Neuro-cannot assess Psych-cannot assess Results & Data Results & Data Vital Signs (Past 12 Hours) Vital Signs Resp O2 Del Method 04/05/23 09:58 15 04/05/23 09:30 Room Air 04/05/23 04:38 10 L Laboratory Results 03/31/23 11:50 03/31/23 17:46 PG Care Time/CCT Total # of Minutes Spent Total Time Spent with Patient: Total time spent is greater than 50% in coordination of care (as documented) at patient's floor/unit and/or counseling patient: Coding Level of Care Code 61353 SUB INP/OBS CARE MIN Diagnoses Sepsis A41.9 COVID U07.1 Multifocal pneumonia J18.9 Catheter-associated urinary tract infection T83.511A; N39.0 Acute encephalopathy G93.40 Urine retention R33.9 Hyperkalemia E87.5 Temporal giant cell arteritis M31.6 Hyponatremia E87.1
--- NOTE | 2023-04-05 20:12 | Death Pronouncement Note ---
Date of Service April 05, 2023 Pronouncement Note Admission Date Admission Date: March 31, 2023 Date and Time of Date of : 04/05/23 Time of : 19:48 Contributing Factors (1) Sepsis: (2) COVID: (3) Multifocal pneumonia: (4) Catheter-associated urinary tract infection: (5) Acute encephalopathy: (6) Urine retention: (7) Hyperkalemia: (8) Temporal giant cell arteritis: (9) Hyponatremia: Summary Additional details: At approximately 7:01 PM, was notified by nurse that patient had . Proceeded to bedside to examine the patient. Family present at bedside. On exam, was unable to detect radial pulse bilaterally. No heart or breath sounds were heard on auscultation. Pupillary light reflex was absent. Corneal scratch reflex test was also negative. Time of at conclusion of exam was 7:48 PM. Additional Data Attending physician: Lee Garcia MD Resident Activity Tracking Resident Involvement: Resident Care Provided and [employer] Coverage Note Care Provided: Adult Hospital Medicine
--- NOTE | 2023-04-08 12:41 | Discharge Summary ---
Date of Service April 08, 2023 Admission HPI Per Admitting Provider Carly Soliman is an 87 year old female who presents to the ER with decline in mentation. Unable to get any history from the patient. History obtained from ER and daughter at bedside. Tested positive for COVID yesterday. Hypoxic to 86% on room air on arrival to the ER. She was doing better from her previous hospitalization when she required a PEG tube for nutrition and valerio catheter for urinary retention up until about 4-5 days ago and has been on a progressive decline since then. Patient moaning in pain when seen but cannot tell me where she has pain. Principal Diagnosis Multifocal pneumonia, sepsis, catheter associated UTI Discharge Exam Not applicable Discharge Data Allergies Allergy/AdvReac Type Severity Reaction Status Date / Time Penicillins Allergy Unknown Unknown rxn Verified 03/31/23 13:46 azithromycin [From Zithromax] Allergy Unknown Verified 03/31/23 13:46 doxycycline Allergy Unknown Verified 03/31/23 13:46 risedronate sodium Allergy Unknown Verified 03/31/23 13:46 [From Actonel] lamotrigine [From Lamictal] AdvReac Intermediate Rash Verified 03/15/23 08:14 Consultations 03/31/23 13:12 ED Decision to Admit Stat 03/31/23 17:26 Consult Palliative Care Routine Ordered Studies 03/31/23 13:46 CT for pulmonary embolism PE [CT angio chest PE protocol] Stat 03/31/23 14:52 CT Abd and Pelvis [CT abd pelvis IV con only] Stat Hospital Course (1) Sepsis: Present on admission. No further treatment. Comfort care measures only (2) COVID: Present on admission. No further treatment. Comfort care measures only (3) Multifocal pneumonia: Present on admission. No further treatment. Comfort care measures only (4) Catheter-associated urinary tract infection: Present on admission. No further treatment. Comfort care measures only (5) Acute encephalopathy: Present on admission. No further treatment. Comfort care measures only (6) Urine retention: Valerio catheter in place since last admission (7) Hyperkalemia: Present on admission. No further treatment or lab assessment. Comfort care measures only (8) Temporal giant cell arteritis: Chronic. No further treatment. Comfort care measures only (9) Hyponatremia: Present on admission. No further lab testing. Comfort care measures only Plan Comfort care measures in place. Patient is expected to while hospitalized this admission. Quite possibly today, April 05 Total Time Total Time Spent Total Time Spent (In Minutes): 30 minutes Discharge Plan Discharge Items Patient Disposition: Other Date/Time: 04/05/23 19:48 Coding Level of Care Code 31571 IN/OBS DISCH 30 MIN/LESS Diagnoses Sepsis A41.9 COVID U07.1 Multifocal pneumonia J18.9 Catheter-associated urinary tract infection T83.511A; N39.0 Acute encephalopathy G93.40 Urine retention R33.9 Hyperkalemia E87.5 Temporal giant cell arteritis M31.6 Hyponatremia E87.1
== END 2023-04-05 20:45 | disposition expired | DRG 871 ==
LOC: ED 10:39 → SUATTDRO 16:00 → EDINP 16:00 → 3E 04-01 07:46